=== PATIENT | female | born 1935 | race Caucasian/White ===

== ENCOUNTER 2016-10-03 15:54 | Emergency (ER) | payer MEDICARE, MEDICAID ==
[2016-10-03 16:16] VITALS: BP 102/67
--- NOTE | 2016-10-03 16:49 | UC ---
Dizzy HPI HPI Summary: The patient comes in today for: 1. Dizziness (vertigo): Onset: 2-3 days. Palliative/provocative: Head movement sometimes makes her vertigo worse. Quality: Vertigo Region: QUARTZ MINER BLASTING Severity: 7/10 Time: Comes and goes. Associated symptoms: Neurologic: She denies any focal neurologic deficit. 2. Head injury: Onset: 2-3 days ago. Palliative/provocative: No headache--nothing makes her symptoms better or worse. Quality: No headaches--just vertigo Region: QUARTZ MINER BLASTING Severity: 0/10 Time: No pain Associated symptoms: Event: She states that she slid off the bed which was about 2 feet off the floor. She states that her head was the last thing to hit the carpeted floor. But, still she states that the floor still is "very hard." Previous disease: She has an adenoma diagnosed in 2011. She had a recent MRI about 2 weeks ago, and there was no change. Her previous MRI was 2 years ago. She also has cataracts and macular degeneration. She denies any new symptoms since hitting her head. She states that she does have nausea. She has a history of chronic diarrhea. She also states that she is slow in forming concepts. The daughter states that the patient was brought in due to the new vertigo. * * - History Of Current Complaint Chief Complaint: UCDizziness Stated Complaint: DIZZINESS Time Seen by Provider: 10/03/16 16:29 Hx Obtained From: Patient, Family/Hospice Clinical Supervisor - Allergies/Home Medications Allergies/Adverse Reactions: Allergies Allergy/AdvReac Type Severity Reaction Status Date / Time Erythromycin Allergy Difficulty Verified 05/05/16 17:40 Breathing/Wheezing Latex Allergy Difficulty Verified 05/05/16 17:40 Breathing/Wheezing Lovastatin Allergy Difficulty Verified 05/05/16 17:40 Breathing/Wheezing Home Medications: Home Medications Acetaminophen [Acetaminophen Extra Stren] 1 tab PO Q4HR PRN 10/03/16 [History Confirmed 10/03/16] Artificial Tear Solution [Natural Balance Tears] 1 drop BOTH EYES BID 10/03/16 [ History Confirmed 10/03/16] Artificial Tears 1.4% PRN 10/03/16 [History] Calcium Carbonate CHEW TAB* [Tums*] 1 tab PO PRN 10/03/16 [History] Cyanocobalamin 100 mcg PO DAILY 10/03/16 [History Confirmed 10/03/16] Fresh Optive Advanced 0.5-1-0.5% 10/03/16 [History] Guiatuss 10 ml PO Q4HR PRN 10/03/16 [History Confirmed 10/03/16] Hydrocortisone Acetate (Topica [Hydrocortisone Acetate] 1 applic TOPICAL PRN [History] Hydrocortisone SUPP* [Anusol Hc Supp*] 25 mg GA BEDTIME PRN 10/03/16 [History Confirmed 10/03/16] Immodium A-D 2 mg PO TID PRN 10/03/16 [History Confirmed 10/03/16] LORazepam TAB(*) [Ativan TAB(*)] 0.5 tab PO BID 10/03/16 [History Confirmed ] Lactobacillus Acidophilu (GG)* [Culturelle*] 2 tab PO BID 10/03/16 [History Confirmed 10/03/16] Lidocaine [Aspercreme W/Lidocaine] PRN 10/03/16 [History] Liniments & Rubs [Deep Blue Relief] 10/03/16 [History] Maalox Advanced 200-200-20 5 ml PO Q4HR PRN 10/03/16 [History Confirmed 10/03/16 ] Magnesium 27 mg PO DAILY 10/03/16 [History Confirmed 10/03/16] Melatonin 1 tab PO BEDTIME PRN 10/03/16 [History Confirmed 10/03/16] Coffee Nasal Mist 2 spray BOTH NARES PRN 10/03/16 [History] Oxycodone TAB(NF) [Oxycodone HCl 10 MG] 1 tab PO Q12HR PRN 10/03/16 [History Confirmed 10/03/16] Pro Air 2 puff INH Q4HR 10/03/16 [History Confirmed 10/03/16] diPHENhydraMINE PO* [Benadryl PO*] 1 tab PO Q6HR 10/03/16 [History Confirmed ] PMH/Surg Hx/FS Hx/Imm Hx Previously Healthy: No - Dementia, joint pain, hypertrophic cardiomyopathy, arteriosclerosis, divert Endocrine History Of: Reports: Thyroid Disease, Hypothyroidism, Dyslipidemia Denies: Diabetes - c Cardiovascular History Of: Reports: Cardiac Disorders - CAD and history of stents., Hypertension, Atrial Fibrillation Denies: Pacemaker/ICD, Myocardial Infarction, Congestive Heart Failure, Deep Vein Thrombosis, Bleeding Disorders Respiratory History Of: Reports: Asthma Denies: COPD, Bronchitis, Pneumonia, Pulmonary Embolism GI/ History Of: Reports: Gastroesophageal Reflux, Ulcer Denies: Gastrointestinal Bleed, Gall Bladder Disease, Kidney Stones, Diverticulitis, Renal Disease, Urosepsis Neurological History Of: Denies: TIA, CVA, Dementia, Seizures, Migraine Psychological History Of: Reports: Anxiety, Depression Denies: Bipolar Disorder, Schizophrenia, Post Traumatic Stress Disorder Cancer History Of: Denies: Lung Cancer, Colorectal Cancer, Breast Cancer, Prostate Cancer, Cervical Cancer Other History Of: Anticoagulant Therapy - Xarelto for a-fib. Negative For: HIV, Hepatitis B, Hepatitis C - Surgical History Surgical History: Yes Surgery Procedure, Year, and Place: spinal fusion 1953, [id number], hernia 1987 2001,left knee arthroscopy 2003,left shoulder rct 2004, [id number], thumb 2008 & 2011 - Family History Known Family History: Positive: Cardiac Disease, Hypertension, Diabetes - Social History Occupation: Unemployed, Retired Alcohol Use: None Substance Use Type: None Smoking Status (MU): Former Smoker When Did the Patient Quit Smoking/Using Tobacco: 45 years ago - Immunization History Most Recent Influenza Vaccination: 2016/2017 Most Recent Pneumonia Vaccination: have received Review of Systems Constitutional: Negative Skin: Negative Eyes: Other - She has decreased peripheral vision (but history of adenoma which may cause this). ENT: Negative Respiratory: Negative Cardiovascular: Negative Gastrointestinal: Diarrhea Genitourinary: Negative - Diarrhea: 3-5 stools/day. Musculoskeletal: Arthralgia All Other Systems Reviewed And Are Negative: Yes Physical Exam Triage Information Reviewed: Yes Completion Of Physical Exam Limited Due To: Altered Mental Status, Dementia Appearance: Well-Appearing, No Pain Distress, Well-Nourished Vital Signs: Initial Vital Signs Temp 98 F 10/03/16 16:01 Pulse 86 10/03/16 16:01 Resp 18 10/03/16 16:01 BP 102/67 10/03/16 16:01 Pulse Ox 96 10/03/16 16:01 Vital Signs Reviewed: Yes Eyes: Positive: Conjunctiva Clear. Negative: Discharge ENT: Negative: Hearing grossly normal - I had to raise my voice to help her hear me., Pharyngeal erythema, Nasal congestion, Nasal drainage, TM bulging, TM dull, TM red, Tonsillar swelling, Tonsillar exudate Dental: Negative: Gross Decay/Caries @, Dental Fracture @ Neck: Positive: Supple, Nontender, No Lymphadenopathy. Negative: Nuchal Rigidity - No nuchal rigidity more than expected for 81 years old. Respiratory: Positive: Chest non-tender, Lungs clear, No respiratory distress, No accessory muscle use. Negative: Crackles, Wheezing Cardiovascular: Positive: RRR, No Murmur Abdomen Description: Positive: Nontender, No Organomegaly, Soft. Negative: Distended, Guarding Musculoskeletal: Positive: Strength Intact, ROM Intact Neurological: Positive: Alert, Muscle Tone Normal, Other: - Neurologic exam: Inspection: no fasciculations. Cranial nerves (II-XII): intact Muscular tone: Reflexes: Biceps: 2+/2 x 2 Triceps: 2+/2 x 2 Brachioradialis: 2+/2 x 2 Patellar: 2+/2 x 2 Coordination: Upper extremity: Alternating patting of thighs, alternating fingertips to thumb, index finger tip to nose--all normal. Lower extremity: Heel along cedillo--normal. Strength: Upper extremity: appropriate for age and symmetrical Lower extremity: appropriate for age and symmetrical Gait: Regular: Normal. Heel to toe: Normal. No complaint of numbness. Psychological: Positive: Normal Response To Family, Age Appropriate Behavior, Consolable Skin: Negative: rashes, breakdown Dizzy Course/Dx - Course Course Of Treatment: The patient was brought in by the daughter because of her "hitting her head" when she "slid" off the bed several days ago and in light of her recent vertigo and for her complaint of worsening peripheral vision in light of her history of a pituitary adenoma. It was said before that the adenoma may lead to worsening peripheral vision, but the MRI done a week or so ago showed no change. My recommendation was for the patient to go to the ER for further evaluation, but the patient refused. She only agreed to come in because she wanted her diarrhea evaluated, but this has previously been evaluated by digestive diseases and she has refused any further work up by them. The patient stated that she did not want any evaluation or treatment for her peripheral vision or vertigo. The only thing the patient agreed to was meclizine for her vertigo. - Differential Dx/Diagnosis Differential Diagnosis/HQI/PQRI: Anxiety, CVA Provider Diagnoses: Vertigo. Head injury. Worsening peripheral vision. Pituitary adenoma. Discharge - Discharge Plan Condition: Stable Disposition: AGAINST MEDICAL ADVICE Patient Education Materials: Vertigo (ED), Head Injury (ED), Blurred Vision (ED ) Referrals: Billy Joseph MD [Primary Care Provider] - As Soon As Possible (If you are not going to the ER, please see your primary care provider as soon as you can for follow up of your new symptoms. If you get worse, please reconsider going to the ER.)
== END 2016-10-03 17:50 | disposition left against medical advice (07) ==
LOC: UCEAST 15:54
DX: R42 Dizziness and giddiness (principal); S09.90XA Unspecified injury of head, initial encounter; W06.XXXA Fall from bed, initial encounter; Y93.9 Activity, unspecified; Y92.003 Bedroom of unspecified non-institutional (private) residence as the place of occurrence of the external cause; H53.8 Other visual disturbances; D35.2 Benign neoplasm of pituitary gland; R19.7 Diarrhea, unspecified; I25.10 Atherosclerotic heart disease of native coronary artery without angina pectoris; I48.91 Unspecified atrial fibrillation; Z79.01 Long term (current) use of anticoagulants; I10 Essential (primary) hypertension; K21.9 Gastro-esophageal reflux disease without esophagitis; Z90.49 Acquired absence of other specified parts of digestive tract; Z88.1 Allergy status to other antibiotic agents; Z87.891 Personal history of nicotine dependence
CPT/HCPCS: 93005; 99212; G0463

== ENCOUNTER 2017-02-06 20:36 | Emergency (ER) | payer MEDICARE, MEDICAID ==
[2017-02-06] MEDS ORDERED: Hydrocortisone SUPP* 25 MG SUPP (2.5%) PR ONE (23:21)
--- NOTE | 2017-02-06 23:41 | ED ---
Lesvia Strickland SooYoung, scribed for Demetrius Ace MD on 02/06/17 at 2312 . GI/ HPI - HPI Summary HPI Summary: An 81 y/o F presents to ED with rectal pain onset approx 2 months ago. Associated sx: gassy. Pt is positive it's a hemorrhoid, and wants them removed. Aggravating factors: sitting. Pt has had prev episodes of hemorrhoids and was given hydrocortisone rectal cream and Anusol HC Supp. She is scheduled to see Dr. Joseph, PCP, next week. - History of Current Complaint Chief Complaint: EDRectalPain Time Seen by Provider: 02/06/17 23:09 Stated Complaint: RECTAL BLEED Hx Obtained From: Patient Onset/Duration: Started Weeks Ago, Still Present Timing: Constant Pain Intensity: 0 - out of 10 Associated Signs and Symptoms: Positive: External Hemorrhoid, Other: - pos: gassy Aggravating Factor(s): Sitting - Allergy/Home Medications Allergies/Adverse Reactions: Allergies Allergy/AdvReac Type Severity Reaction Status Date / Time Erythromycin Allergy Difficulty Verified 05/05/16 17:40 Breathing/Wheezing Latex Allergy Difficulty Verified 05/05/16 17:40 Breathing/Wheezing Lovastatin Allergy Difficulty Verified 05/05/16 17:40 Breathing/Wheezing PMH/Surg Hx/FS Hx/Imm Hx Previously Healthy: No Endocrine/Hematology History: Reports: Hx Anticoagulant Therapy - Xarelto for a- fib., Hx Thyroid Disease Denies: Hx Diabetes - c Cardiovascular History: Reports: Hx Hypertension Denies: Hx Congestive Heart Failure, Hx Deep Vein Thrombosis, Hx Myocardial Infarction, Hx Pacemaker/ICD Respiratory History: Reports: Hx Asthma Denies: Hx Chronic Obstructive Pulmonary Disease (COPD), Hx Lung Cancer, Hx Pneumonia, Hx Pulmonary Embolism GI History: Reports: Hx Ulcer Denies: Hx Gall Bladder Disease, Hx Gastrointestinal Bleed, Hx Urosepsis History: Denies: Hx Kidney Stones, Hx Renal Disease Sensory History: Denies: Hx Hearing Aid Neurological History: Denies: Hx Dementia, Hx Migraine, Hx Seizures, Hx Transient Ischemic Attacks (TIA) Psychiatric History: Reports: Hx Anxiety, Hx Depression Denies: Hx Panic Disorder, Hx Schizophrenia, Hx Bipolar Disorder - Surgical History Surgery Procedure, Year, and Place: spinal fusion 1953, [id number], hernia 1987 2001,left knee arthroscopy 2003,left shoulder rct 2004, [id number], thumb 2008 & 2012 Infectious Disease History: No Infectious Disease History: Denies: Hx Clostridium Difficile, Hx Hepatitis, Hx Human Immunodeficiency Virus (HIV), Hx of Known/Suspected MRSA, Hx Shingles, Hx Tuberculosis, Hx Known/ Suspected VRE, Hx Known/Suspected VRSA, History Other Infectious Disease, Traveled Outside the [place] in Last 30 Days - Family History Known Family History: Positive: Cardiac Disease, Hypertension, Diabetes - Social History Occupation: Retired Lives: At [facility] Alcohol Use: None Hx Substance Use: No Substance Use Type: Reports: None Hx Tobacco Use: Yes Smoking Status (MU): Former Smoker Review of Systems Negative: Fever Positive: pain - rectal, other - pos: hemorrhoids All Other Systems Reviewed And Are Negative: Yes Physical Exam Triage Information Reviewed: Yes Vital Signs On Initial Exam: Initial Vitals Temp Pulse Resp BP Pulse Ox 96.8 F 76 16 102/83 97 02/06/17 20:42 02/06/17 20:42 02/06/17 20:42 02/06/17 20:42 02/06/17 20:42 Vital Signs Reviewed: Yes Appearance: Positive: Well-Appearing, No Pain Distress Skin: Positive: Warm, Skin Color Reflects Adequate Perfusion, Dry, Mottled @ Eyes: Positive: EOMI, YANET ENT: Positive: Normal ENT inspection Neck: Positive: Supple, Nontender Respiratory/Lung Sounds: Positive: Clear to Auscultation, Breath Sounds Present Cardiovascular: Positive: RRR Abdomen Description: Positive: Nontender, Soft Bowel Sounds: Positive: Present Pelvic Exam: Positive: other - EXTERNAL HEMORRHOIDS, DO NOT APPEAR THROMBOSED Musculoskeletal: Positive: Normal, Strength/ROM Intact Neurological: Positive: Normal, Sensory/Motor Intact, Alert, Oriented to Person Place, Time Psychiatric: Positive: Affect/Mood Appropriate - Kristyn Coma Scale Coma Scale Total: 15 Diagnostics - Vital Signs Vital Signs Temp Pulse Resp BP Pulse Ox 02/06/17 22:16 16 95 02/06/17 22:04 104 94 02/06/17 22:00 115/94 02/06/17 21:48 116 88 02/06/17 21:30 94 104/61 87 02/06/17 21:05 99 92 02/06/17 21:01 116/81 02/06/17 20:48 96.8 F 76 16 102/83 97 02/06/17 20:42 96.8 F 76 16 97 - Laboratory Lab Statement: Any lab studies that have been ordered have been reviewed, and results considered in the medical decision making process. GIGU Course/Dx - Course Course Of Treatment: NO CRITICAL CARE TIME. DISCHARGE HOME STABLE. - Diagnoses Provider Diagnoses: Hemorrhoids Discharge - Discharge Plan Condition: Stable Disposition: HOME Prescriptions: Hydrocortisone (Rectal) [Procto-Med Hc] 2.5 % [place] BEDTIME PRN #1 tube PRN Reason: Pain Hydrocortisone SUPP* [Anusol Hc Supp*] 25 mg [place] BEDTIME PRN #30 supp PRN Reason: Hemorrhoids/Itching Patient Education Materials: Hemorrhoids (ED) Referrals: Billy Joseph MD [Primary Care Provider] - Raffi House MD [Medical Doctor] - Additional Instructions: FOLLOW UP WITH YOUR PRIMARY CARE DOCTOR AND SURGERY. RETURN TO THE EMERGENCY DEPARTMENT FOR ANY WORSENING OF YOUR CONDITION OR QUESTIONS OR CONCERNS. The documentation as recorded by the Lesvia dean SooYoung accurately reflects the service I personally performed and the decisions made by me, Demetrius Ace MD.
[2017-02-07 00:08] VITALS: BP 109/70
== END 2017-02-07 00:18 | disposition home or self-care (01) ==
LOC: ED 20:36
DX: K64.4 Residual hemorrhoidal skin tags (principal); Z88.1 Allergy status to other antibiotic agents; Z91.040 Latex allergy status; I48.91 Unspecified atrial fibrillation; Z79.01 Long term (current) use of anticoagulants; E07.9 Disorder of thyroid, unspecified; I10 Essential (primary) hypertension; J45.909 Unspecified asthma, uncomplicated; F41.9 Anxiety disorder, unspecified; F32.9 Major depressive disorder, single episode, unspecified; Z90.49 Acquired absence of other specified parts of digestive tract; Z87.891 Personal history of nicotine dependence
CPT/HCPCS: 99282; A9270-GY

== ENCOUNTER 2017-02-08 09:09 | Emergency (ER) | payer MEDICARE, MEDICAID ==
--- NOTE | 2017-02-08 10:24 | ED ---
Nam Strickland Thomas, scribed for Demetrius Ace MD on 02/08/17 at 0943 . GI/ HPI - HPI Summary HPI Summary: The pt is an 81 y/o F with a Hx of chronic hemorrhoids presenting to the ED c/o severe rectal pain. She has been using her cream, but this has not alleviated her pain. Her pain is only in the anus and does not radiate elsewhere. She additionally c/o diaphoresis and constipation until this AM, when she had diarrhea that caused onset of pain. The pt denies a PMHx of A-Fib. She has not had a chance to talk to a surgeon. She states that Medicaid has charged her $ 400 for suppositories, making her unable to fill the prescription. - History of Current Complaint Chief Complaint: EDRectalPain Time Seen by Provider: 02/08/17 09:21 Stated Complaint: PAIN Hx Obtained From: Patient Onset/Duration: Started Hours Ago - this AM, after onset of diarrhea, Still Present Timing: Constant Current Severity: Severe Pain Intensity: 10 Location of Pain: Anal - only Associated Signs and Symptoms: Positive: Constipation - until this AM, when diarrhea occurred, Diarrhea, Diaphoresis Aggravating Factor(s): Nothing Alleviating Factor(s): Nothing, Hemorroidal Medication - NEG: cream medication - Allergy/Home Medications Allergies/Adverse Reactions: Allergies Allergy/AdvReac Type Severity Reaction Status Date / Time Erythromycin Allergy Difficulty Verified 02/08/17 09:19 Breathing/Wheezing Latex Allergy Difficulty Verified 02/08/17 09:19 Breathing/Wheezing Lovastatin Allergy Difficulty Verified 02/08/17 09:19 Breathing/Wheezing PMH/Surg Hx/FS Hx/Imm Hx Previously Healthy: No Endocrine/Hematology History: Reports: Hx Anticoagulant Therapy - Xarelto for a- fib., Hx Thyroid Disease Denies: Hx Diabetes - c Cardiovascular History: Reports: Hx Hypertension Denies: Hx Congestive Heart Failure, Hx Deep Vein Thrombosis, Hx Myocardial Infarction, Hx Pacemaker/ICD Respiratory History: Reports: Hx Asthma Denies: Hx Chronic Obstructive Pulmonary Disease (COPD), Hx Lung Cancer, Hx Pneumonia, Hx Pulmonary Embolism GI History: Reports: Hx Ulcer Denies: Hx Gall Bladder Disease, Hx Gastrointestinal Bleed, Hx Urosepsis History: Denies: Hx Kidney Stones, Hx Renal Disease Sensory History: Denies: Hx Hearing Aid Neurological History: Denies: Hx Dementia, Hx Migraine, Hx Seizures, Hx Transient Ischemic Attacks (TIA) Psychiatric History: Reports: Hx Anxiety, Hx Depression Denies: Hx Panic Disorder, Hx Schizophrenia, Hx Bipolar Disorder - Surgical History Surgery Procedure, Year, and Place: spinal fusion 195, [id number], hernia 1988 2001,left knee arthroscopy 2003,left shoulder rct 2004, [id number], thumb 2008 & 2011 Infectious Disease History: No Infectious Disease History: Denies: Hx Clostridium Difficile, Hx Hepatitis, Hx Human Immunodeficiency Virus (HIV), Hx of Known/Suspected MRSA, Hx Shingles, Hx Tuberculosis, Hx Known/ Suspected VRE, Hx Known/Suspected VRSA, History Other Infectious Disease, Traveled Outside the [place] in Last 30 Days - Family History Known Family History: Positive: Cardiac Disease, Hypertension, Diabetes - Social History Alcohol Use: None Hx Substance Use: No Substance Use Type: Reports: None Hx Tobacco Use: Yes Smoking Status (MU): Former Smoker Review of Systems Constitutional: Negative Negative: Fever Eyes: Negative ENT: Negative Cardiovascular: Negative Respiratory: Negative Positive: Diarrhea - onset this AM, Other - POS: rectal pain, constipation ( until this AM, when diarrhea occurred) Genitourinary: Negative Musculoskeletal: Negative Skin: Negative Neurological: Negative Psychological: Normal All Other Systems Reviewed And Are Negative: Yes Physical Exam - Summary Physical Exam Summary: Gen: well-appearing, no pain distress Skin: warm, color, dry Head: normal Eyes: EOMI, YANET ENT: normal Neck: supple, nontender Resp: CTA, breath sounds present Cardio: RRR Abd: soft, nontender Bowel: R side of anus has 3 hemorrhoids that are soft to touch and do not appear thrombosed. Stool is brown. Musc: normal, strength/ROM intact Neuro: normal, sensory/motor intact, A&O x3 Psych: affect/mood appropriate Triage Information Reviewed: Yes Vital Signs On Initial Exam: Initial Vitals Temp Pulse Resp BP Pulse Ox 98.3 F 96 16 95/58 94 02/08/17 09:14 02/08/17 09:14 02/08/17 09:14 02/08/17 09:14 02/08/17 09:14 Vital Signs Reviewed: Yes - Kristyn Coma Scale Coma Scale Total: 15 Diagnostics - Vital Signs Vital Signs Temp Pulse Resp BP Pulse Ox 02/08/17 09:16 98.3 F 100 10 95/58 96 02/08/17 09:15 95/58 02/08/17 09:14 98.3 F 96 16 95/58 94 - Laboratory Lab Statement: Any lab studies that have been ordered have been reviewed, and results considered in the medical decision making process. GIGU Course/Dx - Course Course Of Treatment: NO CRITICAL CARE TIME. DISCUSSED WITH SURGERY, DR GUERIN. APPOINTMENT AT SURGERY MADE FOR 2PM TODAY. DISCHARGE HOME STABLE. - Diagnoses Provider Diagnoses: External hemorrhoids - Physician Notifications Discussed Care Of Patient With: Madison Guerin Time Discussed With Above Provider: 09:22 Instructed by Provider To: Other - Dr. Guerin recommended outpatient Tx. Called Dr. Guerin's outpatient office at 10:11 to secure an outpatient appointment for the pt at 2pm today. Discharge - Discharge Plan Condition: Stable Disposition: HOME Patient Education Materials: Hemorrhoids (ED) Referrals: Billy Joseph MD [Primary Care Provider] - Additional Instructions: FOLLOW UP WITH DR GUERIN, SURGERY, TODAY AT 2PM. RETURN TO THE EMERGENCY DEPARTMENT FOR ANY WORSENING OF YOUR CONDITION OR QUESTIONS OR CONCERNS. The documentation as recorded by the Nam dean Thomas accurately reflects the service I personally performed and the decisions made by me, Demetrius Ace MD.
[2017-02-08 10:40] VITALS: BP 104/70
== END 2017-02-08 10:51 | disposition home or self-care (01) ==
LOC: ED 09:09
DX: K64.4 Residual hemorrhoidal skin tags (principal); K59.00 Constipation, unspecified; Z87.891 Personal history of nicotine dependence
CPT/HCPCS: 99282

== ENCOUNTER 2017-02-16 11:31 | Inpatient (IN) | payer MEDICARE, MEDICAID ==
[2017-02-16 12:49] LABS: Hematocrit 35 % (35-47); Hemoglobin 11.5 g/dl (12.0-16.0); Mean Corpuscular HGB Conc 33 g/dl (31-36); Mean Corpuscular Hemoglobin 30 pg (27-31); Mean Corpuscular Volume 93 fL (80-97); Mean Platelet Volume 8 um3 (7.4-10.4); Red Blood Count 3.81 10^6/ul (4.0-5.4); Red Cell Distribution Width 16 % (10.5-15); White Blood Count 6.1 10^3/ul (3.5-10.8)
[2017-02-16 13:03] LABS: ALT 8 U/L (7-52); AST 14 U/L (13-39); Albumin 3.3 g/dL (3.2-5.2); Alkaline Phosphatase 49 U/L (34-104); Anion Gap 3 mmol/L (2-11); BUN/Creatinine Ratio 14.1 (8-20); Blood Urea Nitrogen 14 mg/dL (6-24); C Reactive Protein 15.86 mg/L (< 5.00); CO2 Carbon Dioxide 32 mmol/L (22-32); Calcium 8.5 mg/dL (8.6-10.3); Chloride 99 mmol/L (101-111); EGFR African American 69.2 (>60); EGFR Non-African American 53.8 (>60); Globulin 2.6 g/dL (2-4); Glucose 87 mg/dL (70-100); Potassium 3.2 mmol/L (3.5-5.0); Sodium 134 mmol/L (133-145); Total Protein 5.9 g/dL (6.4-8.9)
[2017-02-16] MEDS ORDERED: Potassium Chlor TAB* 20 MEQ TAB.ER PO ONE (13:14)
[2017-02-16 14:13] LABS: Lipase < 10 U/L (11.0-82.0)
[2017-02-16] MEDS ORDERED: Saline NASAL SPRAY 0.65%* BTL BOTH NARES PRN (14:31)
[2017-02-16] MEDS ORDERED: LORazepam TAB(*) 0.5 MG PO PRN (14:31)
[2017-02-16] MEDS ORDERED: Albuterol HFA INHALER* 8 gm MDI INH PRN (14:31)
[2017-02-16] MEDS ORDERED: NON FORMULARY MED* (Melatonin [Melatonin] 5 MG) PO PRN (14:31)
[2017-02-16] MEDS ORDERED: Calcium Carbonate CHEW TAB* 500 MG (TUMS) PO PRN (14:31)
[2017-02-16] MEDS ORDERED: diPHENhydraMINE PO* 25 MG PO PRN (14:31)
[2017-02-16] MEDS: NS 0.9% w/ 20 Meq KCL 1000 ML* 1,000 ML IV SCH (16:36)
[2017-02-16] MEDS: Pantoprazole IV* 40 MG IV SCH (18:21)
--- NOTE | 2017-02-16 18:54 | ED ---
Marbin Strickland Auryana, scribed for Honorio Bateman MD on 02/16/17 at 1213 . GI/ HPI - HPI Summary HPI Summary: 82 year old female with presents to the ED with worsening rectal pain. Per the daughter, the patient has a prolapsed rectum with daily excruciating pain with blood and mucous in the stool. The pain is constant and a 10/10.Patient had been experiencing severe and uncontrollable diarrhea s/p taking Metamucil. Last BM - this morning. [employer] pain medication. She was seen in the ED last week where she was diagnosed with external hemorrhoids and instructed to follow up with surgery. The surgeon diagnosed rectal prolapse and recommended surgery. She was unable to schedule surgery without a prior colonoscopy, and the earliest availability for a colonoscopy was not until March. Pain and bleeding have been progressively worsening-GI and surgery recommended coming to the ED today to be admitted. - History of Current Complaint Chief Complaint: EDRectalPain Time Seen by Provider: 02/16/17 11:48 Stated Complaint: RECTAL BLEEDING/PAIN Hx Obtained From: Patient, Family/Table Attendant - daughter Onset/Duration: Started Weeks Ago, Still Present, Worse Since - progessively worsening Timing: Constant Severity: Severe Current Severity: Severe Location of Pain: Rectal Associated Signs and Symptoms: Positive: Rectal Pain, Blood w/Stool, Diarrhea - Allergy/Home Medications Allergies/Adverse Reactions: Allergies Allergy/AdvReac Type Severity Reaction Status Date / Time Erythromycin Allergy Difficulty Verified 02/08/17 09:19 Breathing/Wheezing Latex Allergy Difficulty Verified 02/08/17 09:19 Breathing/Wheezing Lovastatin Allergy Difficulty Verified 02/08/17 09:19 Breathing/Wheezing Home Medications: Home Medications Acetaminophen [Acetaminophen Extra Stren] 500 mg PO Q4HR PRN 02/16/17 [History Confirmed 02/16/17] Albuterol Sulfate [Proair Respiclick] 2 puff INH Q4HR PRN 02/16/17 [History Confirmed 02/16/17] Calcium Carbonate CHEW TAB* [Tums*] 500 mg PO BID PRN 02/16/17 [History Confirmed 02/16/17] Cholecalciferol [Vitamin D] 2,000 unit PO DAILY 02/16/17 [History Confirmed 06/25] Cyanocobalamin [Vitamin B-12] 100 mcg PO DAILY 02/16/17 [History Confirmed 02/16] Escitalopram (NF) [Lexapro 20 mg (NF)] 20 mg PO DAILY 02/16/17 [History Confirmed 02/16/17] Hydrocortisone SUPP* [Anusol HC Supp*] 25 mg TN BEDTIME PRN 02/16/17 [History Confirmed 02/16/17] Levothyroxine TAB* [Synthroid TAB*] 50 mcg PO DAILY 02/16/17 [History Confirmed 02/16/17] Loperamide CAP* [Imodium CAP*] 2 mg PO DAILY PRN 02/16/17 [History Confirmed 06/25] Magnesium Gluconate [Magonate] 500 mg PO DAILY 02/16/17 [History Confirmed 02/16] Melatonin 5 mg PO BEDTIME PRN 02/16/17 [History Confirmed 02/16/17] Multiple Vitamins W/ Minerals [Ocuvite Eye Health Formul] 1 cap PO BID 02/16/17 [History Confirmed 02/16/17] Pantoprazole TAB (NF) [Protonix TAB (NF)] 40 mg PO DAILY 02/16/17 [History Confirmed 02/16/17] Ranitidine TAB (NF) [Zantac TAB (NF)] 300 mg PO BEDTIME 02/16/17 [History Confirmed 02/16/17] Rivaroxaban TAB(*) [Xarelto 15 mg(*)] 15 mg PO DAILY 02/16/17 [History Confirmed 02/16/17] Saline [Nasal Moisturizing [place]] 2 spray BOTH NARES DAILY PRN 02/16/17 [ History Confirmed 02/16/17] Simvastatin (NF) [Zocor (NF)] 40 mg PO DAILY 02/16/17 [History Confirmed ] oxyCODONE TAB* [Roxycodone TAB 5 mg*] 10 mg PO Q12HR PRN MDD 20 mg 02/16/17 [ History Confirmed 02/16/17] PMH/Surg Hx/FS Hx/Imm Hx Endocrine/Hematology History: Reports: Hx Anticoagulant Therapy - Xarelto for a- fib., Hx Thyroid Disease Denies: Hx Diabetes - c Cardiovascular History: Reports: Hx Hypertension Denies: Hx Congestive Heart Failure, Hx Deep Vein Thrombosis, Hx Myocardial Infarction, Hx Pacemaker/ICD Respiratory History: Reports: Hx Asthma Denies: Hx Chronic Obstructive Pulmonary Disease (COPD), Hx Lung Cancer, Hx Pneumonia, Hx Pulmonary Embolism GI History: Reports: Hx Ulcer Denies: Hx Gall Bladder Disease, Hx Gastrointestinal Bleed, Hx Urosepsis History: Denies: Hx Kidney Stones, Hx Renal Disease Sensory History: Denies: Hx Hearing Aid Neurological History: Denies: Hx Dementia, Hx Migraine, Hx Seizures, Hx Transient Ischemic Attacks (TIA) Psychiatric History: Reports: Hx Anxiety, Hx Depression Denies: Hx Panic Disorder, Hx Schizophrenia, Hx Bipolar Disorder - Surgical History Surgery Procedure, Year, and Place: spinal fusion 1953, [id number], hernia 1988 2001,left knee arthroscopy 2003,left shoulder rct 2004, [id number], thumb 2008 & 2011 Infectious Disease History: Denies: Hx Clostridium Difficile, Hx Hepatitis, Hx Human Immunodeficiency Virus (HIV), Hx of Known/Suspected MRSA, Hx Shingles, Hx Tuberculosis, Hx Known/ Suspected VRE, Hx Known/Suspected VRSA, History Other Infectious Disease - Family History Known Family History: Positive: Cardiac Disease, Hypertension, Diabetes - Social History Alcohol Use: None Hx Substance Use: No Substance Use Type: Reports: None Hx Tobacco Use: Yes Smoking Status (MU): Former Smoker Review of Systems Constitutional: Negative Negative: Fever Eyes: Negative ENT: Negative Cardiovascular: Negative Respiratory: Negative Positive: Diarrhea, Other - rectal pain, blood in the stool Genitourinary: Negative Musculoskeletal: Negative Skin: Negative Neurological: Negative Psychological: Normal All Other Systems Reviewed And Are Negative: Yes Physical Exam - Summary Physical Exam Summary: VITAL SIGNS: Reviewed. GENERAL: Patient is a well-developed and nourished Female who is lying comfortable in the stretcher. Patient is not in any acute respiratory distress. HEAD AND FACE: No signs of trauma. No ecchymosis, hematomas or skull depressions. No sinus tenderness. EYES: PERRLA, EOMI x 2, No injected conjunctiva, no nystagmus. EARS: Hearing grossly intact. Ear canals and tympanic membranes are within normal limits. MOUTH: Oropharynx within normal limits. NECK: Supple, trachea is midline, no adenopathy, no JVD, no carotid bruit, no c- spine tenderness, neck with full ROM. CHEST: Symmetric, no tenderness at palpation LUNGS: Clear to auscultation bilaterally. No wheezing or crackles. CVS: Regular rate and rhythm, S1 and S2 present, no murmurs or gallops appreciated. ABDOMEN: Soft, non-tender. No signs of distention. No rebound no guarding, and no masses palpated. Bowel sounds are normal. EXTREMITIES: FROM in all major joints, no edema, no cyanosis or clubbing. NEURO: Alert and oriented x 3. No acute neurological deficits. Speech is normal and follows commands. SKIN: Dry and warm. RECTAL EXAM: No rectal prolapse. Decreased rectal tone. No external hemorrhoids visible. Positive remnants of BRBPR in her underware. No acute bleeding. Triage Information Reviewed: Yes Vital Signs On Initial Exam: Initial Vitals Temp Pulse Resp BP Pulse Ox 96.8 F 72 11 89/65 94 02/16/17 11:38 02/16/17 11:38 02/16/17 11:38 02/16/17 11:38 02/16/17 11:38 Vital Signs Reviewed: Yes Diagnostics - Vital Signs Vital Signs Temp Pulse Resp BP Pulse Ox 02/16/17 14:17 75 15 95/82 91 02/16/17 14:00 68 13 94 02/16/17 13:30 74 18 92/38 91 02/16/17 13:05 13 02/16/17 12:52 81 21 89 02/16/17 12:30 100/59 02/16/17 12:24 70 13 93/64 91 02/16/17 12:00 72 14 92 02/16/17 11:51 75 14 94 02/16/17 11:38 96.8 F 72 11 89/65 94 - Laboratory Lab Results: Lab Results 02/16/17 02/16/17 02/16/17 Range/Units 12:40 12:40 12:40 WBC 6.1 (3.5-10.8) 10^3/ul RBC 3.81 L (4.0-5.4) 10^6/ul Hgb 11.5 L (12.0-16.0) g/dl Hct 35 (35-47) % MCV 93 (80-97) fL MCH 30 (27-31) pg MCHC 33 (31-36) g/dl RDW 16 H (10.5-15) % Plt Count 230 (150-450) 10^3/ul MPV 8 (7.4-10.4) um3 Neut % (Auto) 54.1 (38-83) % Lymph % (Auto) 26.8 (25-47) % Millard % (Auto) 12.2 H (1-9) % Eos % (Auto) 6.0 (0-6) % Baso % (Auto) 0.9 (0-2) % Absolute Neuts (auto) 3.3 (1.5-7.7) 10^3/ul Absolute Lymphs (auto) 1.6 (1.0-4.8) 10^3/ul Absolute Monos (auto) 0.7 (0-0.8) 10^3/ul Absolute Eos (auto) 0.4 (0-0.6) 10^3/ul Absolute Basos (auto) 0.1 (0-0.2) 10^3/ul Absolute Nucleated RBC 0 10^3/ul Nucleated RBC % 0 Sodium 134 (133-145) mmol/L Potassium 3.2 L (3.5-5.0) mmol/L Chloride 99 L (101-111) mmol/L Carbon Dioxide 32 (22-32) mmol/L Anion Gap 3 (2-11) mmol/L BUN 14 (6-24) mg/dL Creatinine 0.99 H (0.51-0.95) mg/dL Est GFR ( Amer) 69.2 (>60) Est GFR (Non-Af Amer) 53.8 (>60) BUN/Creatinine Ratio 14.1 (8-20) Glucose 87 (70-100) mg/dL Lactic Acid 0.7 (0.5-2.0) mmol/L Calcium 8.5 L (8.6-10.3) mg/dL Total Bilirubin 1.00 (0.2-1.0) mg/dL AST 14 (13-39) U/L ALT 8 (7-52) U/L Alkaline Phosphatase 49 (34-104) U/L C-Reactive Protein 15.86 H (< 5.00) mg/L Total Protein 5.9 L (6.4-8.9) g/dL Albumin 3.3 (3.2-5.2) g/dL Globulin 2.6 (2-4) g/dL Albumin/Globulin Ratio 1.3 (1-3) Lipase < 10 L (11.0-82.0) U/L Result Diagrams: 02/16/17 12:40 02/16/17 12:40 Lab Statement: Any lab studies that have been ordered have been reviewed, and results considered in the medical decision making process. Re-Evaluation - Re-Evaluation First Eval Re-Evaluation Time: 13:33 - rectum prolapse - had to put rectum back in place GIGU Course/Dx - Course Assessment/Plan: 82 year old female with presents to the ED with worsening rectal pain. Per the daughter, the patient has a prolapsed rectum with daily excruciating pain with blood and mucous in the stool. The pain is constant and a 10/10.Patient had been experiencing severe and uncontrollable diarrhea s/p taking Metamucil. Last BM - this morning. [employer] pain medication. She was seen in the ED last week where she was diagnosed with external hemorrhoids and instructed to follow up with surgery. The surgeon diagnosed rectal prolapse and recommended surgery. She was unable to schedule surgery without a prior colonoscopy, and the earliest availability for a colonoscopy was not until March. Pain and bleeding have been progressively worsening-GI and surgery recommended coming to the ED today to be admitted. Test WNL except slight increase in Hg 1.5, potassium 3.2 , CRP 15.86. I discussed the case with Dr. Guerin from surgery and she recommends admission for pain management. I also discussed case with Dr. Land and he will consult the patient for a possible colonoscopy. Also Dr. Guerin will consult the patient for possible correction of rectal prolapse. While in ED, she developed episode of rectal prolapse after an attempt to move her bowels. I reduced rectal prolapse without any complications. I discussed the case with Dr. Patel who accepted the patient for admission. Patient is hemodynamically stable and A&O x3. - Diagnoses Differential Diagnoses - Female: Other - GI bleed, Rectal prolapse Provider Diagnoses: Rectal prolapse - Physician Notifications Discussed Care Of Patient With: Madison Guerin Time Discussed With Above Provider: 13:16 Discharge - Discharge Plan Condition: Stable Disposition: ADMITTED TO [facility] documentation as recorded by the Marbin dean Auryana accurately reflects the service I personally performed and the decisions made by , Honorio Bateman MD.
[2017-02-16] MEDS: oxyCODONE TAB* 5 MG TAB PO PRN (19:45)
--- NOTE | 2017-02-16 20:26 | HP ---
CC: Dr. Billy Joseph. * HISTORY AND PHYSICAL: DATE OF ADMISSION: 02/16/17 CHIEF COMPLAINT: Blood and mucus coming out of her rectum. HISTORY OF PRESENT ILLNESS: The patient is an 82-year-old woman who states for the last several months she has had a constant problem of blood and mucus coming out of her rectum. She said it happens all day long. She also has significant pain in her buttocks from rectal prolapse. The pain happens when she tries to push her rectum back in. She says that it is about 8/10 in severity. She denies any nausea or vomiting. She has an annoyance of the abdomen, but not of pain. She denies any fevers or chills. Sometimes, it gets so bad, she starts to shaking, gets cold. She said she was initially on oxycodone once a day for the pain, but now takes it twice a day because it is so uncomfortable. She finally was able to get a colonoscopy scheduled, but not until March, so she finally came in to the hospital for evaluation. PAST MEDICAL HISTORY: The patient is uncertain of her past medical history, but notes included atrial fibrillation, depression, hypothyroidism, GERD, cardiomyopathy, 2 stents in her heart, hypertension. We will get the rest from her PCP. MEDICATIONS: Her current medications are: 1. Hydrocortisone suppository 25 mg p.r.n. at bedtime as needed. 2. Loperamide 2 mg daily as needed. 3. Albuterol sulfate 2 puffs every 4 hours as needed. 4. Benadryl 50 mg every 6 hours as needed. 5. Oxycodone 10 mg every 12 hours as needed. 6. Acetaminophen 500 mg every 4 hours as needed. 7. Melatonin 5 mg at bedtime as needed. 8. Lorazepam 0.25 mg daily as needed. 9. Saline 2 sprays both nares daily as needed. 10. Calcium carbonate 500 mg twice a day as needed. 11. Ranitidine 300 mg at bedtime. 12. Artificial tears 1 drop both eyes twice daily. 13. Xarelto 15 mg daily. 14. Multivitamin 1 capsule twice daily. 15. Vitamin B12 100 mcg daily. 16. Vitamin D 2000 units daily. 17. Simvastatin 40 mg daily. 18. Protonix 40 mg daily. 19. Magnesium gluconate 500 mg daily. 20. Levothyroxine 50 mcg daily. 21. Lipitor 20 mg daily. 22. Diltiazem 120 mg daily. 23. Hydrochlorothiazide 12.5 mg every other day. ALLERGIES: To ERYTHROMYCIN, LATEX and LOVASTATIN. FAMILY HISTORY: Reviewed and noncontributory. SOCIAL HISTORY: No tobacco, alcohol, or recreational drug use. She is a retired, homemaker. She is . She has 3 children. Her daughter, Kate Blanton, is her healthcare proxy. REVIEW OF SYSTEMS: A 14-point review of systems was completed with the patient. All pertinent positives and negatives are in the history of present illness, otherwise it is negative. PHYSICAL EXAMINATION GENERAL: A pleasant woman, lying in bed, in no acute distress. VITAL SIGNS: Blood pressure 95/82, pulse ox 91% on room air, respiratory rate 15 breaths per minute, heart rate 71 beats per minute, temperature 96.8 Degrees. HEENT: Normocephalic and atraumatic. Pupils are equal, round, and reactive to light. Moist mucous membranes. NECK: Supple. No JVD, bruits, palpable thyroid or lymphadenopathy. CHEST: Clear to auscultation and percussion bilaterally. CARDIOVASCULAR: S1, S2 appreciated. Regular rate and rhythm. ABDOMEN: Positive bowel sounds in all 4 quadrants. Soft, nontender, and nondistended. EXTREMITIES: No cyanosis, clubbing, or edema. +2 peripheral pulses bilaterally. NEUROLOGIC: Alert and oriented x3. Moves all extremities. SKIN: No rashes or abnormalities. LABORATORY DATA: White count is 6.1, hemoglobin 11.5, hematocrit is 35, platelet is 230. Sodium is 134, potassium 3.2, chloride 99, CO2 of 32, BUN 14, creatinine 0.99, glucose is 87. CRP 50.86. ASSESSMENT AND PLAN: 1. Blood and mucus from rectum: The patient may have a somewhat of a gastrointestinal bleed, but it is going on for months. Her hemoglobin is only mildly decreased. I doubt there is no significant bleed. GI is to see her and give her evaluation to see if she needs a colonoscopy under this visit. We will monitor her H and H while here. 2. Rectal prolapse: Surgery to see and evaluate for surgery. 3. Hypothyroidism: Stable, continue Synthroid. 4. Gastroesophageal reflux disease: Stable, continue ranitidine and PPI. 5. Pain: Continue oxycodone p.r.n. 6. Hyperlipidemia: Continue simvastatin. 7. Depression: Continue Lexapro, appears stable. 8. Atrial fibrillation: Hold Xarelto for bleed. 9. DVT prophylaxis: Continue compression stocking. 10. FEN: N.p.o. for colonoscopy. 11. The patient is a do not resuscitate. TIME SPENT: Over 75 minutes was spent on this H and P, more than 40 minutes of which was spent in direct [id number] contact with the patient in evaluation, physical exam, counseling, and coordination of care. [id number]/[facility] #: [id number] HAYDEE
[2017-02-16] MEDS ORDERED: Ranitidine TAB (NF) 150 MG TAB PO SCH (21:00)
[2017-02-16] MEDS: Artificial Tears* 15 ML BTL BOTH EYES SCH (21:28)
[2017-02-16] MEDS: Multivitamins/Minerals TAB PO SCH (21:29)
[2017-02-16] MEDS ORDERED: PEG 3000 GI LAVAGE* 1 GALLON PO ONE (23:00)
--- NOTE | 2017-02-16 23:35 | CONS ---
GASTROENTEROLOGY CONSULT: DATE: 02/16/17 REASON FOR CONSULTATION: Anorectal pain and rectal bleeding. HISTORY: This 82-year-old woman with cognitive impairment (she cannot recall most any of her surgeries except for those done under age 31), developed some rectal discomfort several months ago. She states some blood. There is some prolapse. She has been seen in the emergency room several times and was referred to Dr. Guerin for the passage of mucus and blood. Dr. Guerin observed some prolapse. She is considering a surgical repair, but wishes to know if there is more proximal pathology. The patient interviewed by herself today denies having had a prior colonoscopy, though her daughter, Kate, in a cell phone conversation believes she has had a colonoscopy. The patient just moved here a couple of years ago from the [facility] area. She does have multiple other problems. PAST MEDICAL HISTORY: 1. Cardiomyopathy. 2. Atrial fibrillation - on Xarelto for a couple of years at least. 3. Status post cholecystectomy - upper midline scar. The patient does not recall, though daughter believes it is her gallbladder surgery from over 30 years ago. 4. Cognitive impairment. 5. Status post spinal surgery and reconstruction from a fall suffered as a late teenager. 6. Coronary artery disease - status post stenting in 2000. 7. 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 8. Hypothyroidism - on her list. 9. Celiac disease - not further explored. 10. Macular degeneration. 11. Abdominal hernia repair - 1987 and 2001. SOCIAL HISTORY: She had lived in [facility] and then moved to [place] and then came to live at [place] near her daughter. REVIEW OF SYSTEMS: With the onset of the current chief complaint, she was seen in the emergency room 02/06/17, 02/08/17, and then 02/16/17. There is no history of kidney stones, gross hematuria, hepatitis, jaundice, or fever. PHYSICAL EXAM: She is an elderly woman in bed, quite pleasant and cheerful, though actually cannot really answer questions regarding past events. She can answer questions about current sensations and her state of being, but does not know the identity of various scars. HEENT exam shows no icterus. She has no adenopathy. There are no bruits. Her lungs are clear and heart sounds are normal. Breasts are without masses. The abdomen is mildly protuberant with an upper midline scar. There are no hernias. The abdomen is soft and nontender. Perianal inspection at rest shows gross incompetence of the anal sphincter with some incipient prolapse. Some Valsalva results in that. Digital rectal shows no contents and just a minimal amount of clear mucus. There is no gross bleeding at this time. No masses felt. Extremities show no edema. She is quite tender with this exam. LABORATORY DATA: Hemoglobin 11.5, hematocrit 35, platelets 230, sodium 134, potassium 3.2 (down from her baseline), creatinine 0.99, BUN 14, B12 248 (November 2016), albumin 3.3. IMPRESSION: Rectal prolapse and bleeding of unknown cause. It is, however, quite probable that recurring excoriation and a solitary rectal ulcer syndrome type physiology with prolapse, made vulnerable being on Xarelto, is resulting in some bleeding. It is low volume, however, and not physiologically a threat. It is quite painful for her and with her cognitive impairment, she really cannot function in this circumstance. She has been admitted for pain control and it seems best at this time to try to prep her for a colonoscopy during that process. [id number]/[facility] #: [id number] HAYDEE
[2017-02-17] MEDS: Acetaminophen TAB* 325 MG PO PRN (01:29)
[2017-02-17 01:50] LABS: Hematocrit 36 % (35-47); Hemoglobin 11.9 g/dl (12.0-16.0)
[2017-02-17 05:24] LABS: Hematocrit 33 % (35-47)
[2017-02-17] MEDS: Levothyroxine TAB* 50 MCG TAB PO SCH (05:45)
[2017-02-17] MEDS: NS 0.9% w/ 20 Meq KCL 1000 ML* 1,000 ML IV SCH ×2 (06:23→21:49)
[2017-02-17] MEDS: Cholecalciferol TAB* 1000 UNITS PO SCH (07:38)
[2017-02-17] MEDS: MAGNESIUM GLUCONATE 500 MG PO SCH (07:38)
[2017-02-17] MEDS: CYANOCOBALAMIN 100 MCG PO SCH (07:38)
[2017-02-17] MEDS: Multivitamins/Minerals TAB PO SCH ×2 (07:39→19:51)
[2017-02-17] MEDS: oxyCODONE TAB* 5 MG TAB PO PRN ×2 (07:43→19:42)
[2017-02-17] MEDS: Diltiazem CD CAP* 120 MG PO SCH (07:44)
[2017-02-17] MEDS: CMCS Escitalopram (NF) 10 MG TAB PO SCH (07:44)
[2017-02-17] MEDS: CMCS Simvastatin TAB(NF) 20 MG TAB PO SCH (07:44)
[2017-02-17] MEDS: Artificial Tears* 15 ML BTL BOTH EYES SCH ×2 (07:48→19:52)
[2017-02-17] MEDS ORDERED: Pantoprazole TAB (NF) 40 MG TAB PO SCH (09:00)
[2017-02-17] MEDS ORDERED: PEG 3000 GI LAVAGE* 1 GALLON PO ONE (09:00)
[2017-02-17 13:38] LABS: Hematocrit 36 % (35-47); Hemoglobin 11.8 g/dl (12.0-16.0)
[2017-02-17] MEDS: Pantoprazole IV* 40 MG IV SCH (14:44)
[2017-02-17] MEDS ORDERED: fentaNYL* 50 MCG/ML 2 ML VIAL (100 MCG VIAL) ONE (15:30)
[2017-02-17] MEDS ORDERED: Midazolam* 1 MG/ML 10 ML VIAL (10 MG) ONE (15:30)
[2017-02-17] MEDS ORDERED: Lidocaine 2% JELLY* 6 ML JELLY TOPICAL ONE (16:14)
--- NOTE | 2017-02-17 17:49 | PN ---
Progress Note - Progress Note Date of Service: 02/17/17 Note: Surgical Note: S: patient had been seen and examined by Dr. Guerin in the office on 02/08/17 for this same problem (see faxed office note). At that time the degree of prolapse was felt to be minimal and did not account for the level of pain that the patient was experiencing. Colonoscopy done today. I spoke w/ Dr. Dalal who stated that there were some rectal ulcerations along with the prolapse but no other proximal pathology. A/P: Rectal prolapse w/ ulcerations; rectal pain. Will d/w Dr. Guerin in the a.m. re: add'l diagnostic imaging (i.e., CT) vs consideration of surgical repair. It appears that the patient's Xarelto has been on hold since admission.
--- NOTE | 2017-02-17 18:02 | PN ---
Subjective Date of Service: 02/17/17 Interval History: Pt is feeling ok. She has no pain at this time as the prolapse has been replaced. She feels sleepy after the colonoscopy. Objective Active Medications: Acetaminophen (Tylenol Tab*) 650 mg PO Q4HR PRN PRN Reason: FEVER/PAIN Last Admin: 02/17/17 01:29 Dose: 650 mg Albuterol (Ventolin Hfa Inhaler*) 2 puff INH Q4H PRN PRN Reason: SHORTNESS OF BREATH Calcium Carbonate (Tums*) 500 mg PO BID PRN PRN Reason: INDIGESTION Cholecalciferol (Vitamin D Tab*) 2,000 units PO DAILY [facility] Last Admin: 02/17/17 07:38 Dose: Not Given Diltiazem HCl (Cardizem Cd Cap*) 120 mg PO DAILY [facility] Last Admin: 02/17/17 07:44 Dose: 120 mg Diphenhydramine HCl (Benadryl Po*) 50 mg PO Q6HR PRN PRN Reason: Allergy Symptoms Escitalopram Oxalate (Lexapro (Nf)) 20 mg PO DAILY [facility] Last Admin: 02/17/17 07:44 Dose: 20 mg Potassium Chloride/Sodium Chloride (Ns 0.9% W/ 20 Meq Kcl 1000 Ml*) 1,000 mls @ 100 mls/hr IV PER RATE [facility] Last Admin: 02/17/17 06:23 Dose: 100 mls/hr Levothyroxine Sodium (Synthroid Tab*) 50 mcg PO 0600 [facility] Last Admin: 02/17/17 05:45 Dose: 50 mcg Lorazepam (Ativan Tab(*)) 0.125 mg PO DAILY PRN PRN Reason: AGITATION/ANXIETY Multivitamins/Minerals (Theragran/Minerals Tab*) 1 tab PO BID [facility] Last Admin: 02/17/17 07:39 Dose: Not Given Non-Formulary Medication (Cyanocobalamin [Vitamin B-12]) 100 mcg PO DAILY [facility] Last Admin: 02/17/17 07:38 Dose: Not Given Non-Formulary Medication (Magnesium Gluconate [Magonate]) 500 mg PO DAILY [facility] Last Admin: 02/17/17 07:38 Dose: Not Given Non-Formulary Medication (Melatonin [Melatonin]) 5 mg PO BEDTIME PRN PRN Reason: INSOMNIA Oxycodone HCl (Roxycodone Tab*) 10 mg PO Q12HR PRN PRN Reason: PAIN Last Admin: 02/17/17 07:43 Dose: 10 mg Pantoprazole Sodium (Protonix Iv*) 40 mg IV Q24H [facility] Last Admin: 02/17/17 14:44 Dose: 40 mg Polyvinyl Alcohol (Polyvinyl Alcohol 1.4% Opth*) 1 drop BOTH EYES BID [facility] Last Admin: 02/17/17 07:48 Dose: 1 drop Simvastatin (Zocor(Nf)) 40 mg PO DAILY [facility] Last Admin: 02/17/17 07:44 Dose: 40 mg Sodium Chloride (Sodium Chloride 0.65% Nasal [place]*) 2 spray BOTH NARES DAILY PRN PRN Reason: CONGESTION Vital Signs 02/16/17 02/16/17 02/16/17 19:23 19:44 19:45 Temperature 98.1 F Pulse Rate 84 Respiratory 18 17 16 Rate Blood Pressure 113/54 (mmHg) O2 Sat by Pulse 98 Oximetry 02/16/17 02/16/17 02/16/17 20:00 21:45 23:54 Temperature 98.0 F Pulse Rate 98 Respiratory 16 18 16 Rate Blood Pressure 119/81 (mmHg) O2 Sat by Pulse 98 Oximetry 02/17/17 02/17/17 02/17/17 04:10 07:27 07:43 Temperature 98.2 F Pulse Rate 84 109 Respiratory 16 16 18 Rate Blood Pressure 117/63 110/56 (mmHg) O2 Sat by Pulse 96 99 Oximetry 02/17/17 02/17/17 02/17/17 08:00 09:43 17:52 Temperature 98.1 F Pulse Rate 75 Respiratory 19 19 22 Rate Blood Pressure 117/59 (mmHg) O2 Sat by Pulse 94 Oximetry 02/17/17 17:55 Temperature 98.1 F Pulse Rate 75 Respiratory 22 Rate Blood Pressure 117/59 (mmHg) O2 Sat by Pulse 94 Oximetry Oxygen Devices in Use Now: None Appearance: Elderly female sitting up in bed, NAD Eyes: No Scleral Icterus Ears/Nose/Mouth/Throat: Mucous Membranes Moist Respiratory: Symmetrical Chest Expansion and Respiratory Effort, Clear to Auscultation Cardiovascular: NL Sounds; No Murmurs; No JVD, RRR, No Edema Abdominal: NL Sounds; No Tenderness; No Distention Extremities: No Clubbing, Cyanosis Skin: No Rash or Ulcers, No Nodules or Sclerosis Neurological: Alert and Oriented x 3 Result Diagrams: 02/17/17 13:30 02/16/17 12:40 Additional Lab and Data: Lab Results 02/16/17 02/16/17 02/16/17 Range/Units 12:40 12:40 12:40 WBC 6.1 (3.5-10.8) 10^3/ul RBC 3.81 L (4.0-5.4) 10^6/ul Hgb 11.5 L (12.0-16.0) g/dl Hct 35 (35-47) % MCV 93 (80-97) fL MCH 30 (27-31) pg MCHC 33 (31-36) g/dl RDW 16 H (10.5-15) % Plt Count 230 (150-450) 10^3/ul MPV 8 (7.4-10.4) um3 Neut % (Auto) 54.1 (38-83) % Lymph % (Auto) 26.8 (25-47) % [place] % (Auto) 12.2 H (1-9) % Eos % (Auto) 6.0 (0-6) % Baso % (Auto) 0.9 (0-2) % Absolute Neuts (auto) 3.3 (1.5-7.7) 10^3/ul Absolute Lymphs (auto) 1.6 (1.0-4.8) 10^3/ul Absolute Monos (auto) 0.7 (0-0.8) 10^3/ul Absolute Eos (auto) 0.4 (0-0.6) 10^3/ul Absolute Basos (auto) 0.1 (0-0.2) 10^3/ul Absolute Nucleated RBC 0 10^3/ul Nucleated RBC % 0 Sodium 134 (133-145) mmol/L Potassium 3.2 L (3.5-5.0) mmol/L Chloride 99 L (101-111) mmol/L Carbon Dioxide 32 (22-32) mmol/L Anion Gap 3 (2-11) mmol/L BUN 14 (6-24) mg/dL Creatinine 0.99 H (0.51-0.95) mg/dL Est GFR ( Amer) 69.2 (>60) Est GFR (Non-Af Amer) 53.8 (>60) BUN/Creatinine Ratio 14.1 (8-20) Glucose 87 (70-100) mg/dL Lactic Acid 0.7 (0.5-2.0) mmol/L Calcium 8.5 L (8.6-10.3) mg/dL Total Bilirubin 1.00 (0.2-1.0) mg/dL AST 14 (13-39) U/L ALT 8 (7-52) U/L Alkaline Phosphatase 49 (34-104) U/L C-Reactive Protein 15.86 H (< 5.00) mg/L Total Protein 5.9 L (6.4-8.9) g/dL Albumin 3.3 (3.2-5.2) g/dL Globulin 2.6 (2-4) g/dL Albumin/Globulin Ratio 1.3 (1-3) Lipase < 10 L (11.0-82.0) U/L Microbiology and Other Data: Microbiology 02/16/17 23:35 Nasal Screen MRSA (PCR)(TIANA) - Final Nasal Mrsa Negative Assess/Plan/Problems-Billing Ms Juarez is an 82 yo F who has a h/o afib, depression, hypothyroidism, HTN and CAD who presented to the ER with c/o BRBPR. - Patient Problems (1) Rectal prolapse Status: Acute Code(s): K62.3 - RECTAL PROLAPSE SNOMED Code(s): 85559946 Comment: THe patient was seen by Dr. Guerin today and she has offered surgery. The patient is unable to be scheduled for surgery until next week. Will advance her diet. She can be d/kavon home today and follow up as an outpatient. Continue prn oxycodone for pain. H/H remains stable. (2) DVT prophylaxis Status: Acute Code(s): RUW2087 - SNOMED Code(s): 760456786 Comment: SCDs (3) HTN (hypertension) Status: Acute Code(s): I10 - ESSENTIAL (PRIMARY) HYPERTENSION SNOMED Code(s) : 30349696 Comment: BP is under excellent control. Continue current medication regimen. (4) Hypothyroidism Status: Acute Code(s): E03.9 - HYPOTHYROIDISM, UNSPECIFIED SNOMED Code(s): 01072707 Comment: Continue current dose of synthroid. (5) Full code status Status: Acute Code(s): Z78.9 - OTHER SPECIFIED HEALTH STATUS SNOMED Code(s) : 634391295
[2017-02-18] MEDS: Acetaminophen TAB* 325 MG PO PRN ×2 (01:21→06:05)
[2017-02-18] MEDS: Levothyroxine TAB* 50 MCG TAB PO SCH (06:05)
[2017-02-18] MEDS: oxyCODONE TAB* 5 MG TAB PO PRN (08:01)
[2017-02-18] MEDS: Cholecalciferol TAB* 1000 UNITS PO SCH (09:56)
[2017-02-18] MEDS: Diltiazem CD CAP* 120 MG PO SCH (09:57)
[2017-02-18] MEDS: CMCS Simvastatin TAB(NF) 20 MG TAB PO SCH (09:57)
[2017-02-18] MEDS: Multivitamins/Minerals TAB PO SCH (09:57)
[2017-02-18] MEDS: Trolamine Salicyl. 10% CREAM* 85 GM TUBE TOPICAL PRN ×2 (09:58→13:39)
[2017-02-18] MEDS: Artificial Tears* 15 ML BTL BOTH EYES SCH (10:00)
[2017-02-18] MEDS: CYANOCOBALAMIN 100 MCG PO SCH (10:00)
[2017-02-18] MEDS: MAGNESIUM GLUCONATE 500 MG PO SCH (10:01)
[2017-02-18] MEDS: CMCS Escitalopram (NF) 10 MG TAB PO SCH (10:02)
--- NOTE | 2017-02-18 10:41 | PRO ---
DATE OF PROCEDURE: 02/17/17 - ROOM #418 PROCEDURE: Colonoscopy. MEDICINE: Versed 3.5 mg IV and fentanyl 25 mcg IV. NARRATIVE: This is an 82-year-old woman with a history of rectal prolapse, rectal pain, and rectal bleeding. She is contemplating correction of rectal prolapse, but due to her rectal bleeding colonoscopy was recommended to exclude any more proximal abnormality that could account for her bleeding. PROCEDURE IN DETAIL: After the procedure was discussed with the patient, risks and benefits were outlined, written consent was obtained. The patient was placed in the left lateral decubitus position and a rectal exam was performed. The rectal exam demonstrated some tenderness on palpation, but no palpable abnormality. At that point, colonoscopy was carried out. A video adult flexible colonoscope was inserted anally and advanced very carefully into the cecum. The cecum was identified by the appendiceal orifice and the ileocecal valve. The terminal ileum was briefly intubated. The quality of the preparation was generally fair. There was a significant amount of murky material and some particulate material seen throughout. But I do believe with extensive irrigation and suctioning views were adequate to exclude any significant abnormality. The patient tolerated the procedure well and there were no immediate complications. FINDINGS: Colonoscopy into the distal terminal ileum was performed. The ileum was inspected for about 10 cm and was normal. The colon was thereafter very carefully inspected. Moderate sigmoid diverticulosis was noted. No other mucosal abnormality was detected. There was no polyp or mass or inflammatory change. The submucosal vascular pattern was normal. The rectum was very carefully examined on slow withdrawal and there were several broad based, though superficial, ulcerations with edema in the rectum consistent with solitary rectal ulcer syndrome. No other lesion was detected. CONCLUSION: Findings consistent with solitary rectal ulcer syndrome, sigmoid diverticulosis; otherwise, normal colonoscopy to the terminal ileum. RECOMMENDATIONS: The results were discussed. Correction of the prolapse will likely significantly improve her symptoms. [id number]/[facility] #: [id number] MTDD
--- NOTE | 2017-02-18 12:58 | PN ---
Progress Note - Progress Note Date of Service: 02/18/17 Note: Surgery Ms. Juarez known to me from office evaluation for anal pain. At the time I saw only mild rectal prolapse, but more is reported by nurses. I had Ms. Juarez make the maneuvers that produce the prolapse and indeed she has a moderate prolapse of ~3-4 cm of mucosa exposed. This was painful to her. She would benefit from surgery either transabdominal (resection of redundant colon) or transanal (resection of prolapsed rectum), depending on medical clearance. I discussed this with the patient and her daughter and spoke to Dr. Guevara regarding medical optimization. Once cleared, can consider best management options. Braden
[2017-02-18] MEDS ORDERED: Ibuprofen TAB* 600 MG PO ONE (14:32)
--- NOTE | 2017-02-18 14:55 | PN ---
Subjective Date of Service: 02/18/17 Interval History: Pt is having some pain in her L lateral hip radiating down the back of her thigh. She is frustrated that she can not have surgery tomorrow. Objective Active Medications: Acetaminophen (Tylenol Tab*) 650 mg PO Q4HR PRN PRN Reason: FEVER/PAIN Last Admin: 02/18/17 06:05 Dose: 650 mg Albuterol (Ventolin Hfa Inhaler*) 2 puff INH Q4H PRN PRN Reason: SHORTNESS OF BREATH Calcium Carbonate (Tums*) 500 mg PO BID PRN PRN Reason: INDIGESTION Cholecalciferol (Vitamin D Tab*) 2,000 units PO DAILY [facility] Last Admin: 02/18/17 09:56 Dose: 2,000 units Diltiazem HCl (Cardizem Cd Cap*) 120 mg PO DAILY [facility] Last Admin: 02/18/17 09:57 Dose: 120 mg Diphenhydramine HCl (Benadryl Po*) 50 mg PO Q6HR PRN PRN Reason: Allergy Symptoms Escitalopram Oxalate (Lexapro (Nf)) 20 mg PO DAILY [facility] Last Admin: 02/18/17 10:02 Dose: 20 mg Ibuprofen (Motrin Tab*) 600 mg PO ONCE ONE Stop: 02/18/17 14:33 Levothyroxine Sodium (Synthroid Tab*) 50 mcg PO 0600 [facility] Last Admin: 02/18/17 06:05 Dose: 50 mcg Lorazepam (Ativan Tab(*)) 0.125 mg PO DAILY PRN PRN Reason: AGITATION/ANXIETY Multivitamins/Minerals (Theragran/Minerals Tab*) 1 tab PO BID [facility] Last Admin: 02/18/17 09:57 Dose: 1 tab Non-Formulary Medication (Cyanocobalamin [Vitamin B-12]) 100 mcg PO DAILY [facility] Last Admin: 02/18/17 10:00 Dose: Not Given Non-Formulary Medication (Magnesium Gluconate [Magonate]) 500 mg PO DAILY [facility] Last Admin: 02/18/17 10:01 Dose: Not Given Non-Formulary Medication (Melatonin [Melatonin]) 5 mg PO BEDTIME PRN PRN Reason: INSOMNIA Oxycodone HCl (Roxycodone Tab*) 10 mg PO Q12HR PRN PRN Reason: PAIN Last Admin: 02/18/17 08:01 Dose: 10 mg Pantoprazole Sodium (Protonix Iv*) 40 mg IV Q24H [facility] Last Admin: 02/17/17 14:44 Dose: 40 mg Polyvinyl Alcohol (Polyvinyl Alcohol 1.4% Opth*) 1 drop BOTH EYES BID [facility] Last Admin: 02/18/17 10:00 Dose: 1 drop Simvastatin (Zocor(Nf)) 40 mg PO DAILY [facility] Last Admin: 02/18/17 09:57 Dose: 40 mg Sodium Chloride (Sodium Chloride 0.65% Nasal [place]*) 2 spray BOTH NARES DAILY PRN PRN Reason: CONGESTION Trolamine Salicylate (Myoflex 10% Cream*) 1 applic TOPICAL TID PRN PRN Reason: pain Last Admin: 02/18/17 13:39 Dose: 1 applic Vital Signs 02/17/17 02/17/17 02/17/17 17:52 17:55 19:42 Temperature 98.1 F 98.1 F Pulse Rate 75 75 Respiratory 22 22 16 Rate Blood Pressure 117/59 117/59 (mmHg) O2 Sat by Pulse 94 94 Oximetry 02/17/17 02/17/17 02/17/17 19:59 20:04 21:42 Temperature 97.3 F Pulse Rate 108 Respiratory 16 18 17 Rate Blood Pressure 92/65 (mmHg) O2 Sat by Pulse 93 Oximetry 02/17/17 02/18/17 02/18/17 23:27 03:55 07:25 Temperature 98.4 F 97.9 F 97.3 F Pulse Rate 99 77 92 Respiratory 16 20 17 Rate Blood Pressure 111/67 121/53 138/81 (mmHg) O2 Sat by Pulse 98 97 95 Oximetry 02/18/17 02/18/17 02/18/17 07:40 08:01 10:01 Temperature Pulse Rate Respiratory 18 20 16 Rate Blood Pressure (mmHg) O2 Sat by Pulse Oximetry 02/18/17 11:55 Temperature 98.2 F Pulse Rate 105 Respiratory 17 Rate Blood Pressure 117/64 (mmHg) O2 Sat by Pulse 94 Oximetry Oxygen Devices in Use Now: None Appearance: Elderly female lying in bed, NAD Eyes: No Scleral Icterus Ears/Nose/Mouth/Throat: Mucous Membranes Moist Respiratory: Symmetrical Chest Expansion and Respiratory Effort, Clear to Auscultation Cardiovascular: RRR, No Edema, - - II/ systolic murmur heard best at the RUSB Abdominal: NL Sounds; No Tenderness; No Distention Extremities: No Clubbing, Cyanosis Skin: No Rash or Ulcers, No Nodules or Sclerosis Neurological: Alert and Oriented x 3 Result Diagrams: 02/17/17 13:30 02/16/17 12:40 Additional Lab and Data: Lab Results 02/16/17 02/16/17 02/16/17 Range/Units 12:40 12:40 12:40 WBC 6.1 (3.5-10.8) 10^3/ul RBC 3.81 L (4.0-5.4) 10^6/ul Hgb 11.5 L (12.0-16.0) g/dl Hct 35 (35-47) % MCV 93 (80-97) fL MCH 30 (27-31) pg MCHC 33 (31-36) g/dl RDW 16 H (10.5-15) % Plt Count 230 (150-450) 10^3/ul MPV 8 (7.4-10.4) um3 Neut % (Auto) 54.1 (38-83) % Lymph % (Auto) 26.8 (25-47) % [place] % (Auto) 12.2 H (1-9) % Eos % (Auto) 6.0 (0-6) % Baso % (Auto) 0.9 (0-2) % Absolute Neuts (auto) 3.3 (1.5-7.7) 10^3/ul Absolute Lymphs (auto) 1.6 (1.0-4.8) 10^3/ul Absolute Monos (auto) 0.7 (0-0.8) 10^3/ul Absolute Eos (auto) 0.4 (0-0.6) 10^3/ul Absolute Basos (auto) 0.1 (0-0.2) 10^3/ul Absolute Nucleated RBC 0 10^3/ul Nucleated RBC % 0 Sodium 134 (133-145) mmol/L Potassium 3.2 L (3.5-5.0) mmol/L Chloride 99 L (101-111) mmol/L Carbon Dioxide 32 (22-32) mmol/L Anion Gap 3 (2-11) mmol/L BUN 14 (6-24) mg/dL Creatinine 0.99 H (0.51-0.95) mg/dL Est GFR ( Amer) 69.2 (>60) Est GFR (Non-Af Amer) 53.8 (>60) BUN/Creatinine Ratio 14.1 (8-20) Glucose 87 (70-100) mg/dL Lactic Acid 0.7 (0.5-2.0) mmol/L Calcium 8.5 L (8.6-10.3) mg/dL Total Bilirubin 1.00 (0.2-1.0) mg/dL AST 14 (13-39) U/L ALT 8 (7-52) U/L Alkaline Phosphatase 49 (34-104) U/L C-Reactive Protein 15.86 H (< 5.00) mg/L Total Protein 5.9 L (6.4-8.9) g/dL Albumin 3.3 (3.2-5.2) g/dL Globulin 2.6 (2-4) g/dL Albumin/Globulin Ratio 1.3 (1-3) Lipase < 10 L (11.0-82.0) U/L Microbiology and Other Data: Microbiology 02/16/17 23:35 Nasal Screen MRSA (PCR)(TIANA) - Final Nasal Mrsa Negative Assess/Plan/Problems-Billing Ms Juarez is an 82 yo F who has a h/o afib, depression, hypothyroidism, HTN and CAD who presented to the ER with c/o BRBPR. - Patient Problems (1) Rectal prolapse Current Visit: Yes Status: Acute Code(s): K62.3 - RECTAL PROLAPSE SNOMED Code(s): 61064630 Comment: THe patient was seen by Dr. Guerin today and she has offered surgery. The patient is unable to be scheduled for surgery until next week. Will advance her diet. She can be d/kavon home today and follow up as an outpatient. Continue prn oxycodone for pain. H/H remains stable. (2) Diastolic CHF Current Visit: Yes Status: Acute Code(s): I50.30 - UNSPECIFIED DIASTOLIC ( CONGESTIVE) HEART FAILURE SNOMED Code(s): 844016647 Comment: No issues from a cardiac standpoint. Echo done 08/2016 reveals an EF of 65-70%. Moderate LVH was noted and normal wall motion was noted. She has mild to moderate . Will get EKG now. The patient appears medically optimized for surgery. She is able to ambulate around the grocery store without c/o chest pain. She states if she walks for long distances she will get SOB she states related to her asthma. (3) Afib Current Visit: Yes Status: Acute Code(s): I48.91 - UNSPECIFIED ATRIAL FIBRILLATION SNOMED Code(s): 76454672 Comment: The patient sounds to be irregular today. Will get EKG now. Continue diltiazem and hold xarelto for surgery. (4) HTN (hypertension) Current Visit: Yes Status: Acute Code(s): I10 - ESSENTIAL (PRIMARY) HYPERTENSION SNOMED Code(s): 79740986 Comment: BP is under excellent control. Continue current medication regimen. (5) CAD (coronary artery disease) Current Visit: Yes Status: Acute Code(s): I25.10 - ATHSCL HEART DISEASE OF [place] CORONARY ARTERY W/O ANG PCTRS SNOMED Code(s): 54097980 Comment: Pt is without any c/o chest pain. Continue simvastatin. (6) Hypothyroidism Current Visit: Yes Status: Acute Code(s): E03.9 - HYPOTHYROIDISM, UNSPECIFIED SNOMED Code(s): 11413910 Comment: Continue current dose of synthroid. (7) DVT prophylaxis Current Visit: Yes Status: Acute Code(s): QAR1933 - SNOMED Code(s): 798151481 Comment: SCDs (8) Full code status Current Visit: Yes Status: Acute Code(s): Z78.9 - OTHER SPECIFIED HEALTH STATUS SNOMED Code(s): 250281728
[2017-02-18] MEDS: Pantoprazole IV* 40 MG IV SCH (15:39)
[2017-02-18 16:25] VITALS: BP 121/58
--- NOTE | 2017-02-19 11:28 | DS ---
CC: Dr. Joseph. DISCHARGE SUMMARY: DATE OF ADMISSION: 02/16/17 DATE OF DISCHARGE: 02/18/17 PRIMARY CARE PROVIDER: Dr. Joseph. PRINCIPAL DIAGNOSIS: Rectal prolapse. SECONDARY DIAGNOSES: 1. Atrial fibrillation. 2. Depression. 3. Hypothyroidism. 4. Gastroesophageal reflux disease. 5. Diastolic congestive heart failure. 6. Coronary artery disease. 7. Hypertension. DISCHARGE MEDICATIONS: 1. Hydrocortisone as suppository 25 mg p.r. q.h.s. p.r.n. itching. 2. Imodium 2 mg p.o. daily p.r.n. loose stool. 3. Albuterol 2 puffs inhaled q. 4 hours p.r.n. shortness of breath. 4. Benadryl 50 mg p.o. q. 6 hours p.r.n. itching or allergy symptoms. 5. Oxycodone 10 mg p.o. q. 12 hours. 6. Tylenol 500 mg p.o. q. 4 hours p.r.n. pain. 7. Melatonin 5 mg p.o. q.h.s. p.r.n. insomnia. 8. Ativan 0.125 mg p.o. daily p.r.n. anxiety. 9. Saline spray 2 squirts both nostrils daily p.r.n. dryness. 10. TUMS 500 mg p.o. b.i.d. p.r.n. indigestion. 11. Ranitidine 300 mg p.o. q.h.s. 12. Artificial Tears 1 drop to both eyes twice daily. 13. Multivitamin 1 cap p.o. b.i.d. 14. Vitamin B12 100 mcg p.o. daily. 15. Vitamin D3 200 units p.o. daily. 16. Simvastatin 40 mg p.o. daily. 17. Protonix 40 mg p.o. daily. 18. Magnesium gluconate 500 mg p.o. daily. 19. Levothyroxine 50 mcg p.o. daily. 20. Lexapro 20 mg p.o. daily. 21. Diltiazem CD 120 mg p.o. daily. 22. Ibuprofen 400 mg p.o. q. 8 hours p.r.n. pain. HOSPITAL COURSE: Ms. Juarez is an 82-year-old female, who presented to the emergency room on 7 with complaints of blood and mucous per rectum. The patient, in the ER, in addition to complainin g of blood and mucous coming out of her rectum, also complained of rectal prolapse. This has been g oing on for at least the last [address] Guerin as an outpatient for evaluation. The iftikhar henderson needed a colonoscopy; however, it is not scheduled until March, therefore she presented to the emergency room for evaluation. The patient was admitted and prepped for colonoscopy. She underwen t colonoscopy with Dr. Dalal on 02/17/17, which revealed findings consistent with solitary rectal u lcer syndrome, sigmoid diverticulosis was noted, and otherwise it was a normal colonoscopy. The iftikhar iemeagan was kept on a clear liquid diet and evaluated by General Surgery, Dr. Guerin, on 02/18/17. It was recommended that the patient undergo rectal prolapse repair. The patient was hoping that this c ould be performed tomorrow, however, Dr. Guerin is not able to get her on the surgery schedule until next week. The patient is being discharged home today, 02/18/17, to follow up with Dr. Guerin as a n outpatient. Ibuprofen has been added to her pain medication regimen, as pain continues to be an is alex. FOLLOWUP CONCERNS: The patient is being discharged home, today 02/18/17. ACTIVITY LEVEL: As tolerated. DIET: Regular. CONDITION ON DISCHARGE: Stable. The patient should follow up with her primary care provider in the next 4 to 7 days. TIME SPENT: 35 minutes spent on discharging this patient. [id number]/[facility] #: [id number]
== END 2017-02-18 17:00 | disposition home or self-care (01) | DRG 394 ==
LOC: ED 11:31 → MED 14:37
PROVIDERS: ADMIT Internal Medicine; ATTEND Hospitalist
PROC: 0DJD8ZZ Inspection of Lower Intestinal Tract, Via Natural or Artificial Opening Endoscopic (ICD-10-PCS; principal; 2017-02-18)
DX: K62.3 Rectal prolapse (principal); I42.9 Cardiomyopathy, unspecified; I48.91 Unspecified atrial fibrillation; K62.6 Ulcer of anus and rectum; K62.5 Hemorrhage of anus and rectum; I11.0 Hypertensive heart disease with heart failure; I50.30 Unspecified diastolic (congestive) heart failure; F32.9 Major depressive disorder, single episode, unspecified; G31.84 Mild cognitive impairment of uncertain or unknown etiology; E03.9 Hypothyroidism, unspecified; Z88.1 Allergy status to other antibiotic agents; Z91.040 Latex allergy status; Z88.8 Allergy status to other drugs, medicaments and biological substances; J45.909 Unspecified asthma, uncomplicated; F41.9 Anxiety disorder, unspecified; K64.8 Other hemorrhoids; K21.9 Gastro-esophageal reflux disease without esophagitis; E78.5 Hyperlipidemia, unspecified; I25.10 Atherosclerotic heart disease of native coronary artery without angina pectoris; I35.0 Nonrheumatic aortic (valve) stenosis; H35.30 Unspecified macular degeneration; K57.30 Diverticulosis of large intestine without perforation or abscess without bleeding; Z98.1 Arthrodesis status; Z82.49 Family history of ischemic heart disease and other diseases of the circulatory system; Z83.3 Family history of diabetes mellitus; Z95.5 Presence of coronary angioplasty implant and graft; Z87.891 Personal history of nicotine dependence; M25.552 Pain in left hip
CPT/HCPCS: 36415; 80053; 83605; 83690; 85014; 85018; 85025; 86140; 87641; 93005; A9270-GY; J2250; J3010

== ENCOUNTER 2017-02-20 21:56 | Inpatient (IN) | payer MEDICARE, MEDICAID ==
[2017-02-20 23:32] LABS: Hematocrit 32 % (35-47); Hemoglobin 10.6 g/dl (12.0-16.0); Mean Corpuscular HGB Conc 33 g/dl (31-36); Mean Corpuscular Hemoglobin 31 pg (27-31); Mean Corpuscular Volume 93 fL (80-97); Mean Platelet Volume 8 um3 (7.4-10.4); Red Blood Count 3.45 10^6/ul (4.0-5.4); Red Cell Distribution Width 16 % (10.5-15)
[2017-02-20 23:43] LABS: Albumin 3.2 g/dL (3.2-5.2); BUN/Creatinine Ratio 11.4 (8-20); Calcium 8.5 mg/dL (8.6-10.3); EGFR African American 79.3 (>60); EGFR Non-African American 61.7 (>60); Globulin 2.7 g/dL (2-4); Potassium 3.1 mmol/L (3.5-5.0); Total Bilirubin 0.4 mg/dL (0.2-1.0); Total Protein 5.9 g/dL (6.4-8.9)
[2017-02-21] MEDS ORDERED: Potassium Chlor TAB* 20 MEQ TAB.ER PO ONE (01:28)
--- NOTE | 2017-02-21 03:17 | ED ---
Mau Strickland Rebecca, scribed for Erich Nicholson MD on 02/21/17 at 0123 . GI/ HPI - HPI Summary HPI Summary: Pt is an 82 y/o F who presents to ED c/o rectal pain. Pain is currently severe, ranked 10/10 and has been constant since onset. States that current pain is identical to what she has been experiencing previously. Sx aggravated and alleviated by nothing. Denies fever. Pt was evaluated by [facility] 5 days ago for similar sx, was admitted to hospitalist services and D/C 3 days ago with Dx of rectal prolapse. Has a colonoscopy scheduled for March. Pt states should not have been d/c home, needs to be admitted - History of Current Complaint Chief Complaint: EDRectalPain Stated Complaint: PROLAPSED RECTUM Hx Obtained From: Patient Onset/Duration: Still Present Timing: Constant Current Severity: Severe Pain Intensity: 10 Location of Pain: Rectal Associated Signs and Symptoms: Positive: Negative Aggravating Factor(s): Nothing Alleviating Factor(s): Nothing - Additional Pertinent History Primary Care Physician: [id number] - Allergy/Home Medications Allergies/Adverse Reactions: Allergies Allergy/AdvReac Type Severity Reaction Status Date / Time Erythromycin Allergy Difficulty Verified 02/08/17 09:19 Breathing/Wheezing Latex Allergy Difficulty Verified 02/08/17 09:19 Breathing/Wheezing Lovastatin Allergy Difficulty Verified 02/08/17 09:19 Breathing/Wheezing PMH/Surg Hx/FS Hx/Imm Hx Endocrine/Hematology History: Reports: Hx Anticoagulant Therapy - Xarelto for a- fib., Hx Thyroid Disease Denies: Hx Diabetes - c Cardiovascular History: Reports: Hx Hypertension Denies: Hx Congestive Heart Failure, Hx Deep Vein Thrombosis, Hx Myocardial Infarction, Hx Pacemaker/ICD Respiratory History: Reports: Hx Asthma Denies: Hx Chronic Obstructive Pulmonary Disease (COPD), Hx Lung Cancer, Hx Pneumonia, Hx Pulmonary Embolism GI History: Reports: Hx Ulcer Denies: Hx Gall Bladder Disease, Hx Gastrointestinal Bleed, Hx Urosepsis History: Denies: Hx Kidney Stones, Hx Renal Disease Sensory History: Reports: Hx Contacts or Glasses Denies: Hx Hearing Aid Opthamlomology History: Reports: Hx Contacts or Glasses Neurological History: Denies: Hx Dementia, Hx Migraine, Hx Seizures, Hx Transient Ischemic Attacks (TIA) Psychiatric History: Reports: Hx Anxiety, Hx Depression Denies: Hx Panic Disorder, Hx Schizophrenia, Hx Bipolar Disorder - Surgical History Surgery Procedure, Year, and Place: spinal fusion 195, [id number], hernia 1988 2001,left knee arthroscopy 2003,left shoulder rct 2004, [id number], thumb 2008 & 2011 Infectious Disease History: No Infectious Disease History: Denies: Hx Clostridium Difficile, Hx Hepatitis, Hx Human Immunodeficiency Virus (HIV), Hx of Known/Suspected MRSA, Hx Shingles, Hx Tuberculosis, Hx Known/ Suspected VRE, Hx Known/Suspected VRSA, History Other Infectious Disease, Traveled Outside the [place] in Last 30 Days - Family History Known Family History: Positive: Cardiac Disease, Hypertension, Diabetes - Social History Alcohol Use: None Hx Substance Use: No Substance Use Type: Reports: None Hx Tobacco Use: Yes Smoking Status (MU): Former Smoker Review of Systems Negative: Fever Positive: pain - Rectal pain All Other Systems Reviewed And Are Negative: Yes Physical Exam Triage Information Reviewed: Yes Vital Signs On Initial Exam: Initial Vitals Temp Pulse Resp BP Pulse Ox 98.0 F 127 19 91/69 94 02/20/17 22:21 02/20/17 22:21 02/20/17 22:21 02/20/17 22:21 02/20/17 22:21 Vital Signs Reviewed: Yes Appearance: Positive: Well-Appearing, No Pain Distress Skin: Positive: Warm Head/Face: Positive: Normal Head/Face Inspection Eyes: Positive: YANET ENT: Positive: Hearing grossly normal Neck: Positive: Supple Respiratory/Lung Sounds: Positive: Breath Sounds Present Cardiovascular: Positive: Normal Abdomen Description: Positive: Nontender, Soft Bowel Sounds: Positive: Present Musculoskeletal: Positive: Strength/ROM Intact Neurological: Positive: Alert, Oriented to Person Place, Time - Kristyn Coma Scale Coma Scale Total: 15 Diagnostics - Vital Signs Vital Signs Temp Pulse Resp BP Pulse Ox 02/20/17 22:42 99.0 F 90 20 93/62 92 02/20/17 22:21 98.0 F 127 19 91/69 94 - Laboratory Lab Results: Lab Results 02/20/17 02/20/17 Range/Units 23:00 23:00 WBC 9.0 (3.5-10.8) 10^3/ul RBC 3.45 L (4.0-5.4) 10^6/ul Hgb 10.6 L (12.0-16.0) g/dl Hct 32 L (35-47) % MCV 93 (80-97) fL MCH 31 (27-31) pg MCHC 33 (31-36) g/dl RDW 16 H (10.5-15) % Plt Count 208 (150-450) 10^3/ul MPV 8 (7.4-10.4) um3 Neut % (Auto) 65.9 (38-83) % Lymph % (Auto) 19.4 L (25-47) % [place] % (Auto) 8.5 (1-9) % Eos % (Auto) 5.6 (0-6) % Baso % (Auto) 0.6 (0-2) % Absolute Neuts (auto) 6.0 (1.5-7.7) 10^3/ul Absolute Lymphs (auto) 1.8 (1.0-4.8) 10^3/ul Absolute Monos (auto) 0.8 (0-0.8) 10^3/ul Absolute Eos (auto) 0.5 (0-0.6) 10^3/ul Absolute Basos (auto) 0.1 (0-0.2) 10^3/ul Absolute Nucleated RBC 0 10^3/ul Nucleated RBC % 0 Sodium 135 (133-145) mmol/L Potassium 3.1 L (3.5-5.0) mmol/L Chloride 103 (101-111) mmol/L Carbon Dioxide 25 (22-32) mmol/L Anion Gap 7 (2-11) mmol/L BUN 10 (6-24) mg/dL Creatinine 0.88 (0.51-0.95) mg/dL Est GFR ( Amer) 79.3 (>60) Est GFR (Non-Af Amer) 61.7 (>60) BUN/Creatinine Ratio 11.4 (8-20) Glucose 97 (70-100) mg/dL Calcium 8.5 L (8.6-10.3) mg/dL Total Bilirubin 0.40 (0.2-1.0) mg/dL AST 22 (13-39) U/L ALT 15 (7-52) U/L Alkaline Phosphatase 47 (34-104) U/L Total Protein 5.9 L (6.4-8.9) g/dL Albumin 3.2 (3.2-5.2) g/dL Globulin 2.7 (2-4) g/dL Albumin/Globulin Ratio 1.2 (1-3) Result Diagrams: 02/20/17 23:00 02/20/17 23:00 Lab Statement: Any lab studies that have been ordered have been reviewed, and results considered in the medical decision making process. Re-Evaluation - Re-Evaluation First Eval Comment: case d/w dr prabhakar who states will evaluate pt in ed GIGU Course/Dx - Course Assessment/Plan: Pt is an 82 y/o F who presents to ED c/o constant, severe rectal pain. States that current pain is identical to what she has been experiencing previously. Sx aggravated and alleviated by nothing. Denies fever. Pt was evaluated by [facility] 5 days ago for similar sx, was admitted to hospitalist services and D/C 3 days ago with Dx of rectal prolapse. Lien, charge nurse, discussed care of pt with both Dr. Joseph and Dr. Prabhakar. Pt will be signed out, pending dispo, awaiting Dr. Prabhakar's consult in the ED. Dx of rectal prolapse. The pt understands and agrees. Patient's medications reviewed this visit. - Diagnoses Provider Diagnoses: Rectal prolapse Discharge - Discharge Plan Condition: Fair Disposition: OTHER Discharge Disposition Comment: Pt will be signed out, pending dispo, awaiting Dr. Prabhakar's consult in ED Referrals: Billy Joseph MD [Primary Care Provider] - The documentation as recorded by the Mau dean Rebecca accurately reflects the service I personally performed and the decisions made by , Erich Nicholson MD.
[2017-02-21] MEDS ORDERED: Acetaminophen ADULT LIQ* 650 MG/20.3 ML UDC ONE (04:05)
[2017-02-21] MEDS ORDERED: Acetaminophen TAB* 325 MG ONE (04:09)
[2017-02-21] MEDS ORDERED: Acetaminophen TAB* 325 MG PO ONE (04:20)
[2017-02-21] MEDS ORDERED: oxyCODONE TAB* 5 MG TAB PO ONE (08:46)
[2017-02-21] MEDS ORDERED: NS 0.45% KCl 20 Meq 1000 ML* 1,000 ML IV SCH (09:00)
--- NOTE | 2017-02-21 10:11 | HP ---
CC: Dr. Billy Joseph; [facility]; Dr. Sridhar Guthrie * HISTORY AND PHYSICAL: DATE OF ADMISSION: 02/21/17 CHIEF COMPLAINT: Perirectal pain. HISTORY OF PRESENT ILLNESS: Ms. Juarez is an 82-year-old female, recently admitted for complaints of severe perirectal pain and diagnosed with a rectal prolapse that was easily reducible, who was for planned followup with our offices this coming week, who contacted me through the service stating that she had significant rectal pain and could not function. I made recommendations to go to the emergency room after multiple discussions with her and the patient presented to the emergency room. The patient describes an approximately 4-week history of perirectal discomfort and a mass consistent with prolapse. This would be easily reduced, but persistent and would not remain in place. It was accompanied with significant mucous drainage as well as bloody mucus. The patient still does stool around this. She also complains of significant dysuria and difficult initiating stream along with this prolapse. The patient denies any fevers or chills. No nausea. No vomiting. Her appetite is fair. Pain is 9/10, centered around the perirectal area. Mild relief when it is reduced. The patient's chief concern revolves around her difficulty at her [facility] residence where she is required to walk from her room to the dining room. She states that it is very difficult because of the pain and the mucus that occurs. She describes approximately 30 episodes of having to reduce her rectum on a given day. The patient was admitted to the hospital by the hospitalist service on . She was seen by Dr. Madison Guerin who had seen her in the office setting as well and made recommendations for an Altemeier procedure. The patient was seen by Gastroenterology and underwent colonoscopy on 02/17/17, where she was noted to have solitary rectal ulcer. In the patient's plan with Surgery, the consideration was for surgical intervention next week with Dr. Hatch. Dr. Guerin reached out to Dr. Hatch for this purpose and the decision was made that the patient could be discharged safely home. Concern at this point is that the patient cannot manage her pain and her anxiety revolving around this currently untreated rectal prolapse and ulcer. PAST MEDICAL HISTORY: Reviewed. PAST SURGICAL HISTORY: Reviewed. MEDICATIONS: Medication list is reviewed. The patient had been on blood thinner, Xarelto, but is no longer on this. REVIEW OF SYSTEMS: On review of systems today, she denies any shortness of breath. No chest pain. No fevers or chills. The patient does have history of coronary artery disease, status post stenting. No cerebrovascular disease, but described as mild neurologic deficits. No abdominal pain. Dysuria as described , perianal pain, loose stooling, poor exercise tolerance. No bleeding or clotting disorders. Off Xarelto at this point. PHYSICAL EXAMINATION GENERAL: Alert and oriented x3. She is in no apparent distress. VITAL SIGNS: She is afebrile. Vital signs are stable. Blood pressure 109/66. HEENT: Head is normocephalic and atraumatic. Sclerae are anicteric. Mucous membranes are moist. NECK: No lymphadenopathy. LUNGS: Clear to auscultation bilaterally. ABDOMEN: Soft, nondistended, nontender. Midline incisions and other surgical incisions noted. No hernias. RECTAL: Fist-sized rectal prolapse that is easily reducible. Small hyperemic areas, but no obvious fissures or ulcers can be seen by me at this time in the ER examination room. Significant mucus noted in the patient's undergarment, this is nonbloody. EXTREMITIES: Within normal limits. IMPRESSION: Solitary rectal ulcer and rectal prolapse causing significant perirectal pain that is not amenable to treatment in her residence secondary to the patient's difficulty with her what I believe anxiety. I believe the patient would benefit from surgery and agree with her age and her comorbidities to look towards to an Altemeier procedure. I do not believe she is suffering with any malignancy and would benefit from a transrectal approach to remove the prolapsed area of the rectum. I have outlined the details of the procedure briefly. The patient wishes to proceed and wants the surgery as soon as possible. I told her that this will not be possible, we will look more towards middle of this week, either Wednesday or Wednesday, for surgical intervention. We will treat her pain. She takes narcotics regularly, although she does not remember why and now she has been taking more because of this additional discomfort. We will treat her hypokalemia and the corresponding dehydration I anticipate with the loss of fluids through this rectal prolapse. The patient understands the plan and I have asked the hospitalist service to consult and look towards recommending a medical clearance and engaging in Cardiology if this is necessary. They will also administrative support manager her medications. [id number]/CPS #: [id number] HAYDEE
[2017-02-21 12:30] LABS: Hematocrit 32 % (35-47); Hemoglobin 10.6 g/dl (12.0-16.0); Mean Corpuscular HGB Conc 33 g/dl (31-36); Mean Corpuscular Hemoglobin 31 pg (27-31); Mean Corpuscular Volume 94 fL (80-97); Mean Platelet Volume 8 um3 (7.4-10.4); Red Blood Count 3.45 10^6/ul (4.0-5.4); Red Cell Distribution Width 16 % (10.5-15); White Blood Count 6.5 10^3/ul (3.5-10.8)
[2017-02-21 12:44] LABS: BUN/Creatinine Ratio 7.9 (8-20); Calcium 8.4 mg/dL (8.6-10.3); EGFR African American 78.3 (>60); EGFR Non-African American 60.9 (>60); Potassium 3.7 mmol/L (3.5-5.0)
[2017-02-21] MEDS: Lidocaine 5% OINT TOPICAL SCH ×3 (13:07→20:47)
[2017-02-21] MEDS ORDERED: HYDROmorphone* 1 MG/ML 1 ML SYR IV SLOW PU PRN (16:47)
[2017-02-21] MEDS: Ondansetron INJ* 2 MG/ML VIAL IV PRN (17:00)
--- NOTE | 2017-02-21 18:18 | PN ---
Subjective Date of Service: 02/21/17 Interval History: Pt seen and evaluated at the bedside. She reports she feels "woozy" from the diluadid. She denies pain at this time. No blood noted in stool, no diarrhea. No vomiting. Denies any recent fevers or chills. Objective Active Medications: Hydromorphone HCl (Dilaudid Iv*) 1 mg IV SLOW PU Q4H PRN PRN Reason: PAIN Last Admin: 02/21/17 17:02 Dose: 1 mg Potassium Chloride/Sodium Chloride (Ns 0.45% Kcl 20 Meq 1000 Ml*) 1,000 mls @ 50 mls/hr IV PER RATE FABRIZIO Last Admin: 02/21/17 11:28 Dose: 50 mls/hr Lidocaine (Xylocaine 5% Oint*) 1 applic TOPICAL BID FABRIZIO Last Admin: 02/21/17 15:08 Dose: 1 applic Ondansetron HCl (Zofran Inj*) 4 mg IV Q4H PRN PRN Reason: NAUSEA Last Admin: 02/21/17 17:00 Dose: 4 mg Vital Signs 02/21/17 02/21/17 02/21/17 10:18 10:23 13:08 Temperature 97.7 F Pulse Rate 117 Respiratory 18 18 16 Rate Blood Pressure 144/88 (mmHg) O2 Sat by Pulse 100 Oximetry 02/21/17 02/21/17 15:45 17:02 Temperature 99.2 F Pulse Rate 91 Respiratory 16 16 Rate Blood Pressure 102/46 (mmHg) O2 Sat by Pulse 97 Oximetry Oxygen Devices in Use Now: None Appearance: 82 yo female sitting up in bed in NAD. A+O x3; anxious Eyes: No Scleral Icterus, PERRLA Ears/Nose/Mouth/Throat: NL Teeth, Lips, Gums, Mucous Membranes Moist Neck: NL Appearance and Movements; NL JVP Respiratory: Symmetrical Chest Expansion and Respiratory Effort, Clear to Auscultation Cardiovascular: NL Sounds; No Murmurs; No JVD, RRR, No Edema Abdominal: NL Sounds; No Tenderness; No Distention Lymphatic: No Cervical Adenopathy Extremities: No Edema, No Clubbing, Cyanosis Skin: No Rash or Ulcers, No Nodules or Sclerosis Neurological: Alert and Oriented x 3, NL Sensation, NL Gait, NL Muscle Strength and Tone Lines/Tubes/Other Access: Clean, Dry and Intact Peripheral IV Nutrition: Taking PO's Result Diagrams: 02/21/17 12:15 02/21/17 12:15 Additional Lab and Data: Lab Results 02/20/17 02/20/17 Range/Units 23:00 23:00 WBC 9.0 (3.5-10.8) 10^3/ul RBC 3.45 L (4.0-5.4) 10^6/ul Hgb 10.6 L (12.0-16.0) g/dl Hct 32 L (35-47) % MCV 93 (80-97) fL MCH 31 (27-31) pg MCHC 33 (31-36) g/dl RDW 16 H (10.5-15) % Plt Count 208 (150-450) 10^3/ul MPV 8 (7.4-10.4) um3 Neut % (Auto) 65.9 (38-83) % Lymph % (Auto) 19.4 L (25-47) % [place] % (Auto) 8.5 (1-9) % Eos % (Auto) 5.6 (0-6) % Baso % (Auto) 0.6 (0-2) % Absolute Neuts (auto) 6.0 (1.5-7.7) 10^3/ul Absolute Lymphs (auto) 1.8 (1.0-4.8) 10^3/ul Absolute Monos (auto) 0.8 (0-0.8) 10^3/ul Absolute Eos (auto) 0.5 (0-0.6) 10^3/ul Absolute Basos (auto) 0.1 (0-0.2) 10^3/ul Absolute Nucleated RBC 0 10^3/ul Nucleated RBC % 0 Sodium 135 (133-145) mmol/L Potassium 3.1 L (3.5-5.0) mmol/L Chloride 103 (101-111) mmol/L Carbon Dioxide 25 (22-32) mmol/L Anion Gap 7 (2-11) mmol/L BUN 10 (6-24) mg/dL Creatinine 0.88 (0.51-0.95) mg/dL Est GFR ( Amer) 79.3 (>60) Est GFR (Non-Af Amer) 61.7 (>60) BUN/Creatinine Ratio 11.4 (8-20) Glucose 97 (70-100) mg/dL Calcium 8.5 L (8.6-10.3) mg/dL Total Bilirubin 0.40 (0.2-1.0) mg/dL AST 22 (13-39) U/L ALT 15 (7-52) U/L Alkaline Phosphatase 47 (34-104) U/L Total Protein 5.9 L (6.4-8.9) g/dL Albumin 3.2 (3.2-5.2) g/dL Globulin 2.7 (2-4) g/dL Albumin/Globulin Ratio 1.2 (1-3) Assess/Plan/Problems-Billing Assessment: Mrs. Juarez is a 82 yo female who has a PMH afib. hypothyroidism, depression, HTN and CAD who presented initially with c/o BRBPR and was found to have a prolapsed rectum with plan for surgery and was DC to home ; she returned to ED today with c/o perirectal pain unable to manage at home - Patient Problems (1) Rectal prolapse Comment: - Patient DC'd 02/18 with plan for surgery this week; patient could not tolerated being at home due to pain, anxiety. Plan for surgery mid week? - HH stable - continue pain management - The patient appears medically optimized for surgery. Please see Dr. Sauceda noted 02/18 for Pre-op clearance note (2) Diastolic CHF Comment: Asymptomatic (3) Afib Comment: The patient sounds to be irregular today. Continue diltiazem and hold xarelto for surgery. (4) CAD (coronary artery disease) Comment: Pt without any c/o chest pain. Continue simvastatin. (5) HTN (hypertension) Comment: BP is under control. Continue current medication regimen. (6) Hypothyroidism Comment: Continue current dose of synthroid. (7) DVT prophylaxis Comment: SCDs (8) Full code status Status and Disposition: inpatient. Dispo per surgery; Hospitalist following for co-medical management
[2017-02-21] MEDS: oxyCODONE TAB* 5 MG TAB PO PRN (19:30)
[2017-02-22] MEDS: Morphine INJ* 2 MG/ML 1 ML SYRINGE IV PRN ×4 (01:30→22:15)
[2017-02-22] MEDS: oxyCODONE TAB* 5 MG TAB PO PRN ×4 (02:33→23:06)
[2017-02-22] MEDS: Levothyroxine TAB* 50 MCG TAB PO SCH (05:33)
[2017-02-22 07:31] LABS: Hematocrit 37 % (35-47); Mean Corpuscular HGB Conc 32 g/dl (31-36); Mean Corpuscular Hemoglobin 31 pg (27-31); Mean Corpuscular Volume 95 fL (80-97); Mean Platelet Volume 8 um3 (7.4-10.4); Red Blood Count 3.92 10^6/ul (4.0-5.4); Red Cell Distribution Width 16 % (10.5-15); White Blood Count 7.2 10^3/ul (3.5-10.8)
[2017-02-22 07:41] LABS: BUN/Creatinine Ratio 10.8 (8-20); Blood Urea Nitrogen 10 mg/dL (6-24); CO2 Carbon Dioxide 23 mmol/L (22-32); Calcium 8.6 mg/dL (8.6-10.3); Chloride 104 mmol/L (101-111); EGFR African American 74.4 (>60); EGFR Non-African American 57.9 (>60); Glucose 100 mg/dL (70-100); Sodium 132 mmol/L (133-145)
[2017-02-22 08:09] LABS: Anion Gap 5 mmol/L (2-11)
[2017-02-22] MEDS: Cholecalciferol TAB* 1000 UNITS PO SCH (08:58)
[2017-02-22] MEDS: CMC:Escitalopram (NF) 10 MG TAB PO SCH (08:59)
[2017-02-22] MEDS: Atorvastatin* 20 MG TAB PO SCH (09:00)
[2017-02-22] MEDS ORDERED: Diltiazem CD CAP* 120 MG PO SCH (09:00)
[2017-02-22] MEDS: Lidocaine 5% OINT TOPICAL SCH ×2 (09:01→21:30)
--- NOTE | 2017-02-22 09:16 | SURGPN ---
Subjective - Introduction -: Reports persistent rectal pain, worse at times, but still able to manually reduce her prolapsed rectum. Denies any active rectal bleeding, nausea or vomiting. Would like to get surgery done as soon as possible due to her pain. - Medications -: Active Medications Generic Name Dose Route Start Last Admin Trade Name Jonyq PRN Reason Stop Dose Admin Atorvastatin Calcium 20 mg 02/22/17 09:00 02/22/17 09:00 Lipitor* PO 20 mg DAILY FABRIZIO Administration Cholecalciferol 2,000 units 02/22/17 09:00 02/22/17 08:58 Vitamin D Tab* PO 2,000 units DAILY FABRIZIO Administration Diltiazem HCl 120 mg 02/22/17 09:00 02/22/17 09:00 Cardizem Cd Cap* PO 120 mg DAILY FABRIZIO Administration Escitalopram Oxalate 20 mg 02/22/17 09:00 02/22/17 08:59 Lexapro (Nf) PO 20 mg DAILY FABRIZIO Administration Potassium Chloride/Sodium Chloride 1,000 mls @ 50 mls/hr 02/21/17 09:00 02/21 11:28 Ns 0.45% Kcl 20 Meq 1000 Ml* IV 50 mls/hr PER RATE FABRIZIO Administration Levothyroxine Sodium 50 mcg 02/22/17 06:00 02/22/17 05:33 Synthroid Tab* PO 50 mcg 0600 FABRIZIO Administration Lidocaine 1 applic 02/21/17 09:00 02/22/17 09:01 Xylocaine 5% Oint* TOPICAL 1 applic BID FABRIZIO Administration Morphine Sulfate 2 mg 02/21/17 18:31 02/22/17 07:14 Morphine Inj (Syringe)* IV 2 mg Q4H PRN Administration PAIN - MILD Ondansetron HCl 4 mg 02/21/17 16:47 02/21/17 17:00 Zofran Inj* IV 4 mg Q4H PRN Administration NAUSEA Oxycodone HCl 5 mg 02/21/17 18:32 02/22/17 09:01 Roxycodone Tab* PO 5 mg Q6H PRN Administration PAIN Objective - Objective -: Awake and alert, sitting in bed ready to eat breakfast. Appears comfortable and in NAD. - Intake and Output -: Intake & Output 02/20/17 02/21/17 02/22/17 02/23/17 06:59 06:59 06:59 06:59 Intake Total 1048 Output Total 1100 150 Balance -52 -150 Weight 150 lb Intake: IV Fluids 148 NS (0.45%) 20 meq KCL 148 Oral 900 Output: Urine 1100 150 Other: Date of Last Bowel 0 Movement # Bowel Movements 0 Surgical Physical Exam - Comments -: VSS, afebrile Abdomen soft, non-tender and non-distended. Rectal exam deferred at this time. Assessment and Plan - Assessment -: An 82 y/o female with rectal prolapse, persistent rectal pain. - Plan Additional Comments: Discussed with Dr. Moore, who would like to proceed with surgery tomorrow, or Wednesday. Patient aware and agreed to plans. Keep NPO past midnight. Continue pain management.
--- NOTE | 2017-02-22 12:12 | PN ---
Subjective Date of Service: 02/22/17 Interval History: Patient seen and examined at bedside. Denies fever, chills, shortness of breath , chest discomfort, N/V/D. Pt states that she is reducing her rectal prolapse after her bowel movements. Pain is controlled with the current pain medication regime. Pt is anxious to have surgery. Pt states that she is mostly sleeping. Family History: Unchanged from Admission Social History: Unchanged from Admission Past Medical History: Unchanged from Admission Objective Active Medications: Atorvastatin Calcium (Lipitor*) 20 mg PO DAILY [facility] Cholecalciferol (Vitamin D Tab*) 2,000 units PO DAILY [facility] Diltiazem HCl (Cardizem Cd Cap*) 120 mg PO DAILY [facility] Escitalopram Oxalate (Lexapro (Nf)) 20 mg PO DAILY [facility] Potassium Chloride/Sodium Chloride (Ns 0.45% Kcl 20 Meq 1000 Ml*) 1,000 mls @ 50 mls/hr IV PER RATE [facility] Levothyroxine Sodium (Synthroid Tab*) 50 mcg PO 0600 [facility] Lidocaine (Xylocaine 5% Oint*) 1 applic TOPICAL BID [facility] Morphine Sulfate (Morphine Inj (Syringe)*) 2 mg IV Q4H PRN Reason: PAIN - MILD Ondansetron HCl (Zofran Inj*) 4 mg IV Q4H PRN Reason: NAUSEA Oxycodone HCl (Roxycodone Tab*) 5 mg PO Q6H PRN Reason: PAIN Vital Signs 02/21/17 02/21/17 02/21/17 13:08 15:45 17:02 Temperature 99.2 F Pulse Rate 91 Respiratory 16 16 16 Rate Blood Pressure 102/46 (mmHg) O2 Sat by Pulse 97 Oximetry 02/21/17 02/21/17 02/21/17 19:23 19:30 19:46 Temperature 98.6 F Pulse Rate 109 Respiratory 20 18 20 Rate Blood Pressure 108/63 (mmHg) O2 Sat by Pulse 93 Oximetry 02/21/17 02/21/17 02/22/17 21:30 23:49 01:30 Temperature 97.7 F Pulse Rate 80 Respiratory 16 16 20 Rate Blood Pressure 106/76 (mmHg) O2 Sat by Pulse 94 Oximetry 02/22/17 02/22/17 02/22/17 05:02 07:14 08:00 Temperature 97.3 F Pulse Rate 126 Respiratory 18 17 17 Rate Blood Pressure 98/58 (mmHg) O2 Sat by Pulse 92 Oximetry 02/22/17 02/22/17 02/22/17 08:14 08:48 09:01 Temperature 97.6 F Pulse Rate 138 Respiratory 16 Rate Blood Pressure 107/73 (mmHg) O2 Sat by Pulse 98 Oximetry Oxygen Devices in Use Now: None Appearance: NAD, laying in bed Ears/Nose/Mouth/Throat: Mucous Membranes Moist Respiratory: Symmetrical Chest Expansion and Respiratory Effort, Clear to Auscultation Cardiovascular: NL Sounds; No Murmurs; No JVD, - - Heart rate irregular irregular, grade 2-3/6 systolic murmur heard best at the right upper sternal border Abdominal: NL Sounds; No Tenderness; No Distention Extremities: No Edema Skin: No Rash or Ulcers Neurological: Alert and Oriented x 3, NL Muscle Strength and Tone Lines/Tubes/Other Access: Clean, Dry and Intact Peripheral IV - site benign Nutrition: Taking PO's Result Diagrams: 02/22/17 07:14 02/22/17 07:14 Additional Lab and Data: Assess/Plan/Problems-Billing Assessment: Mrs. Juarez is a 82 yo female who has a H afib. hypothyroidism, depression, HTN and CAD who presented initially with c/o BRBPR and was found to have a prolapsed rectum with plan for surgery and was DC to home ; she returned to ED 02/21/17 with c/o perirectal pain unable to manage at home - Patient Problems (1) Rectal prolapse Code(s): K62.3 - RECTAL PROLAPSE SNOMED Code(s): 61743801 Comment: - Patient DC'd 02/18 with plan for surgery this week; patient could not tolerated being at home due to pain, anxiety. Plan for surgery Wednesday or Wednesday - HH stable - Continue pain management - According to the RCRI she has 1 point, placing her at a Class II Risk and a 0.9% risk of major cardiac event. She has a METs score of 4. TTE 08/2016 - EF 65- 70%, moderate LVH with normal wall motion and mild to moderate . The patient appears medically optimized for surgery and need no further cardiac workup. (2) Diastolic CHF Code(s): I50.30 - UNSPECIFIED DIASTOLIC (CONGESTIVE) HEART FAILURE SNOMED Code (s): 617635547 Comment: - Asymptomatic - TTE 08/2016 - EF 65-70% (3) Afib Code(s): I48.91 - UNSPECIFIED ATRIAL FIBRILLATION SNOMED Code(s): 72718567 Comment: - The patient sounds to be irregular today. - Continue diltiazem and hold xarelto for surgery. (4) CAD (coronary artery disease) Code(s): I25.10 - ATHSCL HEART DISEASE OF [place] CORONARY ARTERY W/O ANG PCTRS SNOMED Code(s): 43454143 Comment: - Pt without any c/o chest pain. - Continue simvastatin. (5) HTN (hypertension) Code(s): I10 - ESSENTIAL (PRIMARY) HYPERTENSION SNOMED Code(s): 40261395 Comment: - SBP 90-140's. - Continue current medication regimen. (6) Hypothyroidism Code(s): E03.9 - HYPOTHYROIDISM, UNSPECIFIED SNOMED Code(s): 25165847 Comment: - Continue current dose of synthroid. (7) DVT prophylaxis Code(s): YZG2090 - SNOMED Code(s): 162849526 Comment: - SCDs (8) DNR (do not resuscitate) Comment: - MOLST completed and placed in the chart Status and Disposition: Inpatient. Dispo per surgery; Hospitalist following for co-medical management.
[2017-02-22] MEDS ORDERED: Acetaminophen TAB* 325 MG PO PRN (21:02)
[2017-02-23] MEDS: Ibuprofen TAB* 400 MG PO PRN ×2 (01:42→21:27)
[2017-02-23] MEDS: Morphine INJ* 2 MG/ML 1 ML SYRINGE IV PRN ×2 (02:18→10:11)
[2017-02-23] MEDS: oxyCODONE TAB* 5 MG TAB PO PRN ×4 (06:18→21:26)
[2017-02-23] MEDS: Levothyroxine TAB* 50 MCG TAB PO SCH (06:18)
[2017-02-23] MEDS ORDERED: Diltiazem CD CAP* 120 MG PO SCH (08:34)
--- NOTE | 2017-02-23 08:36 | PN ---
Subjective Date of Service: 02/23/17 Interval History: Ms. Juarez reports rectal pain but denies other complaint including chest pain, SOB, nausea, or abdominal pain. She is relieved that she will be going to surgery tomorrow. Family History: Unchanged from Admission Social History: Unchanged from Admission Past Medical History: Unchanged from Admission Objective Active Medications: Atorvastatin Calcium (Lipitor*) 20 mg PO DAILY [facility] Cholecalciferol (Vitamin D Tab*) 2,000 units PO DAILY [facility] Diltiazem HCl (Cardizem Cd Cap*) 120 mg PO DAILY [facility] Escitalopram Oxalate (Lexapro (Nf)) 20 mg PO DAILY [facility] Potassium Chloride/Sodium Chloride (Ns 0.45% Kcl 20 Meq 1000 Ml*) 1,000 mls @ 50 mls/hr IV PER RATE [facility] Ibuprofen (Motrin Tab*) 400 mg PO Q6H PRN Levothyroxine Sodium (Synthroid Tab*) 50 mcg PO 0600 [facility] Lidocaine (Xylocaine 5% Oint*) 1 applic TOPICAL BID [facility] Morphine Sulfate (Morphine Inj (Syringe)*) 2 mg IV Q4H PRN Ondansetron HCl (Zofran Inj*) 4 mg IV Q4H PRN Oxycodone HCl (Roxycodone Tab*) 5 mg PO Q6H PRN Vital Signs 02/22/17 02/22/17 02/22/17 08:48 09:01 11:01 Temperature 97.6 F Pulse Rate 138 Respiratory 17 16 16 Rate Blood Pressure 107/73 (mmHg) O2 Sat by Pulse 98 Oximetry 02/22/17 02/22/17 02/22/17 12:34 15:12 17:14 Temperature 97.9 F 97.8 F Pulse Rate 88 71 Respiratory 16 18 18 Rate Blood Pressure 90/54 89/62 (mmHg) O2 Sat by Pulse 95 92 Oximetry 02/22/17 02/22/17 02/22/17 18:07 19:07 19:14 Temperature Pulse Rate Respiratory 18 20 18 Rate Blood Pressure (mmHg) O2 Sat by Pulse Oximetry 02/22/17 02/22/17 02/22/17 19:17 19:51 20:00 Temperature 97.9 F Pulse Rate 100 Respiratory 16 16 Rate Blood Pressure 85/38 94/66 (mmHg) O2 Sat by Pulse 93 Oximetry 02/22/17 02/22/17 02/22/17 22:15 23:06 23:07 Temperature 97.4 F Pulse Rate 98 Respiratory 16 18 16 Rate Blood Pressure 103/58 (mmHg) O2 Sat by Pulse 96 Oximetry 02/22/17 02/23/17 02/23/17 23:15 01:06 02:18 Temperature Pulse Rate Respiratory 18 20 18 Rate Blood Pressure (mmHg) O2 Sat by Pulse Oximetry 02/23/17 02/23/17 02/23/17 03:18 03:31 06:18 Temperature 97.7 F Pulse Rate 76 Respiratory 16 16 18 Rate Blood Pressure 102/83 (mmHg) O2 Sat by Pulse 91 Oximetry Oxygen Devices in Use Now: None Appearance: Elderly female sitting on edge of bed in NAD Eyes: No Scleral Icterus Ears/Nose/Mouth/Throat: Mucous Membranes Moist Neck: Trachea Midline Respiratory: Symmetrical Chest Expansion and Respiratory Effort, Clear to Auscultation Cardiovascular: NL Sounds; No Murmurs; No JVD, No Edema Abdominal: NL Sounds; No Tenderness; No Distention Lymphatic: No Cervical Adenopathy Extremities: No Edema Skin: No Rash or Ulcers Neurological: Alert and Oriented x 3, NL Muscle Strength and Tone Nutrition: Taking PO's Result Diagrams: 02/22/17 07:14 02/22/17 07:14 Additional Lab and Data: Assess/Plan/Problems-Billing Assessment: Mrs. Juarez is a 82 yo female who has a PMH afib, hypothyroidism, depression, HTN and CAD who presented initially on 02/16/17 with c/o BRBPR and was found to have a prolapsed rectum with plan for surgery and DC to home; she returned to ED 02/21/17 with c/o perirectal pain which she was unable to manage at home. - Patient Problems (1) Rectal prolapse Comment: - H/H stable. Pain reasonably controlled on current regimen. - Patient DC'd 02/18 with plan for surgery this week but she could not tolerate pain/ anxiety. Plan for surgery 02/23/17. GI prep underway, flagyl started per surgery. - According to the [facility]CRI, she is Class II with a 0.9% risk of major cardiac event. She is able to do 4 METs of activity without CP or SOB. TTE 08/2016 - EF 65-70%, moderate LVH with normal wall motion and mild to moderate . The patient is medically optimized for surgery and needs no further cardiac workup. (2) Afib Comment: - Rate controlled. - Continue diltiazem and hold xarelto for anticipated surgery. (3) HTN (hypertension) Comment: - SBP 80-100s, asymptomatic. - Continue cardizem but switch to immediate acting with hold parameters given history of afib. - Agree with IVF as ordered per anesthesiology pre-op. (4) CAD (coronary artery disease) Comment: - Asymptomatic. - Continue simvastatin. (5) Diastolic CHF Comment: - Asymptomatic. - TTE 08/2016 - EF 65-70%. (6) Hypothyroidism Comment: - Asymptomatic. - Continue levothyroxine. (7) DNR (do not resuscitate) Comment: - MOLST completed. (8) DVT prophylaxis Comment: - SCDs Status and Disposition: Inpatient. Dispo per surgery; Hospitalist following for medical co-management.
[2017-02-23] MEDS ORDERED: PEG 3000 GI LAVAGE* 1 GALLON PO ONE (09:32)
[2017-02-23] MEDS: CMC:Escitalopram (NF) 10 MG TAB PO SCH (09:47)
[2017-02-23] MEDS: Cholecalciferol TAB* 1000 UNITS PO SCH (09:47)
[2017-02-23] MEDS: Atorvastatin* 20 MG TAB PO SCH (09:47)
[2017-02-23] MEDS: Lidocaine 5% OINT TOPICAL SCH ×2 (09:49→21:55)
[2017-02-23] MEDS ORDERED: Buffered Lidocaine 0.9% SYRIN* 5 ML/SYR SYRINGE INTRADERM ONE (11:43)
--- NOTE | 2017-02-23 11:51 | PN ---
Progress Note - Progress Note Date of Service: 02/23/17 SOAP: Subjective: Pt seen and examined. Feels well. Prepared for surgery tomorrow. Objective: af vss abdo: soft/ND/NT hospitalinst note appreciated Assessment: Rectal prolapse with ulcer/fissure. Rectal pain controlled with IV narcotics in frail pt unable to tolerate out-patient pre-op Plan: IVF pain control bowel prep OR Wednesday for perineal rectosigmoidectomy R/B/A discussed with pt and she wishes to proceed. I discussed the procedure and rational with both pt and her daughter at separate times. I discussed at length the possible complications which include, but are not limited to bleeding, infection, recurrence, leak, stricture, incontinence, need for fecal diversion, prolonged hospitalization and even . Pt wishes to proceed. Additionally, I spoke on the phone with pt's daughter going over these same possible complications. Her questions were answered.
[2017-02-23] MEDS: Neomycin TAB* 500 MG PO SCH ×2 (13:23→19:41)
[2017-02-23] MEDS: metroNIDAZOLE TAB* 250 MG PO SCH ×2 (13:23→19:41)
[2017-02-23] MEDS: Morphine INJ* 4 MG/ML 1 ML SYRINGE IV PRN ×2 (15:13→19:36)
[2017-02-23] MEDS ORDERED: metroNIDAZOLE TAB* 250 MG ONE (19:23)
[2017-02-24] MEDS: oxyCODONE TAB* 5 MG TAB PO PRN (03:19)
[2017-02-24] MEDS: Ibuprofen TAB* 400 MG PO PRN (03:19)
[2017-02-24] MEDS: Levothyroxine TAB* 50 MCG TAB PO SCH (06:42)
[2017-02-24] MEDS: metroNIDAZOLE TAB* 250 MG PO SCH (07:21)
[2017-02-24] MEDS: Neomycin TAB* 500 MG PO SCH (07:21)
[2017-02-24] MEDS: Diltiazem TAB* 30 MG PO SCH ×3 (07:37→14:55)
[2017-02-24] MEDS: CMC:Escitalopram (NF) 10 MG TAB PO SCH (08:45)
[2017-02-24] MEDS: Atorvastatin* 20 MG TAB PO SCH (08:45)
[2017-02-24] MEDS: Cholecalciferol TAB* 1000 UNITS PO SCH (08:45)
[2017-02-24] MEDS: Lidocaine 5% OINT TOPICAL SCH ×2 (08:46→22:28)
[2017-02-24] MEDS ORDERED: ceFAZolin 2 GM PREMIX(*) 2 GM/50 ML BAG IVPB ONE (09:57)
[2017-02-24] MEDS ORDERED: metroNIDAZOLE IV 500 MG/100ML* 500 MG/100 ML BAG IVPB ONE (09:58)
[2017-02-24] MEDS ORDERED: fentaNYL* 50 MCG/ML 2 ML VIAL (100 MCG VIAL) ONE ×3 (10:10→13:06)
[2017-02-24] MEDS ORDERED: Midazolam* 1 MG/ML 2 ML VIAL (2 MG) ONE (10:10)
[2017-02-24] MEDS ORDERED: Cisatracurium* 2 MG/ML MDV 5 ML ONE (10:18)
[2017-02-24] MEDS ORDERED: Dexamethasone IV* 4 MG/ML 1 ML (4 MG) ONE (10:37)
[2017-02-24] MEDS ORDERED: Propofol* 10 MG/ML 20 ML BTL IV PUSH ONE (10:37)
[2017-02-24] MEDS ORDERED: EPHEDrine (Pressors)* 50 MG/ML VIAL ONE (10:37)
[2017-02-24] MEDS ORDERED: Succinylcholine* 20 MG/ML 10 ML VIAL ONE (10:37)
[2017-02-24] MEDS ORDERED: Famotidine IV* 10 MG/ML 2 ML (20 mg) ONE (10:37)
[2017-02-24] MEDS ORDERED: Lidocaine 2% PF * 5 ML VIAL ONE (10:37)
[2017-02-24] MEDS ORDERED: Lidocaine 1% MPF wEPI 200,000* 30 ML SDV ONE (10:55)
[2017-02-24] MEDS ORDERED: Surgical Lubricant STERILE* 120 GM TOP.GEL ONE (10:56)
[2017-02-24] MEDS ORDERED: Diltiazem IV* 5 MG/ML 5 ML VIAL (for loading dose/IV Push) (25 MG) ONE (11:14)
[2017-02-24] MEDS ORDERED: Phenylephrine IV* 40 MCG/ML 10 ML SYRINGE ONE (12:27)
--- NOTE | 2017-02-24 12:43 | PN ---
Progress Note - Progress Note Date of Service: 02/24/17 Note: Brief Operative Note: Pre-op: Rectal prolapse Post-op: Same Procedure: [place] Procedure Surgeon: Dr. [employer] Lab Teacher: Abdiel Ray Anaesthesia: GETA EBL: 200 cc IV: LR 1000 cc Catheter: Gamboa to gravity Drains: None Specimen: Rectosigmoid colon Findings: See dictated op note
--- NOTE | 2017-02-24 12:58 | PN ---
Subjective Date of Service: 02/24/17 Interval History: Ms. Juarez is very uncomfortable after surgery and reports pain in her perineum and rectum. She denies other complaint. Family History: Unchanged from Admission Social History: Unchanged from Admission Past Medical History: Unchanged from Admission Objective Active Medications: Atorvastatin Calcium (Lipitor*) 20 mg PO DAILY [facility] Cholecalciferol (Vitamin D Tab*) 2,000 units PO DAILY [facility] Diltiazem HCl (Cardizem Tab*) 30 mg PO Q6H [facility] Escitalopram Oxalate (Lexapro (Nf)) 20 mg PO DAILY [facility] Lactated Ringer's (Lactated Ringers 1000 Ml Bag*) 1,000 mls @ 75 mls/hr IV PER RATE [facility] Ibuprofen (Motrin Tab*) 400 mg PO Q6H PRN Levothyroxine Sodium (Synthroid Tab*) 50 mcg PO 0600 [facility] Lidocaine (Xylocaine 5% Oint*) 1 applic TOPICAL BID [facility] Morphine Sulfate (Morphine Inj (Syringe)*) 4 mg IV Q4H PRN Ondansetron HCl (Zofran Inj*) 4 mg IV Q4H PRN Oxycodone HCl (Roxycodone Tab*) 5 mg PO Q4H PRN Oxycodone HCl (Roxycodone Tab*) 10 mg PO Q4H PRN Vital Signs 02/23/17 02/23/17 02/23/17 13:23 15:13 15:23 Temperature Pulse Rate Respiratory 16 18 16 Rate Blood Pressure (mmHg) O2 Sat by Pulse Oximetry 02/23/17 02/23/17 02/23/17 15:36 16:13 17:34 Temperature 97.5 F Pulse Rate 43 Respiratory 16 16 16 Rate Blood Pressure 103/51 (mmHg) O2 Sat by Pulse 90 Oximetry 02/23/17 02/23/17 02/23/17 19:04 19:13 19:34 Temperature 97.9 F Pulse Rate 68 Respiratory 20 15 22 Rate Blood Pressure 94/57 (mmHg) O2 Sat by Pulse 96 Oximetry 02/23/17 02/23/17 02/23/17 19:36 20:35 21:26 Temperature Pulse Rate Respiratory 22 15 20 Rate Blood Pressure (mmHg) O2 Sat by Pulse Oximetry 02/23/17 02/23/17 02/24/17 23:10 23:55 03:34 Temperature 98.5 F 97.9 F Pulse Rate 109 100 Respiratory 17 16 18 Rate Blood Pressure 117/64 103/63 (mmHg) O2 Sat by Pulse 94 92 Oximetry 02/24/17 02/24/17 02/24/17 07:37 08:00 09:36 Temperature 98.6 F Pulse Rate 125 89 Respiratory 17 16 16 Rate Blood Pressure 109/80 114/65 (mmHg) O2 Sat by Pulse 97 96 Oximetry 02/24/17 09:39 Temperature 98.6 F Pulse Rate 89 Respiratory 16 Rate Blood Pressure 114/65 (mmHg) O2 Sat by Pulse 96 Oximetry Oxygen Devices in Use Now: None Appearance: Female lying in bed, appears uncomfortable Eyes: No Scleral Icterus Ears/Nose/Mouth/Throat: NL Teeth, Lips, Gums, Mucous Membranes Moist Neck: NL Appearance and Movements; NL JVP Respiratory: Symmetrical Chest Expansion and Respiratory Effort, Clear to Percussion Cardiovascular: NL Sounds; No Murmurs; No JVD, No Edema Abdominal: NL Sounds; No Tenderness; No Distention Lymphatic: No Cervical Adenopathy Extremities: No Edema Skin: No Rash or Ulcers Neurological: Alert and Oriented x 3, NL Muscle Strength and Tone Nutrition: Taking PO's Result Diagrams: 02/22/17 07:14 02/22/17 07:14 Additional Lab and Data: Assess/Plan/Problems-Billing Assessment: Mrs. Juarez is a 82 yo female who has a PMH afib, hypothyroidism, depression, HTN and CAD who presented initially on 02/16/17 with c/o BRBPR and was found to have a prolapsed rectum with plan for surgery and DC to home; she returned to ED 02/21/17 with c/o perirectal pain which she was unable to manage at home. - Patient Problems (1) Rectal prolapse Comment: - POD # 0 s/p perineal rectosigmoidectomy. - Management per surgical team. - Pain meds prn. - Monitor H/H. (2) Afib Comment: - Rate controlled. - Continue diltiazem and hold xarelto until approved to be resumed per surgical team. (3) HTN (hypertension) Comment: - SBP 80-100s, asymptomatic. - Continue cardizem but switch to immediate acting with hold parameters given history of afib. - Agree with IVF as ordered per surgical team. (4) CAD (coronary artery disease) Comment: - Asymptomatic. - Continue simvastatin. (5) Diastolic CHF Comment: - Asymptomatic. - TTE 08/2016 - EF 65-70%. (6) Hypothyroidism Comment: - Asymptomatic. - Continue levothyroxine. (7) DNR (do not resuscitate) Comment: - MOLST completed. (8) DVT prophylaxis Comment: - SCDs Status and Disposition: Inpatient. Dispo per surgery; Hospitalist following for medical co-management.
[2017-02-24] MEDS ORDERED: Acetaminophen TAB* 325 MG PO PRN (13:06)
[2017-02-24] MEDS ORDERED: PROCHLORPERAZINE INJ 5 MG/ML 2 ML VIAL IV PRN (13:06)
[2017-02-24] MEDS ORDERED: Ondansetron INJ* 2 MG/ML VIAL IV PRN (13:06)
[2017-02-24] MEDS ORDERED: DiMENhydriNATE IV* 50 MG/ML VIAL IV PUSH PRN (13:06)
[2017-02-24] MEDS ORDERED: Levalbuterol 0.63MG/3ML NEB INH PRN (13:06)
[2017-02-24] MEDS: fentaNYL* 50 MCG/ML 2 ML VIAL (100 MCG VIAL) IV PRN ×4 (13:09→13:39)
[2017-02-24] MEDS: Ondansetron INJ* 2 MG/ML VIAL IV PRN ×2 (14:28→19:41)
[2017-02-24] MEDS: Morphine INJ* 4 MG/ML 1 ML SYRINGE IV PRN ×2 (14:28→22:35)
[2017-02-24] MEDS: ceFAZolin 1 GM in Dextrose (*) 1 GM/50 ML BAG IVPB SCH ×2 (16:29→22:02)
[2017-02-24] MEDS ORDERED: metroNIDAZOLE IV 500 MG/100ML* 500 MG/100 ML BAG IVPB SCH (17:00)
[2017-02-24] MEDS ORDERED: NS 0.9% 1000 ML* 1,000 ML IV ONE (18:22)
[2017-02-24 18:52] LABS: Hematocrit 39 % (35-47); Hemoglobin 12.5 g/dl (12.0-16.0); Mean Corpuscular HGB Conc 32 g/dl (31-36); Mean Corpuscular Hemoglobin 31 pg (27-31); Mean Corpuscular Volume 96 fL (80-97); Mean Platelet Volume 8 um3 (7.4-10.4); Red Blood Count 4.09 10^6/ul (4.0-5.4); Red Cell Distribution Width 16 % (10.5-15); White Blood Count 3.8 10^3/ul (3.5-10.8)
[2017-02-24 19:08] LABS: BUN/Creatinine Ratio 11.7 (8-20); Calcium 8.5 mg/dL (8.6-10.3); EGFR African American 92.5 (>60); EGFR Non-African American 71.9 (>60); Potassium 3.4 mmol/L (3.5-5.0)
--- NOTE | 2017-02-24 22:51 | PN ---
Progress Note - Progress Note Date of Service: 02/24/17 SOAP: Subjective: Pt seen earlier i n [facility]. Events noted. Pt remained hypotensive. EKG c/w A fib rate <120. Transferred to ICU. She has received 2 L LR. Labs reviewed and new labs pending. Pt c/o perineal pain and abdominal pain. Frequent loose BMs. Objective: af HR: 90 - 110s SBP: 80-110s UO good priot o events, and now followed hourly on urimeter lungs clear abdo: soft/mild distension. tender Perineum: continued stool, some blood. rectal : suture line apreciated and intact. labs noted elevated Lactate Assessment: POD0 perineal rectosigmoidectomy. a fib, hypotensive but responding to fluid. Pt is unconfortable Concern for ongoing bleeding Plan: repeat labs. IV hydration may require CT scan if pain and hypotension persists. I have been at bedside for last 2 hrs
[2017-02-24] MEDS ORDERED: NS 0.9% IV ONE (23:00)
[2017-02-24 23:17] LABS: Comments Flag Yes; Hematocrit 41 % (35-47); Hemoglobin 13.2 g/dl (12.0-16.0); Mean Corpuscular HGB Conc 32 g/dl (31-36); Mean Corpuscular Hemoglobin 30 pg (27-31); Mean Corpuscular Volume 94 fL (80-97); Mean Platelet Volume 8 um3 (7.4-10.4); Red Blood Count 4.34 10^6/ul (4.0-5.4); Red Cell Distribution Width 16 % (10.5-15); White Blood Count 2.1 10^3/ul (3.5-10.8)
[2017-02-25] MEDS: NS 0.9% IV ONE ×2 (03:20→08:28)
[2017-02-25] MEDS ORDERED: Diltiazem IV VIAL* 125 MG/25 ML VIAL ONE (05:39)
[2017-02-25] MEDS ORDERED: NS 0.9% 250 ML* 250 ML IV ONE (05:45)
[2017-02-25] MEDS ORDERED: Diltiazem IV* 5 MG/ML 5 ML VIAL (for loading dose/IV Push) (25 MG) IV SLOW PU ONE (05:45)
[2017-02-25] MEDS: Diltiazem DRIP* 100 MG/100 ML ADDV.BAG IVPB ONE ×2 (05:46→05:59)
[2017-02-25] MEDS: Heparin VIAL(*) 5000 UNITS/ML VIAL (FIVE THOUSAND) SUBCUT SCH ×3 (05:46→21:38)
[2017-02-25] MEDS: Levothyroxine TAB* 50 MCG TAB PO SCH (05:48)
[2017-02-25 06:44] LABS: BUN/Creatinine Ratio 10.6 (8-20); Calcium 7.8 mg/dL (8.6-10.3); EGFR African American 73.5 (>60); EGFR Non-African American 57.2 (>60); Magnesium 1.6 mg/dL (1.9-2.7); Phosphorus 3.2 mg/dL (2.5-5.0)
[2017-02-25 06:48] LABS: Potassium 3.7 mmol/L (3.5-5.0)
[2017-02-25 06:54] LABS: Hematocrit 38 % (35-47); Hemoglobin 12.4 g/dl (12.0-16.0); Mean Corpuscular HGB Conc 33 g/dl (31-36); Mean Corpuscular Hemoglobin 31 pg (27-31); Mean Corpuscular Volume 95 fL (80-97); Mean Platelet Volume 8 um3 (7.4-10.4); Red Blood Count 3.97 10^6/ul (4.0-5.4); Red Cell Distribution Width 16 % (10.5-15); White Blood Count 2.7 10^3/ul (3.5-10.8)
[2017-02-25] MEDS ORDERED: Diltiazem DRIP* 100 MG/100 ML ADDV.BAG IVPB SCH (07:00)
[2017-02-25 07:02] LABS: Comments Flag Yes
--- NOTE | 2017-02-25 07:23 | PN ---
Progress Note - Progress Note Date of Service: 02/25/17 Note: Mrs Juarez is an 82YO female admitted for intractable rectal pain s/p rectosigmoidectomy performed for rectal prolapse. Who was a CAT call last evening felt to be due to vasovagal syncope. However, since her WBCs have dipped significantly, her pressures have been soft complicated by AFIB RVR. She has remained afebrile, but mental status is poor as she does not answer questions and does not follow requests. Over night pressures and HR were attempted to be controlled via IVFs with variable success while her MAP was maintained above 65. However once her AFIB became sustained above 120 her MAP dipped and diltiazem was re-initiated. At this time, as she has failed to improve with management of her obvious issues, I believe she is septic and will recheck a lactic acid, check a procalcitonin, & initiate piperacillin/ tazobactam. Michelle Moore MD surgery apprised.
--- NOTE | 2017-02-25 07:24 | PN ---
Progress Note - Progress Note Date of Service: 02/24/17 - Late Entry Note: Late Entry for assessment post CAT call on 02/24/17. Time of assessment ~ 6: 30pm. Reported from Dr. Jeronimo that patient was a CAT call for episode of syncope. Dr. Jeronimo assessed and suspected that she had a vasovagal episode secondary to being immediately post-op and having BM with vomiting. On my assessment, patient awakened easily to voice and answered questions appropriately. She denied pain to her perineal area, chest pain, SOB, or nausea. Her vitals were stable and an IVF bolus was infusing. Spoke with patient's daughter at length and updated her regarding the episode of syncope. Patient's daughter very concerned about the amount of pain meds her mother would be receiving given that she had delirium in the past. I assured her that we would make every effort to avoid all deliriogenic agents other than those required to manage her pain.
--- NOTE | 2017-02-25 07:29 | PN ---
Progress Note - Progress Note Date of Service: 02/25/17 SOAP: Subjective: Pt seen and examined. Continued hypotension overnight. Poor urine output. Received additional boluses. She continues to complain of lower abdo pain. No appetite. No nausea. Objective: af hypotensive. tachycardic oliguric lungs poor insp b/l abdo: soft/ distended/tender diffusely; no rebound rectal: stool, suture line seems intact on palpation labs noted; wbc down Cxr reviewed. free air Assessment: POD1 perineal rectosigmoidectomy, abdo pain , and septic appearing. DDx includes breakdown of anastomosis, proximal sigmoid injury. Plan: Diagnostic laparoscopy, possible laparotomy abx will need central line, Araceli I discussed case with pt, who agrees to proceed, " whatever it takes." I discussed with Pt's daughter. going over risks, benefits, alternatives. We spoke of the possibility of bleeding, infection, need for colostomy that may or not be able to be reversed. Pt's course can be guarded postoperatively, expecting prolonged hospital course, and even . She agrees to proceed. I realize pt doesn't want heroic measures, but I feel that pt early post- operative septic appearing picture would benefit from intervention at this time.
[2017-02-25 07:41] LABS: Add Diff/Slide Review? Slide Review Added
[2017-02-25 08:03] LABS: Immature Granulocytes 22 % (0-9); Myelocytes % 1 % (0-1); Neutrophil % 37 % (38-83); Reactive Lymph % 3 % (0-6)
[2017-02-25 08:04] LABS: RBC Morphology Normal (Normal)
[2017-02-25] MEDS ORDERED: Bupivacaine 0.25% EPI 200,000* 30 ML SDV ONE (08:06)
[2017-02-25] MEDS ORDERED: Digoxin IV* 0.5 MG/2 ML AMP (0.25 MG/ML) IV SLOW PU ONE ×2 (08:08→16:00)
[2017-02-25] MEDS ORDERED: Digoxin IV* 0.5 MG/2 ML AMP (0.25 MG/ML) ONE (08:15)
--- NOTE | 2017-02-25 08:23 | RAD ---
INDICATION: Fluid overload. COMPARISON: There are no prior studies available for comparison. TECHNIQUE: A portable view of the chest was obtained. FINDINGS: The heart is mildly enlarged. The lungs are underinflated. There is diffuse prominence of the interstitial markings and small bilateral pleural effusions most consistent with congestive heart failure. The colon appears distended. In addition there is a large amount of air within the abdomen suspicious for free intraperitoneal air. The results of this examination were discussed with the referring clinician and the patient had already been taken to the operating room for further evaluation. IMPRESSION: 1. FINDINGS MOST CONSISTENT WITH CONGESTIVE HEART FAILURE. 2. COLONIC DISTENTION AND AND FINDINGS SUSPICIOUS FOR FREE INTRAPERITONEAL AIR.
[2017-02-25] MEDS ORDERED: KETAMINE HCL* 50 MG/ML 10 ML VIAL ONE (08:28)
[2017-02-25] MEDS: Cholecalciferol TAB* 1000 UNITS PO SCH (08:29)
[2017-02-25] MEDS: Atorvastatin* 20 MG TAB PO SCH (08:29)
[2017-02-25] MEDS: CMC:Escitalopram (NF) 10 MG TAB PO SCH (08:30)
[2017-02-25] MEDS ORDERED: Midazolam* 1 MG/ML 2 ML VIAL (2 MG) ONE (08:31)
[2017-02-25] MEDS ORDERED: Docusate CAP* 100 MG PO PRN (08:40)
[2017-02-25] MEDS ORDERED: Rocuronium* 10 MG/ML VIAL ONE (08:48)
[2017-02-25] MEDS ORDERED: Phenylephrine IV* 40 MCG/ML 10 ML SYRINGE ONE (09:57)
[2017-02-25] MEDS ORDERED: Norepinephrine VIAL* 1 MG/ML 4 ML VIAL ONE (10:26)
[2017-02-25 10:41] LABS: PCO2 Arterial 41 mmHg (35-45)
[2017-02-25] MEDS ORDERED: Esmolol* 10 MG/ML 10 ML (100 mg) ONE (10:43)
[2017-02-25] MEDS ORDERED: fentaNYL* 50 MCG/ML 2 ML VIAL (100 MCG VIAL) ONE ×3 (10:50→11:46)
--- NOTE | 2017-02-25 12:15 | SURGPN ---
Brief Operative Note - Surgery Procedures: Procedures Pre op Dx: abdominal sepsis Post-op Dx: fecal peritonitis Procedure: Diagnostic laparoscopy, exploratory laparotomy, abdominal washout, end sigmoid colostomy Surgeon: Oscar Asst: Lacy Anest: JORDAN Guerrero EBL: 50cc IVF: 1000LR, 500 NS Drains: JAIMEE x2 in pelvis Colostomy Wound loosely approximated with staple, packed with iodoform packing
[2017-02-25] MEDS ORDERED: Propofol* 100 ML ONE (12:29)
[2017-02-25] MEDS ORDERED: fentaNYL* 50 MCG/ML 2 ML VIAL (100 MCG VIAL) IV SLOW PU ONE (12:32)
[2017-02-25] MEDS ORDERED: Norepinephrine 16MCG/ML IVPRE* 4,000 MCG/250 ML BAG IV ONE (12:49)
[2017-02-25] MEDS ORDERED: Albumin Human 5%* 250 ML BTL IV ONE (12:53)
[2017-02-25] MEDS ORDERED: Albumin Human 5%* 500 ML in PREMIX* 0 ML IV ONE (13:00)
[2017-02-25] MEDS ORDERED: NS 0.9% 1000 ML* 2,000 ML IV ONE (13:07)
[2017-02-25] MEDS ORDERED: PREMIX* 0 ML ONE (13:27)
--- NOTE | 2017-02-25 13:27 | CONSULT ---
Consult Consult: CRITICAL CARE MEDICINE DATE: 02/25/17 TIME: 1230 REFERRING PROVIDER: Oscar REASON/CHIEF COMPLAINT: post op resp failure, sepsis HISTORY OF PRESENT ILLNESS: 82 F with h/o recent ailments due to rectal prolapse , going to OR yesterday for REVIEW OF SYSTEMS: As per HPI. PAST MEDICAL HISTORY: As per HPI. afib on outpt xeralto, cad, cardiomyopathy, htn, hypoT4, gerd, depression. MEDICATIONS: Reviewed per records. ALLERGIES: Reviewed but reactions unknown. SOCIAL HISTORY: Reviewed. FAMILY HISTORY: Noncontributory at present. PHYSICAL EXAM: Vital Signs: Reviewed. Neurologic: sedated post OR, but starting to move ext. HEENT: anicteric, perrl Cardiovascular: tachy, irr, afib Respiratory: vc with airway pressures mid 20s on 450ml volume, 100%. coarse bl; no rales Abdomen: mild distention, soft Extremities: cool Access: RIJ cvc, fem maria c LABS: Reviewed. IMAGING: Reviewed. MEDICATIONS: Reviewed. ASSESSMENT: 82 F with abd sepsis peritonitis post rectal perf, post-op resp failure sec to septic shock, renan, with underlying afib and cad. PLAN: Neurologic: keep sedated. use fent now and then propofol gtt, and fent prn Cardiovascular: low end perfusion now and needing levophed, however she is intravasculary deplete at the moment. Crystalloid and colloid resuscitation. afib rvr catecholamine driven. rate ok and can hopefully improve with volume. hold off on cardizem gtt. utilize dig if needed but rate <130 acceptable. levophed to maintain. may need stress dose steroids. Respiratory: low volumes but not overt ali at this time, but low end perfusion needing o2. will try to advance to aprv today if preload can tolerate and avoid lung injury and maitain recruitment. Gastrointestinal: ogt. can eval tomorrow for trophic tube feed potential. sup. surgical f/u Renal/Metabolic: likely to suffer renan sec to septic shock and needs vol loading now. f/u function. Infectious Disease: on zosyn. should provide adequate coverage. f/u needs. Hematology: hemoconcentrated. off full anticoag for now. hsq Endocrine: f/u glu and consider need for stress dose steroids if levophed escalation maintained. Musculoskeletal: bedrest currently. f/u wound needs Psych/Social: will update family. Supportive and preventative care as ordered. SUP: ppi VTE prophylaxis: heparin Gamboa catheter given critical illness, monitoring needs for accurate assessment of RENAN and KDIGO criteria for critically ill patients and to avoid potential harms of urinary retention, skin breakdown/ulcers. Restraints: Reviewed and required in present state of confusion post or and septic shock. Disposition: ICU Code Status: Full Critical Care Time: 45min D/w Dr. Oscar Villalba,
[2017-02-25 13:32] LABS: Hematocrit 39 % (35-47); Hemoglobin 12.6 g/dl (12.0-16.0); Mean Corpuscular HGB Conc 33 g/dl (31-36); Mean Corpuscular Hemoglobin 31 pg (27-31); Mean Corpuscular Volume 94 fL (80-97); Mean Platelet Volume 8 um3 (7.4-10.4); Red Blood Count 4.13 10^6/ul (4.0-5.4); Red Cell Distribution Width 16 % (10.5-15)
[2017-02-25 13:43] LABS: BUN/Creatinine Ratio 12.1 (8-20); Calcium 7.4 mg/dL (8.6-10.3); EGFR African American 63.3 (>60); EGFR Non-African American 49.2 (>60); Potassium 3.7 mmol/L (3.5-5.0); Total Bilirubin 0.9 mg/dL (0.2-1.0)
[2017-02-25] MEDS ORDERED: Chlorhexidine MOUTHWASH 0.12%* 15 ML UDC TOPICAL SCH (14:00)
[2017-02-25] MEDS ORDERED: Zosyn per Pharmacy* NOTE FOLLOW UP SCH (14:00)
[2017-02-25] MEDS ORDERED: ALBUMIN HUMAN 5% IV SCH (14:00)
--- NOTE | 2017-02-25 14:21 | RAD ---
HISTORY: Line placement COMPARISONS: February 25, 2017 at 4:59 AM VIEWS:1: Single frontal portable view of the chest at 1:55 PM FINDINGS: LINES AND TUBES: An endotracheal tube is noted with the tip overlying the trachea at the level of the clavicles. A gastric tube is noted. The tip is in the left upper quadrant in a prepyloric position. A right internal jugular venous catheter is noted with the tip overlying the superior vena cava. CARDIOMEDIASTINAL SILHOUETTE: The cardiomediastinal silhouette is stable. PLEURA: The costophrenic angles are sharp. No pleural abnormalities are noted. LUNG PARENCHYMA: There is a diffuse reticular pattern with indistinct pulmonary vessels. ABDOMEN: The upper abdomen is clear. There is no subphrenic gas. BONES AND SOFT TISSUES: No bone or soft tissue abnormalities are noted. IMPRESSION: 1. LINES AND TUBES ABOVE. 2. PULMONARY INTERSTITIAL EDEMA
[2017-02-25] MEDS: Pantoprazole IV* 40 MG IV SCH (15:02)
[2017-02-25] MEDS ORDERED: Norepinephrine 16MCG/ML IVPRE* 4,000 MCG/250 ML BAG IV SCH (16:00)
[2017-02-25] MEDS: Chlorhexidine MOUTHWASH 0.12%* 15 ML UDC TOPICAL SCH ×2 (16:28→19:58)
[2017-02-25] MEDS: fentaNYL* 50 MCG/ML 2 ML VIAL (100 MCG VIAL) IV SLOW PU PRN ×3 (17:49→22:07)
[2017-02-25] MEDS: Propofol* 100 ML IV SCH (18:06)
[2017-02-25] MEDS ORDERED: LACTATED RINGERS IV ONE (20:31)
[2017-02-26] MEDS: Chlorhexidine MOUTHWASH 0.12%* 15 ML UDC TOPICAL SCH ×6 (00:15→20:14)
[2017-02-26] MEDS: fentaNYL* 50 MCG/ML 2 ML VIAL (100 MCG VIAL) IV SLOW PU PRN ×6 (00:15→22:45)
[2017-02-26] MEDS ORDERED: LACTATED RINGERS IV ONE (02:09)
[2017-02-26] MEDS: Propofol* 100 ML IV SCH ×2 (04:06→17:59)
[2017-02-26] MEDS: Heparin VIAL(*) 5000 UNITS/ML VIAL (FIVE THOUSAND) SUBCUT SCH ×2 (05:30→14:39)
[2017-02-26 05:53] LABS: Hematocrit 28 % (35-47); Hemoglobin 9.2 g/dl (12.0-16.0); Mean Corpuscular HGB Conc 34 g/dl (31-36); Mean Corpuscular Hemoglobin 31 pg (27-31); Mean Corpuscular Volume 92 fL (80-97); Mean Platelet Volume 8 um3 (7.4-10.4); Red Blood Count 2.99 10^6/ul (4.0-5.4); Red Cell Distribution Width 16 % (10.5-15); White Blood Count 6.6 10^3/ul (3.5-10.8)
[2017-02-26 05:56] LABS: Add Diff/Slide Review? Slide Review Added; Comments Flag Yes
[2017-02-26] MEDS: Levothyroxine TAB* 50 MCG TAB PO SCH (05:57)
[2017-02-26 06:03] LABS: Calcium 7.7 mg/dL (8.6-10.3); EGFR African American 74.4 (>60); EGFR Non-African American 57.9 (>60); Magnesium 1.4 mg/dL (1.9-2.7); Phosphorus 2.1 mg/dL (2.5-5.0); Potassium 3.4 mmol/L (3.5-5.0)
[2017-02-26 07:20] LABS: Eosinophils % 1 % (0-6); Immature Granulocytes 23 % (0-9); Metamyelocytes % 1 % (0-2); Neutrophil % 58 % (38-83); Reactive Lymph % 1 % (0-6)
[2017-02-26 07:53] LABS: FIO2 45; Resp Rate 18; Ventilator Volume 500
[2017-02-26 07:58] LABS: PCO2 Arterial 25 mmHg (35-45)
[2017-02-26] MEDS ORDERED: Potassium Phosphate IV* 10 MMOLE in NS 0.9% 250 ML* 250 ML IVPB ONE (08:19)
[2017-02-26] MEDS ORDERED: Magnesium Sulfate 2 GM IV* 2 GM/50 ML BAG IVPB ONE (08:19)
[2017-02-26] MEDS ORDERED: Albumin Human 5%* 250 ML in PREMIX* 0 ML IV ONE (10:00)
[2017-02-26] MEDS: Dexmedetomidine 4 MCG/ML 100 ML DRIP IVPB SCH ×6 (10:19→17:52)
--- NOTE | 2017-02-26 12:50 | PN ---
Critical Care Services: Critical care progress note Date: 02/26/17, Time: 12:44 pm Pt was seen and examined at bedside this am. Overnight events noted REFERRING PROVIDER: Oscar PMHx, Hx, FHx, reviewed and unchanged since admission H&P REVIEW OF SYSTEMS: Limited due to intubated status MEDICATIONS: Reviewed and as per records. ALLERGIES: Reviewed but reactions unknown. Vital Signs: Temp Pulse Resp BP SpO2 FiO2 98.6 F 71 14 43/31 96 45 02/26/17 11:35 02/26/17 12:30 02/26/17 11:23 02/25/17 12:39 02/26/17 12:30 02/26 04:10 Physical Exam: Gen: Pt is intubated, sedated, responds to deep touch and painful stimuli, was movign and restless when Propofol was held HEENT: No pharyngeal erythema, ETT in place, anicteric Lungs: Coarse breath sounds, no wheeze or crackles, decreased breath sounds at bases b/l Cardiac: S1, S2+, irregular, Abdomen: Mild distention, soft, drains in place with serous drainage Extremities:cool , moves to painful stimuli Access: Right IJ CVC (day#2), Femoral A-line(day#2), sites look good without erythema Fluid Balance (Past 24 Hours): I= O= Net Intake & Output 02/24/17 02/25/17 02/26/17 02/27/17 06:59 06:59 06:59 06:59 Intake Total 1570 4817 7218.4 Output Total 700 1852 1467 120 Balance 870 2965 5751.4 -120 Weight 175 lb 14.862 oz 183 lb 13.848 oz Intake: IV Fluids 4817 5611 LR 3817 3611 NS (0.9%) 2000 lr 1000 IVPB 175 NS (0.9%) 175 Medicated IV 432.4 CC - Norepinephrine/ 250 Levophed CC - Propofol/Diprivan 182.4 Oral 1570 0 Albumin 1000 Output: NG Tube Drainage Amount 205 G Tube 100 JAIMEE #1 500 JAIMEE #2 169 Urine 200 210 40 [place] 1442 493 80 Liquid Stool 500 Estimated Blood Loss 200 Other: Estimated Void Small Date of Last Bowel 02/24/17 02/24/17 Movement # Bowel Movements 1 1 Estimated Stool Amount Large Medium # Voids 2 Labs: Laboratory Results - last 24 hr 02/25/17 02/25/17 02/25/17 13:10 13:10 13:10 WBC 6.0 RBC 4.13 Hgb 12.6 Hct 39 MCV 94 MCH 31 MCHC 33 RDW 16 H Plt Count 258 MPV 8 Immature Gran % (Auto) Neut % (Auto) 77.5 Lymph % (Auto) 17.2 L Esmeralda % (Auto) 5.2 Eos % (Auto) 0 Baso % (Auto) 0.1 Absolute Neuts (auto) 4.6 Absolute Lymphs (auto) 1.0 Absolute Monos (auto) 0.3 Absolute Eos (auto) 0 Absolute Basos (auto) 0 Absolute Nucleated RBC 0.01 Neutrophils % Band Neutrophils % Lymphocytes % Reactive Lymphs % Monocytes % Eosinophils % Metamyelocytes % Nucleated RBC % 0.1 Normal RBC Morphology Elliptocytes INR (Anticoag Therapy) 1.45 H APTT 29.3 Patient Temperature ABG pH ABG pCO2 ABG pO2 ABG HCO3 ABG O2 Saturation ABG Base Excess Respiration Rate Ventilator Type Vent Mode FiO2 Inspiratory Time PEEP Pressure Support Pressure Control EPAP IPAP BiPAP Sodium 134 Potassium 3.7 Chloride 105 Carbon Dioxide 22 Anion Gap 7 BUN 13 Creatinine 1.07 H Est GFR ( Amer) 63.3 Est GFR (Non-Af Amer) 49.2 BUN/Creatinine Ratio 12.1 Glucose 123 H Calcium 7.4 L Phosphorus Magnesium Total Bilirubin 0.90 AST 15 ALT 7 Alkaline Phosphatase 50 Total Protein 4.0 L Albumin 2.0 L Globulin 2.0 Albumin/Globulin Ratio 1.0 Prealbumin 8 L 02/26/17 02/26/17 02/26/17 05:39 05:39 07:45 WBC 6.6 RBC 2.99 L Hgb 9.2 L Hct 28 L MCV 92 MCH 31 MCHC 34 RDW 16 H Plt Count 139 L MPV 8 Immature Gran % (Auto) 23 H Neut % (Auto) 83.9 H Lymph % (Auto) 12.6 L Esmeralda % (Auto) 3.1 Eos % (Auto) 0.1 Baso % (Auto) 0.3 Absolute Neuts (auto) 5.5 Absolute Lymphs (auto) 0.8 L Absolute Monos (auto) 0.2 Absolute Eos (auto) 0 Absolute Basos (auto) 0 Absolute Nucleated RBC 0 Neutrophils % 58 Band Neutrophils % 22 H Lymphocytes % 13 L Reactive Lymphs % 1 Monocytes % 4 Eosinophils % 1 Metamyelocytes % 1 Nucleated RBC % 0.1 Normal RBC Morphology Not Reportable Elliptocytes 1+ INR (Anticoag Therapy) APTT Patient Temperature Not Reportable ABG pH 7.59 H ABG pCO2 25 L ABG pO2 63 L ABG HCO3 27.0 ABG O2 Saturation 95.8 ABG Base Excess 2.7 H Respiration Rate 18 Ventilator Type 500 Vent Mode cmv FiO2 45 Inspiratory Time Not Reportable PEEP 5 Pressure Support Not Reportable Pressure Control Not Reportable EPAP Not Reportable IPAP Not Reportable BiPAP Not Reportable Sodium 136 Potassium 3.4 L Chloride 107 Carbon Dioxide 22 Anion Gap 7 BUN 13 Creatinine 0.93 Est GFR ( Amer) 74.4 Est GFR (Non-Af Amer) 57.9 BUN/Creatinine Ratio 14.0 Glucose 96 Calcium 7.7 L Phosphorus 2.1 L Magnesium 1.4 L Total Bilirubin AST ALT Alkaline Phosphatase Total Protein Albumin Globulin Albumin/Globulin Ratio Prealbumin Impression: 82 y o F with abdominal sepsis secondary to peritonitis from rectal perforation with complicated post-op course with resp failure secondary to septic shock, RENAN, with underlying Afib and CAD. Plan: Neuro: Will perform sedation vacation to aid with extubation when other parameters are acceptable. Will hold Propofol , and use fent prn. Keep head of bed elevated at 30 degrees. Might consider precede if needs sedation again Cardiovascular: Septic shock , off Levophed this am, c/w IV fluids. Will give albumin to avoid 3rd spacing. Afib , rate controlled currently, Cardizem on hold for now, utilize digoxin if needed , rate <130 acceptable. May need stress dose steroids, will reassess. Respiratory: ABG from this morning was reviewed, evidence of resp alkalosis, will back up on tidal volume and respiratory rate. Low lung volumes low on CXR however needing low FiO2 and no signs of ALI. Will c/w low tidal volume strategy for now, if not ventilating/oxygenating will advance to APRV to maintain recruitment. Doubt if ready for extubation today, however will attempt if meets all parameters Gastrointestinal: Is on IV hydration currently, will discuss with surgery today regarding trophic tube feed potential. Drains in place draining serous fluid. Albumin is low, LFTs within normal limits. Will order albumin Renal/Metabolic: BUN/Cr are within normal limits, electrolytes repleted this morning. Monitor renal function closely. Will f/u lactate levels today. c/w IV fluids, Monitor urine output closely Infectious Disease: On zosyn for abd sepsis, should provide adequate coverage. Hematology: Leucopenia resolved. WBC count normalized. H&H dropped likely dilutional, will repeat, off full anticoag for now. On heparin sq Endocrine: Monitor blood sugars closely Musculoskeletal: Bedrest currently. f/u wound needs Psych/Social: Will update daughter. Supportive and preventative care as ordered. SUP: ppi VTE prophylaxis: Heparin [place] catheter given critical illness, monitoring needs for accurate assessment of RENAN and KDIGO criteria for critically ill patients and to avoid potential harms of urinary retention, skin breakdown/ulcers. Restraints: Reviewed and required in present state of confusion post or and septic shock. Disposition: ICU Code Status: Full, has DNR order in chart D/w Dr Moore Critical Care Time: 45 min
[2017-02-26] MEDS ORDERED: NS 0.9% 1000 ML* 1,000 ML IV ONE (12:57)
--- NOTE | 2017-02-26 14:30 | ECHO ---
Patient: JOSE MIGUEL MOSS [facility] Rec#: [id number] : 1935 Date: 02/26/2017 Age: 82y Height: 165 cm / 65.0 in Weight: 83.4 kg / 183.8 lbs Sex: F BSA: 1.9 Room#: ICU 1 Admit Date#: 02/21/2017 Type: Inpatient Referring: JAMES CESPEDES Reading: Ortega Lawson DO Professional Services Consultant: Ember Martinez RN RDCS CC: Billy Joseph MD Transthoracic Echocardiogram Indication: Hypotension, septic shock BP: 105/54 HR: 80 Rhythm: A-Fib Findings History: CAD, PCI, cardiomyopathy, HTN, A fib, hypothyroidism, GERD, obesity Technical Comments: The study is technically limited due to patient body habitus. The study is technically limited due to patient being intubated and on a ventilator. Completed at 1345. Left Ventricle: The left ventricular chamber size is normal. Moderate concentric left ventricular hypertrophy is observed. Global left ventricular wall motion and contractility are within normal limits. The left ventricle appears hyperdynamic. The estimated ejection fraction is greater than 65%. The assessment of diastolic function is non-diagnostic. Left Atrium: The left atrium is moderately dilated. Right Ventricle: The right ventricle wall thickness is mildly increased. The right ventricular cavity size is normal. The right ventricular global systolic function is mildly reduced. Right Atrium: The right atrium is moderately dilated. Aortic Valve: The aortic valve is trileaflet. The aortic valve leaflets are mildly thickened. Systolic excursion of the aortic valve cusps is reduced. There is aortic annular calcification. There is mild aortic regurgitation. There is mild aortic stenosis. The mean gradient of the aortic valve is 11.6 mmHg. The peak instantaneous gradient of the aortic valve is 21.7 mmHg. Mitral Valve: Mild mitral annular calcification present. The mitral valve leaflets are mildly thickened. There is mild mitral regurgitation. There is no evidence of mitral stenosis. Tricuspid Valve: The tricuspid valve leaflets are normal. There is trace to mild tricuspid regurgitation. No pulmonary hypertension is noted. There is no tricuspid stenosis. Pulmonic Valve: The pulmonic valve appears normal. There is mild pulmonic regurgitation. There is no pulmonic stenosis. Pericardium: There is no significant pericardial effusion. A pericardial fat pad is visualized. A left pleural effusion is present. Aorta: There is no dilatation of the ascending aorta. There is no dilatation of the aortic arch. There is no dilation of the aortic root. Pulmonary Artery: The main pulmonary artery appears normal. Conclusions Moderate concentric left ventricular hypertrophy is observed. Global left ventricular wall motion and contractility are within normal limits. The left ventricle appears hyperdynamic. The LV estimated ejection fraction is greater than 65%. The left atrium is moderately dilated. The right ventricular cavity size is normal. The right ventricular global systolic function is mildly reduced. There is mild aortic stenosis. IVC dilated at 2.0 cm, unable to perform sniff test as patient on ventilator Compared to prior study from 08/2016, previous moderate TR with moderate pHTN not appreciated on this study although may be underestimated Measurements Name Value Normal Range RVIDd (AP) 2D 2.3 cm (0.9 - 2.6) RVDdMajor (2D) 3.9 cm (2.2 - 4.4) RVAW (2D) 0.8 cm (0.2 - 0.5) RAd ISD 4CH 6.5 cm (3.4 - 4.9) RA (A4C)W 4.5 cm (2.9 - 4.6) IVSd (2D) 1.4 cm (0.6 - 1) LVPWd (2D) 1.4 cm (0.6 - 1) LVIDd (2D) 3.9 cm (3.6 - 5.4) Aortic Annulus 1.9 cm (1.4 - 2.6) Ao root diameter (2D) 3.1 cm (2.1 - 3.5) Ascending Ao 3.4 cm (2.1 - 3.4) Aortic arch 2.3 cm (1.8 - 3.4) LA dimension (AP) 2D 4.1 cm (2.3 - 3.8) LAd ISD 4CH 6.8 cm (2.9 - 5.3) LA ISD 4CH W 4.6 cm (2.5 - 4.5) Name Value Normal Range LA ESV SP 4CH (A/L) 107 ml - LA ESV SP 2CH (A/L) 45 ml - LA ESV BP (A/L) 79 ml - LA ESV BP (A/L) index 41.1 ml/m2 - LA ESV SP 4CH (MOD) 102 ml - LA ESV SP 2CH (MOD) 44 ml - Name Value Normal Range MV E-wave Vmax 0.9 m/sec - MV deceleration time 172 msec - LV septal e' Vmax 0.07 m/sec - LV lateral e' Vmax 0.09 m/sec - LV E:e' septal ratio 12.9 ratio - LV E:e' lateral ratio 10 ratio - Name Value Normal Range AV Vmax 2.3 m/sec - AV VTI 38.5 cm - AV peak gradient 21.7 mmHg - AV mean gradient 11.6 mmHg - LVOT diameter 2 cm - LVOT Vmax 1.1 m/sec - LVOT VTI 17.8 cm - LVOT peak gradient 4.6 mmHg - LVOT mean gradient 2.6 mmHg - DOI (VTI) 0.46 ratio - DOI (Vmax) 0.48 ratio - ELSIE (continuity Vmax) 1.5 cm2 - ELSIE (continuity VTI) 1.5 cm2 - MARYLOU Vmax 0.56 m/sec - Name Value Normal Range TR Vmax 2.2 m/sec - TR peak gradient 19 mmHg - RAP 8 mmHg - RVSP 27 mmHg - IVC diameter 2 cm - Name Value Normal Range PV Vmax 0.64 m/sec -
[2017-02-26] MEDS: Pantoprazole IV* 40 MG IV SCH (14:39)
--- NOTE | 2017-02-26 14:52 | OP ---
OPERATIVE REPORT: DATE OF OPERATION: 02/25/17 DATE OF : 37 SURGEON: Ortega Moore MD TUYERE FITTER: Raffi House MD ANESTHESIOLOGIST: Dung Guerrero MD ANESTHESIA: General. PRE-OP DIAGNOSIS: Abdominal sepsis. POST-OP DIAGNOSIS: Fecal peritonitis. OPERATIVE PROCEDURE: Diagnostic laparoscopy converting to laparotomy, abdominal washout, and sigmoi d colostomy. INDICATIONS: Ms. Juarez is an 82-year-old female, who is postoperative day 1 from an [facility], who showed worsening hemodynamics through the overnight and there was concern for acute abdome n. The patient had been describing abdominal pain. My recommendation was for diagnostic laparoscop y, possible laparotomy. I outlined the details of the procedure to the patient as best as I could a nd she agreed to proceed. I spoke more in depth with the patient's daughter and obtained consent th rough her for the purpose of the procedure to rule out abdominal sepsis. Consent was signed. ESTIMATED BLOOD LOSS: Minimal. IV FLUIDS: 1000 cc of LR and 500 cc of normal saline. DRAINS: Two #10 JAIMEE drains left in the pelvis. Colostomy placed and A-line in the right femoral art oseas and triple lumen catheter in the right internal jugular vein. DESCRIPTION OF PROCEDURE: The patient was brought to the operating room and placed on the operating room table in the supine position. She had already been on antibiotics. An attempt by the anesthe acacia department for radial A-line were made, these failed. Ultimately, a right femoral A-line was pl aced by me which was done sterilely after prepping the right groin. Palpation of the pulse was calvin ied out, I was unable to cannulate the artery on first attempt and an ultrasound was used. We were a ble to access the artery and catheter inserted. This was then sutured to the skin and sterilely misti ssed. The patient was then intubated. Once intubated, a triple-lumen catheter was then placed in the righ t IJ. After the area was prepped thoroughly, the ultrasound was used to identify the vein which was cannulated, wire inserted and dilated, and a triple lumen catheter set placed to approximately 15 c m. All 3 ports were aspirated of blood and then injected with injectable saline, and this was then sutured to the skin with the provided suture. Sterile dressing was applied. Next, the patient's abdomen was prepped and draped in the standard surgical fashion. A time-out was performed. An infraumbilical incision was made, and a Aquiles technique cutdown was carried out. U bal entry into the abdomen, succus fluid was drawn out. 12-mm trocar was inserted and the abdomen w as allowed to insufflate to a pressure of 15 mmHg. Laparoscope was inserted through this, but there was poor visualization and withdrawal of this amount of drainage, the decision was made to open the abdomen. Trocar was removed and infraumbilical incision was carried out down to the pubic symphysi s and above the umbilicus. This was deepened down through all the layers of abdomen. The abdomen w as entered along the area where the Aquiles was placed. Fluid was suctioned out. Small bowel was eviscerated. This showed signs of hyperemia, but no injur y. The patient was then placed in Trendelenburg and review of the pelvis showed additional fluid wh ich was suctioned out. We identified the sigmoid colon, but could not easily present any drainage a henry. For this reason, the Bookwalter retracting system was then inserted. The small bowel was retr acted up towards the right upper quadrant and this gave us better visualization. There was no signi ficant exudative tissue but rather succus tissue and enteric contents. Cultures were not taken. Vie w of the distal sigmoid colon showed puckering in towards the anus and it showed no evidence of dehi scence. However, this was a difficult area to fully appreciate. There were no holes identified at this site, but after review of the abdomen, a decision was made that this was likely the original dr ordonez site. For this reason, a portion of the sigmoid colon was decided that we would transect thi s area and bring it up to the anterior abdominal wall. The white line was taken with electrocautery to allow for better mobilization. The abdomen again was copiously irrigated. No evidence of injur ies was identified and two #10 JAIMEE drains were then brought out through separate stab incisions in th e lower abdomen and placed into the deep pelvis. We did suction and irrigated over the liver and as well as over the spleen until the effluent was clear. Sigmoid colon was transected and portion of its mesentery was taken between clamps. A point on the a bdominal wall was chosen for colostomy. Skin disc was made which was deepened down to the anterior fascia which was excised. Entry to the abdomen was made and we were able to dilate up to 2 fingers. The colon was then brought out through this site. remained in, showed no evidence of ischem ia and there indeed was no evidence of ischemia throughout the entire laparotomy. The JAIMEE drains wer e then sutured to the skin with 3-0 Surgipro sutures and the midline incision was reapproximated wit h interrupted #1 Polysorb sutures in figure-of-8 fashion. The skin incision was irrigated and then r eapproximated loosely with skin jesika followed by packing tape of 0.25% iodoform packing. The wou nd was then dressed. The colostomy was matured using 2-0 Polysorb sutures taking full-thickness bite as well as along the colon and a colostomy appliance was placed. The patient remained intubated, transferred back to [facility] ICU bed, and then transferred to the ICU in critical condition. [id number]/[facility] #: [id number]
--- NOTE | 2017-02-26 15:17 | PN ---
Progress Note - Progress Note Date of Service: 02/26/17 SOAP: Subjective: Pt seen earlier today and case d/w CCM. Off levophed. HR improved. Remains intubated, Sedation held earlier and pt woke up minimally. In pain, but not alert enough for possible extubation. Poor UO overnight. Intra-abdominal pressures obtained and normal. Objective: af reasonable MAP, hr ; 80s positive I/Os abdo: distended. tender, dresing bolstered. JPs serous colostomy pink, minimal output ext wrm, perfused labs, cxr reviewed Assessment: POD 2 altemeier procedure, takeback for fecal peritonitis , source likley sigmoid colon, diverting colostomy Plan: Supportive care Follow with [facility] trickle tube feeds okay abx
[2017-02-26 16:00] LABS: Hematocrit 25 % (35-47); Hemoglobin 8.2 g/dl (12.0-16.0); Mean Corpuscular HGB Conc 33 g/dl (31-36); Mean Corpuscular Hemoglobin 31 pg (27-31); Mean Corpuscular Volume 93 fL (80-97); Mean Platelet Volume 9 um3 (7.4-10.4); Red Blood Count 2.68 10^6/ul (4.0-5.4); Red Cell Distribution Width 16 % (10.5-15); White Blood Count 6.8 10^3/ul (3.5-10.8)
[2017-02-26 16:01] LABS: Comments Flag Yes
[2017-02-26] MEDS ORDERED: Furosemide IV* 10 MG/ML VIAL (40 MG) IV ONE (16:13)
[2017-02-26 16:24] LABS: BUN/Creatinine Ratio 13.2 (8-20); Calcium 7.4 mg/dL (8.6-10.3); EGFR African American 76.3 (>60); EGFR Non-African American 59.3 (>60); Magnesium 1.8 mg/dL (1.9-2.7); Phosphorus 3.2 mg/dL (2.5-5.0); Potassium 3.5 mmol/L (3.5-5.0)
--- NOTE | 2017-02-26 16:29 | PN ---
Progress Note - Progress Note Date of Service: 02/26/17 - Critical care update Note: Pt with minimal urine output, improved after a bolus. Had drop in H&H likely dilutiional, no signs of active bleeding, hemodynamically stable, off Levophed. Switched from Precedex to Propofol due to bradycardia Repleted electrolytes.
--- NOTE | 2017-02-26 16:33 | OP ---
CC: Dr. Billy Joseph; [facility] OPERATIVE REPORT: DATE OF OPERATION: 02/24/17 DATE OF : 37 SURGEON: Ortega Moore MD MIXED LIVESTOCK FARMER: ISRRAEL Ray ANESTHESIOLOGIST: Dr. Cox. ANESTHESIA: General anesthesia. PRE-OP DIAGNOSIS: Rectal prolapse. POST-OP DIAGNOSIS: Rectal prolapse. OPERATIVE PROCEDURE: Perineal rectosigmoidectomy Altemeier procedure. ESTIMATED BLOOD LOSS: 200 cc. IV FLUIDS: 2 L of fluids given. SPECIMENS: Rectum and portion of the sigmoid colon. DRAINS: None. COUNTS: Lap pad count and instrument count correct at the end of the procedure. CONDITION: The patient tolerated the procedure well and was transferred to PACU in stable condition . DESCRIPTION OF PROCEDURE: The patient was identified in the preoperative area, case was again discu ssed. Informed consent signed. She was then brought to the operating room, placed on the operating table in the supine position. Preoperative antibiotics were given. Sequential devices were placed on bilateral lower extremities. General anesthesia was induced. The patient has been placed in a lithotomy position and the perineum was prepped with Betadine. She was draped and a time-out was pe rformed. The prolapse was retracted and identified. It was approximately the size of the fist. The dentate line was identified and the mucosa approximately 1.5 cm from the dentate line was incised with caute ry at the mucosal layer. Starting anteriorly, we dissected through all the muscle layers of the rectum, taking care to ligate vessels as identified with LigaSure or with cautery. With gentle traction inferiorly, we were able to divide the rectal vault anteriorly and laterally. When the peritoneum was identified, this was incised sharply and the sigmoid colon identified. Sigmoid colon was gently retracted and the incisi on of the rectum posteriorly was completed with LigaSure device and with electrocautery. Once we wer e able to do this, we could invert the prolapse and identify just the sigmoid colon. The sigmoid co tashia was first brought into the surgical site and its mesentery identified. This was ligated with 2- 0 Polysorb sutures and some portions with the LigaSure device to expose good healthy sigmoid colon. In appropriate orientation, the sigmoid colon was incised at the anterior aspect and 2-0 Polysorb s uture was placed at the sigmoid colon to the cuff of anus. We serially did this laterally placing i nterrupted 2-0 Polysorb sutures as needed until the full sigmoid colon and specimen were transected. It was passed off as specimen as well as additional interrupted 2-0 Polysorb sutures were placed t hroughout the circumference. Next, the prolapse was then retracted back and a rigid sigmoidoscope was utilized to view the anasto mosis as well as proximal. The mucosa was pink and viable. The anastomosis appeared intact and the patient was woken up in the OR and transferred to the PACU in stable condition. [id number]/[facility] #: [id number]
[2017-02-26 17:08] LABS: FIO2 45; Resp Rate 12; Ventilator Volume 450
[2017-02-26 17:12] LABS: Hematocrit 26 % (35-47); Hemoglobin 8.4 g/dl (12.0-16.0); Mean Corpuscular HGB Conc 33 g/dl (31-36); Mean Corpuscular Hemoglobin 30 pg (27-31); Mean Corpuscular Volume 93 fL (80-97); Mean Platelet Volume 8 um3 (7.4-10.4); PCO2 Arterial 33 mmHg (35-45); Red Blood Count 2.77 10^6/ul (4.0-5.4); Red Cell Distribution Width 16 % (10.5-15); White Blood Count 7.4 10^3/ul (3.5-10.8)
[2017-02-26 17:13] LABS: Comments Flag Yes
[2017-02-26 17:15] LABS: Add Diff/Slide Review? Manual Diff Added
[2017-02-27] MEDS: Chlorhexidine MOUTHWASH 0.12%* 15 ML UDC TOPICAL SCH ×7 (00:29→23:57)
[2017-02-27] MEDS: NS 0.9% 1000 ML* 1,000 ML IV SCH ×4 (00:29→21:16)
[2017-02-27] MEDS: Propofol* 100 ML IV SCH (01:38)
[2017-02-27] MEDS: fentaNYL* 50 MCG/ML 2 ML VIAL (100 MCG VIAL) IV SLOW PU PRN ×6 (03:19→21:14)
[2017-02-27] MEDS: Levothyroxine TAB* 50 MCG TAB PO SCH (06:24)
[2017-02-27 08:11] LABS: FIO2 35; Resp Rate 12; Ventilator Volume 450
[2017-02-27 08:14] LABS: Hematocrit 27 % (35-47); Hemoglobin 8.8 g/dl (12.0-16.0); Mean Corpuscular HGB Conc 33 g/dl (31-36); Mean Corpuscular Hemoglobin 31 pg (27-31); Mean Corpuscular Volume 94 fL (80-97); Mean Platelet Volume 9 um3 (7.4-10.4); Red Blood Count 2.83 10^6/ul (4.0-5.4); Red Cell Distribution Width 16 % (10.5-15); White Blood Count 9.9 10^3/ul (3.5-10.8)
[2017-02-27 08:15] LABS: PCO2 Arterial 32 mmHg (35-45)
[2017-02-27 08:32] LABS: BUN/Creatinine Ratio 15.6 (8-20); Calcium 7.4 mg/dL (8.6-10.3); EGFR African American 71.7 (>60); EGFR Non-African American 55.8 (>60); Magnesium 1.8 mg/dL (1.9-2.7); Potassium 3.1 mmol/L (3.5-5.0)
[2017-02-27] MEDS ORDERED: KCL 20 MEQ/100 ML IVPREMIX* 40 MEQ/200 ML BAG ONE (08:41)
[2017-02-27] MEDS: KCL 20 MEQ/100 ML IVPREMIX* 20 MEQ/100 ML BAG IV SCH ×2 (08:43→10:27)
[2017-02-27] MEDS: Morphine INJ* 4 MG/ML 1 ML SYRINGE IV PRN ×2 (08:57→14:54)
--- NOTE | 2017-02-27 09:32 | PN ---
Progress Note - Progress Note Date of Service: 02/27/17 SOAP: Subjective: Pt seen and examined and case d/w CCM. Propofol on hold. responding to stimuli. Lasix given yesterday. Objective: af BP improved. HR variable but no longer tachycardic positive I/Os abdo: distended. tender, dressing and packing changed. no redness JPs serous colostomy pink, minimal output hypoactive BS ext wrm, perfused labs reviewed Assessment: POD 3 altemeier procedure, takeback POD2 for fecal peritonitis , source likley sigmoid colon, diverting colostomy. HD stable, Plan: Supportive care Follow with [facility] Continue trickle tube feeds possible extubation today. r/o HIT as per [facility] abx OOB to chair if extubated abdominal binder once extubated.
[2017-02-27] MEDS ORDERED: Dexmedetomidine* 200 MCG in NS 0.9% 50 ML* 48 ML IVPB SCH (10:00)
--- NOTE | 2017-02-27 11:04 | RAD ---
INDICATION: The endotracheal tube positioning. COMPARISON: Comparison is made with a prior study from February 25, 2017. TECHNIQUE: A portable view of the chest was obtained. FINDINGS: There is an endotracheal tube which projects over the midline. The catheter tip is at the level of the clavicular heads. This has been positioned slightly more distal than on the prior study. There is a nasogastric tube which demonstrates normal course. The catheter tip projects in the left upper quadrant. There is a central venous catheter entering from the right jugular approach. The catheter tip projects over the right atrium. The heart is mildly enlarged and unchanged from the prior exam. There are small bibasilar infiltrates and bilateral pleural effusions which have progressed from the prior study. IMPRESSION: SMALL BIBASILAR INFILTRATES AND PLEURAL EFFUSIONS DEMONSTRATING INTERVAL PROGRESSION.
[2017-02-27] MEDS ORDERED: Morphine INJ* 2 MG/ML 1 ML SYRINGE ONE (11:40)
[2017-02-27] MEDS ORDERED: Morphine INJ* 2 MG/ML 1 ML SYRINGE IV ONE (12:05)
[2017-02-27] MEDS: Pantoprazole IV* 40 MG IV SCH (12:49)
--- NOTE | 2017-02-27 13:14 | PN ---
Critical Care Services: Critical Care follow-up note DATE: 02/27/17 TIME: 1308 REFERRING PROVIDER: Oscar PMHx, Social Hx, FHx, reviewed and unchanged since admission H&P REVIEW OF SYSTEMS: Limited due to intubated status MEDICATIONS: Reviewed and as per records. Vital Signs: Temp Pulse Resp BP SpO2 FiO2 98.2 F 81 18 43/31 94 30 02/27/17 04:00 02/27/17 12:30 02/27/17 12:53 02/25/17 12:39 02/27/17 12:30 02/27 12:37 Physical Exam: Gen:Alert since sedation was held, responds by nodding head, grimices to pain HEENT:Anicteric, perrla Lungs:Coarse breath sounds; no rales, diminished at bases Cardiac: irregular, in a-fib Abdomen:Mild distention, drains in place with serous drainage Extremities:Withdraws to painful stimuli Neuro: Limited given intubated status Access: Right IJ CVC (day#3), Femoral A-line (day#3) Fluid Balance (Past 24 Hours): I= O= Net Intake & Output 02/25/17 02/26/17 02/27/17 02/28/17 06:59 06:59 06:59 06:59 Intake Total 4817 7218.4 5361.5 1288.9 Output Total 1852 1467 3620 342 Balance 2965 5751.4 1741.5 946.9 Weight 175 lb 14.862 oz 183 lb 13.848 oz 193 lb 9.054 oz Intake: IV Fluids 4817 5611 3870 951 LR 3817 3611 NS (0.9%) 2000 3547 926 NS to Maintain IV Patency 111 25 Zosyn 212 lr 1000 IVPB 175 294 NS (0.9%) 175 Zosyn 100 potassium 194 Medicated IV 432.4 443.5 16.9 CC - Dexmedetomidine/ 52 Precedex CC - Norepinephrine/ 250 Levophed CC - Propofol/Diprivan 182.4 134.5 16.9 kvo anbx 80 kvo and k-phos 177 Oral 0 0 0 Tube Feeding 48 27 Albumin 1000 1000 Output: NG Tube Drainage Amount 205 200 G Tube 100 JAIMEE #1 500 280 75 JAIMEE #2 169 305 105 Urine 210 40 [place] 9090 474 3513 162 Estimated Blood Loss 200 Other: Date of Last Bowel 02/24/17 Movement # Bowel Movements 1 Estimated Stool Amount Medium Labs: Laboratory Results - last 24 hr 02/26/17 02/26/17 02/26/17 15:20 15:20 17:00 WBC 6.8 RBC 2.68 L Hgb 8.2 L Hct 25 L MCV 93 MCH 31 MCHC 33 RDW 16 H Plt Count 119 L MPV 9 Absolute Neuts (auto) Absolute Lymphs (auto) Absolute Monos (auto) Absolute Eos (auto) Absolute Basos (auto) Absolute Nucleated RBC Patient Temperature Not Reportable ABG pH 7.47 H ABG pCO2 33 L ABG pO2 255 H ABG HCO3 25.3 ABG O2 Saturation 100.0 H ABG Base Excess 0.5 Respiration Rate 12 O2 Delivery Device Ventilator Type 450 Vent Mode cmv FiO2 45 Inspiratory Time Not Reportable PEEP 5 Pressure Support Not Reportable Pressure Control Not Reportable EPAP Not Reportable IPAP Not Reportable BiPAP Not Reportable Sodium 137 Potassium 3.5 Chloride 109 Carbon Dioxide 22 Anion Gap 6 BUN 12 Creatinine 0.91 Est GFR ( Amer) 76.3 Est GFR (Non-Af Amer) 59.3 BUN/Creatinine Ratio 13.2 Glucose 95 Calcium 7.4 L Phosphorus 3.2 Magnesium 1.8 L 02/26/17 02/27/17 02/27/17 17:00 08:03 08:03 WBC 7.4 9.9 RBC 2.77 L 2.83 L Hgb 8.4 L 8.8 L Hct 26 L 27 L MCV 93 94 MCH 30 31 MCHC 33 33 RDW 16 H 16 H Plt Count 124 L 126 L MPV 8 9 Absolute Neuts (auto) 6.3 Absolute Lymphs (auto) 0.8 L Absolute Monos (auto) 0.3 Absolute Eos (auto) 0 Absolute Basos (auto) 0 Absolute Nucleated RBC 0 Patient Temperature ABG pH ABG pCO2 ABG pO2 ABG HCO3 ABG O2 Saturation ABG Base Excess Respiration Rate O2 Delivery Device Ventilator Type Vent Mode FiO2 Inspiratory Time PEEP Pressure Support Pressure Control EPAP IPAP BiPAP Sodium 138 Potassium 3.1 L Chloride 109 Carbon Dioxide 22 Anion Gap 7 BUN 15 Creatinine 0.96 H Est GFR ( Amer) 71.7 Est GFR (Non-Af Amer) 55.8 BUN/Creatinine Ratio 15.6 Glucose 95 Calcium 7.4 L Phosphorus Magnesium 1.8 L 02/27/17 08:05 WBC RBC Hgb Hct MCV MCH MCHC RDW Plt Count MPV Absolute Neuts (auto) Absolute Lymphs (auto) Absolute Monos (auto) Absolute Eos (auto) Absolute Basos (auto) Absolute Nucleated RBC Patient Temperature Not Reportable ABG pH 7.47 H ABG pCO2 32 L ABG pO2 83 ABG HCO3 24.9 ABG O2 Saturation 98.5 H ABG Base Excess -0.1 Respiration Rate 12 O2 Delivery Device Vent Ventilator Type 450 Vent Mode Apv/cmv FiO2 35 Inspiratory Time 1.0 PEEP 5 Pressure Support Not Reportable Pressure Control Not Reportable EPAP Not Reportable IPAP Not Reportable BiPAP Not Reportable Sodium Potassium Chloride Carbon Dioxide Anion Gap BUN Creatinine Est GFR ( Amer) Est GFR (Non-Af Amer) BUN/Creatinine Ratio Glucose Calcium Phosphorus Magnesium Studies: CXR was personally reviewed- decreased aeration at bases, small effusions b/l Nutrition: Tube feeds being held currently for possible extubation Impression: 82 y o F with abdominal sepsis secondary to peritonitis from rectal perforation with complicated post-op course with resp failure secondary to septic shock, RENAN, with underlying Afib and CAD. Plan: Neuro: Sedation vacation this morning with plan for extubation when other parameters are acceptable. Propofol on hold, fent prn. Keep head of bed elevated at 30 degrees. Cardiovascular: Off Levophed , c/w IV fluids. Bradycardia this am- ? related to Propofol, will monitor. Afib , rate controlled currently, Cardizem on hold for now Respiratory: ABG from this morning was reviewed; resp alkalosis is improving. Low lung volumes low on CXR from yesterday however needing low FiO2 and no signs of ALI. Failed spontaneous trial, back on full support, will try again. Gastrointestinal: Trophic tube feeds started, tolerated well. Tube feeds on hold for possible extubation today. Drains in place. Albumin is low, LFTs within normal limits, received albumin yesterday. Will place NGT after extubation to c/w tube feeds, will watch closely for ileus Renal/Metabolic: BUN/Cr is within normal limits, potassium repleted this morning. Monitor renal function closely. c/w IV fluids, Monitor urine output closely Infectious Disease: On zosyn for abd sepsis, should provide adequate coverage. Hematology: Leucopenia resolved. WBC count normalized. H&H dropped likely from 3 rd spacing, off full anticoag for now since surgery. On heparin sq, stopped due to concern with HIT, platlets drop- dilutional vs HIT, antibodies were sent, pending. No active bleeding Endocrine: Monitor blood sugars closely Musculoskeletal: Bedrest currently. f/u wound needs Psych/Social: Discussed with daughter. Supportive and preventative care as ordered. SUP: ppi VTE prophylaxis: Heparin, being held due to drop in platelets, SCDs [place] catheter given critical illness, monitoring needs for accurate assessment of RENAN and KDIGO criteria for critically ill patients and to avoid potential harms of urinary retention, skin breakdown/ulcers. Restraints: Reviewed and required in present state of confusion post or and intubated state Disposition: ICU Code Status: DNR Critical Care Time: 50min
[2017-02-27] MEDS ORDERED: Albuterol 2.5 MG/3 ML NEB.SOL* (0.083%) ONE (14:22)
[2017-02-27] MEDS ORDERED: Albuterol 2.5 MG/3 ML NEB.SOL* (0.083%) INH ONE (14:26)
--- NOTE | 2017-02-27 15:51 | PN ---
Progress Note - Progress Note Date of Service: 02/27/17 - Critical care update Note: Pt was seen and examined multiple times through out the day Pt was extubated this afternoon, had mild stridor post extubation, resolved with neb treatment Pt requiring pain meds- Fentanyl prn and Morphine prn Appears comfortable on face mask, will titrate FiO2 as tolerated Will start NGT feeds tomorrow UO ~35cc/hr Potassium repleted this am Vital Signs Temp Pulse Resp BP Pulse Ox 97.7 F 101 18 43/31 94 02/27/17 12:00 02/27/17 15:00 02/27/17 15:00 02/25/17 12:39 02/27/17 15:00 Laboratory Last Values WBC 9.9 10^3/ul (3.5-10.8) 02/27/17 08:03 RBC 2.83 10^6/ul (4.0-5.4) L 02/27/17 08:03 Hgb 8.8 g/dl (12.0-16.0) L 02/27/17 08:03 Hct 27 % (35-47) L 02/27/17 08:03 MCV 94 fL (80-97) 02/27/17 08:03 MCH 31 pg (27-31) 02/27/17 08:03 MCHC 33 g/dl (31-36) 02/27/17 08:03 RDW 16 % (10.5-15) H 02/27/17 08:03 Plt Count 126 10^3/ul (150-450) L 02/27/17 08:03 MPV 9 um3 (7.4-10.4) 02/27/17 08:03 Immature Gran % (Auto) 23 % (0-9) H 02/26/17 05:39 Neut % (Auto) 83.9 % (38-83) H 02/26/17 05:39 Lymph % (Auto) 12.6 % (25-47) L 02/26/17 05:39 [place] % (Auto) 3.1 % (1-9) 02/26/17 05:39 Eos % (Auto) 0.1 % (0-6) 02/26/17 05:39 Baso % (Auto) 0.3 % (0-2) 02/26/17 05:39 Absolute Neuts (auto) 6.3 10^3/ul (1.5-7.7) 02/26/17 17:00 Absolute Lymphs (auto) 0.8 10^3/ul (1.0-4.8) L 02/26/17 17:00 Absolute Monos (auto) 0.3 10^3/ul (0-0.8) 02/26/17 17:00 Absolute Eos (auto) 0 10^3/ul (0-0.6) 02/26/17 17:00 Absolute Basos (auto) 0 10^3/ul (0-0.2) 02/26/17 17:00 Absolute Nucleated RBC 0 10^3/ul 02/26/17 17:00 Neutrophils % 58 % (38-83) 02/26/17 05:39 Band Neutrophils % 22 % (0-8) H 02/26/17 05:39 Lymphocytes % 13 % (25-47) L 02/26/17 05:39 Reactive Lymphs % 1 % (0-6) 02/26/17 05:39 Monocytes % 4 % (0-13) 02/26/17 05:39 Eosinophils % 1 % (0-6) 02/26/17 05:39 Metamyelocytes % 1 % (0-2) 02/26/17 05:39 Myelocytes % 1 % (0-1) 02/25/17 06:35 Nucleated RBC % 0.1 02/26/17 05:39 Normal RBC Morphology Not Reportable 02/26/17 05:39 Elliptocytes 1+ 02/26/17 05:39 INR (Anticoag Therapy) 1.45 (0.89-1.11) H 02/25/17 13:10 APTT 29.3 seconds (26.0-36.3) 02/25/17 13:10 Patient Temperature Not Reportable 02/27/17 08:05 ABG pH 7.47 (7.35-7.45) H 02/27/17 08:05 ABG pCO2 32 mmHg (35-45) L 02/27/17 08:05 ABG pO2 83 mmHg (80-100) 02/27/17 08:05 ABG HCO3 24.9 mmol/L (19-31) 02/27/17 08:05 ABG O2 Saturation 98.5 % (95-98) H 02/27/17 08:05 ABG Base Excess -0.1 (-2.0-2.0) 02/27/17 08:05 Respiration Rate 12 02/27/17 08:05 O2 Delivery Device Vent 02/27/17 08:05 Ventilator Type 450 02/27/17 08:05 Vent Mode Apv/cmv 02/27/17 08:05 FiO2 35 02/27/17 08:05 Inspiratory Time 1.0 02/27/17 08:05 PEEP 5 02/27/17 08:05 Pressure Support Not Reportable 02/27/17 08:05 Pressure Control Not Reportable 02/27/17 08:05 EPAP Not Reportable 02/27/17 08:05 IPAP Not Reportable 02/27/17 08:05 BiPAP Not Reportable 02/27/17 08:05 Sodium 138 mmol/L (133-145) 02/27/17 08:03 Potassium 3.1 mmol/L (3.5-5.0) L 02/27/17 08:03 Chloride 109 mmol/L (101-111) 02/27/17 08:03 Carbon Dioxide 22 mmol/L (22-32) 02/27/17 08:03 Anion Gap 7 mmol/L (2-11) 02/27/17 08:03 BUN 15 mg/dL (6-24) 02/27/17 08:03 Creatinine 0.96 mg/dL (0.51-0.95) H 02/27/17 08:03 Est GFR ( Amer) 71.7 (>60) 02/27/17 08:03 Est GFR (Non-Af Amer) 55.8 (>60) 02/27/17 08:03 BUN/Creatinine Ratio 15.6 (8-20) 02/27/17 08:03 Glucose 95 mg/dL (70-100) 02/27/17 08:03 Lactic Acid 2.4 mmol/L (0.5-2.0) H* 02/24/17 19:19 Calcium 7.4 mg/dL (8.6-10.3) L 02/27/17 08:03 Phosphorus 3.2 mg/dL (2.5-5.0) 02/26/17 15:20 Magnesium 1.8 mg/dL (1.9-2.7) L 02/27/17 08:03 Total Bilirubin 0.90 mg/dL (0.2-1.0) 02/25/17 13:10 AST 15 U/L (13-39) 02/25/17 13:10 ALT 7 U/L (7-52) 02/25/17 13:10 Alkaline Phosphatase 50 U/L (34-104) 02/25/17 13:10 B-Natriuretic Peptide 455 pg/mL (-100) H 02/25/17 06:35 Total Protein 4.0 g/dL (6.4-8.9) L 02/25/17 13:10 Albumin 2.0 g/dL (3.2-5.2) L 02/25/17 13:10 Globulin 2.0 g/dL (2-4) 02/25/17 13:10 Albumin/Globulin Ratio 1.0 (1-3) 02/25/17 13:10 Prealbumin 8 mg/dL (18-38) L 02/25/17 13:10 Exam unchanged except for communicative and verbal post extubation C/w CCM monitoring Cardizem q 6hrs prn for A.fib/tachycardia Pain mx with Fentanyl and Morphine Abd binder placed OOB to chair as tolerated Monitor UO f/u HIT antibodies
[2017-02-27] MEDS: Diltiazem TAB* 30 MG PO SCH ×2 (17:15→17:23)
[2017-02-27] MEDS ORDERED: Diltiazem IV* 5 MG/ML 5 ML VIAL (for loading dose/IV Push) (25 MG) ONE (17:36)
[2017-02-27] MEDS: Diltiazem IV* 5 MG/ML 5 ML VIAL (for loading dose/IV Push) (25 MG) IV PUSH SCH (17:37)
[2017-02-28] MEDS: Morphine INJ* 4 MG/ML 1 ML SYRINGE IV PRN ×2 (00:24→08:29)
[2017-02-28] MEDS: NS 0.9% 1000 ML* 1,000 ML IV SCH (00:39)
[2017-02-28] MEDS: oxyCODONE TAB* 5 MG TAB PO PRN ×2 (02:17→23:53)
[2017-02-28] MEDS ORDERED: Potassium Chlor TAB* 20 MEQ TAB.ER PO ONE (03:49)
[2017-02-28] MEDS ORDERED: KCL 20 MEQ/100 ML IVPREMIX* 40 MEQ/200 ML BAG ONE (04:13)
[2017-02-28] MEDS: Chlorhexidine MOUTHWASH 0.12%* 15 ML UDC TOPICAL SCH ×3 (05:18→11:41)
[2017-02-28] MEDS: KCL 20 MEQ/100 ML IVPREMIX* 20 MEQ/100 ML BAG IV SCH ×2 (05:18→06:06)
[2017-02-28] MEDS: Levothyroxine TAB* 50 MCG TAB PO SCH (06:06)
[2017-02-28] MEDS ORDERED: Furosemide IV* 10 MG/ML VIAL (40 MG) IV ONE (07:55)
[2017-02-28 07:56] LABS: Hematocrit 29 % (35-47); Hemoglobin 9.5 g/dl (12.0-16.0); Mean Corpuscular HGB Conc 32 g/dl (31-36); Mean Corpuscular Hemoglobin 30 pg (27-31); Mean Corpuscular Volume 94 fL (80-97); Mean Platelet Volume 8 um3 (7.4-10.4); Red Blood Count 3.13 10^6/ul (4.0-5.4); Red Cell Distribution Width 16 % (10.5-15); White Blood Count 13.2 10^3/ul (3.5-10.8)
[2017-02-28 07:58] LABS: Add Diff/Slide Review? Slide Review Added; Comments Flag Yes
[2017-02-28 08:12] LABS: Calcium 7.4 mg/dL (8.6-10.3); EGFR African American 79.3 (>60); EGFR Non-African American 61.7 (>60); Magnesium 2.4 mg/dL (1.9-2.7)
[2017-02-28] MEDS ORDERED: Furosemide IV* 10 MG/ML VIAL (40 MG) ONE (08:24)
--- NOTE | 2017-02-28 08:34 | PN ---
Progress Note - Progress Note Date of Service: 02/28/17 - Critical care note Note: Critical Care follow-up note DATE: 02/28/17 TIME: 08:24 REFERRING PROVIDER: Oscar GILLHx, Social Hx, FHx, reviewed and unchanged since admission H&P REVIEW OF SYSTEMS: All systems reviewed, c/o pain improved with pain meds MEDICATIONS: Reviewed and as per records. Propofol and Levophed d/kavon, Stat dose of Lasix given Vital Signs Temp Pulse Resp BP Pulse Ox 98.9 F 117 22 128/73 93 02/28/17 07:41 02/28/17 08:00 02/28/17 08:00 02/28/17 08:00 02/28/17 08:00 Physical Exam: Gen:Alert, awake, moans intermittently HEENT:Anicteric, perrla Lungs:Coarse breath sounds; no rales, diminished at bases Cardiac: irregular, in a-fib Abdomen:Mild distention, drains in place with serous drainage, abd binder placed Extremities:Moves spontaneously Neuro: No focal defecits Access: Right IJ CVC (day#4), Femoral A-line d/kavon 02/27/17 Laboratory Results - last 24 hr 02/27/17 02/28/17 02/28/17 08:03 07:45 07:45 WBC 13.2 H RBC 3.13 L Hgb 9.5 L Hct 29 L MCV 94 MCH 30 MCHC 32 RDW 16 H Plt Count 156 MPV 8 Neut % (Auto) 85.5 H Lymph % (Auto) 8.1 L [place] % (Auto) 6.0 Eos % (Auto) 0.2 Baso % (Auto) 0.2 Absolute Neuts (auto) 11.3 H Absolute Lymphs (auto) 1.1 Absolute Monos (auto) 0.8 Absolute Eos (auto) 0 Absolute Basos (auto) 0 Absolute Nucleated RBC 0.01 Nucleated RBC % 0.1 Sodium 138 139 Potassium 3.1 L 4.0 Chloride 109 112 H Carbon Dioxide 22 23 Anion Gap 7 4 BUN 15 15 Creatinine 0.96 H 0.88 Est GFR ( Amer) 71.7 79.3 Est GFR (Non-Af Amer) 55.8 61.7 BUN/Creatinine Ratio 15.6 17.0 Glucose 95 81 Calcium 7.4 L 7.4 L Magnesium 1.8 L 2.4 Studies: CXR 02/28/17- decreased aeration at bases, small effusions b/l Nutrition: Will start liquid diet today and advance as tolerated Impression: 82 y o F with abdominal sepsis secondary to peritonitis from rectal perforation with complicated post-op course with resp failure secondary to septic shock, RENAN, with underlying Afib and CAD s/p extubation 02/27/17. Plan: Neuro: Moans intermittently, otherwise is oriented. Needing pain meds prn. Fall precautions Cardiovascular: Off Levophed , c/w IV fluids. In Afib , rate controlled currently, Cardizem po started today Respiratory: S/p extubation 02/27/17, resp status stable. Had mild stridor post extubation, resolved Gastrointestinal: Will start diet and advance as tolerated, abd drains in place. Abd binder placed post intubation Renal/Metabolic: BUN/Cr is within normal limits, electrolytes being repleted, to f/u BMP and renal function closely. c/w IV fluids, UO acceptable. Positive fluid balance, given Lasix Infectious Disease: On zosyn for abd sepsis, should provide adequate coverage. Leucocytosis this am, no fever spike, will monitor closely Hematology: Leucocytosis, H&H stable. On heparin sq, stopped due to concern with HIT, platlets drop- dilutional vs HIT, antibodies were sent, pending. No active bleeding. Platelet count improving Endocrine: Monitor blood sugars closely Musculoskeletal: OOB to chair today. f/u wound needs Psych/Social: Will discussed with daughter. Supportive and preventative care as ordered. SUP: ppi VTE prophylaxis: Heparin, being held due to drop in platelets, SCDs [place] catheter given critical illness, monitoring needs for accurate assessment of RENAN and KDIGO criteria for critically ill patients and to avoid potential harms of urinary retention, skin breakdown/ulcers.Anticipating removal of hamm Disposition: Can be transferred to surgical floor Code Status: DNR
[2017-02-28 08:42] LABS: Immature Granulocytes 9 % (0-9); Neutrophil % 78 % (38-83)
[2017-02-28 08:43] LABS: Hypochromasia 1+
--- NOTE | 2017-02-28 08:59 | PN ---
Progress Note - Progress Note Date of Service: 02/28/17 SOAP: Subjective: Responds to how are you doing? with "better than you." Has abd pain. Objective: Vital Signs Temp 98.9 F 02/28/17 07:41 Pulse 117 02/28/17 08:00 Resp 18 02/28/17 08:29 BP 128/73 02/28/17 08:00 Pulse Ox 93 02/28/17 08:00 Gen: elderly F, awake, eyes closed, moaning. Abd: edematous, incision c/d/i no erythema. JPs serous. Ostomy pink; no fct. Intake & Output 02/27/17 02/28/17 02/28/17 18:59 06:59 18:59 Intake Total 1288.9 3053 Output Total 522 620 140 Balance 766.9 2433 -140 Weight 195 lb 5.273 oz Intake: IV Fluids 951 3053 NS (0.9%) 926 2622 NS to Maintain IV Patency 25 108 Zosyn 110 potassium 213 IVPB 294 Zosyn 100 potassium 194 Medicated IV 16.9 CC - Propofol/Diprivan 16.9 Oral 0 Tube Feeding 27 Output: JAIMEE #1 105 90 JAIMEE #2 175 130 [place] 242 400 140 Laboratory Results - last 24 hr 02/28/17 02/28/17 07:45 07:45 WBC 13.2 H RBC 3.13 L Hgb 9.5 L Hct 29 L MCV 94 MCH 30 MCHC 32 RDW 16 H Plt Count 156 MPV 8 Immature Gran % (Auto) 9 Neut % (Auto) 85.5 H Lymph % (Auto) 8.1 L [place] % (Auto) 6.0 Eos % (Auto) 0.2 Baso % (Auto) 0.2 Absolute Neuts (auto) 11.3 H Absolute Lymphs (auto) 1.1 Absolute Monos (auto) 0.8 Absolute Eos (auto) 0 Absolute Basos (auto) 0 Absolute Nucleated RBC 0.01 Neutrophils % 78 Band Neutrophils % 9 H Lymphocytes % 7 L Monocytes % 6 Nucleated RBC % 0.1 Normal RBC Morphology Not Reportable Hypochromasia 1+ Elliptocytes 1+ Sodium 139 Potassium 4.0 Chloride 112 H Carbon Dioxide 23 Anion Gap 4 BUN 15 Creatinine 0.88 Est GFR ( Amer) 79.3 Est GFR (Non-Af Amer) 61.7 BUN/Creatinine Ratio 17.0 Glucose 81 Calcium 7.4 L Magnesium 2.4 Assessment: POD#3/4 s/p laparotomy colostomy and drain placement for peritonitis/s/p Altm[place] procedure. Improving. Suspect WBCs increase is appropriate response after sepsis. Plan: Cont abx. NPO. Keep ICU another 24h as expect mobilization of fluid. Daughter updated.
[2017-02-28] MEDS ORDERED: NS 0.9% 1000 ML* 1,000 ML IV SCH (09:30)
[2017-02-28] MEDS: Diltiazem TAB* 30 MG PO SCH ×3 (11:57→23:52)
[2017-02-28] MEDS: Pantoprazole IV* 40 MG IV SCH (12:17)
[2017-02-28] MEDS: fentaNYL* 50 MCG/ML 2 ML VIAL (100 MCG VIAL) IV SLOW PU PRN (21:16)
[2017-03-01] MEDS: Diltiazem TAB* 30 MG PO SCH ×4 (04:54→23:32)
[2017-03-01] MEDS: oxyCODONE TAB* 5 MG TAB PO PRN ×2 (04:54→12:36)
[2017-03-01] MEDS: Levothyroxine TAB* 50 MCG TAB PO SCH (04:54)
[2017-03-01 07:27] LABS: Hematocrit 29 % (35-47); Hemoglobin 9.5 g/dl (12.0-16.0); Mean Corpuscular HGB Conc 33 g/dl (31-36); Mean Corpuscular Hemoglobin 31 pg (27-31); Mean Corpuscular Volume 94 fL (80-97); Mean Platelet Volume 9 um3 (7.4-10.4); Red Blood Count 3.07 10^6/ul (4.0-5.4); Red Cell Distribution Width 16 % (10.5-15); White Blood Count 9.2 10^3/ul (3.5-10.8)
[2017-03-01 07:37] LABS: BUN/Creatinine Ratio 15.7 (8-20); Calcium 7.3 mg/dL (8.6-10.3); EGFR African American 78.3 (>60); EGFR Non-African American 60.9 (>60); Potassium 3.2 mmol/L (3.5-5.0)
--- NOTE | 2017-03-01 08:22 | PN ---
Progress Note - Progress Note Date of Service: 03/01/17 SOAP: Subjective: Pt seen and examined. Extubated. Case d/w Pt going through series of events similar to discussion with pt's daughter on Wednesday. Pt had no questions, but does not quite understand other than the need to return to the OR for complication of initial surgery. Pt's daughter understands rationale for return and expected post-operative course at this time, as well as the guarded diagnosis and possibility of prolonged hospital course and possible [facility] discharge. Last 48 hrs reviewed. Pt is not nauseus. c/o pain mostly at abdo. No appetite. Objective: af vss o2sat low 90s on NC UO good, pt has receivd lasix lungs course, poor effort abdo: soft/ distended, tender, edematous, no ostomy output, pink edematous. packing removed, not reinserted. no erythema JPx2 serous ext: piting edema, Neck CV line intact labs noted Assessment: POD4 takeback ,ex lap, diverting colostomy, HD stable, total body fluid overloaded. Plan: PT/OT possible transfer to floor today or tomorrow encourage PO OOB dvt, gi proph
[2017-03-01] MEDS: NS 0.45% KCl 20 Meq 1000 ML* 1,000 ML IV SCH (09:17)
[2017-03-01] MEDS: KCL 20 MEQ/100 ML IVPREMIX* 20 MEQ/100 ML BAG IV SCH ×2 (09:17→11:00)
--- NOTE | 2017-03-01 13:54 | PN ---
Critical Care Services: No new problems overnight. Awake and up in chair today. Vital Signs: Temp Pulse Resp BP SpO2 FiO2 98.7 F 90 22 132/97 94 40 Physical Exam: Gen:Alert and oriented Lungs:Clear Abdomen:Not distended. Colostomy bags (x2) drained total of 120 cc today. Extremities:Warm. No cyanosis or edema Fluid Balance (Past 24 Hours): Intake & Output 03/01/17 06:59 Intake Total 1385 Output Total 3180 Balance -1795 Weight Intake: IV Fluids 835 NS (0.9%) 544 NS to Maintain IV Patency 181 Zosyn 110 potassium IVPB 250 NS (0.9%) 223 Zosyn potassium 27 Medicated IV CC - Dexmedetomidine/ Precedex CC - Propofol/Diprivan kvo anbx kvo and k-phos Oral 300 Tube Feeding Albumin Output: NG Tube Drainage Amount JAIMEE #1 60 JAIMEE #2 70 Urine [place] 3050 Labs: 03/01/17 03/01/17 06:34 06:34 WBC 9.2 RBC 3.07 L Hgb 9.5 L Hct 29 L MCV 94 MCH 31 MCHC 33 RDW 16 H Plt Count 161 Sodium 139 Potassium 3.2 Chloride 108 Carbon Dioxide 28 Anion Gap 3 BUN 14 Creatinine 0.89 Est GFR ( Amer) 78.3 Est GFR (Non-Af Amer) 60.9 BUN/Creatinine Ratio 15.7 Glucose 113 H Calcium 7.3 L Studies: None today Nutrition: Oral diet (full liquid) Impression: Improving - No signs of active infection - Spontaneous diuresis is a good sign. Plan: Continue present management. Advance diet when tolerated.
[2017-03-01] MEDS: Ondansetron INJ* 2 MG/ML VIAL IV PRN (18:12)
[2017-03-01] MEDS: Morphine INJ* 4 MG/ML 1 ML SYRINGE IV PRN ×2 (19:21→23:42)
[2017-03-01] MEDS: Famotidine TAB* 20 MG PO SCH (20:57)
[2017-03-02] MEDS: Morphine INJ* 4 MG/ML 1 ML SYRINGE IV PRN (02:59)
[2017-03-02] MEDS: oxyCODONE TAB* 5 MG TAB PO PRN ×2 (03:24→08:09)
[2017-03-02 06:35] LABS: BUN/Creatinine Ratio 17.1 (8-20); Calcium 7.3 mg/dL (8.6-10.3); EGFR African American 103.3 (>60); EGFR Non-African American 80.3 (>60); Globulin 2.4 g/dL (2-4); Magnesium 1.8 mg/dL (1.9-2.7); Phosphorus 1.9 mg/dL (2.5-5.0); Potassium 3.5 mmol/L (3.5-5.0); Total Bilirubin 0.5 mg/dL (0.2-1.0); Total Protein 4.4 g/dL (6.4-8.9)
[2017-03-02] MEDS: Diltiazem TAB* 30 MG PO SCH ×3 (07:51→17:49)
[2017-03-02] MEDS: NS 0.45% KCl 20 Meq 1000 ML* 1,000 ML IV SCH ×2 (07:51→11:30)
[2017-03-02] MEDS: Levothyroxine TAB* 50 MCG TAB PO SCH (07:51)
[2017-03-02] MEDS: CMCS:Escitalopram (NF) 10 MG TAB PO SCH (07:51)
[2017-03-02] MEDS: Famotidine TAB* 20 MG PO SCH ×2 (07:51→21:38)
--- NOTE | 2017-03-02 11:01 | SURGPN ---
Subjective - Introduction -: Patient seen and examined. Feeling "sleepy", however respond to questions properly. Reports mild abdominal pain, but no nausea or vomiting. Decreased appetite. No fever or chills. - Medications -: Active Medications Generic Name Dose Route Start Last Admin Trade Name Freq PRN Reason Stop Dose Admin Diltiazem HCl 30 mg 02/28/17 12:00 03/02/17 07:51 Cardizem Tab* PO 30 mg Q6HR FABRIZIO Administration Docusate Sodium 100 mg 02/25/17 08:40 Colace Cap* PO BID PRN CONSTIPATION Escitalopram Oxalate 20 mg 03/02/17 09:00 03/02/17 07:51 Lexapro (Nf) PO 20 mg DAILY FABRIZIO Administration Famotidine 20 mg 03/01/17 21:00 03/02/17 07:51 Pepcid Tab* PO 20 mg BID FABRIZIO Administration Piperacillin Sod/Tazobactam 100 mls @ 25 mls/hr 02/25/17 08:00 03/02/17 07:52 Sod 3.375 gm/ Sodium Chloride IVPB 25 mls/hr Q8H FABRIZIO Administration Potassium Chloride/Sodium Chloride 1,000 mls @ 50 mls/hr 03/01/17 09:00 03/02 07:51 Ns 0.45% Kcl 20 Meq 1000 Ml* IV 50 mls/hr PER RATE FABRIZIO Administration Levothyroxine Sodium 50 mcg 02/22/17 06:00 03/02/17 07:51 Synthroid Tab* PO 50 mcg 0600 FABRIZIO Administration Morphine Sulfate 4 mg 02/23/17 14:56 03/02/17 02:59 Morphine Inj (Syringe)* IV 4 mg Q4H PRN Administration PAIN - MILD Ondansetron HCl 4 mg 02/21/17 16:47 03/01/17 18:12 Zofran Inj* IV 4 mg Q4H PRN Administration NAUSEA Oxycodone HCl 5 mg 02/23/17 14:56 03/01/17 12:36 Roxycodone Tab* PO 5 mg Q4H PRN Administration PAIN Oxycodone HCl 10 mg 02/23/17 14:56 03/02/17 08:09 Roxycodone Tab* PO 10 mg Q4H PRN Administration PAIN Pharmacy Consult 1 note 02/25/17 14:00 Zosyn Per Pharmacy* FOLLOW UP .ZOSYN PER PHARMACY FABRIZIO Objective - Objective -: Sitting on her chair, falling a sleep. Aroused and open her eyes upon asking questions. Appears comfortable and in NAD. - Intake and Output -: Intake & Output 02/28/17 03/01/17 03/02/17 03/03/17 06:59 06:59 06:59 06:59 Intake Total 4341.9 1385 2130 Output Total 1142 3180 3170 0 Balance 3199.9 -1795 -1040 0 Weight 195 lb 5.273 oz 194 lb 0.108 oz Intake: IV Fluids 4004 835 816 .45NS W/20 MEQ KCL 543 NS (0.9%) 3548 544 NS to Maintain IV Patency 133 181 73 Zosyn 110 110 potassium 213 200 IVPB 294 250 604 .45NS W/20 MEQ KCL 424 NS (0.9%) 223 NS to Maintain IV Patency 180 Zosyn 100 potassium 194 27 Medicated IV 16.9 CC - Propofol/Diprivan 16.9 Oral 0 300 710 Tube Feeding 27 Output: JAIMEE #1 195 60 70 JAIMEE #2 305 70 170 [place] 642 3050 2925 0 Colostomy 5 Surgical Physical Exam - Comments -: VSS, afebrile. Some tachycardia last night, range 100s-110s, but in 80s this AM. Abdomen soft and non-distended. Abdominal binder secured over clean and dry dressing. JAIMEE-vacs noted with SS output. Stoma viable with gtts blood tinged output. Ext. with pitting edema noted. [place] with clear urine, output is good yesterday (over 3 Liters) No labs or diagnostic studies today Assessment and Plan - Assessment -: An 82 y/o female, POD#6, s/p laparotomy with diverting colostomy, improving. - Plan Additional Comments: Encourage PO as tolerated, keep on full liquids for now, possibly advance diet tomorrow. Ambulate as tolerated, PT/OT help appreciated. Probable post-op ileus, await bowel functions. GI and DVT prophylaxis. Possible transfer to surgical floor later today.
--- NOTE | 2017-03-02 15:21 | PN ---
Progress Note - Progress Note Date of Service: 03/02/17 SOAP: Subjective: Pt seen and examined. Transferrdto floor. no appetite. CO/o pain Pt is not nauseus. Pt'sduaghter are with her today Objective: af vss o2sat low 90s on NC UO good abdo: soft/ distended, tender, edematous, no ostomy output, pink edematous. staple line intact JPx2 serous ext: piting edema, Neck CV line intact labs noted Assessment: POD5 takeback ,ex lap, diverting colostomy, HD stable, total body fluid overloaded. Plan: PT/OT nd OOB encourage PO dvt, gi proph antibiotics /SACMA to cover me until03/07 Family and patient aware
[2017-03-02] MEDS: oxyCODONE/Acetamin 5/325 MG* TAB PO PRN (18:07)
[2017-03-03] MEDS: Diltiazem TAB* 30 MG PO SCH ×4 (00:01→18:40)
[2017-03-03] MEDS: NS 0.45% KCl 20 Meq 1000 ML* 1,000 ML IV SCH (04:09)
[2017-03-03] MEDS: Levothyroxine TAB* 50 MCG TAB PO SCH (05:51)
[2017-03-03] MEDS: oxyCODONE/Acetamin 5/325 MG* TAB PO PRN (05:51)
[2017-03-03] MEDS: Morphine INJ* 4 MG/ML 1 ML SYRINGE IV PRN (07:17)
[2017-03-03 09:12] LABS: Heparin PF4 Ab Reactivity <0.075
[2017-03-03 09:13] LABS: Heparin PF4 Antibody Interp Negative
[2017-03-03] MEDS: Diltiazem IV* 5 MG/ML 5 ML VIAL (for loading dose/IV Push) (25 MG) IV PUSH SCH (09:44)
[2017-03-03] MEDS: Famotidine TAB* 20 MG PO SCH ×2 (09:49→21:38)
[2017-03-03] MEDS: CMCS:Escitalopram (NF) 10 MG TAB PO SCH (09:50)
[2017-03-03] MEDS: oxyCODONE TAB* 5 MG TAB PO PRN ×3 (09:52→18:42)
--- NOTE | 2017-03-03 10:11 | PN ---
Progress Note - Progress Note Date of Service: 03/03/17 SOAP: Subjective: Complaining of some lower abdominal pain this morning and just received some oral pain medication Poor appetite but took some liquids yesterday. No N/V Objective: Temp Pulse Resp BP Pulse Ox 97.7 F 90 18 116/54 95 03/03/17 07:16 03/03/17 07:16 03/03/17 09:52 03/03/17 07:16 03/03/17 09:12 Intake & Output 03/01/17 03/02/17 03/03/17 03/04/17 06:59 06:59 06:59 06:59 Intake Total 1385 2130 2021 Output Total 3180 3170 1575 Balance -1795 -1040 446 Weight 194 lb 0.108 oz Intake: IV Fluids 112 842 7997 .45NS W/20 MEQ KCL 543 1451 NS (0.9%) 544 NS to Maintain IV Patency 181 73 Zosyn 110 potassium 200 IVPB 250 604 .45NS W/20 MEQ KCL 424 NS (0.9%) 223 NS to Maintain IV Patency 180 potassium 27 Oral 300 710 570 Output: JAIMEE #1 60 70 30 JAIMEE #2 70 170 105 [place] 3050 2925 1425 Colostomy 5 15 Other: # Bowel Movements 0 PEX: Comfortable Lungs are clear with decreased breath sounds in the bases Abd is soft and slightly distended. Bowel sounds are decreased. Incision is clean and dry. Two JAIMEE drains in place with serous fluid in bulb. Appropriate incisional tenderness. NO labs today. Assessment: POD # 6 s/p exlap with end colostomy after Altmier procedure Ileus Sepsis-resolving Malnutrition Plan: Continue IV abx Advance diet as tolerated Hospitalist consult on transfer from ICU--discussed with service. Increase activity PPI and subq heparin Labs tomorrow Follow JAIMEE drainage amounts and remove as drainage decreases.
[2017-03-03 11:14] LABS: Add Diff/Slide Review? Slide Review Added; Comments Flag Yes; Hematocrit 32 % (35-47); Hemoglobin 10.3 g/dl (12.0-16.0); Mean Corpuscular HGB Conc 32 g/dl (31-36); Mean Corpuscular Hemoglobin 30 pg (27-31); Mean Corpuscular Volume 92 fL (80-97); Mean Platelet Volume 8 um3 (7.4-10.4); Red Cell Distribution Width 16 % (10.5-15); White Blood Count 10.6 10^3/ul (3.5-10.8)
[2017-03-03 11:28] LABS: EGFR Non-African American 66.9 (>60)
[2017-03-03 11:53] LABS: Magnesium 1.8 mg/dL (1.9-2.7); Potassium 3.6 mmol/L (3.5-5.0)
[2017-03-03] MEDS ORDERED: Magnesium Sulfate 2 GM IV* 2 GM/50 ML BAG IVPB ONE (12:03)
--- NOTE | 2017-03-03 12:28 | PN ---
Subjective Date of Service: 03/03/17 Interval History: This is an 82 yo female with afib, CAD, diastolic HF, HTN and hypothyroidism who presented with perirectal pain secondary to rectal prolapse. Patient underwent surgical repair of the prolapse which was complicated by rectal perforation and subsequent peritonitis with severe sepsis. Patient requires intubation for acute respiratory failure and requires vasopressors for additional hemodynamic support. She was brought back to the OR which resulted in a diverting colostomy. Patient was extubated 02/27 transferred from the ICU yesterday. Review of records shows she is up at least 11kg since admission. At one point, she developed some thrombocytopenia and heparin was discontinued due to concern for HIT. Plt count has recovered and HIT ab have returned negative. Patient reports that she still has persistent pain and some nausea. She is currently on full liquid diet with poor to moderate oral intake. She has a significant amount of gas in her colostomy bag, but no stool as of yet. No complaints of SOB, cough or CP Objective Active Medications: Diltiazem HCl (Cardizem Tab*) 30 mg PO Q6HR [facility] Last Admin: 03/03/17 05:51 Dose: 30 mg Docusate Sodium (Colace Cap*) 100 mg PO BID PRN PRN Reason: CONSTIPATION Escitalopram Oxalate (Lexapro (Nf)) 20 mg PO DAILY [facility] Last Admin: 03/03/17 09:50 Dose: 20 mg Famotidine (Pepcid Tab*) 20 mg PO BID [facility] Last Admin: 03/03/17 09:49 Dose: 20 mg Furosemide (Lasix Iv*) 20 mg IV DAILY [facility] Heparin Sodium (Porcine) (Heparin Vial(*)) 5,000 units SUBCUT Q12HR [facility] Piperacillin Sod/Tazobactam (Sod 3.375 gm/ Sodium Chloride) 100 mls @ 25 mls/ hr IVPB Q8H [facility] Last Admin: 03/03/17 08:12 Dose: 25 mls/hr Magnesium Sulfate (Magnesium Sulfate 2 Gm Iv*) 2 gm in 50 mls @ 50 mls/hr IVPB ONCE ONE Stop: 03/03/17 13:02 Levothyroxine Sodium (Synthroid Tab*) 50 mcg PO 0600 [facility] Last Admin: 03/03/17 05:51 Dose: 50 mcg Morphine Sulfate (Morphine Inj (Syringe)*) 4 mg IV Q4H PRN PRN Reason: PAIN - MILD Last Admin: 03/03/17 07:17 Dose: 4 mg Ondansetron HCl (Zofran Inj*) 4 mg IV Q4H PRN PRN Reason: NAUSEA Last Admin: 03/01/17 18:12 Dose: 4 mg Oxycodone HCl (Roxycodone Tab*) 5 mg PO Q4H PRN PRN Reason: PAIN Last Admin: 03/01/17 12:36 Dose: 5 mg Oxycodone HCl (Roxycodone Tab*) 10 mg PO Q4H PRN PRN Reason: PAIN Last Admin: 03/03/17 09:52 Dose: 10 mg Oxycodone/Acetaminophen (Percocet 5/325 Tab*) 1 tab PO Q4H PRN PRN Reason: PAIN Last Admin: 03/03/17 05:51 Dose: 1 tab Pharmacy Consult (Zosyn Per Pharmacy*) 1 note FOLLOW UP .ZOSYN PER PHARMACY [facility] Vital Signs: Temp Pulse Resp BP Pulse Ox 98.2 F 84 16 123/62 95 03/03/17 11:45 03/03/17 11:45 03/03/17 11:45 03/03/17 11:45 03/03/17 11:45 Oxygen Devices in Use Now: None Appearance: Elderly female seated in a recliner who appears fatigued, but is in NAD Respiratory: Symmetrical Chest Expansion and Respiratory Effort, Clear to Auscultation Cardiovascular: NL Sounds; No Murmurs; No JVD, - - irreg rhythm Abdominal: - - abd binder in place with colostomy in RLQ. Bag full of gas, no stool present. Diffuse TTP Extremities: - - diffuse edema Neurological: Alert and Oriented x 3 Result Diagrams: 03/03/17 11:07 03/03/17 11:07 Additional Lab and Data: Laboratory Tests 02/27/17 10:35 Heparin-PF4 Ab Reactiv <0.075 Heparin-PF4 Ab Interp Negative Microbiology and Other Data: Microbiology 02/24/17 21:50 Nasal Screen MRSA (PCR)(TIANA) - Final Nasal Mrsa Negative Assess/Plan/Problems-Billing Assessment: Mrs. Juarez is a 82 yo female who has a PMH afib, hypothyroidism, depression, HTN and CAD who presented initially on 02/16/17 with c/o BRBPR and was found to have a prolapsed rectum with plan for surgery and DC to home; she returned to ED 02/21/17 with c/o perirectal pain which she was unable to manage at home. She is now s/p surgical repair complicated by perforation resulting in severe sepsis secondary to peritonitis requiring intubation for respiratory support, now extubated and transferred to the surgical floor. Hospitalist group has been asked to continue medical co-management. - Patient Problems (1) Rectal prolapse Comment: POD # 7 s/p perineal rectosigmoidectomy complicated by perforation and subsequent take back with resulting diverting colostomy Management per surgical team. Patient is severely edematous, with 11kg weight gain since ICU admission Recommend stopping IVF and started diuresis with IV Lasix, recommendations discussed with surgery team (2) Severe sepsis Comment: Secondary to peritonitis secondary to rectal perforation post-operatively Now resolved Cont Zosyn (3) Acute respiratory failure Comment: Secondary to severe sepsis, required intubation Extubated 02/27 (4) Ileus Comment: Tolerated full liquid diet Adaquate gas, but no stool present in colostomy bag (5) Colostomy in place (6) Thrombocytopenia Comment: Likely secondary to sepsis Now resolved HIT ab testing negative (7) Afib Comment: Rate controlled. Continue diltiazem Xarelto has been held postoperatively, resume when deemed appropriate by surgical team (8) Diastolic CHF Comment: Asymptomatic. TTE 08/2016 - EF 65-70%. Fluid overloaded, but no pulmonary symptoms Start diuresis (9) CAD (coronary artery disease) Comment: Asymptomatic. Cont med management (10) HTN (hypertension) Comment: Normotensive Cont cardizem (11) Hypothyroidism Comment: Asymptomatic. Continue levothyroxine. (12) DNR (do not resuscitate) Comment: MOLST completed. (13) DVT prophylaxis Comment: SQ heparin resumed today, cont to follow H/H and plts Resume Xarelto when deemed appropriate from surgery team Status and Disposition: Inpatient. Dispo per surgery; Hospitalist following for medical co-management.
[2017-03-03] MEDS: Furosemide IV* 10 MG/ML 2 ML VIAL (20 MG) IV SCH (12:49)
[2017-03-03] MEDS: Heparin VIAL(*) 5000 UNITS/ML VIAL (FIVE THOUSAND) SUBCUT SCH ×2 (12:53→21:38)
[2017-03-04] MEDS: oxyCODONE/Acetamin 5/325 MG* TAB PO PRN ×3 (00:38→20:17)
[2017-03-04] MEDS: Diltiazem TAB* 30 MG PO SCH ×4 (00:38→18:08)
[2017-03-04] MEDS: Levothyroxine TAB* 50 MCG TAB PO SCH (05:05)
[2017-03-04 06:00] LABS: BUN/Creatinine Ratio 13.1 (8-20); Calcium 7.6 mg/dL (8.6-10.3); EGFR African American 83.7 (>60); EGFR Non-African American 65.1 (>60); Potassium 3.2 mmol/L (3.5-5.0)
[2017-03-04 06:32] LABS: Hematocrit 30 % (35-47); Hemoglobin 9.6 g/dl (12.0-16.0); Mean Corpuscular HGB Conc 33 g/dl (31-36); Mean Corpuscular Hemoglobin 30 pg (27-31); Mean Corpuscular Volume 94 fL (80-97); Mean Platelet Volume 8 um3 (7.4-10.4); Red Blood Count 3.17 10^6/ul (4.0-5.4); Red Cell Distribution Width 16 % (10.5-15); White Blood Count 10.3 10^3/ul (3.5-10.8)
--- NOTE | 2017-03-04 08:46 | PN ---
Progress Note - Progress Note Date of Service: 03/04/17 SOAP: Subjective: She is alert today and oriented/awake--says she feels much better and wants to get going Pain is minimal No N/V but still with poor appetite She was out of bed yesterday quite a bit Nurses note some air in colostomy bag but no stool Objective: Temp Pulse Resp BP Pulse Ox 97.6 F 87 18 117/55 95 03/04/17 07:31 03/04/17 07:31 03/04/17 07:31 03/04/17 07:31 03/04/17 07:31 Intake & Output 03/02/17 03/03/17 03/04/17 03/05/17 06:59 06:59 06:59 06:59 Intake Total 2130 2021 1665 Output Total 3170 1575 3270 Balance -1040 446 -1605 Weight 194 lb 0.108 oz Intake: IV Fluids 816 1451 498 .45NS W/20 MEQ KCL 543 1451 448 NS to Maintain IV Patency 73 magnesium 50 potassium 200 IVPB 604 287 .45NS W/20 MEQ KCL 424 NS to Maintain IV Patency 180 Zosyn 287 Oral 710 570 880 Output: JAIMEE #1 70 30 65 JAIMEE #2 170 105 105 [place] 2925 1425 3050 Colostomy 5 15 50 Other: # Bowel Movements 0 PEX: Awake and alert and cheery-speech is clear Lungs with decreased breath sounds at the bases Abd is soft and slightly distended. Bowel sounds are present but decreased in activity. Midline incision is clean and dry. Drains intact with yellow serous fluid n bulb. Ostomy is pink and edematous, small amount of thin liquid in bag with some air, Extremities with edema Laboratory Results - last 24 hr 02/27/17 03/03/17 03/03/17 10:35 11:07 11:07 WBC RBC Hgb Hct MCV MCH MCHC RDW Plt Count MPV Neut % (Auto) Lymph % (Auto) [place] % (Auto) Eos % (Auto) Baso % (Auto) Absolute Neuts (auto) Absolute Lymphs (auto) Absolute Monos (auto) Absolute Eos (auto) Absolute Basos (auto) Absolute Nucleated RBC Nucleated RBC % INR (Anticoag Therapy) 0.91 APTT 24.7 L Sodium 138 Potassium 3.6 Chloride Carbon Dioxide Anion Gap BUN 12 Creatinine 0.82 Est GFR ( Amer) 86.0 Est GFR (Non-Af Amer) 66.9 BUN/Creatinine Ratio Glucose Calcium Magnesium 1.8 L Heparin-PF4 Ab Reactiv <0.075 Heparin-PF4 Ab Interp Negative Heparin-PF4 Ab Comment See comment 03/03/17 03/04/17 03/04/17 11:07 05:30 06:25 WBC 10.6 10.3 RBC 3.50 L 3.17 L Hgb 10.3 L 9.6 L Hct 32 L 30 L MCV 92 94 MCH 30 30 MCHC 32 33 RDW 16 H 16 H Plt Count 209 199 MPV 8 8 Neut % (Auto) 76.7 79.7 Lymph % (Auto) 14.1 L 11.3 L [place] % (Auto) 6.5 5.9 Eos % (Auto) 2.4 2.3 Baso % (Auto) 0.3 0.8 Absolute Neuts (auto) 8.2 H 8.2 H Absolute Lymphs (auto) 1.5 1.2 Absolute Monos (auto) 0.7 0.6 Absolute Eos (auto) 0.3 0.2 Absolute Basos (auto) 0 0.1 Absolute Nucleated RBC 0.01 0 Nucleated RBC % 0.1 0 INR (Anticoag Therapy) APTT Sodium 137 Potassium 3.2 L Chloride 102 Carbon Dioxide 31 Anion Gap 4 BUN 11 Creatinine 0.84 Est GFR ( Amer) 83.7 Est GFR (Non-Af Amer) 65.1 BUN/Creatinine Ratio 13.1 Glucose 91 Calcium 7.6 L Magnesium 2.0 Heparin-PF4 Ab Reactiv Heparin-PF4 Ab Interp Heparin-PF4 Ab Comment Assessment: POD# 7 s/p exlap with colostomy--anastomotic leak--showing improvement Sepsis--resolved Malnutrition--diet being advanced Plan: Increase po as tolerated and advance diet--hold off on TPN for now as her GI function should improve Continue IV anbx D/C one JAIMEE D/C triple lumen catheter. Increase activity PPI and DVT prophylaxis She has NH home bed for placement but she is not ready for D/C yet. K being repleted Appreciate hospitalist consult.
[2017-03-04] MEDS: Famotidine TAB* 20 MG PO SCH ×2 (09:30→20:18)
[2017-03-04] MEDS: oxyCODONE TAB* 5 MG TAB PO PRN (09:30)
[2017-03-04] MEDS: Furosemide IV* 10 MG/ML 2 ML VIAL (20 MG) IV SCH (09:30)
[2017-03-04] MEDS: Heparin VIAL(*) 5000 UNITS/ML VIAL (FIVE THOUSAND) SUBCUT SCH (09:31)
[2017-03-04] MEDS: CMCS:Escitalopram (NF) 10 MG TAB PO SCH (09:31)
[2017-03-04] MEDS: KCL 20 MEQ/100 ML IVPREMIX* 20 MEQ/100 ML BAG IV SCH ×2 (12:49→17:07)
--- NOTE | 2017-03-04 15:49 | PN ---
Subjective Date of Service: 03/04/17 Interval History: Came to see pt at 14:50. Pt's daughter Ludy is in pt's room having an argument with her sister Divine on the phone. Pt requested to talk with daughter Divine. Luyd told me that pt is "nearly delirious" and she needs an urgent psychotherapy consult that the family arranged for pt on the phone at 3 pm. She is trying to get her sister Divine off the phone so the therapist can call. Later on pt was on the phone with daughter Divine trying to calm her down and telling me that his eldest daughter is crying on the phone. Pt seems calm and collected, pleasant and cooperative, appears to be oriented to at least the location. Spoke with pt and daughter that I will visit when pt and family is ready after the conversation with psychotherapist . Pt was not examined due to above Addendum: pt was re-visited and examined at 16: 40 PM. Has no new complaints. Daughter encouraging pt do do PT Family History: Unchanged from Admission Social History: Unchanged from Admission Past Medical History: Unchanged from Admission Objective Active Medications: Diltiazem HCl (Cardizem Tab*) 30 mg PO Q6HR [facility] Last Admin: 03/04/17 13:03 Dose: 30 mg Docusate Sodium (Colace Cap*) 100 mg PO BID PRN PRN Reason: CONSTIPATION Escitalopram Oxalate (Lexapro (Nf)) 20 mg PO DAILY [facility] Last Admin: 03/04/17 09:31 Dose: 20 mg Famotidine (Pepcid Tab*) 20 mg PO BID [facility] Last Admin: 03/04/17 09:30 Dose: 20 mg Furosemide (Lasix Iv*) 20 mg IV DAILY [facility] Last Admin: 03/04/17 09:30 Dose: 20 mg Heparin Sodium (Porcine) (Heparin Vial(*)) 5,000 units SUBCUT Q12HR [facility] Last Admin: 03/04/17 09:31 Dose: 5,000 units Piperacillin Sod/Tazobactam (Sod 3.375 gm/ Sodium Chloride) 100 mls @ 25 mls/ hr IVPB Q8H [facility] Last Admin: 03/04/17 08:12 Dose: 25 mls/hr Levothyroxine Sodium (Synthroid Tab*) 50 mcg PO 0600 [facility] Last Admin: 03/04/17 05:05 Dose: 50 mcg Morphine Sulfate (Morphine Inj (Syringe)*) 4 mg IV Q4H PRN PRN Reason: PAIN - MILD Last Admin: 03/03/17 07:17 Dose: 4 mg Ondansetron HCl (Zofran Inj*) 4 mg IV Q4H PRN PRN Reason: NAUSEA Last Admin: 03/01/17 18:12 Dose: 4 mg Oxycodone HCl (Roxycodone Tab*) 5 mg PO Q4H PRN PRN Reason: PAIN Last Admin: 03/01/17 12:36 Dose: 5 mg Oxycodone HCl (Roxycodone Tab*) 10 mg PO Q4H PRN PRN Reason: PAIN Last Admin: 03/04/17 09:30 Dose: 10 mg Oxycodone/Acetaminophen (Percocet 5/325 Tab*) 1 tab PO Q4H PRN PRN Reason: PAIN Last Admin: 03/04/17 05:05 Dose: 1 tab Pharmacy Consult (Zosyn Per Pharmacy*) 1 note FOLLOW UP .ZOSYN PER PHARMACY [facility] Vital Signs 03/03/17 03/03/17 03/03/17 16:19 18:42 20:21 Temperature 97.7 F Pulse Rate 64 Respiratory 16 16 12 Rate Blood Pressure 110/61 (mmHg) O2 Sat by Pulse 91 Oximetry 03/03/17 03/03/17 03/04/17 20:42 20:45 00:04 Temperature 98.3 F Pulse Rate 61 Respiratory 16 16 15 Rate Blood Pressure 121/62 (mmHg) O2 Sat by Pulse 98 Oximetry 03/04/17 03/04/17 03/04/17 01:30 03:37 05:05 Temperature 98.6 F Pulse Rate 96 Respiratory 16 20 Rate Blood Pressure 120/65 (mmHg) O2 Sat by Pulse 98 94 Oximetry 03/04/17 03/04/17 03/04/17 07:05 07:31 09:30 Temperature 97.6 F Pulse Rate 87 Respiratory 16 18 16 Rate Blood Pressure 117/55 (mmHg) O2 Sat by Pulse 95 Oximetry 03/04/17 11:42 Temperature 98.2 F Pulse Rate 68 Respiratory 16 Rate Blood Pressure 135/48 (mmHg) O2 Sat by Pulse 92 Oximetry Oxygen Devices in Use Now: Nasal Cannula - at 2.5 L Appearance: 82 yo f in nAD, aAOx3 Eyes: No Scleral Icterus, PERRLA Ears/Nose/Mouth/Throat: NL Teeth, Lips, Gums, Mucous Membranes Moist Neck: NL Appearance and Movements; NL JVP, Trachea Midline Respiratory: Symmetrical Chest Expansion and Respiratory Effort, Clear to Auscultation Cardiovascular: NL Sounds; No Murmurs; No JVD, - - irregular Abdominal: NL Sounds; No Tenderness; No Distention, - - colostomy in place, bag with stool noted, midline incision stapled, no dehiscence noted, mild non streaking erythema Extremities: No Clubbing, Cyanosis, - - generalized edema in all extremities, pitting Skin: No Nodules or Sclerosis Neurological: Alert and Oriented x 3, NL Muscle Strength and Tone Result Diagrams: 03/04/17 06:25 03/04/17 05:30 Additional Lab and Data: Laboratory Tests 02/27/17 10:35 Heparin-PF4 Ab Reactiv <0.075 Heparin-PF4 Ab Interp Negative Microbiology and Other Data: Microbiology 02/24/17 21:50 Nasal Screen MRSA (PCR)([facility]IA[facility]) - Final Nasal Mrsa Negative Assess/Plan/Problems-Billing Assessment: Mrs. Juarez is a 82 yo female who has a PMH afib, hypothyroidism, depression, HTN and CAD who presented initially on 02/16/17 with c/o BRBPR and was found to have a prolapsed rectum with plan for surgery and DC to home; she returned to ED 02/21/17 with c/o perirectal pain which she was unable to manage at home. She is now s/p surgical repair complicated by perforation resulting in severe sepsis secondary to peritonitis requiring intubation for respiratory support, now extubated and transferred to the surgical floor. Hospitalist group has been asked to continue medical co-management. - Patient Problems (1) Rectal prolapse Comment: POD # 8 s/p perineal rectosigmoidectomy complicated by perforation and subsequent take back with resulting diverting colostomy Management per surgical team. In post op fluid overload. cont daily Lasix. (2) Severe sepsis Comment: Secondary to peritonitis secondary to rectal perforation post- operatively Now resolved Cont Zosyn-duration of tx as per surgery (3) Acute respiratory failure Comment: Secondary to severe sepsis, required intubation Extubated 02/27 sill requires 3 l 02. Suspect he will need 02 at d/c (4) Ileus Comment: Tolerates full liquid diet appears to be resolving, stool in colostomy bag noted today (5) Colostomy in place (6) Thrombocytopenia Comment: resolved Likely secondary to sepsis HIT ab testing negative (7) Afib Comment: Rate controlled. Continue diltiazem-switching to CD tomorrow Xarelto has been held postoperatively, resume when deemed appropriate by surgical team (8) Diastolic CHF Comment: Asymptomatic. TTE 08/2016 - EF 65-70%. Fluid overloaded, but no pulmonary symptoms (9) HTN (hypertension) Comment: Normotensive Cont cardizem (10) Hypothyroidism Comment: Asymptomatic. Continue levothyroxine. (11) DNR (do not resuscitate) Comment: MOLST completed. (12) DVT prophylaxis Comment: SQ heparin Status and Disposition: Inpatient. Dispo per surgery; Hospitalist following for medical co-management.
--- NOTE | 2017-03-04 17:53 | PN ---
Progress Note - Progress Note Date of Service: 03/04/17 Note: Surgery Progress: Per Dr. House's request, the right-sided JAIMEE drain was removed w/o incident. DSD placed.
[2017-03-05] MEDS: oxyCODONE/Acetamin 5/325 MG* TAB PO PRN ×4 (00:31→23:57)
[2017-03-05] MEDS: Heparin VIAL(*) 5000 UNITS/ML VIAL (FIVE THOUSAND) SUBCUT SCH ×3 (00:34→20:18)
[2017-03-05] MEDS ORDERED: GuaiFENesin DM* 5 ML UDC PO PRN (00:40)
[2017-03-05] MEDS: Levothyroxine TAB* 50 MCG TAB PO SCH (06:19)
[2017-03-05] MEDS: Ondansetron INJ* 2 MG/ML VIAL IV PRN (07:32)
--- NOTE | 2017-03-05 09:10 | PN ---
Progress Note - Progress Note Date of Service: 03/05/17 SOAP: Subjective: She is calm and relaxed this morning. No specific complaints although she has no real appetite Minimal pain Objective: Temp Pulse Resp BP Pulse Ox 98.0 F 56 18 120/52 97 03/05/17 00:37 03/05/17 08:32 03/05/17 06:19 03/05/17 00:37 03/05/17 00:37 Intake & Output 03/03/17 03/04/17 03/05/17 03/06/17 06:59 06:59 06:59 06:59 Intake Total 2020 1665 935 Output Total 1575 3270 3650 Balance 314 -2389 -4090 Intake: IV Fluids 1451 498 100 .45NS W/20 MEQ KCL 1451 448 NS (0.9%) 100 magnesium 50 IVPB 287 215 Zosyn 287 110 potassium 105 Oral 570 880 620 Output: JAIMEE #1 30 65 30 JAIMEE #2 105 105 70 [place] 1425 3050 3100 Colostomy 15 50 450 Other: # Bowel Movements 0 PEX: Comfortable Awake and alert Abd is soft and slightly distended. Midline incision is clean and dry. Ostomy is pink and there is some gas in bag and a small amount of brown liquid. Bowel sounds are present today and are hyperactive throughout--much greater than yesterday. Labs are pending Assessment: POD# 8 s/p exlap with colostomy Post-op ileus--resolving Sepsis-resolved Malnutrition Plan: Continue IV anbx Increase po intake--dietary input appreciated Check labs Daily lasix Physical therapy Placement-she has NH bed but she is not ready for hospital discharge. One JAIMEE drain removed yesterday.
[2017-03-05 09:20] LABS: BUN/Creatinine Ratio 9.9 (8-20); Calcium 7.2 mg/dL (8.6-10.3); EGFR African American 87.3 (>60); EGFR Non-African American 67.9 (>60); Magnesium 1.9 mg/dL (1.9-2.7); Phosphorus 2.5 mg/dL (2.5-5.0); Potassium 3.4 mmol/L (3.5-5.0)
[2017-03-05] MEDS: Furosemide IV* 10 MG/ML 2 ML VIAL (20 MG) IV SCH (09:26)
[2017-03-05] MEDS: Diltiazem CD CAP* 120 MG PO SCH (09:30)
[2017-03-05] MEDS: Famotidine TAB* 20 MG PO SCH ×2 (09:32→20:17)
[2017-03-05] MEDS: CMCS:Escitalopram (NF) 10 MG TAB PO SCH (09:32)
[2017-03-05] MEDS: KCL 10 MEQ/50 ML IVPREMIX* 10 MEQ/50 ML BAG IV SCH ×3 (12:58→16:31)
--- NOTE | 2017-03-05 14:09 | PN ---
Subjective Date of Service: 03/05/17 Interval History: pt feels well, no new complaints. Appetite still poor. Family History: Unchanged from Admission Social History: Unchanged from Admission Past Medical History: Unchanged from Admission Objective Active Medications: Diltiazem HCl (Cardizem Cd Cap*) 120 mg PO DAILY [facility] Last Admin: 03/05/17 09:30 Dose: 120 mg Docusate Sodium (Colace Cap*) 100 mg PO BID PRN PRN Reason: CONSTIPATION Escitalopram Oxalate (Lexapro (Nf)) 20 mg PO DAILY [facility] Last Admin: 03/05/17 09:32 Dose: 20 mg Famotidine (Pepcid Tab*) 20 mg PO BID [facility] Last Admin: 03/05/17 09:32 Dose: 20 mg Furosemide (Lasix Iv*) 20 mg IV DAILY [facility] Last Admin: 03/05/17 09:26 Dose: 20 mg Guaifenesin/Dextromethorphan (Robitussin Dm*) 10 ml PO Q4H PRN PRN Reason: COUGH Last Admin: 03/05/17 00:49 Dose: 10 ml Heparin Sodium (Porcine) (Heparin Vial(*)) 5,000 units SUBCUT Q12HR [facility] Last Admin: 03/05/17 09:27 Dose: 5,000 units Piperacillin Sod/Tazobactam (Sod 3.375 gm/ Sodium Chloride) 100 mls @ 25 mls/ hr IVPB Q8H [facility] Last Admin: 03/05/17 08:37 Dose: 25 mls/hr Levothyroxine Sodium (Synthroid Tab*) 50 mcg PO 0600 [facility] Last Admin: 03/05/17 06:19 Dose: 50 mcg Morphine Sulfate (Morphine Inj (Syringe)*) 4 mg IV Q4H PRN PRN Reason: PAIN - MILD Last Admin: 03/03/17 07:17 Dose: 4 mg Ondansetron HCl (Zofran Inj*) 4 mg IV Q4H PRN PRN Reason: NAUSEA Last Admin: 03/05/17 07:32 Dose: 4 mg Oxycodone HCl (Roxycodone Tab*) 5 mg PO Q4H PRN PRN Reason: PAIN Last Admin: 03/01/17 12:36 Dose: 5 mg Oxycodone HCl (Roxycodone Tab*) 10 mg PO Q4H PRN PRN Reason: PAIN Last Admin: 03/04/17 09:30 Dose: 10 mg Oxycodone/Acetaminophen (Percocet 5/325 Tab*) 1 tab PO Q4H PRN PRN Reason: PAIN Last Admin: 03/05/17 06:19 Dose: 1 tab Pharmacy Consult (Zosyn Per Pharmacy*) 1 note FOLLOW UP .ZOSYN PER PHARMACY [facility] Potassium Chloride (Klor Con Er Tab*) 20 meq PO BID [facility] Vital Signs 03/04/17 03/04/17 03/04/17 15:43 19:34 20:00 Temperature 98.7 F 98.4 F Pulse Rate 67 106 Respiratory 18 21 20 Rate Blood Pressure 123/63 115/70 (mmHg) O2 Sat by Pulse 91 94 Oximetry 03/04/17 03/04/17 03/05/17 20:17 22:17 00:31 Temperature Pulse Rate Respiratory 16 18 18 Rate Blood Pressure (mmHg) O2 Sat by Pulse Oximetry 03/05/17 03/05/17 03/05/17 00:37 02:31 06:19 Temperature 98.0 F Pulse Rate 89 Respiratory 16 18 18 Rate Blood Pressure 120/52 (mmHg) O2 Sat by Pulse 97 Oximetry 03/05/17 03/05/17 03/05/17 08:00 08:19 08:32 Temperature Pulse Rate 56 Respiratory 16 16 Rate Blood Pressure (mmHg) O2 Sat by Pulse Oximetry 03/05/17 03/05/17 09:09 11:25 Temperature 97.9 F 97.7 F Pulse Rate 56 128 Respiratory 14 17 Rate Blood Pressure 106/55 99/56 (mmHg) O2 Sat by Pulse 96 96 Oximetry Oxygen Devices in Use Now: Nasal Cannula - at 2.5 L Appearance: 82 yo F in nAD, AAOx3 Eyes: No Scleral Icterus, PERRLA Ears/Nose/Mouth/Throat: NL Teeth, Lips, Gums, Mucous Membranes Moist Neck: NL Appearance and Movements; NL JVP, Trachea Midline Respiratory: Symmetrical Chest Expansion and Respiratory Effort, Clear to Auscultation Cardiovascular: NL Sounds; No Murmurs; No JVD, - - irregular Abdominal: - - midline incision stapled, no erythema, JAIMEE drain in place. colostomy with scant brown output noted Extremities: No Clubbing, Cyanosis, - - generalized edema improving Skin: No Nodules or Sclerosis Neurological: Alert and Oriented x 3, NL Muscle Strength and Tone Result Diagrams: 03/04/17 06:25 03/05/17 08:55 Additional Lab and Data: Laboratory Tests 02/27/17 10:35 Heparin-PF4 Ab Reactiv <0.075 Heparin-PF4 Ab Interp Negative Microbiology and Other Data: Microbiology 02/24/17 21:50 Nasal Screen MRSA (PCR)(TIANA) - Final Nasal Mrsa Negative Assess/Plan/Problems-Billing Assessment: Mrs. Juarez is a 82 yo female who has a PMH afib, hypothyroidism, depression, HTN and CAD who presented initially on 02/16/17 with c/o BRBPR and was found to have a prolapsed rectum with plan for surgery and DC to home; she returned to ED 02/21/17 with c/o perirectal pain which she was unable to manage at home. She is now s/p surgical repair complicated by perforation resulting in severe sepsis secondary to peritonitis requiring intubation for respiratory support, now extubated and transferred to the surgical floor. Hospitalist group has been asked to continue medical co-management. - Patient Problems (1) Rectal prolapse Comment: POD # 9 s/p perineal rectosigmoidectomy complicated by perforation and subsequent take back with resulting diverting colostomy Management per surgical team. In post op fluid overload. cont daily Lasix. (2) Severe sepsis Comment: Secondary to peritonitis secondary to rectal perforation post- operatively Now resolved Cont Zosyn-duration of tx as per surgery (3) Acute respiratory failure Comment: Secondary to severe sepsis, required intubation Extubated 02/27 sill requires 02. Suspect she will need 02 at d/c (4) Ileus Comment: Tolerates full liquid diet appears to be resolving, stool in colostomy bag noted today (5) Colostomy in place (6) Thrombocytopenia Comment: resolved Likely secondary to sepsis HIT ab testing negative (7) Afib Comment: Rate controlled. Continue diltiazem CD Xarelto has been held postoperatively, resume when deemed appropriate by surgical team (8) Diastolic CHF Comment: Asymptomatic. TTE 08/2016 - EF 65-70%. Fluid overloaded, but no pulmonary symptoms (9) HTN (hypertension) Comment: Normotensive Cont cardizem (10) Hypothyroidism Comment: Asymptomatic. Continue levothyroxine. (11) DNR (do not resuscitate) Comment: MOLST completed. (12) DVT prophylaxis Comment: SQ heparin Status and Disposition: Inpatient. Dispo per surgery; Hospitalist following for medical co-management.
[2017-03-05] MEDS ORDERED: KCL 10 MEQ/50 ML IVPREMIX* 10 MEQ/50 ML BAG ONE (16:26)
[2017-03-05] MEDS: Potassium Chlor TAB* 20 MEQ TAB.ER PO SCH (20:16)
[2017-03-05] MEDS: Acetaminophen TAB* 325 MG PO PRN (20:18)
[2017-03-06] MEDS: Levothyroxine TAB* 50 MCG TAB PO SCH (05:09)
[2017-03-06] MEDS: Ondansetron INJ* 2 MG/ML VIAL IV PRN (05:13)
[2017-03-06 06:29] LABS: BUN/Creatinine Ratio 9.3 (8-20); Calcium 7.7 mg/dL (8.6-10.3); EGFR African American 81.4 (>60); EGFR Non-African American 63.3 (>60); Potassium 3.5 mmol/L (3.5-5.0)
[2017-03-06] MEDS: Furosemide IV* 10 MG/ML 2 ML VIAL (20 MG) IV SCH (09:00)
--- NOTE | 2017-03-06 09:46 | PN ---
Subjective Date of Service: 03/06/17 Interval History: Pt feels tired today, appetite poor. Family History: Unchanged from Admission Social History: Unchanged from Admission Past Medical History: Unchanged from Admission Objective Active Medications: Acetaminophen (Tylenol Tab*) 650 mg PO Q4H PRN PRN Reason: FEVER/PAIN Last Admin: 03/05/17 20:18 Dose: 325 mg Diltiazem HCl (Cardizem Cd Cap*) 120 mg PO DAILY [facility] Last Admin: 03/05/17 09:30 Dose: 120 mg Docusate Sodium (Colace Cap*) 100 mg PO BID PRN PRN Reason: CONSTIPATION Escitalopram Oxalate (Lexapro (Nf)) 20 mg PO DAILY [facility] Last Admin: 03/05/17 09:32 Dose: 20 mg Famotidine (Pepcid Tab*) 20 mg PO BID [facility] Last Admin: 03/05/17 20:17 Dose: 20 mg Furosemide (Lasix Iv*) 20 mg IV DAILY [facility] [place] Last Admin: 03/06/17 09:00 Dose: 20 mg Guaifenesin/Dextromethorphan (Robitussin Dm*) 10 ml PO Q4H PRN PRN Reason: COUGH Last Admin: 03/05/17 00:49 Dose: 10 ml Heparin Sodium (Porcine) (Heparin Vial(*)) 5,000 units SUBCUT Q12HR [facility] Last Admin: 03/05/17 20:18 Dose: 5,000 units Piperacillin Sod/Tazobactam (Sod 3.375 gm/ Sodium Chloride) 100 mls @ 25 mls/ hr IVPB Q8H [facility] Last Admin: 03/06/17 09:05 Dose: 25 mls/hr Levothyroxine Sodium (Synthroid Tab*) 50 mcg PO 0600 [facility] Last Admin: 03/06/17 05:09 Dose: 50 mcg Morphine Sulfate (Morphine Inj (Syringe)*) 4 mg IV Q4H PRN PRN Reason: PAIN - MILD Last Admin: 03/03/17 07:17 Dose: 4 mg Ondansetron HCl (Zofran Inj*) 4 mg IV Q4H PRN PRN Reason: NAUSEA Last Admin: 03/06/17 05:13 Dose: 4 mg Oxycodone HCl (Roxycodone Tab*) 5 mg PO Q4H PRN PRN Reason: PAIN Last Admin: 03/01/17 12:36 Dose: 5 mg Oxycodone HCl (Roxycodone Tab*) 10 mg PO Q4H PRN PRN Reason: PAIN Last Admin: 03/04/17 09:30 Dose: 10 mg Oxycodone/Acetaminophen (Percocet 5/325 Tab*) 1 tab PO Q4H PRN PRN Reason: PAIN Last Admin: 03/05/17 23:57 Dose: 1 tab Pharmacy Consult (Zosyn Per Pharmacy*) 1 note FOLLOW UP .ZOSYN PER [facility]ARMACY [facility] Potassium Chloride (Klor Con Er Tab*) 20 meq PO BID [facility] Last Admin: 03/05/17 20:16 Dose: 20 meq Vital Signs 03/05/17 03/05/17 03/05/17 11:25 15:28 16:29 Temperature 97.7 F 98.7 F Pulse Rate 128 104 Respiratory 17 15 16 Rate Blood Pressure 99/56 102/57 (mmHg) O2 Sat by Pulse 96 94 Oximetry 03/05/17 03/05/17 03/05/17 18:29 19:13 20:00 Temperature Pulse Rate 110 Respiratory 18 14 16 Rate Blood Pressure 95/50 (mmHg) O2 Sat by Pulse 98 Oximetry 03/05/17 03/05/17 03/06/17 23:49 23:57 01:43 Temperature 97.8 F Pulse Rate 101 Respiratory 16 16 16 Rate Blood Pressure 102/64 (mmHg) O2 Sat by Pulse 96 Oximetry 03/06/17 03/06/17 03/06/17 03:27 07:42 09:00 Temperature 98.3 F 98.6 F Pulse Rate 93 78 Respiratory 16 16 14 Rate Blood Pressure 105/60 108/63 (mmHg) O2 Sat by Pulse 92 95 Oximetry Oxygen Devices in Use Now: Nasal Cannula - at 2.5 L Appearance: 82 yo F in nAD, AAOx2 Eyes: No Scleral Icterus, PERRLA Ears/Nose/Mouth/Throat: NL Teeth, Lips, Gums, Mucous Membranes Moist Neck: NL Appearance and Movements; NL JVP, Trachea Midline Respiratory: Symmetrical Chest Expansion and Respiratory Effort, Clear to Auscultation Cardiovascular: NL Sounds; No Murmurs; No JVD, - - irregular Abdominal: NL Sounds; No Tenderness; No Distention, - - colostomy with scant stool noted in bag Lymphatic: No Cervical Adenopathy Extremities: No Clubbing, Cyanosis, - - b/l extremity edema improving Skin: No Nodules or Sclerosis, - - midline abd incision stapled, no dehiscence, no erythema Neurological: - - generalized weakness Result Diagrams: 03/04/17 06:25 03/06/17 05:57 Additional Lab and Data: Laboratory Tests 02/27/17 10:35 Heparin-PF4 Ab Reactiv <0.075 Heparin-PF4 Ab Interp Negative Microbiology and Other Data: Microbiology 02/24/17 21:50 Nasal Screen MRSA (PCR)(TIANA) - Final Nasal Mrsa Negative Assess/Plan/Problems-Billing Assessment: Mrs. Juarez is a 82 yo female who has a PMH afib, hypothyroidism, depression, HTN and CAD who presented initially on 02/16/17 with c/o BRBPR and was found to have a prolapsed rectum with plan for surgery and DC to home; she returned to ED 02/21/17 with c/o perirectal pain which she was unable to manage at home. She is now s/p surgical repair complicated by perforation resulting in severe sepsis secondary to peritonitis requiring intubation for respiratory support, now extubated and transferred to the surgical floor. Hospitalist group has been asked to continue medical co-management. - Patient Problems (1) Rectal prolapse Comment: POD # 10 s/p perineal rectosigmoidectomy complicated by perforation and subsequent take back (on 02/25/17) with resulting diverting colostomy Management per surgical team. In post op fluid overload. Daily Lasix will be discontinued today-pt has had a fair UO in the past 3-4 days and poor PO intake. (2) Severe sepsis Comment: Secondary to peritonitis secondary to rectal perforation post- operatively Now resolved Cont Zosyn-duration of tx as per surgery (3) Acute respiratory failure Comment: Secondary to severe sepsis, required intubation Extubated 02/27 sill requires 02. Suspect she will need 02 at d/c (4) Ileus Comment: Tolerates full liquid diet, advancing to soft diet by surgery today appears to be resolving, stool in colostomy bag noted today (5) Colostomy in place (6) Thrombocytopenia Comment: resolved Likely secondary to sepsis HIT ab testing negative (7) Afib Comment: Rate controlled. Continue diltiazem CD Xarelto has been held postoperatively as per d/w Dr. House, plan to resume on Wednesday03/08/17 (8) Diastolic CHF Comment: Asymptomatic. TTE 08/2016 - EF 65-70%. (9) HTN (hypertension) Comment: Normotensive Cont cardizem (10) Hypothyroidism Comment: Asymptomatic. Continue levothyroxine. (11) DNR (do not resuscitate) Comment: MOLST completed. (12) DVT prophylaxis Comment: SQ heparin Status and Disposition: Inpatient. Dispo per surgery; Hospitalist following for medical co-management.
--- NOTE | 2017-03-06 09:57 | PN ---
Progress Note - Progress Note Date of Service: 03/06/17 SOAP: Subjective: Without specific complaint today-no complaints of abdominal pain She thinks she ate more yesterday Nurses report gas and stool in colostomy bag Objective: Temp Pulse Resp BP Pulse Ox 98.6 F 78 14 108/63 95 03/06/17 07:42 03/06/17 07:42 03/06/17 09:00 03/06/17 07:42 03/06/17 07:42 Intake & Output 03/04/17 03/05/17 03/06/17 03/07/17 06:59 06:59 06:59 06:59 Intake Total 4125 599 5276 Output Total 3270 3650 2710 Balance -1605 -9543 -919 Intake: IV Fluids 498 100 342 .45NS W/20 MEQ KCL 448 NS (0.9%) 100 342 magnesium 50 IVPB 287 215 749 Zosyn 287 110 434 potassium 105 315 Oral 880 620 700 Output: JAIMEE #1 65 30 35 JAIMEE #2 105 70 Urine 1050 Hamm 3050 3100 1450 Colostomy 50 450 175 PEX: COmfortable Abd is soft and non-distended, bowel sounds are present. Incision is clean and dry. Ostomy is pink with air in bag and small amount of stool Appropriate incisional tenderness. Laboratory Last Values WBC 10.3 10^3/ul (3.5-10.8) 03/04/17 06:25 RBC 3.17 10^6/ul (4.0-5.4) L 03/04/17 06:25 Hgb 9.6 g/dl (12.0-16.0) L 03/04/17 06:25 Hct 30 % (35-47) L 03/04/17 06:25 MCV 94 fL (80-97) 03/04/17 06:25 MCH 30 pg (27-31) 03/04/17 06:25 MCHC 33 g/dl (31-36) 03/04/17 06:25 RDW 16 % (10.5-15) H 03/04/17 06:25 Plt Count 199 10^3/ul (150-450) 03/04/17 06:25 MPV 8 um3 (7.4-10.4) 03/04/17 06:25 Immature Gran % (Auto) 9 % (0-9) 02/28/17 07:45 Neut % (Auto) 79.7 % (38-83) 03/04/17 06:25 Lymph % (Auto) 11.3 % (25-47) L 03/04/17 06:25 [place] % (Auto) 5.9 % (1-9) 03/04/17 06:25 Eos % (Auto) 2.3 % (0-6) 03/04/17 06:25 Baso % (Auto) 0.8 % (0-2) 03/04/17 06:25 Absolute Neuts (auto) 8.2 10^3/ul (1.5-7.7) H 03/04/17 06:25 Absolute Lymphs (auto) 1.2 10^3/ul (1.0-4.8) 03/04/17 06:25 Absolute Monos (auto) 0.6 10^3/ul (0-0.8) 03/04/17 06:25 Absolute Eos (auto) 0.2 10^3/ul (0-0.6) 03/04/17 06:25 Absolute Basos (auto) 0.1 10^3/ul (0-0.2) 03/04/17 06:25 Absolute Nucleated RBC 0 10^3/ul 03/04/17 06:25 Neutrophils % 78 % (38-83) 02/28/17 07:45 Band Neutrophils % 9 % (0-8) H 02/28/17 07:45 Lymphocytes % 7 % (25-47) L 02/28/17 07:45 Reactive Lymphs % 1 % (0-6) 02/26/17 05:39 Monocytes % 6 % (0-13) 02/28/17 07:45 Eosinophils % 1 % (0-6) 02/26/17 05:39 Metamyelocytes % 1 % (0-2) 02/26/17 05:39 Myelocytes % 1 % (0-1) 02/25/17 06:35 Nucleated RBC % 0 03/04/17 06:25 Normal RBC Morphology Not Reportable 02/28/17 07:45 Hypochromasia 1+ 02/28/17 07:45 Elliptocytes 1+ 02/28/17 07:45 Hem Pathologist Commnt 02/26/17 17:00 INR (Anticoag Therapy) 0.91 (0.89-1.11) 03/03/17 11:07 APTT 24.7 seconds (26.0-36.3) L 03/03/17 11:07 Patient Temperature Not Reportable 02/27/17 08:05 ABG pH 7.47 (7.35-7.45) H 02/27/17 08:05 ABG pCO2 32 mmHg (35-45) L 02/27/17 08:05 ABG pO2 83 mmHg (80-100) 02/27/17 08:05 ABG HCO3 24.9 mmol/L (19-31) 02/27/17 08:05 ABG O2 Saturation 98.5 % (95-98) H 02/27/17 08:05 ABG Base Excess -0.1 (-2.0-2.0) 02/27/17 08:05 Respiration Rate 12 02/27/17 08:05 O2 Delivery Device Vent 02/27/17 08:05 Ventilator Type 450 02/27/17 08:05 Vent Mode Apv/cmv 02/27/17 08:05 FiO2 35 02/27/17 08:05 Inspiratory Time 1.0 02/27/17 08:05 PEEP 5 02/27/17 08:05 Pressure Support Not Reportable 02/27/17 08:05 Pressure Control Not Reportable 02/27/17 08:05 EPAP Not Reportable 02/27/17 08:05 IPAP Not Reportable 02/27/17 08:05 BiPAP Not Reportable 02/27/17 08:05 Sodium 136 mmol/L (133-145) 03/06/17 05:57 Potassium 3.5 mmol/L (3.5-5.0) 03/06/17 05:57 Chloride 100 mmol/L (101-111) L 03/06/17 05:57 Carbon Dioxide 31 mmol/L (22-32) 03/06/17 05:57 Anion Gap 5 mmol/L (2-11) 03/06/17 05:57 BUN 8 mg/dL (6-24) 03/06/17 05:57 Creatinine 0.86 mg/dL (0.51-0.95) 03/06/17 05:57 Est GFR ( Amer) 81.4 (>60) 03/06/17 05:57 Est GFR (Non-Af Amer) 63.3 (>60) 03/06/17 05:57 BUN/Creatinine Ratio 9.3 (8-20) 03/06/17 05:57 Glucose 88 mg/dL (70-100) 03/06/17 05:57 Lactic Acid 2.4 mmol/L (0.5-2.0) H* 02/24/17 19:19 Calcium 7.7 mg/dL (8.6-10.3) L 03/06/17 05:57 Phosphorus 2.5 mg/dL (2.5-5.0) 03/05/17 08:55 Magnesium 1.9 mg/dL (1.9-2.7) 03/05/17 08:55 Total Bilirubin 0.50 mg/dL (0.2-1.0) 03/02/17 06:00 AST 9 U/L (13-39) L 03/02/17 06:00 ALT 7 U/L (7-52) 03/02/17 06:00 Alkaline Phosphatase 40 U/L (34-104) 03/02/17 06:00 B-Natriuretic Peptide 455 pg/mL (-100) H 02/25/17 06:35 Total Protein 4.4 g/dL (6.4-8.9) L 03/02/17 06:00 Albumin 2.0 g/dL (3.2-5.2) L 03/02/17 06:00 Globulin 2.4 g/dL (2-4) 03/02/17 06:00 Albumin/Globulin Ratio 0.8 (1-3) L 03/02/17 06:00 Prealbumin 8 mg/dL (18-38) L 02/25/17 13:10 Heparin-PF4 Ab Reactiv <0.075 02/27/17 10:35 Heparin-PF4 Ab Interp Negative 02/27/17 10:35 Heparin-PF4 Ab Comment See comment 02/27/17 10:35 Assessment: POD# 9 s/p exlap with colostomy Ileus-resolved Sepsis-resolved Plan: Soft diet D/C hamm in AM after last dose of lasix today OOB Plan D/C Wednesday-she has [facility] bed JAIMEE out then Last dose of antibiotics Wednesday
[2017-03-06] MEDS: Diltiazem CD CAP* 120 MG PO SCH (10:26)
[2017-03-06] MEDS: Famotidine TAB* 20 MG PO SCH ×2 (10:27→20:53)
[2017-03-06] MEDS: CMCS:Escitalopram (NF) 10 MG TAB PO SCH (10:28)
[2017-03-06] MEDS: oxyCODONE TAB* 5 MG TAB PO PRN ×2 (10:33→21:04)
[2017-03-06] MEDS: Heparin VIAL(*) 5000 UNITS/ML VIAL (FIVE THOUSAND) SUBCUT SCH ×2 (10:41→20:57)
[2017-03-06] MEDS: Potassium Chlor TAB* 20 MEQ TAB.ER PO SCH ×2 (10:42→21:03)
[2017-03-07] MEDS: Levothyroxine TAB* 50 MCG TAB PO SCH (06:21)
[2017-03-07] MEDS: oxyCODONE TAB* 5 MG TAB PO PRN (06:25)
[2017-03-07 08:31] LABS: BUN/Creatinine Ratio 8.3 (8-20); Calcium 7.7 mg/dL (8.6-10.3); EGFR African American 71.7 (>60); EGFR Non-African American 55.8 (>60); Potassium 3.9 mmol/L (3.5-5.0)
[2017-03-07] MEDS: Diltiazem CD CAP* 120 MG PO SCH (09:21)
[2017-03-07] MEDS: Famotidine TAB* 20 MG PO SCH ×2 (09:21→20:59)
[2017-03-07] MEDS: Heparin VIAL(*) 5000 UNITS/ML VIAL (FIVE THOUSAND) SUBCUT SCH ×2 (09:22→21:02)
[2017-03-07] MEDS: CMCS:Escitalopram (NF) 10 MG TAB PO SCH (09:22)
[2017-03-07] MEDS: Potassium Chlor TAB* 20 MEQ TAB.ER PO SCH ×2 (09:22→21:06)
[2017-03-07] MEDS: Furosemide IV* 10 MG/ML 2 ML VIAL (20 MG) IV SCH (11:03)
[2017-03-07] MEDS ORDERED: Acetaminophen TAB* 325 MG PO PRN (14:40)
--- NOTE | 2017-03-07 14:46 | PN ---
Subjective Date of Service: 03/07/17 Interval History: Pt had been tired and falling asleep frequently today. Appetite poor. Daughters concerned about tomorrow's discharge- think that pt is not ready Family History: Unchanged from Admission Social History: Unchanged from Admission Past Medical History: Unchanged from Admission Objective Active Medications: Acetaminophen (Tylenol Tab*) 650 mg PO Q4H PRN PRN Reason: FEVER/PAIN Last Admin: 03/05/17 20:18 Dose: 325 mg Diltiazem HCl (Cardizem Cd Cap*) 120 mg PO DAILY [facility] Last Admin: 03/07/17 09:21 Dose: 120 mg Docusate Sodium (Colace Cap*) 100 mg PO BID PRN PRN Reason: CONSTIPATION Escitalopram Oxalate (Lexapro (Nf)) 20 mg PO DAILY [facility] Last Admin: 03/07/17 09:22 Dose: 20 mg Famotidine (Pepcid Tab*) 20 mg PO BID [facility] Last Admin: 03/07/17 09:21 Dose: 20 mg Guaifenesin/Dextromethorphan (Robitussin Dm*) 10 ml PO Q4H PRN PRN Reason: COUGH Last Admin: 03/05/17 00:49 Dose: 10 ml Heparin Sodium (Porcine) (Heparin Vial(*)) 5,000 units SUBCUT Q12HR [facility] Last Admin: 03/07/17 09:22 Dose: 5,000 units Piperacillin Sod/Tazobactam (Sod 3.375 gm/ Sodium Chloride) 100 mls @ 25 mls/ hr IVPB Q8H [facility] Last Admin: 03/07/17 08:52 Dose: 25 mls/hr Levothyroxine Sodium (Synthroid Tab*) 50 mcg PO 0600 [facility] Last Admin: 03/07/17 06:21 Dose: 50 mcg Morphine Sulfate (Morphine Inj (Syringe)*) 4 mg IV Q4H PRN PRN Reason: PAIN - MILD Last Admin: 03/03/17 07:17 Dose: 4 mg Ondansetron HCl (Zofran Inj*) 4 mg IV Q4H PRN PRN Reason: NAUSEA Last Admin: 03/06/17 05:13 Dose: 4 mg Oxycodone HCl (Roxycodone Tab*) 5 mg PO Q4H PRN PRN Reason: PAIN Last Admin: 03/07/17 06:25 Dose: 5 mg Oxycodone HCl (Roxycodone Tab*) 10 mg PO Q4H PRN PRN Reason: PAIN Last Admin: 03/04/17 09:30 Dose: 10 mg Oxycodone/Acetaminophen (Percocet 5/325 Tab*) 1 tab PO Q4H PRN PRN Reason: PAIN Last Admin: 03/05/17 23:57 Dose: 1 tab Pharmacy Consult (Zosyn Per Pharmacy*) 1 note FOLLOW UP .ZOSYN PER [facility] Potassium Chloride (Klor Con Er Tab*) 20 meq PO BID [facility] Last Admin: 03/07/17 09:22 Dose: 20 meq Vital Signs 03/06/17 03/06/17 03/06/17 15:43 19:38 20:17 Temperature 98.6 F 98.5 F Pulse Rate 98 92 Respiratory 16 16 Rate Blood Pressure 105/46 99/48 (mmHg) O2 Sat by Pulse 91 96 Oximetry 03/06/17 03/06/17 03/06/17 21:04 23:04 23:40 Temperature 98.1 F Pulse Rate 87 Respiratory 16 16 16 Rate Blood Pressure 111/54 (mmHg) O2 Sat by Pulse 98 Oximetry 03/07/17 03/07/17 03/07/17 03:35 06:25 07:28 Temperature 98.1 F 98.2 F Pulse Rate 80 80 Respiratory 14 16 16 Rate Blood Pressure 114/47 114/63 (mmHg) O2 Sat by Pulse 95 93 Oximetry 03/07/17 03/07/17 03/07/17 08:25 09:43 11:23 Temperature 98.5 F Pulse Rate 97 Respiratory 16 16 16 Rate Blood Pressure 97/46 (mmHg) O2 Sat by Pulse 94 Oximetry Oxygen Devices in Use Now: Nasal Cannula - at 2.5 L, 02 sat 95% Appearance: 82 yo F in nAD, AAOx2 Eyes: No Scleral Icterus, PERRLA Ears/Nose/Mouth/Throat: NL Teeth, Lips, Gums, Mucous Membranes Moist Neck: NL Appearance and Movements; NL JVP, Trachea Midline Respiratory: Symmetrical Chest Expansion and Respiratory Effort, Clear to Auscultation Cardiovascular: NL Sounds; No Murmurs; No JVD, - - irregular Abdominal: - - mild discofort on palpation around the incision site, soft, BS+, stoma with scant amont of stool in place Lymphatic: No Cervical Adenopathy Extremities: No Clubbing, Cyanosis, - - +1 pitting pedal edema b/l Skin: No Nodules or Sclerosis, - - midline abd incision stapled Neurological: - - generalized weakness, no focal deficit Result Diagrams: 03/04/17 06:25 03/07/17 07:53 Additional Lab and Data: Laboratory Tests 02/27/17 10:35 Heparin-PF4 Ab Reactiv <0.075 Heparin-PF4 Ab Interp Negative Microbiology and Other Data: Microbiology 02/24/17 21:50 Nasal Screen MRSA (PCR)(TIANA) - Final Nasal Mrsa Negative Assess/Plan/Problems-Billing Assessment: Mrs. Juarez is a 82 yo female who has a PMH afib, hypothyroidism, depression, HTN and CAD who presented initially on 02/16/17 with c/o BRBPR and was found to have a prolapsed rectum with plan for surgery and DC to home; she returned to ED 02/21/17 with c/o perirectal pain which she was unable to manage at home. She is now s/p surgical repair complicated by perforation resulting in severe sepsis secondary to peritonitis requiring intubation for respiratory support, now extubated and transferred to the surgical floor. Hospitalist group has been asked to continue medical co-management. - Patient Problems (1) Rectal prolapse Comment: POD # 11 s/p perineal rectosigmoidectomy complicated by perforation and subsequent take back (on 02/25/17) with resulting diverting colostomy Management per surgical team. Still poor PO intake (2) Severe sepsis Comment: Secondary to peritonitis secondary to rectal perforation post- operatively Now resolved Cont Zosyn-duration of tx as per surgery (3) Acute respiratory failure Comment: Secondary to severe sepsis, required intubation Extubated 02/27 still requires 02. 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 (6) Thrombocytopenia Comment: resolved Likely secondary to sepsis HIT ab testing negative (7) Afib Comment: Rate controlled. Continue diltiazem CD Xarelto has been held postoperatively as per d/w Dr. House, plan to resume on Wednesday03/08/17 (8) Diastolic CHF Comment: Asymptomatic. TTE 08/2016 - EF 65-70%. (9) HTN (hypertension) Comment: Normotensive Cont cardizem (10) Hypothyroidism Comment: Asymptomatic. Continue levothyroxine. (11) DNR (do not resuscitate) Comment: MOLST completed. (12) DVT prophylaxis Comment: SQ heparin Status and Disposition: Inpatient. Dispo per surgery; Hospitalist following for medical co-management.
[2017-03-07] MEDS: Acetaminophen TAB* 325 MG PO PRN (20:59)
[2017-03-07] MEDS: oxyCODONE/Acetamin 5/325 MG* TAB PO PRN (23:53)
[2017-03-08] MEDS: oxyCODONE/Acetamin 5/325 MG* TAB PO PRN ×2 (04:22→19:18)
[2017-03-08] MEDS: Levothyroxine TAB* 50 MCG TAB PO SCH (06:14)
[2017-03-08] MEDS: Diltiazem CD CAP* 120 MG PO SCH (09:03)
[2017-03-08] MEDS: Famotidine TAB* 20 MG PO SCH ×2 (09:03→21:23)
[2017-03-08] MEDS: CMCS:Escitalopram (NF) 10 MG TAB PO SCH (09:03)
[2017-03-08] MEDS: Potassium Chlor TAB* 20 MEQ TAB.ER PO SCH ×2 (09:04→21:23)
[2017-03-08] MEDS: Heparin VIAL(*) 5000 UNITS/ML VIAL (FIVE THOUSAND) SUBCUT SCH (09:07)
--- NOTE | 2017-03-08 12:47 | PN ---
Progress Note - Progress Note Date of Service: 03/08/17 SOAP: Subjective: Pt seen and examined. Complication again discussed with her and family and plan going forward. Pt understands the ostomy and its rationale. She c/o some abdo pain. Right side. no bloating. No vaginal discharge. No flatus. SOme drainage from anus. Objective: Af vss; 2 L NC O2 neg I/Os a and o x 3, nad lungs clear abdo: soft/ ND/ NT staple line intact, no redness ostomy pink, with output JAIMEE: serous Rectal: mucous drainage, poor sphincter tone. suture line intact with possible gap anteriorly. no pain. nO erythema Vaginal: no drainage, intact ext: no calf tenderness Assessment: s/p colostomy for leak at recto-anal anastomosis. HD stable improving Plan: Rehab resume home meds including anticoagulants d/c abx possible d/c to long-term tomorrow We will remove JAIMEE and jesika before discharge
--- NOTE | 2017-03-08 14:28 | PN ---
Subjective Date of Service: 03/08/17 Interval History: Pt feels "well". But after she said that she also said " Can't take this anymore ". Denies pain. Ambulated a few steps today. Feels discouraged Family History: Unchanged from Admission Social History: Unchanged from Admission Past Medical History: Unchanged from Admission Objective Active Medications: Acetaminophen (Tylenol Tab*) 650 mg PO Q4H PRN PRN Reason: FEVER/PAIN Last Admin: 03/07/17 20:59 Dose: 650 mg Acetaminophen (Tylenol Tab*) 650 mg PO Q4H PRN PRN Reason: FEVER/PAIN Diltiazem HCl (Cardizem Cd Cap*) 120 mg PO DAILY REPLACED BY [facility] Last Admin: 03/08/17 09:03 Dose: 120 mg Docusate Sodium (Colace Cap*) 100 mg PO BID PRN PRN Reason: CONSTIPATION Escitalopram Oxalate (Lexapro (Nf)) 20 mg PO DAILY REPLACED BY [facility] Last Admin: 03/08/17 09:03 Dose: 20 mg Famotidine (Pepcid Tab*) 20 mg PO BID REPLACED BY [facility] Last Admin: 03/08/17 09:03 Dose: 20 mg Guaifenesin/Dextromethorphan (Robitussin Dm*) 10 ml PO Q4H PRN PRN Reason: COUGH Last Admin: 03/05/17 00:49 Dose: 10 ml Heparin Sodium (Porcine) (Heparin Flush Picc/Ml/Cvc(*)) 0 ml IV FLUSH 0600, 1800 REPLACED BY [facility] PRN Reason: Protocol Last Admin: 03/08/17 04:56 Dose: 1 ml Piperacillin Sod/Tazobactam (Sod 3.375 gm/ Sodium Chloride) 100 mls @ 25 mls/ hr IVPB Q8H REPLACED BY [facility] Last Admin: 03/08/17 07:48 Dose: 25 mls/hr Levothyroxine Sodium (Synthroid Tab*) 50 mcg PO 0600 REPLACED BY [facility] Last Admin: 03/08/17 06:14 Dose: 50 mcg Morphine Sulfate (Morphine Inj (Syringe)*) 4 mg IV Q4H PRN PRN Reason: PAIN - MILD Last Admin: 03/03/17 07:17 Dose: 4 mg Ondansetron HCl (Zofran Inj*) 4 mg IV Q4H PRN PRN Reason: NAUSEA Last Admin: 03/06/17 05:13 Dose: 4 mg Oxycodone/Acetaminophen (Percocet 5/325 Tab*) 1 tab PO Q4H PRN PRN Reason: PAIN Last Admin: 03/07/17 23:53 Dose: 1 tab Potassium Chloride (Klor Con Er Tab*) 20 meq PO BID REPLACED BY [facility] Last Admin: 03/08/17 09:04 Dose: 20 meq Rivaroxaban (Xarelto(*)) 15 mg PO DAILY@1700 REPLACED BY [facility] Vital Signs 03/07/17 03/07/17 03/07/17 16:20 16:27 19:23 Temperature 99.2 F 98.5 F Pulse Rate 76 75 Respiratory 18 21 Rate Blood Pressure 92/45 109/44 (mmHg) O2 Sat by Pulse 72 90 91 Oximetry 03/07/17 03/07/17 03/07/17 19:27 20:59 22:58 Temperature 98.0 F Pulse Rate 108 Respiratory 17 17 18 Rate Blood Pressure 128/55 (mmHg) O2 Sat by Pulse 93 Oximetry 03/07/17 03/08/17 03/08/17 23:53 01:53 03:17 Temperature 98.3 F Pulse Rate 82 Respiratory 16 16 16 Rate Blood Pressure 98/53 (mmHg) O2 Sat by Pulse 92 Oximetry 03/08/17 03/08/17 03/08/17 07:30 07:33 08:00 Temperature 98.1 F Pulse Rate 109 Respiratory 16 14 14 Rate Blood Pressure 109/72 (mmHg) O2 Sat by Pulse 93 Oximetry 03/08/17 03/08/17 03/08/17 08:36 09:25 09:49 Temperature Pulse Rate Respiratory Rate Blood Pressure (mmHg) O2 Sat by Pulse 93 90 85 Oximetry 03/08/17 03/08/17 09:50 11:59 Temperature 98.9 F Pulse Rate 89 Respiratory 15 Rate Blood Pressure 112/52 (mmHg) O2 Sat by Pulse 92 87 Oximetry Oxygen Devices in Use Now: None Appearance: 82 yo F in nAd, AAOx2 Eyes: No Scleral Icterus, PERRLA Ears/Nose/Mouth/Throat: NL Teeth, Lips, Gums, Mucous Membranes Moist Neck: NL Appearance and Movements; NL JVP, Trachea Midline Respiratory: Symmetrical Chest Expansion and Respiratory Effort, Clear to Auscultation Cardiovascular: NL Sounds; No Murmurs; No JVD, - - irregular Abdominal: NL Sounds; No Tenderness; No Distention, - - colostomy with brown stool in bag Lymphatic: No Cervical Adenopathy Extremities: No Clubbing, Cyanosis, - - +1 pitting edema b/l Skin: No Nodules or Sclerosis, - - midline incision stapled, no dehiscence Neurological: NL Muscle Strength and Tone Result Diagrams: 03/04/17 06:25 03/07/17 07:53 Additional Lab and Data: Laboratory Tests 02/27/17 10:35 Heparin-PF4 Ab Reactiv <0.075 Heparin-PF4 Ab Interp Negative Microbiology and Other Data: Microbiology 02/24/17 21:50 Nasal Screen MRSA (PCR)(TIANA) - Final Nasal Mrsa Negative Assess/Plan/Problems-Billing Assessment: Mrs. Juarez is a 82 yo female who has a PMH afib, hypothyroidism, depression, HTN and CAD who presented initially on 02/16/17 with c/o BRBPR and was found to have a prolapsed rectum with plan for surgery and DC to home; she returned to ED 02/21/17 with c/o perirectal pain which she was unable to manage at home. She is now s/p surgical repair complicated by perforation resulting in severe sepsis secondary to peritonitis requiring intubation for respiratory support, now extubated and transferred to the surgical floor. Hospitalist group has been asked to continue medical co-management. - Patient Problems (1) Rectal prolapse Comment: POD # 12 s/p perineal rectosigmoidectomy complicated by perforation and subsequent take back (on 02/25/17) with resulting diverting colostomy Management per surgical team. Still poor PO intake (2) Severe sepsis Comment: Secondary to peritonitis secondary to rectal perforation post- operatively Now resolved Cont Zosyn-duration of tx as per surgery (3) Acute respiratory failure Comment: Secondary to severe sepsis, required intubation Extubated 02/27 Off 02 today. (4) Ileus Comment: Tolerates soft diet , low PO intake (5) Colostomy in place Comment: Daughters request that pt be taught stoma care prior to STR discharge- asked RN to attempt teaching daily, pt had been refusing so far. (6) Thrombocytopenia Comment: resolved Likely secondary to sepsis HIT ab testing negative (7) Afib Comment: Rate controlled. Continue diltiazem CD Xarelto has been held postoperatively, will restart it today (8) Diastolic CHF Comment: Asymptomatic. TTE 08/2016 - EF 65-70%. (9) HTN (hypertension) Comment: Normotensive Cont cardizem (10) Hypothyroidism Comment: Asymptomatic. Continue levothyroxine. (11) DNR (do not resuscitate) Comment: MOLST completed. (12) DVT prophylaxis Comment: Xarelto Status and Disposition: Inpatient. Dispo per surgery; Hospitalist following for medical co-management.
[2017-03-08] MEDS ORDERED: Rivaroxaban TAB(*) 15 MG PO SCH (17:00)
[2017-03-09] MEDS: Levothyroxine TAB* 50 MCG TAB PO SCH (05:48)
[2017-03-09 06:06] LABS: BUN/Creatinine Ratio 7.3 (8-20); Calcium 8.2 mg/dL (8.6-10.3); EGFR Non-African American 66.9 (>60); Potassium 3.8 mmol/L (3.5-5.0)
[2017-03-09] MEDS: CMCS:Escitalopram (NF) 10 MG TAB PO SCH (10:45)
[2017-03-09] MEDS: Diltiazem CD CAP* 120 MG PO SCH (10:45)
[2017-03-09] MEDS: Potassium Chlor TAB* 20 MEQ TAB.ER PO SCH (10:46)
[2017-03-09] MEDS: Famotidine TAB* 20 MG PO SCH (10:46)
[2017-03-09 12:40] VITALS: BP 110/55
--- NOTE | 2017-03-09 13:08 | DS ---
CC: Dr. Billy [facility]; [facility] * DISCHARGE SUMMARY: DATE OF ADMISSION: 02/21/17 DATE OF DISCHARGE: 03/09/17 HISTORY OF PRESENT ILLNESS: Ms. Juarez is an 82-year-old female with diagnosis of rectal prolapse, who was admitted to the emergency room on 02/21/17 after contacting our office with significant perirectal pain and inability to manage her day-to-day activities. She was admitted to the hospital, given pain medication, and then a bowel prep and taken to the operating room on 02/24/17. She underwent a perineal rectosigmoidectomy/Altemeier procedure and was woken up and transferred to the floor. In early postoperative period, she was noted to be hypotensive and tachycardic, in AFib. She received multiple fluid boluses and was transferred to the ICU. There was concern of blood loss, bleeding. She underwent serial CBC, which showed red blood cells within normal limits; however, the white blood cells dropped. The patient did respond to fluid boluses at one point and was maintained in the ICU with Gamboa catheter. Urine output continued to trail down. The patient persisted with her hypotension and now complaining of abdominal pain and by postoperative day 1, the patient was taken to the operating room for diagnostic laparoscopy. She underwent exploratory laparotomy and abdominal wash out for fecal peritonitis. She was given end sigmoid colostomy. Please see report for details. It was felt that this was complication of the initial surgery at the suture line. The patient was diverted and maintained with JAIMEE drains and transferred to the ICU, intubated. The critical care team was contacted and managed the patient in the ICU setting. She was maintained on antibiotics, intubated with Gamboa catheter, and continued to receive additional fluid boluses. A triple lumen catheter placed in her right IJ vein and an arterial catheter placed in her right femoral artery after multiple attempts at the radial. Postoperative day 1 from take back, the patient was just maintained on sedation and antibiotics. She was started on trickle tube feeds and, by postoperative day 2, the patient was ultimately extubated on that day. Her tube feeds were stopped for the extubation. The patient was followed by Rehab Physical Therapy, who did work with her both in the ICU and when she was transferred to the floor. The patient's chief complaint was pain and sleepiness and decreased appetite. Her diet was advanced as the colostomy showed function. The patient was maintained with JAIMEE drain in the pelvis that showed only serous drainage throughout the course. One was removed on week after surgery and the other one removed on day of discharge. The patient was maintained on Zosyn, did not spike fever. Blood pressure was improved with improved heart rate virtually entire postoperative period after the take back to the operating room. The patient was transferred from the ICU on postoperative day 5, followed on the floor by PT and hospitalist service as well as Surgery. As the diet was advanced and the patient's Gamboa was finally taken out, she still had difficult time getting into the bathroom. She utilized bedpan. I discussed with the patient and the patient's family multiple times the complication in the plan forward. The patient's desire to move was minimum and she was complaining of heavy legs and difficult movement. The patient was diuresed with Lasix for much of the last 4 days of her admission. She did require O2 nasal cannula for O2 saturations in the high 80s to low 90s. On the day of discharge, the patient evaluated. She had poor p.o. intake and no appetite. Denies any nausea or vomiting. No headaches. No abdominal pain. PHYSICAL EXAMINATION: Alert and oriented x3, in no apparent distress, sleepy. Head, Ears, Eyes, Nose, and Throat: Normocephalic, atraumatic. Sclerae anicteric. Mucous membranes are moist. Lungs: Clear on the left with some rhonchi at the right base. Good inspiratory effort. Abdomen: Soft, nondistended, nontender. Well-healed surgical incision with jesika in place. JAIMEE drain with serous output and this was removed today. Colostomy pink with stool output and flatus. Rectal exam had been performed the day before and showed mucus output but no erythema, nontender. Extremities with mild edema, nonpitting. LABORATORY DATA: Chemistry panel reviewed. IMPRESSION AND PLAN: Ms. Juarez is an 82-year-old female with rectal prolapse, unable to manage her day-to-day function, admitted for purpose of workup to the OR for an Altemeier procedure, who underwent this and had to be taken back to the operating room for abdominal sepsis, resolved with abdominal washout and diversion, who now shows improvement with good gut function, good cardiac status , and pulmonary status, who will require intermittent oxygen likely during her rehabilitation times. The patient's biggest issue is her desire to move and eat. I have had a long discussion with her and her family regarding this. The patient is aware of these significant issues but also talked about the possibility of reversal of her colostomy. We also talked about possible anoscopy or imaging of the anus in the future when the patient is improved. Plan will be discharge to [facility] for the purpose of rehabilitation, ambulation, and look towards getting her back to [facility] in the coming weeks. We have set up an appointment with my office on for removal of jesika and for evaluation. My chief concern is that Ms. Juarez will not take an active role in her rehabilitation and may continue to decompensate. She will go back on all her previous medications with the hope that she will limit her oxycodone use while at [facility]. She will be able to use topical creams for her back pain. Her daughters' questions were answered and they understand the nature of the procedure and its complications and the treatment thereafter and their questions were answered on multiple occasions. They understand that I will be following Ms. Juarez in my office on a weekly basis. [id number]/[facility] #: [id number] MTDD
== END 2017-03-09 14:15 | DRG 329 ==
LOC: ED 21:56 → SSU 02-21 08:51 → ICU 02-24 20:32 → SSU 03-02 12:55
PROVIDERS: ADMIT Surgery; ATTEND Surgery
PROC: 0DBN0ZZ Excision of Sigmoid Colon, Open Approach (ICD-10-PCS; 2017-02-24)
PROC: 0DTP0ZZ Resection of Rectum, Open Approach (ICD-10-PCS; principal; 2017-02-24 10:30)
PROC: 3E0436Z Introduction of Nutritional Substance into Central Vein, Percutaneous Approach (ICD-10-PCS; 2017-02-25)
PROC: 0DJD4ZZ Inspection of Lower Intestinal Tract, Percutaneous Endoscopic Approach (ICD-10-PCS; 2017-02-25)
PROC: 0D1N0Z4 Bypass Sigmoid Colon to Cutaneous, Open Approach (ICD-10-PCS; 2017-02-25)
PROC: 0W9G0ZZ Drainage of Peritoneal Cavity, Open Approach (ICD-10-PCS; 2017-02-25)
PROC: 04HK33Z Insertion of Infusion Device into Right Femoral Artery, Percutaneous Approach (ICD-10-PCS; 2017-02-25)
PROC: 05HM33Z Insertion of Infusion Device into Right Internal Jugular Vein, Percutaneous Approach (ICD-10-PCS; 2017-02-25)
PROC: B543ZZA Ultrasonography of Right Jugular Veins, Guidance (ICD-10-PCS; 2017-02-25)
PROC: 3E043XZ Introduction of Vasopressor into Central Vein, Percutaneous Approach (ICD-10-PCS; 2017-02-25)
PROC: 0BH17EZ Insertion of Endotracheal Airway into Trachea, Via Natural or Artificial Opening (ICD-10-PCS; 2017-02-25)
PROC: 5A1945Z Respiratory Ventilation, 24-96 Consecutive Hours (ICD-10-PCS; 2017-02-25)
DX: K62.3 Rectal prolapse (principal); A41.9 Sepsis, unspecified organism; R65.21 Severe sepsis with septic shock; J96.00 Acute respiratory failure, unspecified whether with hypoxia or hypercapnia; K65.9 Peritonitis, unspecified; I95.9 Hypotension, unspecified; N17.9 Acute kidney failure, unspecified; I11.0 Hypertensive heart disease with heart failure; I48.91 Unspecified atrial fibrillation; D69.6 Thrombocytopenia, unspecified; K62.6 Ulcer of anus and rectum; I50.32 Chronic diastolic (congestive) heart failure; K56.7 Ileus, unspecified; E46 Unspecified protein-calorie malnutrition; F41.9 Anxiety disorder, unspecified; I25.10 Atherosclerotic heart disease of native coronary artery without angina pectoris; Z95.5 Presence of coronary angioplasty implant and graft; R29.818 Other symptoms and signs involving the nervous system; E87.6 Hypokalemia; E86.0 Dehydration; Z88.8 Allergy status to other drugs, medicaments and biological substances; Z88.1 Allergy status to other antibiotic agents; Z91.040 Latex allergy status; J45.909 Unspecified asthma, uncomplicated; F32.9 Major depressive disorder, single episode, unspecified; Z98.1 Arthrodesis status; Z90.49 Acquired absence of other specified parts of digestive tract; Z82.49 Family history of ischemic heart disease and other diseases of the circulatory system; Z83.3 Family history of diabetes mellitus; Z87.891 Personal history of nicotine dependence; R40.2412 Glasgow coma scale score 13-15, at arrival to emergency department; E03.9 Hypothyroidism, unspecified; I35.0 Nonrheumatic aortic (valve) stenosis; Z66 Do not resuscitate; D72.819 Decreased white blood cell count, unspecified; R00.1 Bradycardia, unspecified; E87.70 Fluid overload, unspecified; Z68.26 Body mass index [BMI] 26.0-26.9, adult; T45.515A Adverse effect of anticoagulants, initial encounter; R11.0 Nausea; Z53.31 Laparoscopic surgical procedure converted to open procedure
CPT/HCPCS: 36415; 36600; 71010; 80048; 80053; 82565; 82803; 83605; 83735; 83880; 84100; 84132; 84134; 84300; 84520; 85025; 85027; 85060; 85610; 85730; 86022; 87641; 88307; 93005; 93306; 94002; 94003; 94640; 94760; A9270-GY; C1776; J0330; J0690; J1100; J1160; J1170; J1644; J1940; J2001; J2250; J2270; J2405; J2543; J2704; J3010; J3475; J3480; P9045

== ENCOUNTER 2017-04-03 10:24 | Emergency (ER) | payer MEDICARE, MEDICAID ==
[2017-04-03] MEDS ORDERED: NS 0.9% 1000 ML* 1,000 ML IV ONE (11:04)
--- NOTE | 2017-04-03 11:26 | RAD ---
HISTORY: Fall, anticoagulation COMPARISONS: December 17, 2016, MRI dated September 18, 2016 TECHNIQUE: Multiple contiguous axial CT scans were obtained of the head without intravenous contrast. FINDINGS: HEMORRHAGE/INFARCT: There is no hemorrhage or acute infarct. MASSES/SHIFT: There is no mass or shift. EXTRA-AXIAL SPACES: There are no extra-axial fluid collections. SULCI AND VENTRICLES: The sulci and ventricles are normal in size and position for the patient's stated age. CEREBRUM: There is hypoattenuation of the periventricular and subcortical white matter. BRAINSTEM: There are no focal parenchymal abnormalities. CEREBELLUM: There are no focal parenchymal abnormalities. VESSELS: The vessels are grossly normal. PARANASAL SINUSES: The paranasal sinuses are clear. ORBITS: The orbits are unremarkable. BONES AND SOFT TISSUE: No bone or soft tissue abnormalities are noted. OTHER: Again noted is a sellar mass as noted on previous MRI IMPRESSION: NO ACUTE INTRACRANIAL PATHOLOGY. CHRONIC SMALL VESSEL ISCHEMIC CHANGES.
[2017-04-03 12:19] LABS: Urine Bilirubin Negative (Negative); Urine Glucose Negative (Negative); Urine Nitrite Negative (Negative)
[2017-04-03 12:26] LABS: Hematocrit 31 % (35-47); Hemoglobin 10.3 g/dl (12.0-16.0); Mean Corpuscular HGB Conc 33 g/dl (31-36); Mean Corpuscular Hemoglobin 30 pg (27-31); Mean Corpuscular Volume 89 fL (80-97); Mean Platelet Volume 8 um3 (7.4-10.4); Red Blood Count 3.48 10^6/ul (4.0-5.4); Red Cell Distribution Width 16 % (10.5-15); White Blood Count 6.3 10^3/ul (3.5-10.8)
[2017-04-03 12:40] LABS: BUN/Creatinine Ratio 11.1 (8-20); Calcium 9.1 mg/dL (8.6-10.3); EGFR African American 87.3 (>60); EGFR Non-African American 67.9 (>60); Globulin 3.7 g/dL (2-4); Potassium 3.2 mmol/L (3.5-5.0); Total Bilirubin 0.5 mg/dL (0.2-1.0); Total Protein 6.7 g/dL (6.4-8.9)
[2017-04-03] MEDS ORDERED: Potassium Chlor TAB* 20 MEQ TAB.ER PO ONE (13:01)
[2017-04-03 14:08] VITALS: BP 107/68
--- NOTE | 2017-04-04 11:42 | PN ---
Hospitalist Progress Note Outpatient f/u call received from [facility] on 04/04/17 around 8:30am. Per nursing staff, patient reportedly found lying prone on the ground. Patient reportedly had a blanket wrapped around her. The staff with her stepped away for a minute, came back, and found her lying prone on the ground. The patient did not hit her head, per staff, but did hit her cheek on her walker and sustained a small abrasion. Patient evaluated on 04/03 after fall; neuro checks ordered q2h with instructions to call with acute neuro change.
--- NOTE | 2017-04-10 22:02 | ED ---
Lesvia Strickland SooYoung, scribed for Elvin Mckinney MD on 04/03/17 at 1102 . Head Injury - HPI Summary HPI Summary: A 82 y/o F JUMANA presents to ED [facility]. Pt fell out of bed and hit her head. Associated sx: dizziness/lightheadedness; mild occipital head pain. Denies CP, SOB, v/d, back pain, hip pain, dysuria, hematuria, frequency. Denies recent illness. Colostomy bag present. Pt has an old bruise to her R forehead. - History Of Current Complaint Chief Complaint: EDHeadInjury Stated Complaint: FALL Time Seen by Provider: 04/03/17 10:45 Hx Obtained From: Patient, EMS Onset of Pain: Immediate Severity Currently: Mild Pain Intensity: 0 Pain Scale Used: 0-10 Numeric Location of Head Injury: Occipital Associated Signs And Symptoms: Other: - pos: dizziness/lightheadedness - Allergies/Home Medications Allergies/Adverse Reactions: Allergies Allergy/AdvReac Type Severity Reaction Status Date / Time Erythromycin Allergy Difficulty Verified 02/08/17 09:19 Breathing/Wheezing Latex Allergy Difficulty Verified 02/08/17 09:19 Breathing/Wheezing Lovastatin Allergy Difficulty Verified 02/08/17 09:19 Breathing/Wheezing PMH/Surg Hx/FS Hx/Imm Hx Previously Healthy: No Endocrine/Hematology History: Reports: Hx Anticoagulant Therapy - xarelto 15mg q day, Hx Thyroid Disease Denies: Hx Diabetes - c Cardiovascular History: Reports: Hx Hypertension, Other Cardiovascular Problems/ Disorders - AFIB Denies: Hx Congestive Heart Failure, Hx Deep Vein Thrombosis, Hx Myocardial Infarction, Hx Pacemaker/ICD Respiratory History: Reports: Hx Asthma Denies: Hx Chronic Obstructive Pulmonary Disease (COPD), Hx Lung Cancer, Hx Pneumonia, Hx Pulmonary Embolism GI History: Reports: Hx Ulcer Denies: Hx Gall Bladder Disease, Hx Gastrointestinal Bleed, Hx Urosepsis History: Denies: Hx Kidney Stones, Hx Renal Disease Musculoskeletal History: Reports: Other Musculoskeletal History - spinal fusion at 19 years old Sensory History: Reports: Hx Contacts or Glasses, Hx Hearing Aid Opthamlomology History: Reports: Hx Contacts or Glasses Neurological History: Denies: Hx Dementia, Hx Migraine, Hx Seizures, Hx Transient Ischemic Attacks (TIA) Psychiatric History: Reports: Hx Anxiety, Hx Depression Denies: Hx Panic Disorder, Hx Schizophrenia, Hx Bipolar Disorder - Surgical History Surgery Procedure, Year, and Place: spinal fusion 195, [id number], hernia 1988 2001,left knee arthroscopy 2003,left shoulder rct 2004, [id number], thumb 2008 & 2011 Hx Anesthesia Reactions: No Infectious Disease History: No Infectious Disease History: Denies: Hx Clostridium Difficile, Hx Hepatitis, Hx Human Immunodeficiency Virus (HIV), Hx of Known/Suspected MRSA, Hx Shingles, Hx Tuberculosis, Hx Known/ Suspected VRE, Hx Known/Suspected VRSA, History Other Infectious Disease, Traveled Outside the [place] in Last 30 Days - Family History Known Family History: Positive: Cardiac Disease, Hypertension, Diabetes - Social History Occupation: Retired Lives: [facility] Alcohol Use: None Hx Substance Use: No Substance Use Type: Reports: None Hx Tobacco Use: Yes Smoking Status (MU): Former Smoker Type: Cigarettes Have You Smoked in the Last Year: Yes Review of Systems Negative: Fever, Chills Negative: Erythema Negative: Sore Throat Negative: Chest Pain Negative: Shortness Of Breath, Cough Negative: Abdominal Pain, Vomiting, Nausea Negative: dysuria, hematuria Positive: Other - POS: OCCIPITAL HEAD PAIN. Negative: Myalgia, Edema Negative: Rash Neurological: Other - POS: DIZZINESS/LIGHTHEADEDNESS All Other Systems Reviewed And Are Negative: Yes Physical Exam - Summary Physical Exam Summary: Constitutional: Well-developed, Well-nourished, Alert, Cooperative Skin: Warm, Dry HENT: SMALL HEMATOMA OCCIPITAL; OLD ECCHYMOSIS R FOREHEAD; Normocephalic; No Racoons eyes; No battles sign; No abrasion; No contusion; No hemotympanum; No maxilla facial tenderness or instability; Dentition are smooth; No dental trauma ; No trismus Eyes: EOM normal, PERRL Neck: Trachea is midline. No stridor; No JVD; No step off; No posterior cervical spine tenderness Cardio: IRREGULARLY IRREGULAR PULSE; SYSTOLIC MURMUR; Intact distal pulses; The pedal pulses are 2+ and symmetric. Radial pulses are 2+ and symmetric. Pulmonary/Chest wall: Effort normal; Breath sounds normal; Equal chest rise; No flail segment; No rib tenderness; No sternal tenderness Abd: Soft, Appearance normal. No distension; No tenderness; No palpable pulsatile mass; No Cullens sign; No Tobias-Turners sign; NO SIGNIFICANT COLOSTOMY OUTPUT Musculoskeletal: Full ROM and no tenderness at hips, ankles, shoulders, elbows and knees; No joint swelling; No vertebral body tenderness; No paraspinal tenderness; No step off or deformity of the spine; Pelvis is stable to lateral compression and rock Neuro: Alert, Oriented x3, Strength 5/5 all extremities. : No blood at urethral meatus Psych: Mood and affect Normal Triage Information Reviewed: Yes Vital Signs On Initial Exam: Initial Vitals Temp Pulse Resp BP Pulse Ox 98.1 F 99 18 87/59 95 04/03/17 10:45 04/03/17 10:45 04/03/17 10:45 04/03/17 10:45 04/03/17 10:45 Vital Signs Reviewed: Yes - [place] Coma Scale Coma Scale Total: 15 Diagnostics - Vital Signs Vital Signs Temp Pulse Resp BP Pulse Ox 04/03/17 10:45 98.1 F 99 18 87/59 95 - Laboratory Result Diagrams: 04/03/17 12:13 04/03/17 12:13 Lab Statement: Any lab studies that have been ordered have been reviewed, and results considered in the medical decision making process. - CT BRAIN CT CT Interpretation: No Acute Changes - IMPRESSION: NO ACUTE INTRACRANIAL PATHOLOGY. CHRONIC SMALL VESSEL ISCHEMIC CHANGES. ED physician has reviewed this radiology report and agrees CT Interpretation Completed By: Radiologist Re-Evaluation - Re-Evaluation 1 Re-Evaluation Time: 13:10 Change: Improved Comment: Discussing results and dispo with pt. Pt voiced understanding. Pt is feeling better. Will D/C after fluids finish. 2 Re-Evaluation Time: 14:40 Change: Improved Comment: While D/C pt c/o pain over L posterior hip. Brief PE found no tenderness with palpation. Had pt stand, bear weight, ambulate. She was able to do all three without pain. Pt stated feeling better. Head Injury Course/Dx Course Of Treatment: A 82 y/o F BIBA presents to ED [facility]. Pt fell out of bed and hit her head. Associated sx: dizziness/ lightheadedness; mild occipital head pain. Denies CP, SOB, v/d, back pain, hip pain, dysuria, hematuria, frequency. Denies recent illness. Colostomy bag present. Pt has an old bruise to her R forehead. Pt given fluids, potassium chloride in ED. Bloodwork is without significant abnormality. UA results are negative except low specific gravity. Brain CT shows no acute intracranial pathology. Will DC home to f/u with PCP. - Diagnoses Provider Diagnoses: Hypokalemia, Dehydration, Fall, Scalp hematoma Discharge - Discharge Plan Condition: Stable Disposition: HOME Patient Education Materials: Hypokalemia (ED), Fall Prevention for Older Adults (ED), Dehydration (ED) Referrals: Billy Joseph MD [Primary Care Provider] - 3 Days Additional Instructions: Follow up with your primary care provider in 2-3 days. Return to the emergency department for changing or worsening or persistent symptoms. The documentation as recorded by the Lesvia dean SooYoung accurately reflects the service I personally performed and the decisions made by , Elvin Mckinney MD.
== END 2017-04-03 14:08 | disposition home or self-care (01) ==
LOC: ED 10:24
DX: S00.03XA Contusion of scalp, initial encounter (principal); R42 Dizziness and giddiness; Z79.01 Long term (current) use of anticoagulants; Z87.891 Personal history of nicotine dependence; E87.6 Hypokalemia; E86.0 Dehydration; W19.XXXA Unspecified fall, initial encounter; Y93.9 Activity, unspecified; Y92.9 Unspecified place or not applicable; Y99.9 Unspecified external cause status
CPT/HCPCS: 36415; 70450; 80053; 81003; 85027; 99282; A9270-GY

== ENCOUNTER 2017-05-08 12:58 | Emergency (ER) | payer MEDICARE, MEDICAID ==
[2017-05-08] MEDS ORDERED: NS 0.9% 1000 ML* 1,000 ML IV ONE (14:19)
[2017-05-08 14:20] LABS: Hematocrit 31 % (35-47); Hemoglobin 10.1 g/dl (12.0-16.0); Mean Corpuscular HGB Conc 33 g/dl (31-36); Mean Corpuscular Hemoglobin 29 pg (27-31); Mean Corpuscular Volume 89 fL (80-97); Mean Platelet Volume 8 um3 (7.4-10.4); Red Blood Count 3.49 10^6/ul (4.0-5.4); Red Cell Distribution Width 17 % (10.5-15); White Blood Count 5.2 10^3/ul (3.5-10.8)
[2017-05-08 14:37] LABS: Albumin 3.2 g/dL (3.2-5.2); BUN/Creatinine Ratio 9.6 (8-20); C Reactive Protein 4.72 mg/L (< 5.00); Calcium 8.8 mg/dL (8.6-10.3); EGFR African American 84.9 (>60); Globulin 3.5 g/dL (2-4); Potassium 3.1 mmol/L (3.5-5.0); Total Bilirubin 0.5 mg/dL (0.2-1.0); Total Protein 6.7 g/dL (6.4-8.9)
[2017-05-08] MEDS ORDERED: Iohexol 300* (CONTRAST) 10 ML SDV IV ONE (14:42)
[2017-05-08 14:45] LABS: Troponin I 0.04 ng/mL (<0.04)
[2017-05-08] MEDS ORDERED: KCL 10 MEQ/50 ML IVPREMIX* 10 MEQ/50 ML BAG IV SCH (15:00)
--- NOTE | 2017-05-08 15:16 | RAD ---
INDICATION: Abdominal pain COMPARISON: None TECHNIQUE: Axial source images were obtained from the hemidiaphragms to the symphysis pubis following administration of oral and intravenous contrast. 85 mL Omnipaque 300 was utilized. Coronal and sagittal reconstructed images were acquired. Lung bases: There is a small left-sided effusion. Liver: The liver is normal in size. There are no masses. There is no ductal dilatation. Gallbladder: Cholecystectomy. Spleen: The spleen is normal in size. There are no masses. Pancreas: There is no focal pancreatic mass or ductal dilatation. Adrenal glands: There is no evidence of adrenal mass. Kidneys: The kidneys are normal in size and position. There are prompt nephrograms and there is prompt excretion bilaterally. There are bilateral extrarenal pelves There is a small right renal cyst. There is no evidence of nephrolithiasis. Adenopathy: There is no evidence of adenopathy by size criteria. Fluid collections: There are no significant localized fluid collections. There is a small amount of mesenteric edema. There is also mild subcutaneous edema. Vessels:There are atherosclerotic changes involving the aorta and iliac vessels. There is no focal aneurysm. The IVC appears normal. GI tract: There are no acute CT bowel findings. There is no obstruction. The stomach and small bowel appear normal. The lower GI tract is remarkable for a stoma left lower quadrant.. The appendix is visualized and appears normal. Pelvic organs: The uterus and adnexa are unremarkable for a calcified uterine leiomyoma Bladder: There are no bladder masses. Abdominal and pelvic soft tissues: The extraperitoneal abdominal and pelvic soft tissues appear normal.. Osseous structures: There is arthritic change of the thoracolumbar spine. There is grade 2 anterolisthesis of L5 and S1. There is posterior lumbar fusion. Other: None IMPRESSION: POSTOPERATIVE CHANGES. NO ACUTE CT FINDINGS. NO MASS OR INFLAMMATORY CHANGES.
[2017-05-08 16:15] LABS: Urine Bilirubin Negative (Negative); Urine Glucose Negative (Negative); Urine Nitrite Negative (Negative)
[2017-05-08] MEDS ORDERED: Potassium Chloride LIQUID* 20 MEQ PACKET PO ONE (17:11)
[2017-05-08 17:38] VITALS: BP 127/114
--- NOTE | 2017-05-10 06:06 | ED ---
Pia Strickland Edward, scribed for Honorio Bateman MD on 05/08/17 at 1323 . Abdominal Pain/Female - HPI Summary HPI Summary: 82 y/o female BIBA c/o ABD pain starting a couple of days ago. The pain is located in the RUQ rated 8/10 yesterday and 6/10 today. The pain is constant. Associated sx: nausea. SHx had surgery for rectal prolapse [address] Moore and had a colostomy bag placed on her L side. Pt lives at [facility]. - History of Current Complaint Chief Complaint: EDAbdPain Stated Complaint: ABD PAIN Time Seen by Provider: 05/08/17 13:20 Hx Obtained From: Patient Onset/Duration: Lasting Days Timing: Constant Severity Currently: Moderate Pain Intensity: 6 Pain Scale Used: 0-10 Numeric Location: Discrete At: RUQ Associated Signs and Symptoms: Positive: Nausea Allergies/Adverse Reactions: Allergies Allergy/AdvReac Type Severity Reaction Status Date / Time Erythromycin Allergy Difficulty Verified 02/08/17 09:19 Breathing/Wheezing Latex Allergy Difficulty Verified 02/08/17 09:19 Breathing/Wheezing Lovastatin Allergy Difficulty Verified 02/08/17 09:19 Breathing/Wheezing Home Medications: Home Medications Menthol-Methyl Salicylate (Marina [Muscle Rub 10-15 %] 1 apply TOPICAL Q8H PRN [History Confirmed 05/08/17] Ondansetron HCl [Zofran 4 MG TAB] 4 mg PO Q6H PRN 05/08/17 [History Confirmed ] Rivaroxaban TAB(*) [Xarelto 15 mg(*)] 15 mg PO DAILY@1900 05/08/17 [History Confirmed 05/08/17] PMH/Surg Hx/FS Hx/Imm Hx Previously Healthy: No Endocrine/Hematology History: Reports: Hx Anticoagulant Therapy - xarelto 15mg q day, Hx Thyroid Disease Denies: Hx Diabetes - c Cardiovascular History: Reports: Hx Hypertension, Other Cardiovascular Problems/ Disorders - AFIB Denies: Hx Congestive Heart Failure, Hx Deep Vein Thrombosis, Hx Myocardial Infarction, Hx Pacemaker/ICD Respiratory History: Reports: Hx Asthma Denies: Hx Chronic Obstructive Pulmonary Disease (COPD), Hx Lung Cancer, Hx Pneumonia, Hx Pulmonary Embolism GI History: Reports: Hx Ulcer Denies: Hx Gall Bladder Disease, Hx Gastrointestinal Bleed, Hx Urosepsis History: Denies: Hx Kidney Stones, Hx Renal Disease Musculoskeletal History: Reports: Other Musculoskeletal History - spinal fusion at 19 years old Sensory History: Reports: Hx Contacts or Glasses, Hx Hearing Aid Opthamlomology History: Reports: Hx Contacts or Glasses Neurological History: Denies: Hx Dementia, Hx Migraine, Hx Seizures, Hx Transient Ischemic Attacks (TIA) Psychiatric History: Reports: Hx Anxiety, Hx Depression Denies: Hx Panic Disorder, Hx Schizophrenia, Hx Bipolar Disorder - Surgical History Surgery Procedure, Year, and Place: spinal fusion 1953, [id number], hernia 1988 2001,left knee arthroscopy 2003,left shoulder rct 2004, [id number], thumb 2008 & 2011 Hx Anesthesia Reactions: No Infectious Disease History: No Infectious Disease History: Denies: Hx Clostridium Difficile, Hx Hepatitis, Hx Human Immunodeficiency Virus (HIV), Hx of Known/Suspected MRSA, Hx Shingles, Hx Tuberculosis, Hx Known/ Suspected VRE, Hx Known/Suspected VRSA, History Other Infectious Disease, Traveled Outside the [place] in Last 30 Days - Family History Known Family History: Positive: Cardiac Disease, Hypertension, Diabetes - Social History Alcohol Use: None Hx Substance Use: No Substance Use Type: Reports: None Hx Tobacco Use: Yes Smoking Status (MU): Former Smoker Type: Cigarettes Have You Smoked in the Last Year: Yes Review of Systems Constitutional: Negative Eyes: Negative ENT: Negative Cardiovascular: Negative Respiratory: Negative Positive: Abdominal Pain, Nausea Genitourinary: Negative Musculoskeletal: Negative Skin: Negative Neurological: Negative Psychological: Normal All Other Systems Reviewed And Are Negative: Yes Physical Exam - Summary Physical Exam Summary: VITAL SIGNS: Reviewed. GENERAL: Patient is a well-developed and nourished female who is lying comfortable in the stretcher. ~Patient is not in any acute respiratory distress. HEAD AND FACE: Normocephalic and atraumatic. EYES: PERRLA, EOMI x 2, No injected conjunctiva. EARS: Hearing grossly intact. Ear canals and tympanic membranes are WNL. MOUTH: Oral mucosa dry. NECK: Supple, trachea is midline, no adenopathy, no JVD. CHEST: Symmetric, no tenderness at palpation LUNGS: Clear to auscultation bilaterally. No wheezing or crackles. CVS: RRR, S1 and S2 present, no murmurs or gallops appreciated. ABDOMEN: Soft, tender @ RLQ and RUQ. No signs of distention. Positive bowel sounds. No rebound no guarding, and no masses palpated. No abdominal bruit or pulsations. Pt has a colostomy bag in the L side. Incision of ABD is well- healed - clean, dry and intact. EXTREMITIES: FROM in all major joints, no edema, no cyanosis or clubbing. NEURO: Alert and oriented x 3. No acute neurological deficits. Speech is normal. SKIN: Dry and warm Triage Information Reviewed: Yes Vital Signs On Initial Exam: Initial Vitals Temp Pulse Resp BP Pulse Ox 98.1 F 92 18 122/74 95 05/08/17 13:03 05/08/17 13:03 05/08/17 13:03 05/08/17 13:03 05/08/17 13:03 Vital Signs Reviewed: Yes - [place] Coma Scale Coma Scale Total: 15 Diagnostics - Vital Signs Vital Signs Temp Pulse Resp BP Pulse Ox 05/08/17 13:03 98.1 F 92 18 122/74 95 - Laboratory Lab Results: Lab Results 05/08/17 05/08/17 05/08/17 Range/Units 13:36 13:36 15:55 WBC 5.2 (3.5-10.8) 10^3/ul RBC 3.49 L (4.0-5.4) 10^6/ul Hgb 10.1 L (12.0-16.0) g/dl Hct 31 L (35-47) % MCV 89 (80-97) fL MCH 29 (27-31) pg MCHC 33 (31-36) g/dl RDW 17 H (10.5-15) % Plt Count 291 (150-450) 10^3/ul MPV 8 (7.4-10.4) um3 Neut % (Auto) 59.0 (38-83) % Lymph % (Auto) 26.4 (25-47) % [place] % (Auto) 10.3 H (1-9) % Eos % (Auto) 3.2 (0-6) % Baso % (Auto) 1.1 (0-2) % Absolute Neuts (auto) 3.1 (1.5-7.7) 10^3/ul Absolute Lymphs (auto) 1.4 (1.0-4.8) 10^3/ul Absolute Monos (auto) 0.5 (0-0.8) 10^3/ul Absolute Eos (auto) 0.2 (0-0.6) 10^3/ul Absolute Basos (auto) 0.1 (0-0.2) 10^3/ul Absolute Nucleated RBC 0 10^3/ul Nucleated RBC % 0 Sodium 139 (133-145) mmol/L Potassium 3.1 L (3.5-5.0) mmol/L Chloride 104 (101-111) mmol/L Carbon Dioxide 29 (22-32) mmol/L Anion Gap 6 (2-11) mmol/L BUN 8 (6-24) mg/dL Creatinine 0.83 (0.51-0.95) mg/dL Est GFR ( Amer) 84.9 (>60) Est GFR (Non-Af Amer) 66.0 (>60) BUN/Creatinine Ratio 9.6 (8-20) Glucose 103 H (70-100) mg/dL Calcium 8.8 (8.6-10.3) mg/dL Total Bilirubin 0.50 (0.2-1.0) mg/dL AST 12 L (13-39) U/L ALT 6 L (7-52) U/L Alkaline Phosphatase 72 (34-104) U/L Total Creatine Kinase 33 (10-223) U/L Troponin I 0.04 H* (<0.04) ng/mL C-Reactive Protein 4.72 (< 5.00) mg/L Total Protein 6.7 (6.4-8.9) g/dL Albumin 3.2 (3.2-5.2) g/dL Globulin 3.5 (2-4) g/dL Albumin/Globulin Ratio 0.9 L (1-3) Amylase 68 (29-103) U/L Lipase 26 (11.0-82.0) U/L Urine Color Straw Urine Appearance Clear Urine pH 8.0 (5-9) Ur Specific [place] 1.024 (1.010-1.030) Urine Protein Negative (Negative) Urine Ketones Negative (Negative) Urine Blood Negative (Negative) Urine Nitrate Negative (Negative) Urine Bilirubin Negative (Negative) Urine Urobilinogen Negative (Negative) Ur Leukocyte Esterase Negative (Negative) Urine Glucose Negative (Negative) 05/08/17 Range/Units 16:30 WBC (3.5-10.8) 10^3/ul RBC (4.0-5.4) 10^6/ul Hgb (12.0-16.0) g/dl Hct (35-47) % MCV (80-97) fL MCH (27-31) pg MCHC (31-36) g/dl RDW (10.5-15) % Plt Count (150-450) 10^3/ul MPV (7.4-10.4) um3 Neut % (Auto) (38-83) % Lymph % (Auto) (25-47) % [place] % (Auto) (1-9) % Eos % (Auto) (0-6) % Baso % (Auto) (0-2) % Absolute Neuts (auto) (1.5-7.7) 10^3/ul Absolute Lymphs (auto) (1.0-4.8) 10^3/ul Absolute Monos (auto) (0-0.8) 10^3/ul Absolute Eos (auto) (0-0.6) 10^3/ul Absolute Basos (auto) (0-0.2) 10^3/ul Absolute Nucleated RBC 10^3/ul Nucleated RBC % Sodium (133-145) mmol/L Potassium (3.5-5.0) mmol/L Chloride (101-111) mmol/L Carbon Dioxide (22-32) mmol/L Anion Gap (2-11) mmol/L BUN (6-24) mg/dL Creatinine (0.51-0.95) mg/dL Est GFR ( Amer) (>60) Est GFR (Non-Af Amer) (>60) BUN/Creatinine Ratio (8-20) Glucose (70-100) mg/dL Calcium (8.6-10.3) mg/dL Total Bilirubin (0.2-1.0) mg/dL AST (13-39) U/L ALT (7-52) U/L Alkaline Phosphatase (34-104) U/L Total Creatine Kinase (10-223) U/L Troponin I 0.03 (<0.04) ng/mL C-Reactive Protein (< 5.00) mg/L Total Protein (6.4-8.9) g/dL Albumin (3.2-5.2) g/dL Globulin (2-4) g/dL Albumin/Globulin Ratio (1-3) Amylase (29-103) U/L Lipase (11.0-82.0) U/L Urine Color Urine Appearance Urine pH (5-9) Ur Specific [place] (1.010-1.030) Urine Protein (Negative) Urine Ketones (Negative) Urine Blood (Negative) Urine Nitrate (Negative) Urine Bilirubin (Negative) Urine Urobilinogen (Negative) Ur Leukocyte Esterase (Negative) Urine Glucose (Negative) Result Diagrams: 05/08/17 13:36 05/08/17 13:36 Lab Statement: Any lab studies that have been ordered have been reviewed, and results considered in the medical decision making process. - CT ABD/PEL CT CT Interpretation: No Acute Changes - POSTOPERATIVE CHANGES. NO ACUTE CT FINDINGS. NO MASS OR INFLAMMATORY CHANGES. CT Interpretation Completed By: Radiologist - EKG 1 EKG Interpretation: 17:16 - AFIB @ [address] ELEVATIONS Abdominal Pain Fem Course/Dx - Course Course Of Treatment: 82 y/o female BIBA c/o ABD pain starting a couple of days ago. The pain is located in the RUQ rated 8/10 yesterday and 6/10 today. The pain is constant. Associated sx: nausea. SHx had surgery for rectal prolapse [address] Moore and had a colostomy bag placed on her L side. Pt lives at [facility]. ABD/PEL CT SHOWS POSTOPERATIVE CHANGES. NO ACUTE CT FINDINGS. NO MASS OR INFLAMMATORY CHANGES. EKG SHOWS 17:16 - AFIB @ [address] ELEVATIONS. Test results show chronic anemia, potassium 3.1, and trop 0.04. Pt doesnt complain of cp, sob or dizziness, and the pts potassium was replenished with potassium chloride, both IV and PO. UA (-) for UTI. Second troponin was 0.03. Therefore I dont believe the patient has ACS. Pts pain has improved therefore no pain medications were required. After the pt was hydrated and given potassium, the pt will be d/c home with f/u with PCP. The pt is hemodynamically stable and A&Ox3. - Diagnoses Differential Diagnosis: Positive: Bowel Obstruction, Constipation, Urinary Tract Infection Provider Diagnoses: Abdominal pain Discharge - Discharge Plan Condition: Stable Disposition: HOME Patient Education Materials: Abdominal Pain (ED) Referrals: Billy Joseph MD [Primary Care Provider] - 3 Days (PLEASE F/U IN 2-3 DAYS) The documentation as recorded by the Pia dean Edward accurately reflects the service I personally performed and the decisions made by me, Honorio Bateman MD.
== END 2017-05-08 17:38 | disposition home or self-care (01) ==
LOC: ED 12:58
DX: R10.9 Unspecified abdominal pain (principal); R10.11 Right upper quadrant pain; Z87.891 Personal history of nicotine dependence; Z79.01 Long term (current) use of anticoagulants
CPT/HCPCS: 36415; 74177; 80053; 81003; 82150; 82550; 83690; 84484; 85025; 86140; 93005; 99283; A9270-GY; J3480; Q9967

== ENCOUNTER 2017-07-12 21:42 | Emergency (ER) | payer MEDICARE, MEDICAID ==
--- NOTE | 2017-07-12 22:11 | ED ---
Psychiatric Complaint - HPI Summary HPI Summary: 82 female presents to ED BIBA and with police after "saying things she should not of said" while at her home at [place], just [employer]. Patient states she is frustrated about her new ostomy bag and stated to [facility] staff "fine are you just going to stand there and watch me kill myself". Patient did not attempt to hurt herself in anyway. States she mad a dumb statement that she should not of said. Denies any current thoughts to hurt herself or others. Is having difficulty adjusting to new lifestyle but denies any plan of self harm. States she would "never hurt herself or anything that would end up hurting her daughters". Denies of any complaints at this time. - History Of Current Complaint Chief Complaint: EDMentalHealth Time Seen by Provider: 07/12/17 21:49 Hx Obtained From: Patient, EMS Onset/Duration: Sudden Onset Severity Currently: None Character: Frustrated Aggravating Factor(s): Recent Stress - new lifestyle with colostomy bag Alleviating Factor(s): Nothing Related History: Negative For: Prior Psychiatric Issues Has Suicidal: Denies: Thoughts, With A Plan Has Homicidal: Denies: Thoughts, With A Plan - Allergies/Home Medications Allergies/Adverse Reactions: Allergies Allergy/AdvReac Type Severity Reaction Status Date / Time Erythromycin Allergy Difficulty Verified 02/08/17 09:19 Breathing/Wheezing Latex Allergy Difficulty Verified 02/08/17 09:19 Breathing/Wheezing Lovastatin Allergy Difficulty Verified 02/08/17 09:19 Breathing/Wheezing PMH/Surg Hx/FS Hx/Imm Hx Endocrine/Hematology History: Reports: Hx Anticoagulant Therapy - xarelto 15mg q day, Hx Thyroid Disease Denies: Hx Diabetes - c Cardiovascular History: Reports: Hx Hypertension, Other Cardiovascular Problems/ Disorders - AFIB Denies: Hx Congestive Heart Failure, Hx Deep Vein Thrombosis, Hx Myocardial Infarction, Hx Pacemaker/ICD Respiratory History: Reports: Hx Asthma Denies: Hx Chronic Obstructive Pulmonary Disease (COPD), Hx Lung Cancer, Hx Pneumonia, Hx Pulmonary Embolism GI History: Reports: Hx Ulcer Denies: Hx Gall Bladder Disease, Hx Gastrointestinal Bleed, Hx Urosepsis History: Denies: Hx Kidney Stones, Hx Renal Disease Musculoskeletal History: Reports: Other Musculoskeletal History - spinal fusion at 19 years old Sensory History: Reports: Hx Contacts or Glasses, Hx Hearing Aid Opthamlomology History: Reports: Hx Contacts or Glasses Neurological History: Denies: Hx Dementia, Hx Migraine, Hx Seizures, Hx Transient Ischemic Attacks (TIA) Psychiatric History: Reports: Hx Anxiety, Hx Depression Denies: Hx Panic Disorder, Hx Schizophrenia, Hx Bipolar Disorder - Surgical History Surgery Procedure, Year, and Place: spinal fusion 1953, [id number], hernia 1988 2001,left knee arthroscopy 2003,left shoulder rct 2004, [id number], thumb 2008 & 2011 Hx Anesthesia Reactions: No Infectious Disease History: No Infectious Disease History: Denies: Hx Clostridium Difficile, Hx Hepatitis, Hx Human Immunodeficiency Virus (HIV), Hx of Known/Suspected MRSA, Hx Shingles, Hx Tuberculosis, Hx Known/ Suspected VRE, Hx Known/Suspected VRSA, History Other Infectious Disease, Traveled Outside the [place] in Last 30 Days - Family History Known Family History: Positive: Cardiac Disease, Hypertension, Diabetes - Social History Alcohol Use: None Hx Substance Use: No Substance Use Type: Reports: None Hx Tobacco Use: Yes Smoking Status (MU): Former Smoker Type: Cigarettes Have You Smoked in the Last Year: Yes Review of Systems Constitutional: Negative Cardiovascular: Negative Respiratory: Negative All Other Systems Reviewed And Are Negative: Yes Physical Exam Triage Information Reviewed: Yes Vital Signs On Initial Exam: Initial Vitals Temp Pulse Resp BP Pulse Ox 97.8 F 100 16 115/77 95 07/12/17 21:51 07/12/17 21:51 07/12/17 21:51 07/12/17 21:51 07/12/17 21:51 Vital Signs Reviewed: Yes Appearance: Positive: Well-Appearing, No Pain Distress, Well-Nourished Skin: Positive: Warm, Skin Color Reflects Adequate Perfusion, Dry. Negative: Cold, Cyanosis @, Erythema @ Head/Face: Positive: Normal Head/Face Inspection Eyes: Positive: Conjunctiva Clear ENT: Positive: Hearing grossly normal, Pharynx normal Neck: Positive: Supple, Nontender Respiratory/Lung Sounds: Positive: Clear to Auscultation, Breath Sounds Present. Negative: Rales, Rhonchi, Wheezes Cardiovascular: Positive: Normal, RRR, Pulses are Symmetrical in both Upper and Lower Extremities. Negative: Murmur, Rub Musculoskeletal: Positive: Normal, Strength/ROM Intact Neurological: Positive: Normal, Sensory/Motor Intact, Alert, Oriented to Person Place, Time Psychiatric: Positive: Affect/Mood Appropriate Diagnostics - Vital Signs Vital Signs Temp Pulse Resp BP Pulse Ox 07/12/17 21:51 97.8 F 100 16 115/77 95 - Laboratory Result Diagrams: 07/12/17 22:16 07/12/17 22:16 Lab Statement: Any lab studies that have been ordered have been reviewed, and results considered in the medical decision making process. Course/Dx - Course Course Of Treatment: patient was medically cleared for MHE. labs in normal ranges and unremarkable, TSH low however was previoulsly and already known. patient offers no other complaints at this time. spoke with Bryan GALICIA and it was decided by Dr Bueno at 2:30am that patient is safe to discharge home. No concern for patient's safety at home. Lives a [place]. I agree with this plan. Appeared to have been a misunderstanding and patient is having adjustment difficulty with new colostomy bag. - Differential Dx/Clinical Impression Provider Diagnosis: Adjustment reaction of late life - Physician Notifications Discussed Care Of Patient With: FRIDA, Dr Bueno - d/c home outpatient f/u Time Discussed With Above Provider: 02:30 Patient Is Medically Stable For: Psych Evaluation Discharge - Discharge Plan Condition: Stable Disposition: HOME Referrals: Billy Joseph MD [Primary Care Provider] - Additional Instructions: Per completion of a mental health evaluation, you are cleared for release and do not require inpatient psychiatric hospitalization at this time. Please go to nearest emergency room or call 911 if safety concerns arise or condition worsens. Important Phone Numbers: [facility] [phone] Suicide Prevention and Crisis Services [phone] [place] Suicide Prevention Lifeline [phone] ([phone]) [facility] [phone] Alcoholics Anonymous [phone] [facility] [phone] [place] [employer] [phone]
[2017-07-12 22:24] LABS: Hematocrit 34 % (35-47); Hemoglobin 11.4 g/dl (12.0-16.0); Mean Corpuscular HGB Conc 33 g/dl (31-36); Mean Corpuscular Hemoglobin 29 pg (27-31); Mean Corpuscular Volume 87 fL (80-97); Mean Platelet Volume 8 um3 (7.4-10.4); Red Blood Count 3.94 10^6/ul (4.0-5.4); Red Cell Distribution Width 15 % (10.5-15); White Blood Count 5.6 10^3/ul (3.5-10.8)
[2017-07-12 22:39] LABS: ALT 8 U/L (7-52); AST 12 U/L (13-39); Albumin 3.6 g/dL (3.2-5.2); Alkaline Phosphatase 52 U/L (34-104); Anion Gap 3 mmol/L (2-11); Blood Urea Nitrogen 17 mg/dL (6-24); CO2 Carbon Dioxide 29 mmol/L (22-32); Calcium 8.8 mg/dL (8.6-10.3); Chloride 103 mmol/L (101-111); EGFR African American 87.3 (>60); EGFR Non-African American 67.9 (>60); Globulin 3.1 g/dL (2-4); Glucose 101 mg/dL (70-100); Potassium 3.9 mmol/L (3.5-5.0); Sodium 135 mmol/L (133-145); Total Protein 6.7 g/dL (6.4-8.9)
[2017-07-12 23:02] LABS: Acetaminophen < 15 mcg/mL; Alcohol < 10 mg/dL (<10); Salicylate < 2.50 mg/dL (<30)
[2017-07-12 23:09] LABS: TSH (Thyroid Stimulating Horm) 0.19 mcIU/mL (0.34-5.60)
[2017-07-12 23:19] LABS: Urine Bacteria Absent (Absent); Urine Bilirubin Negative (Negative); Urine Glucose Negative (Negative); Urine Nitrite Negative (Negative)
[2017-07-12 23:32] LABS: Benzodiazepine Urine Screen None Detected (None Detect)
[2017-07-13 02:34] VITALS: BP 115/67
== END 2017-07-13 02:45 | disposition home or self-care (01) ==
LOC: ED 21:42
DX: F43.20 Adjustment disorder, unspecified (principal); Z79.01 Long term (current) use of anticoagulants; Z87.891 Personal history of nicotine dependence; Z86.79 Personal history of other diseases of the circulatory system
CPT/HCPCS: 36415; 80053; 80307; 80320; 80329; 81003; 81015; 84443; 85025; 87086; 99285; G0480

== ENCOUNTER 2017-08-07 22:44 | Emergency (ER) | payer MEDICARE, MEDICAID ==
[2017-08-07] MEDS ORDERED: Tetan/Diph/Pertus SYR(Tdap)* 0.5 ML SYR(BOOSTRIX) use SYR IM ONE (23:48)
--- NOTE | 2017-08-07 23:50 | ED ---
Laceration/Wound HPI - HPI Summary HPI Summary: 82F presents with left middle finger avulsion. She cut her finger on a knife when cutting an orange. She does not know when her last tetanus was. She is on xarelto and the area bleed alot until the nurse at her assisted living placed a pressure dressing. She has minimal pain. She is right handed. She has full ROM of her finger. - History of Current Complaint Stated Complaint: LT MIDDLE FINGER LAC Time Seen by Provider: 08/07/17 23:32 Pain Intensity: 97 - Additional Pertinent History Primary Care Physician: [id number] - Allergy/Home Medications Allergies/Adverse Reactions: Allergies Allergy/AdvReac Type Severity Reaction Status Date / Time Erythromycin Allergy Difficulty Verified 02/08/17 09:19 Breathing/Wheezing Latex Allergy Difficulty Verified 02/08/17 09:19 Breathing/Wheezing Lovastatin Allergy Difficulty Verified 02/08/17 09:19 Breathing/Wheezing PMH/Surg Hx/FS Hx/Imm Hx Endocrine/Hematology History: Reports: Hx Anticoagulant Therapy - xarelto 15mg q day, Hx Thyroid Disease Denies: Hx Diabetes - c Cardiovascular History: Reports: Hx Hypertension, Other Cardiovascular Problems/ Disorders - AFIB Denies: Hx Congestive Heart Failure, Hx Deep Vein Thrombosis, Hx Myocardial Infarction, Hx Pacemaker/ICD Respiratory History: Reports: Hx Asthma Denies: Hx Chronic Obstructive Pulmonary Disease (COPD), Hx Lung Cancer, Hx Pneumonia, Hx Pulmonary Embolism GI History: Reports: Hx Ulcer Denies: Hx Gall Bladder Disease, Hx Gastrointestinal Bleed, Hx Urosepsis History: Denies: Hx Kidney Stones, Hx Renal Disease Musculoskeletal History: Reports: Other Musculoskeletal History - spinal fusion at 19 years old Sensory History: Reports: Hx Contacts or Glasses, Hx Hearing Aid Opthamlomology History: Reports: Hx Contacts or Glasses Neurological History: Denies: Hx Dementia, Hx Migraine, Hx Seizures, Hx Transient Ischemic Attacks (TIA) Psychiatric History: Reports: Hx Anxiety, Hx Depression Denies: Hx Panic Disorder, Hx Schizophrenia, Hx Bipolar Disorder - Surgical History Surgery Procedure, Year, and Place: spinal fusion 195, [id number], hernia 1988 2001,left knee arthroscopy 2003,left shoulder rct 2004, [id number], thumb 2008 & 2012 Hx Anesthesia Reactions: No Infectious Disease History: No Infectious Disease History: Denies: Hx Clostridium Difficile, Hx Hepatitis, Hx Human Immunodeficiency Virus (HIV), Hx of Known/Suspected MRSA, Hx Shingles, Hx Tuberculosis, Hx Known/ Suspected VRE, Hx Known/Suspected VRSA, History Other Infectious Disease, Traveled Outside the [place] in Last 30 Days - Family History Known Family History: Positive: Cardiac Disease, Hypertension, Diabetes - Social History Alcohol Use: None Hx Substance Use: No Substance Use Type: Reports: None Hx Tobacco Use: Yes Smoking Status (MU): Former Smoker Type: Cigarettes Have You Smoked in the Last Year: Yes Review of Systems Negative: Fever Negative: Chest Pain Negative: Shortness Of Breath Positive: Other - left middle finger laceration All Other Systems Reviewed And Are Negative: Yes Physical Exam Triage Information Reviewed: Yes Vital Signs On Initial Exam: Initial Vitals Temp Pulse Resp BP Pulse Ox 97.6 F 114 16 112/69 97 08/07/17 22:51 08/07/17 22:51 08/07/17 22:51 08/07/17 22:51 08/07/17 22:51 Vital Signs Reviewed: Yes Appearance: Positive: Well-Appearing Skin: Positive: Warm, Dry, Other - 1cm by 1/2cm avulsion on tip of left middle finger with no active bleeding Head/Face: Positive: Normal Head/Face Inspection Eyes: Positive: Normal, Conjunctiva Clear Respiratory/Lung Sounds: Positive: Clear to Auscultation, Breath Sounds Present Cardiovascular: Positive: Normal, RRR Musculoskeletal: Positive: Strength/ROM Intact - left middle finger, Other - good pulses, capillary refill<2 secs Neurological: Positive: Normal Psychiatric: Positive: Normal Procedures - Laceration/Wound Repair 1 Location: Other - left middle finger Description: Irregular Length, Depth and Shape: 1cm by 1/2cm avulsion Irrigated w/ Saline (ccs): 100 Closure: Skin Adhesive Sterile Dressing Applied?: No - xeroform, gauze, coband Diagnostics - Vital Signs Vital Signs Temp Pulse Resp BP Pulse Ox 08/07/17 22:51 97.6 F 114 16 112/69 97 - Laboratory Lab Statement: Any lab studies that have been ordered have been reviewed, and results considered in the medical decision making process. Laceration Repair Course/Dx - Course Course Of Treatment: 82F presents with left middle finger avulsion. She cut her finger on a knife when cutting an orange. She does not know when her last tetanus was. She is on xarelto and the area bleed alot until the nurse at her assisted living placed a pressure dressing. She has minimal pain. She is right handed. She has full ROM of her finger. on exam has 1cm by 1/2cm avulsion at tip of left middle finger. cleaned and placed glue and sterristrip. gave tetanus. patient understand and agrees with plan. - Differential Dx Differental Diagnoses: Abrasion, Avulsion, Laceration - Clinical Impression Provider Diagnoses: Skin avulsion Discharge - Discharge Plan Condition: Good Disposition: HOME Patient Education Materials: Skin Avulsion (ED), Skin Adhesive Care (ED) Referrals: Billy Joseph MD [Primary Care Provider] - Additional Instructions: Place ice on area Take Tylenol for pain as needed every 6 hours Keep dry for 24 hours Glue will fall off on own Keep bandage on area, change once a day Return to ED if develop any signs of infection or any new or worsening symptoms
[2017-08-08 01:46] VITALS: BP 118/69
== END 2017-08-08 01:53 | disposition home or self-care (01) ==
LOC: ED 22:44
DX: S61.213A Laceration without foreign body of left middle finger without damage to nail, initial encounter (principal); W26.0XXA Contact with knife, initial encounter; Y92.9 Unspecified place or not applicable; Z87.891 Personal history of nicotine dependence
CPT/HCPCS: 90471; 90715; 99282

== ENCOUNTER 2017-09-29 21:43 | Observation (INO) | payer MEDICARE, MEDICAID ==
[2017-09-29] MEDS ORDERED: Metoprolol Tartrate IV* 1 MG/ML 5 ML VIAL IV ONE (22:05)
[2017-09-29 22:28] LABS: ABS Basophils 0 10^3/ul (0-0.2); ABS Eosinophils 0.2 10^3/ul (0-0.6); ABS Monocytes 0.8 10^3/ul (0-0.8); ABS Neutrophils 4.4 10^3/ul (1.5-7.7); ABS Nucleated RBC 0 10^3/ul; Eosinophil % 3.2 % (0-6); Hematocrit 33 % (35-47); Lymphocyte % 26.7 % (25-47); Mean Corpuscular HGB Conc 33 g/dl (31-36); Mean Corpuscular Hemoglobin 29 pg (27-31); Mean Corpuscular Volume 88 fL (80-97); Mean Platelet Volume 7 um3 (7.4-10.4); Nucleated Red Blood Cells % 0; Platelet Count 257 10^3/ul (150-450); Red Blood Count 3.75 10^6/ul (4.0-5.4); Red Cell Distribution Width 16 % (10.5-15); White Blood Count 7.5 10^3/ul (3.5-10.8)
[2017-09-29 22:36] LABS: INR 1.43 (0.77-1.02)
[2017-09-29 22:44] LABS: EGFR Non-African American 55.1 (>60)
[2017-09-29] MEDS ORDERED: Metoprolol Tartrate TAB* 50 mg PO ONE (23:03)
[2017-09-29] MEDS ORDERED: Benzocaine/Menthol LOZ* 1 LOZENGE MT PRN (23:40)
[2017-09-29] MEDS ORDERED: oxyCODONE TAB* 5 MG TAB PO PRN (23:42)
[2017-09-29] MEDS ORDERED: Albuterol HFA INHALER* 8 gm MDI INH PRN (23:42)
[2017-09-29] MEDS ORDERED: Docusate CAP* 100 MG PO PRN (23:42)
[2017-09-29] MEDS ORDERED: Artificial Tears* 15 ML BTL BOTH EYES PRN (23:42)
[2017-09-29] MEDS ORDERED: Melatonin (NF) 3 MG TAB PO PRN (23:44)
[2017-09-29] MEDS ORDERED: Acetaminophen TAB* 325 MG PO PRN (23:52)
[2017-09-30] MEDS ORDERED: Haloperidol INJ IV/IM* 5 MG/ML AMP ONE (02:22)
[2017-09-30] MEDS ORDERED: Haloperidol INJ IV/IM* 5 MG/ML AMP IM ONE (03:00)
--- NOTE | 2017-09-30 03:07 | PN ---
Progress Note - Progress Note Date of Service: 09/30/17 Note: I was notified by nursing the patient became very irate and agitated after arriving to the floor. An aide was in the room to try to settle her down however the patient escalated and became very verbally abusive to staff. Upon my arrival the patient was yelling. She absolutely refused to sit down or lie down because I asked her to. At one point she stated she wanted to "punch me in the face." She stated she would not leave the hospital if we left her alone as she wanted to know why she was having rectal bleeding and she said she had no where to go in the middle of the night. She would not let me call her daughter who lives locally to discuss the plan of care. It was agreed upon that myself, nursing and security would leave her alone in her room if she stopped yelling and rested. She was felt to be stable on her feet and safe to be alone in her room. Her door will be monitored for her trying to elope.
--- NOTE | 2017-09-30 04:05 | ED ---
Raf Strickland Jennifer, scribed for Deo Cyr MD on 09/29/17 at 2158 . GI/ HPI - HPI Summary HPI Summary: The patient is an 82 year old female who presents with rectal bleeding that began this morning at 09:15. The patient has a colostomy bag, but there is no blood in the bag. She reports she felt like she had to have a bowel movement but couldnt. She sat on the toilet and saw a blood clot and stream of blood. She denies it was vaginal bleeding. The patient is taking the blood thinner, Xarelto. She additionally denies chest pain, shortness of breath, and abdominal pain. The patient lives in [facility]. - History of Current Complaint Time Seen by Provider: 09/29/17 21:47 Stated Complaint: RECTAL BLEEDING Hx Obtained From: Patient Onset/Duration: Started Hours Ago - This morning at 09:15, Started Days Ago, Still Present Severity: Mild Current Severity: Mild Associated Signs and Symptoms: Positive: Other: - Rectal bleeding. NEGATIVE: chest pain, shortness of breath, abdominal pain. Additional Signs & Symptoms: Positive: Other: - Colostomy bag Aggravating Factor(s): Nothing Alleviating Factor(s): Nothing - Additional Pertinent History Primary Care Physician: [id number] - Allergy/Home Medications Allergies/Adverse Reactions: Allergies Allergy/AdvReac Type Severity Reaction Status Date / Time erythromycin base Allergy Difficulty Verified 09/28/17 12:56 Breathing/Wheezing gluten Allergy Unknown Verified 09/28/17 12:56 Reaction Details latex Allergy Difficulty Verified 09/28/17 12:56 Breathing/Wheezing lovastatin Allergy Difficulty Verified 09/28/17 12:56 Breathing/Wheezing Home Medications: Home Medications Acetaminophen [Acetaminophen Extra Strength] 500 mg PO Q4H PRN MDD 2,000 mg [History Confirmed 09/29/17] Albuterol HFA INHALER* [Ventolin HFA Inhaler*] 1 puff INH Q4H PRN 09/29/17 [ History Confirmed 09/29/17] Artificial Tears* 15 ML BTL [Polyvinyl Alcohol 1.4% OPTH*] 1 drop BOTH EYES Q2H PRN 09/29/17 [History Confirmed 09/29/17] Cholecalciferol TAB* [Vitamin D TAB*] 2,000 unit PO DAILY 09/29/17 [History Confirmed 09/29/17] Cyanocobalamin TAB* [Vitamin B12 TAB*] 1,000 mcg PO DAILY 09/29/17 [History Confirmed 09/29/17] Lutein/Zeaxanthin [Ocuvite Lutein 25 25-5 mg] 1 cap PO BID 09/29/17 [History Confirmed 09/29/17] Magnesium Carb/Aluminum Hydrox [Cvs Heartburn Relief Chew Tab] 1 each PO DAILY 09/29/17 [History Confirmed 09/29/17] Melatonin (NF) [Meladox] 5 mg PO BEDTIME PRN 09/29/17 [History Confirmed ] Ondansetron TAB* [Zofran 4 MG Tab*] 4 mg PO Q6H PRN 09/29/17 [History Confirmed 09/29/17] Polyethylene Glycol 3350* [Miralax*] 17 gm PO DAILY 09/29/17 [History Confirmed 09/29/17] Rivaroxaban TAB(*) [Xarelto 15 mg(*)] 15 mg PO DAILY 09/29/17 [History Confirmed 09/29/17] Simvastatin TAB(NF) [Zocor(NF)] 20 mg PO 1700 09/29/17 [History Confirmed ] PMH/Surg Hx/FS Hx/Imm Hx Endocrine/Hematology History: Reports: Hx Anticoagulant Therapy - xarelto 15mg q day, Hx Thyroid Disease Denies: Hx Diabetes - c Cardiovascular History: Reports: Hx Atrial Fibrillation, Hx Hypertension, Other Cardiovascular Problems/Disorders - AFIB Denies: Hx Congestive Heart Failure, Hx Deep Vein Thrombosis, Hx Myocardial Infarction, Hx Pacemaker/ICD Respiratory History: Reports: Hx Asthma Denies: Hx Chronic Obstructive Pulmonary Disease (COPD), Hx Lung Cancer, Hx Pneumonia, Hx Pulmonary Embolism GI History: Reports: Hx Ulcer Denies: Hx Gall Bladder Disease, Hx Gastrointestinal Bleed, Hx Urosepsis History: Denies: Hx Kidney Stones, Hx Renal Disease Musculoskeletal History: Reports: Other Musculoskeletal History - spinal fusion at 19 years old Sensory History: Reports: Hx Contacts or Glasses, Hx Hearing Aid Opthamlomology History: Reports: Hx Contacts or Glasses Neurological History: Denies: Hx Dementia, Hx Migraine, Hx Seizures, Hx Transient Ischemic Attacks (TIA) Psychiatric History: Reports: Hx Anxiety, Hx Depression Denies: Hx Panic Disorder, Hx Schizophrenia, Hx Bipolar Disorder - Surgical History Surgery Procedure, Year, and Place: spinal fusion 1954, [id number], hernia 1988 2001,left knee arthroscopy 2003,left shoulder rct 2004, [id number], thumb 2008 & 2011 Hx Anesthesia Reactions: No Infectious Disease History: Denies: Hx Clostridium Difficile, Hx Hepatitis, Hx Human Immunodeficiency Virus (HIV), Hx of Known/Suspected MRSA, Hx Shingles, Hx Tuberculosis, Hx Known/ Suspected VRE, Hx Known/Suspected VRSA, History Other Infectious Disease - Family History Known Family History: Positive: Cardiac Disease, Hypertension, Diabetes - Social History Alcohol Use: None Hx Substance Use: No Substance Use Type: Reports: None Hx Tobacco Use: Yes Smoking Status (MU): Former Smoker Type: Cigarettes Have You Smoked in the Last Year: Yes Review of Systems Negative: Chest Pain Negative: Shortness Of Breath Positive: Other - Rectal bleeding, colostomy bag. Negative: Abdominal Pain All Other Systems Reviewed And Are Negative: Yes Physical Exam - Summary Physical Exam Summary: Appearance: Well appearing, no pain distress Skin: warm, dry, reflects adequate perfusion Head/face: normal Eyes: EOMI, YANET ENT: normal Neck: supple, non-tender Respiratory: CTA, breath sounds present Cardiovascular: Tachycardic. Irregular rhythm. pulses symmetrical Abdomen: non-tender, soft. Midline surgical scar on abdomen. LLQ colostomy pouch with liquid stool in bag. Bowel: Normal bowel sounds. Rectal exam - Shallow pouch, ring in back side of it , red blood. Musculoskeletal: normal, strength/ROM intact Neuro: normal, sensory motor intact, A&Ox3 Triage Information Reviewed: Yes Vital Signs On Initial Exam: Initial Vitals Temp Pulse Resp BP Pulse Ox 37.1 C 104 14 133/78 97 09/29/17 21:45 09/29/17 21:45 09/29/17 21:45 09/29/17 21:45 09/29/17 21:45 Vital Signs Reviewed: Yes Diagnostics - Vital Signs Vital Signs Temp Pulse Resp BP Pulse Ox 09/29/17 23:00 95 18 95/53 90 09/29/17 22:43 107 15 113/71 95 09/29/17 22:30 129 23 109/64 95 09/29/17 22:00 112 16 109/52 96 09/29/17 21:54 119 17 96 02/21/18 21:52 133/78 09/29/17 21:45 37.1 C 104 14 133/78 97 - Laboratory Lab Results: Lab Results 09/29/17 09/29/17 09/29/17 Range/Units 22:17 22:17 22:17 WBC 7.5 (3.5-10.8) 10^3/ul RBC 3.75 L (4.0-5.4) 10^6/ul Hgb 11.0 L (12.0-16.0) g/dl Hct 33 L (35-47) % MCV 88 (80-97) fL MCH 29 (27-31) pg MCHC 33 (31-36) g/dl RDW 16 H (10.5-15) % Plt Count 257 (150-450) 10^3/ul MPV 7 L (7.4-10.4) um3 Neut % (Auto) 59.3 (38-83) % Lymph % (Auto) 26.7 (25-47) % [place] % (Auto) 10.5 H (1-9) % Eos % (Auto) 3.2 (0-6) % Baso % (Auto) 0.3 (0-2) % Absolute Neuts (auto) 4.4 (1.5-7.7) 10^3/ul Absolute Lymphs (auto) 2.0 (1.0-4.8) 10^3/ul Absolute Monos (auto) 0.8 (0-0.8) 10^3/ul Absolute Eos (auto) 0.2 (0-0.6) 10^3/ul Absolute Basos (auto) 0 (0-0.2) 10^3/ul Absolute Nucleated RBC 0 10^3/ul Nucleated RBC % 0 INR (Anticoag Therapy) 1.43 H (0.77-1.02) APTT 35.7 (26.0-36.3) seconds Sodium 137 (133-145) mmol/L Potassium 4.0 (3.5-5.0) mmol/L Chloride 105 (101-111) mmol/L Carbon Dioxide 27 (22-32) mmol/L Anion Gap 5 (2-11) mmol/L BUN 17 (6-24) mg/dL Creatinine 0.97 H (0.51-0.95) mg/dL Est GFR ( Amer) 70.9 (>60) Est GFR (Non-Af Amer) 55.1 (>60) BUN/Creatinine Ratio 17.5 (8-20) Glucose 106 H (70-100) mg/dL Calcium 9.0 (8.6-10.3) mg/dL Total Bilirubin 0.40 (0.2-1.0) mg/dL AST 12 L (13-39) U/L ALT 8 (7-52) U/L Alkaline Phosphatase 58 (34-104) U/L Troponin I 0.02 (<0.04) ng/mL Total Protein 6.7 (6.4-8.9) g/dL Albumin 3.4 (3.2-5.2) g/dL Globulin 3.3 (2-4) g/dL Albumin/Globulin Ratio 1.0 (1-3) Blood Type Antibody Screen 09/29/17 Range/Units 22:17 WBC (3.5-10.8) 10^3/ul RBC (4.0-5.4) 10^6/ul Hgb (12.0-16.0) g/dl Hct (35-47) % MCV (80-97) fL MCH (27-31) pg MCHC (31-36) g/dl RDW (10.5-15) % Plt Count (150-450) 10^3/ul MPV (7.4-10.4) um3 Neut % (Auto) (38-83) % Lymph % (Auto) (25-47) % [place] % (Auto) (1-9) % Eos % (Auto) (0-6) % Baso % (Auto) (0-2) % Absolute Neuts (auto) (1.5-7.7) 10^3/ul Absolute Lymphs (auto) (1.0-4.8) 10^3/ul Absolute Monos (auto) (0-0.8) 10^3/ul Absolute Eos (auto) (0-0.6) 10^3/ul Absolute Basos (auto) (0-0.2) 10^3/ul Absolute Nucleated RBC 10^3/ul Nucleated RBC % INR (Anticoag Therapy) (0.77-1.02) APTT (26.0-36.3) seconds Sodium (133-145) mmol/L Potassium (3.5-5.0) mmol/L Chloride (101-111) mmol/L Carbon Dioxide (22-32) mmol/L Anion Gap (2-11) mmol/L BUN (6-24) mg/dL Creatinine (0.51-0.95) mg/dL Est GFR ( Amer) (>60) Est GFR (Non-Af Amer) (>60) BUN/Creatinine Ratio (8-20) Glucose (70-100) mg/dL Calcium (8.6-10.3) mg/dL Total Bilirubin (0.2-1.0) mg/dL AST (13-39) U/L ALT (7-52) U/L Alkaline Phosphatase (34-104) U/L Troponin I (<0.04) ng/mL Total Protein (6.4-8.9) g/dL Albumin (3.2-5.2) g/dL Globulin (2-4) g/dL Albumin/Globulin Ratio (1-3) Blood Type A Positive Antibody Screen Negative Result Diagrams: 09/29/17 22:17 09/29/17 22:17 Lab Statement: Any lab studies that have been ordered have been reviewed, and results considered in the medical decision making process. - EKG 22:13 EKG Rhythm: Atrial Fibrillation - [address] Segment: Non-Specific EKG Interpretation: Normal axis, LVH criteria, Long QTC at 500 ms Re-Evaluation - Re-Evaluation First Eval Re-Evaluation Time: 22:51 Change: Improved Comment: Heart rate is now controlled in the 90s. She is not having more bleeding. GIGU Course/Dx - Course Course Of Treatment: Pt with rectal pouch bleeding after diverting colostomy. On Xarelto. Will hold. GI in am. Also rapid afib, rate controlled here with IV beta eulogio. Will given oral as well and admit to tele. Blood counts stable. - Diagnoses Provider Diagnoses: Atrial fibrillation, Rectal bleeding, Adverse effect of anticoagulant - Critical Care Time Critical Care Time: 30-74 min - exclusive of separately billable procedures Discharge - Discharge Plan Condition: Fair Disposition: ADMITTED TO [facility] documentation as recorded by the Raf dean Jennifer accurately reflects the service I personally performed and the decisions made by me, Deo Cyr MD.
--- NOTE | 2017-09-30 05:59 | HP ---
CC: Dr. Joseph * HISTORY AND PHYSICAL: DATE OF ADMISSION: 09/29/17 PRIMARY CARE PROVIDER: Dr. Joseph CHIEF COMPLAINT: Rectal bleeding. HISTORY OF PRESENT ILLNESS: Ms. Juarez is an 82-year-old female, well known to the hospitalist service from multiple previous hospitalizations, who presents to the emergency room with complaints of rectal bleeding. The patient states over the last couple of months, she has had 3 to 4 episodes, where she will pass a clot from her rectum followed by oozing/dripping of blood for some time, which will then spontaneously stopped on its own. The patient states that earlier on the evening of admission, patient passed a blood clot and then began passing liquid blood. Additionally, she feels rectal discomfort. She has not notified any providers of the bleeding episodes. She has not seen anybody for this. The patient was hesitant to come to the emergency room today because she is scheduled for a cataract extraction this coming Wednesday, which she does not want to miss out on that. Upon presentation to the emergency room, the patient was found to be in rapid atrial fibrillation. The patient denied any chest pain or palpitations. She did not realize that her heart rate was so fast. PAST MEDICAL HISTORY: 1. Atrial fibrillation, on Xarelto. 2. Depression. 3. Hypothyroidism. 4. GERD. 5. History of cardiomyopathy. 6. CAD. 7. Hypertension. 8. Mild cognitive impairment. 9. Status post rectal prolapse repair with resultant complications requiring colostomy placement. 10. Hyperlipidemia. 11. Osteoarthritis. 12. Hypothyroidism. 13. Celiac disease. 14. COPD. 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 PAST SURGICAL HISTORY: Colostomy placement. MEDICATIONS: 1. Ativan 0.5 mg p.o. q. 6 hours p.r.n. anxiety. 2. Melatonin 5 mg p.o. q. h.s. p.r.n. insomnia. 3. Tylenol 500 mg p.o. q. 4 hours p.r.n. pain. 4. Artificial Tears 1 drop to both eyes q. 2 hours p.r.n. dryness. 5. Oxycodone 10 mg p.o. q. 12 hours p.r.n. pain. 6. Zofran 4 mg p.o. q. 6 hours p.r.n. nausea. 7. MiraLAX 17 g p.o. daily. 8. Albuterol HFA 2 puffs inhaled q. 4 hours p.r.n. shortness of breath. 9. Xarelto 15 mg p.o. daily. 10. Ranitidine 150 mg p.o. q. h.s. 11. Ocuvite Lutein 1 cap p.o. b.i.d. 12. Colace 100 mg p.o. b.i.d. p.r.n. constipation. 13. Cardizem 60 mg p.o. b.i.d. 14. Vitamin D 2000 units p.o. daily. 15. Vitamin B12 1000 mcg p.o. daily. 16. Heartburn Relief 2 p.o. daily p.r.n. heartburn. 17. Synthroid 88 mcg p.o. daily. 18. Lexapro 20 mg p.o. daily. 19. Simvastatin 20 mg p.o. daily. ALLERGIES: ERYTHROMYCIN, GLUE, LATEX, and LOVASTATIN. FAMILY HISTORY: Mom due to a stroke. Father's history is unknown. She has had 1 sister with colon cancer. SOCIAL HISTORY: The patient lives at [place]. She is a former smoker, she quit in her 30s. Her daughter, Ludy, is her healthcare proxy. REVIEW OF SYSTEMS: A complete 11-system review of systems is obtained. Pertinent positives and negatives are as per HPI and in addition, the patient denies any blood in her colostomy. She does admit to anxiety and depression. Otherwise, review of systems is negative. PHYSICAL EXAMINATION GENERAL: The patient is a well developed elderly female, seen sitting up in the stretcher, in no acute distress. VITAL SIGNS: Blood pressure 95/53, pulse 89, respirations 18, temp 98.8, O2 sat 90% on room air. HEENT: Pupils are equal and round. Extraocular muscles are intact. Oropharynx is clear. Oral mucosa is moist. There is no submandibular, cervical , or supraclavicular adenopathy. Thyroid is not enlarged. No thyroid nodules are noted. PULMONARY: Lungs are clear to auscultation bilaterally. CARDIAC: Normal S1, S2. Heart rate is irregularly irregular with controlled rate. There is a 2/6 systolic murmur heard best at the right upper sternal border. There is no lower extremity edema. ABDOMEN: Bowel sounds are present. Abdomen is soft. She has a mild protuberance around her colostomy. This area is tympanic to percussion. It is nontender. There is a scant amount of stool within the colostomy bag. Per ER provider report, the patient on rectal exam had gross blood noted. MUSCULOSKELETAL: There is no cyanosis or clubbing of the digits. There is full active range of motion of all 4 extremities. NEUROLOGIC: Cranial nerves II through XII are grossly intact. Sensation is intact to light touch throughout. Strength is 5/5 and symmetric both upper and lower extremities bilaterally. PSYCH: The patient is alert. She is oriented x3. She does have some issues with her memory. SKIN: Warm and dry. There are no rashes. DIAGNOSTIC STUDIES/LAB DATA: WBC 7.5, hemoglobin 11.3, hematocrit 33, platelets 257. INR 1.43. Sodium 137, potassium 4.0, chloride 105, CO2 27, BUN 17, creatinine 0.97, glucose 106, calcium 9.0. Bilirubin 0.4, AST 12, ALT 8, alk phos 58. Troponin 0.02. Albumin 3.4. EKG reveals atrial fibrillation with rapid ventricular response with perhaps mild ST depression and inverted T waves in the lateral leads. ASSESSMENT AND PLAN: Ms. Juarez is an 82-year-old female, who is status post colostomy following complications from a rectal prolapse repair; AFib, on Xarelto; hypertension; coronary artery disease; hypothyroidism, and depression and anxiety, who presents to the emergency room with complaints of rectal bleeding. 1. Rectal bleeding. The patient is likely bleeding from the blind rectal pouch. GI evaluation may be warranted for either anoscopy or using a camera to try to identify the source of bleeding. For now, I am going to hold the patient 's Xarelto. A followup CBC will be obtained tomorrow morning. The patient's hemoglobin is right around where she was previously. Her most recent hemoglobin prior to today's was 11.4 on 07/12/17. The patient will be monitored for increased rectal bleeding over night. 2. Rapid atrial fibrillation. The patient has a history of atrial fibrillation. She could not tell that she was in rapid atrial fibrillation on presentation however. The patient received a dose of metoprolol tartrate 5 mg IV x1 and metoprolol tartrate 50 mg p.o. x1 in the emergency room. The patient normally takes diltiazem 60 mg twice daily. She obviously will not receive her diltiazem this evening, but we will resume this tomorrow morning. The patient' s heart rate is now under control. As above, I am going to hold her Xarelto for the rectal bleeding. 3. Hypertension. The patient's blood pressure has been soft in the emergency room, but that is likely secondary to receiving the IV metoprolol. She will be maintained on her usual dose of diltiazem starting tomorrow morning. 4. Hypothyroidism. The patient will continue on Synthroid 88 mcg daily. 5. Depression/anxiety. Continue Lexapro and p.r.n. Ativan. 6. Hyperlipidemia. Continue Zocor. 7. Coronary artery disease. The patient denies any chest pain. She will be maintained on her statin. She is not on an aspirin or beta-eulogio at baseline. 8. DVT prophylaxis. According to the Adult Thrombosis Prophylaxis Risk Factor Assessment Guide, the patient has a total risk factor score of 3 making her high risk. The patient is on Xarelto at baseline. This is going to be held; however, I will not start anticoagulation at this point due to the patient having rectal bleeding. 9. Code status is DNR. TIME SPENT: Sixty five minutes was spent admitting this patient. [id number]/[facility] #: [id number] HAYDEE
[2017-09-30 06:14] LABS: ABS Basophils 0.1 10^3/ul (0-0.2); ABS Eosinophils 0.3 10^3/ul (0-0.6); ABS Lymphocytes 2.1 10^3/ul (1.0-4.8); ABS Monocytes 0.9 10^3/ul (0-0.8); ABS Neutrophils 4.4 10^3/ul (1.5-7.7); ABS Nucleated RBC 0 10^3/ul; Eosinophil % 3.5 % (0-6); Hematocrit 34 % (35-47); Hemoglobin 11.2 g/dl (12.0-16.0); Mean Corpuscular HGB Conc 33 g/dl (31-36); Mean Corpuscular Hemoglobin 29 pg (27-31); Mean Corpuscular Volume 88 fL (80-97); Mean Platelet Volume 8 um3 (7.4-10.4); Nucleated Red Blood Cells % 0.1; Platelet Count 267 10^3/ul (150-450); Red Blood Count 3.83 10^6/ul (4.0-5.4); Red Cell Distribution Width 16 % (10.5-15); White Blood Count 7.8 10^3/ul (3.5-10.8)
[2017-09-30 06:32] LABS: EGFR Non-African American 51.4 (>60)
[2017-09-30] MEDS: CMCS Escitalopram (NF) 10 MG TAB PO SCH (08:17)
[2017-09-30] MEDS: Diltiazem TAB* 60 MG PO SCH ×2 (08:17→20:06)
[2017-09-30] MEDS: Polyethylene Glycol 3350* 17 GM PACKET PO SCH (08:17)
[2017-09-30] MEDS: Levothyroxine TAB* 88 MCG TAB PO SCH (08:17)
--- NOTE | 2017-09-30 08:56 | PN ---
Subjective Date of Service: 09/30/17 Interval History: Bleeding has slowed down. It is sporadic, and was not worse yesterday than at other times. She came to the ED because she wanted to know why she was bleeding. Objective Active Medications: Acetaminophen (Tylenol Tab*) 650 mg PO Q4H PRN PRN Reason: PAIN Albuterol (Ventolin Hfa Inhaler*) 2 puff INH Q4H PRN PRN Reason: SOB/WHEEZING Diltiazem HCl (Cardizem Tab*) 60 mg PO BID REPLACED BY [facility] Last Admin: 09/30/17 08:17 Dose: 60 mg Docusate Sodium (Colace Cap*) 100 mg PO BID PRN PRN Reason: CONSTIPATION Escitalopram Oxalate (Lexapro (Nf)) 20 mg PO DAILY REPLACED BY [facility] Last Admin: 09/30/17 08:17 Dose: 20 mg Famotidine (Pepcid Tab*) 20 mg PO BEDTIME REPLACED BY [facility] PRN Reason: Protocol Levothyroxine Sodium (Synthroid Tab*) 88 mcg PO 0600 REPLACED BY [facility] Last Admin: 09/30/17 08:17 Dose: 88 mcg Lorazepam (Ativan Tab(*)) 0.5 mg PO Q6HR PRN PRN Reason: Moderate Anxiety Melatonin (Melatonin (Nf)) 3 mg PO BEDTIME PRN; Protocol PRN Reason: SLEEP Oxycodone HCl (Roxycodone Tab*) 10 mg PO Q12H PRN PRN Reason: PAIN Polyethylene Glycol/Electrolytes (Miralax*) 17 gm PO DAILY REPLACED BY [facility] Last Admin: 09/30/17 08:17 Dose: 17 gm Polyvinyl Alcohol (Polyvinyl Alcohol 1.4% Opth*) 1 drop BOTH EYES Q2H PRN PRN Reason: DRY EYE Simvastatin (Zocor(Nf)) 20 mg PO 1700 REPLACED BY [facility] Throat Lozenges (Chloraseptic Bessy*) 1 bessy MT Q2H PRN PRN Reason: SORE THROAT Vital Signs - 8 hr 09/30/17 04:16 Temperature 97.8 F Pulse Rate 79 Respiratory 16 Rate Blood Pressure 110/70 (mmHg) O2 Sat by Pulse 97 Oximetry Oxygen Devices in Use Now: None Appearance: Alert, sitting on the edge of her bed. Somewhat irritable but otherwise looks comfortable. Eyes: No Scleral Icterus Neck: NL Appearance and Movements; NL JVP, No Thyroid Enlargement, Masses Respiratory: Symmetrical Chest Expansion and Respiratory Effort, Clear to Auscultation, Clear to Percussion Cardiovascular: NL Sounds; No Murmurs; No JVD, RRR, No Edema, - Extremities: No Edema, No Clubbing, Cyanosis, - Skin: No Rash or Ulcers, No Nodules or Sclerosis, - Neurological: Alert and Oriented x 3, NL Sensation Result Diagrams: 09/30/17 05:24 09/30/17 05:24 Additional Lab and Data: Lab Results 09/29/17 09/29/17 09/29/17 Range/Units 22:17 22:17 22:17 WBC 7.5 (3.5-10.8) 10^3/ul RBC 3.75 L (4.0-5.4) 10^6/ul Hgb 11.0 L (12.0-16.0) g/dl Hct 33 L (35-47) % MCV 88 (80-97) fL MCH 29 (27-31) pg MCHC 33 (31-36) g/dl RDW 16 H (10.5-15) % Plt Count 257 (150-450) 10^3/ul MPV 7 L (7.4-10.4) um3 Neut % (Auto) 59.3 (38-83) % Lymph % (Auto) 26.7 (25-47) % [place] % (Auto) 10.5 H (1-9) % Eos % (Auto) 3.2 (0-6) % Baso % (Auto) 0.3 (0-2) % Absolute Neuts (auto) 4.4 (1.5-7.7) 10^3/ul Absolute Lymphs (auto) 2.0 (1.0-4.8) 10^3/ul Absolute Monos (auto) 0.8 (0-0.8) 10^3/ul Absolute Eos (auto) 0.2 (0-0.6) 10^3/ul Absolute Basos (auto) 0 (0-0.2) 10^3/ul Absolute Nucleated RBC 0 10^3/ul Nucleated RBC % 0 INR (Anticoag Therapy) 1.43 H (0.77-1.02) APTT 35.7 (26.0-36.3) seconds Sodium 137 (133-145) mmol/L Potassium 4.0 (3.5-5.0) mmol/L Chloride 105 (101-111) mmol/L Carbon Dioxide 27 (22-32) mmol/L Anion Gap 5 (2-11) mmol/L BUN 17 (6-24) mg/dL Creatinine 0.97 H (0.51-0.95) mg/dL Est GFR ( Amer) 70.9 (>60) Est GFR (Non-Af Amer) 55.1 (>60) BUN/Creatinine Ratio 17.5 (8-20) Glucose 106 H (70-100) mg/dL Calcium 9.0 (8.6-10.3) mg/dL Total Bilirubin 0.40 (0.2-1.0) mg/dL AST 12 L (13-39) U/L ALT 8 (7-52) U/L Alkaline Phosphatase 58 (34-104) U/L Troponin I 0.02 (<0.04) ng/mL Total Protein 6.7 (6.4-8.9) g/dL Albumin 3.4 (3.2-5.2) g/dL Globulin 3.3 (2-4) g/dL Albumin/Globulin Ratio 1.0 (1-3) Blood Type Antibody Screen 09/29/17 Range/Units 22:17 WBC (3.5-10.8) 10^3/ul RBC (4.0-5.4) 10^6/ul Hgb (12.0-16.0) g/dl Hct (35-47) % MCV (80-97) fL MCH (27-31) pg MCHC (31-36) g/dl RDW (10.5-15) % Plt Count (150-450) 10^3/ul MPV (7.4-10.4) um3 Neut % (Auto) (38-83) % Lymph % (Auto) (25-47) % [place] % (Auto) (1-9) % Eos % (Auto) (0-6) % Baso % (Auto) (0-2) % Absolute Neuts (auto) (1.5-7.7) 10^3/ul Absolute Lymphs (auto) (1.0-4.8) 10^3/ul Absolute Monos (auto) (0-0.8) 10^3/ul Absolute Eos (auto) (0-0.6) 10^3/ul Absolute Basos (auto) (0-0.2) 10^3/ul Absolute Nucleated RBC 10^3/ul Nucleated RBC % INR (Anticoag Therapy) (0.77-1.02) APTT (26.0-36.3) seconds Sodium (133-145) mmol/L Potassium (3.5-5.0) mmol/L Chloride (101-111) mmol/L Carbon Dioxide (22-32) mmol/L Anion Gap (2-11) mmol/L BUN (6-24) mg/dL Creatinine (0.51-0.95) mg/dL Est GFR ( Amer) (>60) Est GFR (Non-Af Amer) (>60) BUN/Creatinine Ratio (8-20) Glucose (70-100) mg/dL Calcium (8.6-10.3) mg/dL Total Bilirubin (0.2-1.0) mg/dL AST (13-39) U/L ALT (7-52) U/L Alkaline Phosphatase (34-104) U/L Troponin I (<0.04) ng/mL Total Protein (6.4-8.9) g/dL Albumin (3.2-5.2) g/dL Globulin (2-4) g/dL Albumin/Globulin Ratio (1-3) Blood Type A Positive Antibody Screen Negative Assess/Plan/Problems-Billing Assessment: - Patient Problems (1) Rectal prolapse Current Visit: No Status: Acute Code(s): K62.3 - RECTAL PROLAPSE SNOMED Code(s): 92079334 Comment: 02/2017: s/p perineal rectosigmoidectomy complicated by perforation and subsequent take back (on 02/25/17) with resulting diverting colostomy Patient refuses to see Dr. Moore, has seen Dr. House in the office. She has a very poor memory of her medical treatment. Dr. Hatch saw her and she will fup with him in his office. Resume rivaroxaban at home tomorrow. (2) Afib Current Visit: No Status: Chronic Code(s): I48.91 - UNSPECIFIED ATRIAL FIBRILLATION SNOMED Code(s): 01558471 Comment: Rate controlled. Continue diltiazem 60 mg bid at home. Restart rivaroxaban at home. (3) CAD (coronary artery disease) Current Visit: No Status: Chronic Code(s): I25.10 - ATHSCL HEART DISEASE OF [place] CORONARY ARTERY W/O ANG PCTRS SNOMED Code(s): 92202934 Comment: Continue simvastatin at home. To discuss ASA with PCP. (4) Hypothyroidism Current Visit: No Status: Chronic Code(s): E03.9 - HYPOTHYROIDISM, UNSPECIFIED SNOMED Code(s): 35867852 Comment: TSH 0.19 07/21/17, needs fup with PCP. Continue levothyroxine. I am avoiding making any changes in her meds due to her poor memory. She will need assistance at home with any changes in her meds.
[2017-09-30] MEDS: LORazepam TAB(*) 0.5 MG PO PRN (12:11)
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
[2017-09-30] MEDS ORDERED: CMCS Simvastatin TAB(NF) 20 MG TAB PO SCH (17:00)
[2017-09-30] MEDS ORDERED: Famotidine TAB* 20 MG PO SCH (21:00)
[2017-09-30] MEDS ORDERED: Analgesic BALM* 114 GM TOPICAL PRN (23:00)
--- NOTE | 2017-10-01 06:56 | PN ---
Progress Note - Progress Note Date of Service: 09/30/17 Note: Asked to evaluate for rectal bleeding. Pt has had intermittent rectal bleeding for months. Never large amt., not painful. Feels pressure, then passes some clot and mucus. S/P sigmoid colost for leak from [place]meier resection. H/H has been stable for months. I discussed with her, as she is preparing for discharge, I would be happy to see her in the office and evaluate via sigmoidoscopy.
[2017-10-01 08:27] VITALS: BP 106/61
[2017-10-01] MEDS: CMCS Escitalopram (NF) 10 MG TAB PO SCH (08:28)
[2017-10-01] MEDS: Levothyroxine TAB* 88 MCG TAB PO SCH (08:29)
[2017-10-01] MEDS: Diltiazem TAB* 60 MG PO SCH (08:29)
[2017-10-01] MEDS: Polyethylene Glycol 3350* 17 GM PACKET PO SCH (09:00)
[2017-10-01] MEDS: LORazepam TAB(*) 0.5 MG PO PRN (10:38)
--- NOTE | 2017-10-01 11:38 | DS ---
CC: Dr. Hatch DISCHARGE SUMMARY: DATE OF ADMISSION: DATE OF DISCHARGE: 09/30/17 HISTORY OF PRESENT ILLNESS: This 82-year-old woman who came because of rectal bleeding, has been occ urred off and on for months, so I suspect it may have been pretty much since the time of her recent s urgery. She had surgery in February 2017. They wished to be repaired of rectal prolapse; however, there was some complication, perforation, or leakage and she ended up with a colostomy. She describes the bleeding as intermittent every now and then. I do not think it was any heavier, di d not have in the past, but it was decided she really wanted to know what was causing the bleeding an d came to the emergency room. She has significant memory impairment and did not recall having seen Tawnya House in the office, probably had seen other surgeons in the office. She said she has had no surgical followup since her colostomy. She was also very confused about what hospital she had the co lostomy in and whether or not she had had a colonoscopy, which in fact she had in February of 2017. There was no significant bleeding noted. The patient agreed that that was the case. Repeat hemoglob in and hematocrit confirmed this. Her hematocrit went from 33 to 34 overnight. Hemoglobin went from 11.0 to 11.2. She did not get her rivaroxaban on the day of discharge, but will resume this at home . I making no changes in her medications. I am not sure if she is supposed to be on aspirin or not, it was not listed in her med rec and it was not given to her. This can be discussed with her primar care physician. FINAL DIAGNOSES: 1. Rectal bleeding. 2. Atrial fibrillation. 3. Coronary artery disease. 4. Hypothyroidism. 5. Memory impairment. DISCHARGE MEDICATIONS: 1. Diltiazem 60 mg b.i.d. 2. Rivaroxaban 15 mg daily. 3. Lorazepam 0.5 mg every 6 hours p.r.n. 4. Oxycodone 10 mg every 12 hours p.r.n. 5. Ranitidine 150 mg h.s. 6. Levothyroxine 88 mcg daily. 7. Escitalopram 20 mg daily. 8. Docusate 100 mg b.i.d. p.r.n. 9. Acetaminophen 500 mg every 4 hours p.r.n. 10. Artificial tears 1 drop both eyes every 2 hours p.r.n. 11. Ondansetron 4 mg every 6 hours p.r.n. 12. Polyethylene glycol 17 g daily. 13. Albuterol inhaler 1 puff every 4 hours p.r.n. 14. Ocuvite 1 capsule b.i.d. 15. Vitamin D 2000 units daily. 16. Vitamin B12 1000 mcg daily. 17. Magnesium-aluminium hydroxide 2 tablets 1 daily. 18. Simvastatin 20 mg daily. 19. Melatonin 5 mg h.s. p.r.n. [id number]/[facility] #: [id number]
== END 2017-10-01 11:57 | disposition home or self-care (01) ==
LOC: ED 21:43 → MEDTELE 23:40
PROVIDERS: ADMIT Hospitalist; ATTEND Internal Medicine
DX: K62.5 Hemorrhage of anus and rectum (principal); I48.91 Unspecified atrial fibrillation; I25.10 Atherosclerotic heart disease of native coronary artery without angina pectoris; K62.3 Rectal prolapse; E03.9 Hypothyroidism, unspecified; F06.8 Other specified mental disorders due to known physiological condition; F32.9 Major depressive disorder, single episode, unspecified; I42.9 Cardiomyopathy, unspecified; I10 Essential (primary) hypertension; E78.5 Hyperlipidemia, unspecified; J44.9 Chronic obstructive pulmonary disease, unspecified; K90.0 Celiac disease; Z79.899 Other long term (current) drug therapy; Z88.1 Allergy status to other antibiotic agents; Z79.01 Long term (current) use of anticoagulants; Z87.891 Personal history of nicotine dependence
CPT/HCPCS: 36415; 80048; 80053; 84484; 85025; 85610; 85730; 86850; 86900; 86901; 93005; 96374; 99291; A9270-GY; G0378; J1630; J3490

== ENCOUNTER 2018-02-01 10:11 | Emergency (ER) | payer MEDICARE, MEDICAID ==
[2018-02-01] MEDS ORDERED: NS 0.9% 1000 ML* 1,000 ML IV ONE ×2 (10:35→11:02)
[2018-02-01] MEDS ORDERED: Acetaminophen TAB* 325 MG PO ONE (11:10)
[2018-02-01 11:18] LABS: ABS Basophils 0 10^3/ul (0-0.2); ABS Eosinophils 0.1 10^3/ul (0-0.6); ABS Lymphocytes 0.7 10^3/ul (1.0-4.8); ABS Monocytes 0.7 10^3/ul (0-0.8); ABS Neutrophils 5.9 10^3/ul (1.5-7.7); ABS Nucleated RBC 0 10^3/ul; Eosinophil % 1.8 % (0-6); Hematocrit 31 % (35-47); Hemoglobin 10.3 g/dl (12.0-16.0); Lymphocyte % 9.7 % (25-47); Mean Corpuscular HGB Conc 33 g/dl (31-36); Mean Corpuscular Hemoglobin 30 pg (27-31); Mean Corpuscular Volume 90 fL (80-97); Mean Platelet Volume 7.6 um3 (7.4-10.4); Nucleated Red Blood Cells % 0; Platelet Count 255 10^3/ul (150-450); Red Blood Count 3.44 10^6/ul (4.00-5.40); Red Cell Distribution Width 17 % (10.5-15); White Blood Count 7.5 10^3/ul (3.5-10.8)
[2018-02-01 11:24] LABS: INR 1.44 (0.77-1.02)
--- NOTE | 2018-02-01 11:33 | RAD ---
Indication: Fever. Single frontal view of the chest performed at 1120 hours was reviewed. Comparison is made with previous exam dated February 27, 2017. No mediastinal shift is noted. Heart is of normal size and configuration. Lung romero appear clear. IMPRESSION: NO ACTIVE CARDIOPULMONARY DISEASE IS NOTED.
[2018-02-01 11:34] LABS: EGFR Non-African American 49.8 (>60)
[2018-02-01] MEDS ORDERED: Iodixanol* (CONTRAST) 320 MG/ML 100 ML SDV IV ONE (11:40)
[2018-02-01 12:14] LABS: Urine Appearance Clear; Urine Blood Negative (Negative); Urine Color Yellow; Urine Ketones Negative (Negative); Urine Protein Negative (Negative); Urine Specific Gravity 1.019 (1.010-1.030); Urine Urobilinogen Negative (Negative)
[2018-02-01] MEDS ORDERED: Piperacillin/Tazobac ADVAN(*) 3.375 GM in NS 0.9% 100 ML* 100 ML IVPB ONE (13:49)
[2018-02-01] MEDS ORDERED: Lactated Ringers 1000 ml Bag*IV.FLUID IV ONE (13:49)
--- NOTE | 2018-02-01 13:50 | RAD ---
INDICATION: Abdominal pain and low-grade fever. Recent abdominal surgery; colostomy reversal. COMPARISON: May 08, 2017 CT TECHNIQUE: Multidetector CT images were obtained from the lung bases to the ischial tuberosities with 88 mL Visipaque 320 IV and oral contrast. Multiplanar reformation. REPORT: Grossly clear lung bases. Cardiomegaly. Coronary artery calcifications and possible LAD stent. Unremarkable liver. Post cholecystectomy. Negative for biliary dilatation. Moderately severe atrophy of the pancreas. Unremarkable spleen. Negative for CT abnormality of the upper GI or small bowel. Unremarkable RIGHT para midline posterior pelvic appendix. Adjacent phlebolith noted without concern. Sigmoid rectal bowel anastomosis with mild surrounding infiltration of the pelvic fat. No perienteric abscess collection or compelling free air evident. A few diverticula of the sigmoid colon are noted without suggestion of acute inflammatory change. Minimal nonloculated dependent pelvic ascites. Normal adrenal glands. Normal variant RIGHT larger than LEFT extrarenal pelves. Negative for hydronephrosis. Symmetric nephrograms and pyelograms. Small cortical cyst mid pole RIGHT kidney. Negative for suspicious focal renal lesions. Unremarkable nondilated ureters and partially distended urinary bladder. Unremarkable anteverted uterus and adnexal regions. Negative for lymphadenopathy. Atherosclerotic plaque of normal diameter abdominal aorta and iliac arteries noted. Physiologic distention of the IVC. Infraumbilical midline and LEFT anterior inferior abdominal wall fat reticulation, dermal thickening, and subcutaneous emphysema. The infiltrate edematous process extends down to the muscular fascia. At the midline infraumbilical region there is a 2.0 cm AP by 2 cm transverse by 3.3 cm cephalocaudal loculated fluid collection which may represent hematoma, seroma, or possibly abscess. Negative for suspicious focal osseous lesions. 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 Multilevel chronic degenerative spondylosis and facet joint osteoarthritis at the lower thoracic and lumbar sacral spine. IMPRESSION: 1. Sigmoid rectal bowel anastomosis with mild surrounding infiltration of the pelvic fat. No perienteric abscess collection or compelling free air evident. 2. Correlate clinically for superficial soft tissue infection at the midline and LEFT anterior lower abdominal wall. At the midline infraumbilical region there is a 2.0 cm AP by 2 cm transverse by 3.3 cm cephalocaudal loculated fluid collection which may represent hematoma, seroma, or possibly abscess.
[2018-02-01] MEDS ORDERED: Vancomycin(*) 1,000 MG VIAL IVPB SCH (14:00)
[2018-02-01] MEDS ORDERED: NS 0.9% IV SCH (14:45)
[2018-02-01] MEDS ORDERED: Vancomycin(*) 1,000 MG - ED ONCE IVPB ONE ×2 (15:00)
--- NOTE | 2018-02-01 16:37 | ED ---
Jovanna Strickland Simon, scribed for Tani Wilde on 02/01/18 at 1037 . Abdominal Pain/Female - HPI Summary HPI Summary: This patient is an 82 year old F presenting to [facility] with a chief complaint of abd pain. SHx infraumbilical. Pt endorses BM this morning, with no blood noticed, and she denies hematuria. Pt endorses RUE pain, and a mild fever. She notes RUE forearm pain. HPI and prior history limited due to patients dementia. - History of Current Complaint Stated Complaint: ABD PAIN Time Seen by Provider: 02/01/18 10:18 Hx Obtained From: Patient, EMS Onset/Duration: Still Present Timing: Constant Severity Initially: Moderate Severity Currently: Moderate Location: Diffuse Radiates: No Character: Other: - didn't specify Aggravating Factor(s): Other: - open surgical wound, infraumbilical Alleviating Factor(s): Nothing Associated Signs and Symptoms: Positive: Fever. Negative: Blood in Stool, Urinary Symptoms Allergies/Adverse Reactions: Allergies Allergy/AdvReac Type Severity Reaction Status Date / Time erythromycin base Allergy Difficulty Verified 02/01/18 11:22 Breathing/Wheezing gluten Allergy Unknown Verified 02/01/18 11:22 Reaction Details latex Allergy Difficulty Verified 02/01/18 11:22 Breathing/Wheezing lovastatin Allergy Difficulty Verified 02/01/18 11:22 Breathing/Wheezing Home Medications: Home Medications Acetaminophen [Acetaminophen Extra Strength] 500 mg PO Q4H PRN 02/01/18 [ History Confirmed 02/01/18] Albuterol HFA INHALER* [Ventolin HFA Inhaler*] 1 puff INH Q4H PRN 02/01/18 [ History Confirmed 02/01/18] Artificial Tears* 15 ML BTL [Polyvinyl Alcohol 1.4% OPTH*] 1 drop BOTH EYES TID PRN 02/01/18 [History Confirmed 02/01/18] Calcium Carbonate TAB* 500 mg PO DAILY 02/01/18 [History Confirmed 02/01/18] Cholecalciferol TAB* [Vitamin D TAB*] 1,000 unit PO QAM 02/01/18 [History Confirmed 02/01/18] Cyanocobalamin TAB* [Vitamin B12 TAB*] 1,000 mcg PO DAILY 02/01/18 [History Confirmed 02/01/18] Diltiazem TAB* [Cardizem 60 MG Tab*] 60 mg PO BID 02/01/18 [History Confirmed ] Escitalopram (NF) [Lexapro 20 mg (NF)] 20 mg PO DAILY 02/01/18 [History Confirmed 02/01/18] LORazepam TAB(*) [Ativan 0.5 MG TAB (*)] 0.5 mg PO Q6H PRN 02/01/18 [History Confirmed 02/01/18] Levothyroxine TAB* [Synthroid TAB*] 75 mcg PO DAILY 02/01/18 [History Confirmed 02/01/18] Magnesium Oxide [Magnesium] 500 mg PO DAILY 02/01/18 [History Confirmed 02/01/18 ] Melatonin (NF) 5 mg PO BEDTIME PRN 02/01/18 [History Confirmed 02/01/18] Ondansetron TAB* [Zofran 4 MG Tab*] 4 mg PO Q8H PRN 02/01/18 [History Confirmed 02/01/18] Polyethylene Glycol 3350* [Miralax*] 17 gm PO DAILY PRN 02/01/18 [History Confirmed 02/01/18] Psyllium LARON* [Metamucil LARON*] 1 pkt PO DAILY 02/01/18 [History Confirmed ] Ranitidine TAB (NF) [Zantac TAB (NF)] 150 mg PO BEDTIME 02/01/18 [History Confirmed 02/01/18] Rivaroxaban TAB(*) [Xarelto 15 mg(*)] 15 mg PO DAILY 02/01/18 [History Confirmed 02/01/18] Simvastatin TAB(NF) [Zocor(NF)] 20 mg PO 1700 02/01/18 [History Confirmed ] Vit C/E/Zn/Coppr/Lutein/Zeaxan [Preservision Areds 2 Softgel] 1 each PO BID [History Confirmed 02/01/18] oxyCODONE SR TAB(*) [Oxycontin 10 mg (*)] 10 mg PO BID 02/01/18 [History Confirmed 02/01/18] PMH/Surg Hx/FS Hx/Imm Hx Endocrine/Hematology History: Reports: Hx Anticoagulant Therapy - xarelto 15mg q day, Hx Thyroid Disease Denies: Hx Diabetes - c Cardiovascular History: Reports: Hx Atrial Fibrillation, Hx Hypertension, Other Cardiovascular Problems/Disorders - AFIB Denies: Hx Congestive Heart Failure, Hx Deep Vein Thrombosis, Hx Myocardial Infarction, Hx Pacemaker/ICD Respiratory History: Reports: Hx Asthma Denies: Hx Chronic Obstructive Pulmonary Disease (COPD), Hx Lung Cancer, Hx Pneumonia, Hx Pulmonary Embolism GI History: Reports: Hx Ulcer, Other GI Disorders - ostomy Denies: Hx Gall Bladder Disease, Hx Gastrointestinal Bleed, Hx Urosepsis History: Denies: Hx Kidney Stones, Hx Renal Disease Musculoskeletal History: Reports: Hx Arthritis, Other Musculoskeletal History - spinal fusion at 19 years old Sensory History: Reports: Hx Contacts or Glasses, Hx Hearing Aid Opthamlomology History: Reports: Hx Contacts or Glasses Neurological History: Denies: Hx Dementia, Hx Migraine, Hx Seizures, Hx Transient Ischemic Attacks (TIA) Psychiatric History: Reports: Hx Anxiety, Hx Depression Denies: Hx Panic Disorder, Hx Schizophrenia, Hx Bipolar Disorder - Surgical History Surgery Procedure, Year, and Place: spinal fusion 1953, [id number], hernia 1988 2001,left knee arthroscopy 2003,left shoulder rct 2004, [id number], thumb 2009 & 2012, infraumbilical 2018 Hx Anesthesia Reactions: No Infectious Disease History: Denies: Hx Clostridium Difficile, Hx Hepatitis, Hx Human Immunodeficiency Virus (HIV), Hx of Known/Suspected MRSA, Hx Shingles, Hx Tuberculosis, Hx Known/ Suspected VRE, Hx Known/Suspected VRSA, History Other Infectious Disease - Family History Known Family History: Positive: Cardiac Disease, Hypertension, Diabetes - Social History Lives: At [facility] Alcohol Use: None Hx Substance Use: No Substance Use Type: Reports: None Hx Tobacco Use: Yes Smoking Status (MU): Former Smoker Type: Cigarettes Have You Smoked in the Last Year: Yes Review of Systems Positive: Fever Positive: Abdominal Pain - diffuse. Negative: Other - melena, hematochezia Negative: hematuria Positive: Bruising - Right forearm 1x1 cm Neurological: Other - lethargic, confused, dementia All Other Systems Reviewed And Are Negative: Yes - Comments Additional Review of Systems Comments: ROS limited due to pt's dementia. Physical Exam - Summary Physical Exam Summary: Appearance: Ill appearing, no pain distress, lethargic Skin: warm, dry, reflects adequate perfusion, ecchymosis right forearm 1x1 cm Head/face: normal Eyes: EOMI, YANET ENT: normal Neck: supple, non-tender Respiratory: CTA, breath sounds present Cardiovascular: Tachycardic, irregularly irregular rhythm. Abdomen: diffuse abd tenderness, open wound infraumbilical, no discharge, incision over LLQ Bowel: present Musculoskeletal: normal, strength/ROM intact Neuro: confused Triage Information Reviewed: Yes Vital Signs On Initial Exam: Initial Vitals Temp Pulse Resp BP Pulse Ox 101.5 F 114 20 124/77 92 02/01/18 10:41 02/01/18 10:41 02/01/18 10:41 02/01/18 10:41 02/01/18 10:41 Vital Signs Reviewed: Yes Diagnostics - Vital Signs Vital Signs Temp Pulse Resp BP Pulse Ox 02/01/18 16:22 98.3 F 98 02/01/18 16:00 128 22 80 02/01/18 15:01 113 24 120/90 100 02/01/18 15:00 105 16 95 02/01/18 14:30 118 19 109/83 97 02/01/18 14:00 24 02/01/18 13:31 122 25 101/70 96 02/01/18 13:00 115 14 98 02/01/18 12:00 138 21 97 02/01/18 11:14 121 17 110/75 99 02/01/18 11:00 17 02/01/18 10:51 15 02/01/18 10:41 101.5 F 114 20 124/77 92 - Laboratory Lab Results: Lab Results 02/01/18 02/01/18 02/01/18 Range/Units 10:59 10:59 10:59 WBC 7.5 (3.5-10.8) 10^3/ul RBC 3.44 L (4.00-5.40) 10^6/ul Hgb 10.3 L (12.0-16.0) g/dl Hct 31 L (35-47) % MCV 90 (80-97) fL MCH 30 (27-31) pg MCHC 33 (31-36) g/dl RDW 17 H (10.5-15) % Plt Count 255 (150-450) 10^3/ul MPV 7.6 (7.4-10.4) um3 Neut % (Auto) 78.8 (38-83) % Lymph % (Auto) 9.7 L (25-47) % [place] % (Auto) 9.3 H (0-7) % Eos % (Auto) 1.8 (0-6) % Baso % (Auto) 0.4 (0-2) % Absolute Neuts (auto) 5.9 (1.5-7.7) 10^3/ul Absolute Lymphs (auto) 0.7 L (1.0-4.8) 10^3/ul Absolute Monos (auto) 0.7 (0-0.8) 10^3/ul Absolute Eos (auto) 0.1 (0-0.6) 10^3/ul Absolute Basos (auto) 0 (0-0.2) 10^3/ul Absolute Nucleated RBC 0 10^3/ul Nucleated RBC % 0 INR (Anticoag Therapy) (0.77-1.02) APTT (26.0-36.3) seconds Sodium 135 (135-145) mmol/L Potassium 4.0 (3.5-5.0) mmol/L Chloride 99 L (101-111) mmol/L Carbon Dioxide 30 (22-32) mmol/L Anion Gap 6 (2-11) mmol/L BUN 15 (6-24) mg/dL Creatinine 1.06 H (0.51-0.95) mg/dL Est GFR ( Amer) 60.2 (>60) Est GFR (Non-Af Amer) 49.8 (>60) BUN/Creatinine Ratio 14.2 (8-20) Glucose 88 (70-100) mg/dL Lactic Acid (0.5-2.0) mmol/L Calcium 8.7 (8.6-10.3) mg/dL Total Bilirubin 0.90 (0.2-1.0) mg/dL AST 13 (13-39) U/L ALT 9 (7-52) U/L Alkaline Phosphatase 48 (34-104) U/L Troponin I 0.07 H* (<0.04) ng/mL Total Protein 6.4 (6.4-8.9) g/dL Albumin 3.1 L (3.2-5.2) g/dL Globulin 3.3 (2-4) g/dL Albumin/Globulin Ratio 0.9 L (1-3) Lipase < 10 L (11.0-82.0) U/L Urine Color Yellow Urine Appearance Clear Urine pH 5.0 (5-9) Ur Specific [place] 1.019 (1.010-1.030) Urine Protein Negative (Negative) Urine Ketones Negative (Negative) Urine Blood Negative (Negative) Urine Nitrate Negative (Negative) Urine Bilirubin Negative (Negative) Urine Urobilinogen Negative (Negative) Ur Leukocyte Esterase Negative (Negative) Urine Glucose Negative (Negative) Urine Ascorbic Acid * A (Negative) 02/01/18 02/01/18 Range/Units 10:59 10:59 WBC (3.5-10.8) 10^3/ul RBC (4.00-5.40) 10^6/ul Hgb (12.0-16.0) g/dl Hct (35-47) % MCV (80-97) fL MCH (27-31) pg MCHC (31-36) g/dl RDW (10.5-15) % Plt Count (150-450) 10^3/ul MPV (7.4-10.4) um3 Neut % (Auto) (38-83) % Lymph % (Auto) (25-47) % [place] % (Auto) (0-7) % Eos % (Auto) (0-6) % Baso % (Auto) (0-2) % Absolute Neuts (auto) (1.5-7.7) 10^3/ul Absolute Lymphs (auto) (1.0-4.8) 10^3/ul Absolute Monos (auto) (0-0.8) 10^3/ul Absolute Eos (auto) (0-0.6) 10^3/ul Absolute Basos (auto) (0-0.2) 10^3/ul Absolute Nucleated RBC 10^3/ul Nucleated RBC % INR (Anticoag Therapy) 1.44 H (0.77-1.02) APTT 33.9 (26.0-36.3) seconds Sodium (135-145) mmol/L Potassium (3.5-5.0) mmol/L Chloride (101-111) mmol/L Carbon Dioxide (22-32) mmol/L Anion Gap (2-11) mmol/L BUN (6-24) mg/dL Creatinine (0.51-0.95) mg/dL Est GFR ( Amer) (>60) Est GFR (Non-Af Amer) (>60) BUN/Creatinine Ratio (8-20) Glucose (70-100) mg/dL Lactic Acid 0.8 (0.5-2.0) mmol/L Calcium (8.6-10.3) mg/dL Total Bilirubin (0.2-1.0) mg/dL AST (13-39) U/L ALT (7-52) U/L Alkaline Phosphatase (34-104) U/L Troponin I (<0.04) ng/mL Total Protein (6.4-8.9) g/dL Albumin (3.2-5.2) g/dL Globulin (2-4) g/dL Albumin/Globulin Ratio (1-3) Lipase (11.0-82.0) U/L Urine Color Urine Appearance Urine pH (5-9) Ur Specific [place] (1.010-1.030) Urine Protein (Negative) Urine Ketones (Negative) Urine Blood (Negative) Urine Nitrate (Negative) Urine Bilirubin (Negative) Urine Urobilinogen (Negative) Ur Leukocyte Esterase (Negative) Urine Glucose (Negative) Urine Ascorbic Acid (Negative) Result Diagrams: 02/01/18 10:59 02/01/18 10:59 Lab Statement: Any lab studies that have been ordered have been reviewed, and results considered in the medical decision making process. - Radiology CXR Xray Interpretation: No Acute Changes Radiology Interpretation Completed By: Radiologist - No active cardiopulmonary disease noted. Dr. Wilde has reviewed this report. - CT A/P CT Interpretation: Positive (See Comments) CT Interpretation Completed By: Radiologist - 1. Sigmoid rectal bowel anastomosis with mild surrounding infiltration of the pelvic fat. No perienteric abscess collection or compelling free air evident. 2. Correlate clinically for superficial soft tissue infection at the midline and LEFT anterior lower abdominal wall. At the midline infraumbilical region there is a 2.0 cm AP by 2 cm transverse by 3.3 cm cephalocaudal loculated fluid collection which may represent hematoma, seroma, or possibly abscess. Dr. Wilde has reviewed this report. - EKG 1049 Cardiac Rate: Tachycardia - 125 EKG Rhythm: Atrial Fibrillation ST Segment: Non-Specific - ST-T changes EKG Interpretation: Rapid ventricular rate EKG Comparison: Other - ST-T changes Re-Evaluation - Re-Evaluation First Eval Re-Evaluation Time: 13:15 Change: Improved - Now alert Comment: Spoke with and obtained colateral from family. Pt had colostomy reversal surgery, wound reopened last week. Second Eval Re-Evaluation Time: 14:00 Change: Unchanged Comment: Informed family, pt of CT A/P results Abdominal Pain Fem Course/Dx - Course Course Of Treatment: An 82-year-old (F) presents to the ED with a CC of abd pain. (+) fever, abd pain. (-) hematauria, hematochezia. Background of dementia , SHx infraumbilical recently. A CXR was (-). An EKG reveals RVR, AFib, ST-T changes. (+) CT AP (superficial infection, and either hematoma, abscess or seroma). In the ED course, pt was given NaCl, tylenol, visipaque, tazobactam, vancomycin, lactated ringers. Blood work/UA obtained. - Diagnoses Differential Diagnosis: Positive: Bowel Obstruction, Diverticulitis, Other - abd abscess/a fib with rvr Provider Diagnoses: Abdominal abscess, Complication of surgery, Atrial fibrillation with RVR, Sepsis, Troponin level elevated - Provider Notifications Discussed Care Of Patient With: Tomas Cadena MD Time Discussed With Above Provider: 14:45 Instructed by Provider To: Other - accepted admission, transfer put in. - Critical Care Time Critical Care Time: 30-74 min Discharge - Sign-Out/Discharge Documenting (check all that apply): Discharge/Admit/Transfer - transfer - Discharge Plan Condition: Stable Disposition: TRANS HIGHER LVL OF CARE FAC Referrals: Billy Joseph MD [Primary Care Provider] - - Billing Disposition and Condition Condition: STABLE Disposition: Trans Higher Lvl of Care Fac The documentation as recorded by the Jovanna dean Simon accurately reflects the service I personally performed and the decisions made by , Tani Wilde.
[2018-02-01 16:41] VITALS: BP 98/74
== END 2018-02-01 17:14 | disposition short-term general hospital (02) ==
LOC: ED 10:11
DX: T81.4XXA Infection following a procedure, initial encounter (principal); L02.211 Cutaneous abscess of abdominal wall; A41.9 Sepsis, unspecified organism; I48.91 Unspecified atrial fibrillation; R79.89 Other specified abnormal findings of blood chemistry; K63.89 Other specified diseases of intestine; I10 Essential (primary) hypertension; F03.90 Unspecified dementia, unspecified severity, without behavioral disturbance, psychotic disturbance, mood disturbance, and anxiety; E07.9 Disorder of thyroid, unspecified; M19.90 Unspecified osteoarthritis, unspecified site; Z79.01 Long term (current) use of anticoagulants; Z79.899 Other long term (current) drug therapy; Z88.3 Allergy status to other anti-infective agents; Z88.8 Allergy status to other drugs, medicaments and biological substances; Z87.891 Personal history of nicotine dependence
CPT/HCPCS: 36415; 71045; 74177; 80053; 81003; 83605; 83690; 84484; 85025; 85610; 85730; 87040; 93005; 96361; 96365; 96375; 99285; A9270-GY; J2543; J3370; Q9967

== ENCOUNTER 2018-03-23 11:03 | Day surgery (SDC) | payer MEDICARE, MEDICAID ==
[~2018-03-23 11:03] MED LIST: Acetaminophen TAB* 325 MG PO PRN; Buffered Lidocaine 0.9% SYRIN* 5 ML/SYR SYRINGE INTRADERM ONE
[2018-03-23] MEDS ORDERED: Midazolam* 1 MG/ML 2 ML VIAL (2 MG) ONE (12:07)
[2018-03-23 13:17] VITALS: BP 100/67
[2018-03-23] MEDS ORDERED: Proparacaine 0.5% OPHTH.SOL* 15 ML BTL ONE (14:35)
[2018-03-23] MEDS ORDERED: Povidone Iodine 5% OPTH* 30 ML BTL ONE (14:35)
[2018-03-23] MEDS ORDERED: acetaZOLAMIDE TAB* 250 MG ONE (14:35)
[2018-03-23] MEDS ORDERED: Lidocaine 1%* 5 ML VIAL ONE (14:35)
[2018-03-23] MEDS ORDERED: Ketorolac 0.5% OPHTH (NF) 0.5 % 5 ML BTL ONE (14:35)
[2018-03-23] MEDS ORDERED: Phenylephrine 2.5% OPTH.SOL* 2 ML BTL ONE (14:35)
[2018-03-23] MEDS ORDERED: Lidocaine 2% EPI 1:200000 MPF*10-20 ML VIAL ONE (14:35)
[2018-03-23] MEDS ORDERED: Neomycin/Polymy/Dex OPTH.SUSP* MAXITROL 0.1% 5 ML ONE (14:35)
[2018-03-23] MEDS ORDERED: Cyclopentolate 1% OPTH.SOL* 2 ML BTL ONE (14:35)
--- NOTE | 2018-03-23 22:31 | OP ---
OPERATIVE NOTE: DATE OF OPERATION: 03/23/18 - [facility] DATE OF : 37 SURGEON: Alfredo Lima M.D. PREOPERATIVE DIAGNOSIS: Cataract, right eye. POSTOPERATIVE DIAGNOSIS: Cataract, right eye. OPERATIVE PROCEDURE: Extracapsular cataract extraction with intraocular lens implant, right eye. DESCRIPTION OF PROCEDURE: The patient was brought to the operating room after being given 1/2% Alcaine with epinephrine drops in the preoperative area. The eye was prepped and draped in the usual sterile fashion. Sterile drape and eyelid speculum were placed. Again, topical 1/2% Alcaine with epinephrine was given. A paracentesis incision was made at the 9 o'clock position with the No.75 blade. Clear cornea incision 2.2 x 2.2-mm was created at the 12 o'clock position starting at the anterior limbus using the 2.2-mm keratome. The anterior chamber was irrigated with 0.4 mL of 1% non-preservative intracameral lidocaine and filled with DisCoVisc. A capsulorrhexis was completed using the cystotome and the Utrata forceps. Hydrodissection was performed with balanced salt solution. The lens nucleus was removed with the Phacoemulsification handpiece without incident. Cortex was removed with the irrigation-aspiration handpiece. The capsular bag was re-inflated using DisCoVisc and an [id number] 16.5 implant was inserted with the shooter. The irrigation-aspiration handpiece was used to remove all residual DisCoVisc. The eye was refilled with balanced salt solution and the wound checked and found to be watertight. Topical Maxitrol drops were given. [id number]/[facility] #: [id number] [facility]
== END 2018-03-23 13:45 | disposition home or self-care (01) ==
LOC: OREAST 11:03
PROVIDERS: ATTEND Specialist
DX: H25.811 Combined forms of age-related cataract, right eye (principal); H35.3131 Nonexudative age-related macular degeneration, bilateral, early dry stage; H16.223 Keratoconjunctivitis sicca, not specified as Sjogren's, bilateral; I10 Essential (primary) hypertension; I48.91 Unspecified atrial fibrillation; Z79.01 Long term (current) use of anticoagulants; E78.5 Hyperlipidemia, unspecified; K21.9 Gastro-esophageal reflux disease without esophagitis
CPT/HCPCS: A9270-GY; J2250; V2632

== ENCOUNTER 2018-03-30 08:31 | Day surgery (SDC) | payer MEDICARE, MEDICAID ==
[~2018-03-30 08:31] MED LIST changes: +Cyclopentolate 1% OPTH.SOL* 2 ML BTL ONE; +Ketorolac 0.5% OPHTH (NF) 0.5 % 5 ML BTL ONE; +Lidocaine 1%* 5 ML VIAL ONE; +Lidocaine 2% EPI 1:200000 MPF*10-20 ML VIAL ONE; +Neomycin/Polymy/Dex OPTH.SUSP* MAXITROL 0.1% 5 ML ONE; +Phenylephrine 2.5% OPTH.SOL* 2 ML BTL ONE; +Povidone Iodine 5% OPTH* 30 ML BTL ONE; +Proparacaine 0.5% OPHTH.SOL* 15 ML BTL ONE; +acetaZOLAMIDE TAB* 250 MG ONE
[2018-03-30] MEDS ORDERED: Midazolam* 1 MG/ML 2 ML VIAL (2 MG) ONE (10:11)
[2018-03-30 10:58] VITALS: BP 107/68
--- NOTE | 2018-03-30 11:44 | OP ---
DATE OF OPERATION: 03/30/2018. DATE OF : 1935. SURGEON: Alfredo Lima M.D. PREOPERATIVE DIAGNOSIS: Cataract left eye. POSTOPERATIVE DIAGNOSIS: Cataract left eye. OPERATIVE PROCEDURE: Extracapsular cataract extraction with intraocular lens implant left eye. PROCEDURE: The patient was brought to the operating room after being given 1/2% Alcaine with epineph rine drops in the preoperative area. The eye was prepped and draped in the usual sterile fashion. S terile drape and eyelid speculum were placed. Again, topical 1/2% Alcaine with epinephrine was given . A paracentesis incision was made at the 3 o'clock position with the No.75 blade. Clear cornea inc ision 2.2 x 2.2-mm was created at the 6 o'clock position starting at the anterior limbus using the 2. 2-mm keratome. The anterior chamber was irrigated with 0.4 mL of 1% non-preservative intracameral li docaine and filled with DisCoVisc. A capsulorrhexis was completed using the cystotome and the Utrata forceps. Hydrodissection was performed with balanced salt solution. The lens nucleus was removed wi th the Phacoemulsification handpiece without incident. Cortex was removed with the irrigation-aspira tion handpiece. The capsular bag was re-inflated using DisCoVisc and an [id number] 16.5 implant was inse rted with the shooter. The irrigation-aspiration handpiece was used to remove all residual DisCoVisc . The eye was refilled with balanced salt solution and the wound checked and found to be watertight. Topical Maxitrol drops were given. [id number]/[facility] #: [id number]
== END 2018-03-30 11:08 | disposition home or self-care (01) ==
LOC: OREAST 08:31
PROVIDERS: ATTEND Specialist
DX: H25.812 Combined forms of age-related cataract, left eye (principal); H35.3131 Nonexudative age-related macular degeneration, bilateral, early dry stage; H16.223 Keratoconjunctivitis sicca, not specified as Sjogren's, bilateral; I48.2 Chronic atrial fibrillation; I25.10 Atherosclerotic heart disease of native coronary artery without angina pectoris; I49.3 Ventricular premature depolarization; I42.2 Other hypertrophic cardiomyopathy; I47.2 Ventricular tachycardia; Z87.891 Personal history of nicotine dependence; I08.3 Combined rheumatic disorders of mitral, aortic and tricuspid valves; Z79.01 Long term (current) use of anticoagulants; F41.8 Other specified anxiety disorders; J44.9 Chronic obstructive pulmonary disease, unspecified; E03.9 Hypothyroidism, unspecified
CPT/HCPCS: A9270-GY; J2250; V2632